=== PATIENT | male | born 1935 | race Caucasian/White ===

== ENCOUNTER 2017-03-03 03:40 | Inpatient (IN) | payer BC ==
[~2017-03-03] VITALS: Ht 172.7 cm; Wt 86.9 kg
[~2017-03-03 03:40] MED LIST: ASPI81TA3 PO; CARV12.579 PO; FURO40TA4 PO; HYDR-906 PO; METF1000 PO; POTA20TA PO; SIMV40TA7 PO
[2017-03-03] MEDS ORDERED: ASPIRIN 81 MG TAB PO ONE (05:00)
[2017-03-03] MEDS ORDERED: SOD CHLORIDE 0.9% 500 ML IV ONE (05:00)
[2017-03-03] MEDS ORDERED: LIDOCAINE/MYLANTA 40 ML BTL PO ONE (05:00)
--- NOTE | 2017-03-03 05:52 | RADRPT ---
PROCEDURE: XR Chest. CLINICAL INDICATION: Chest pain TECHNIQUE: A single AP view of the chest was obtained. COMPARISON: CR CHEST 01/01/2016; CR CHEST 10/05/2013; CR CHEST 09/04/2012; CR CHEST 08/31/2012 FINDINGS: There is a left subclavian single lead pacemaker AICD. Lung volumes are low with compressive changes and crowding of the central pulmonary vascular marking s with bibasilar atelectasis . No focal airspace opacity, pleural effusion or pneumothorax is seen. The cardiomediastinal silhouette is moderately enlarged. Calcifications are seen within the aortic arch. The osseous structures are unremarkable. IMPRESSION: 1. Low lung volumes with compressive changes and bibasilar atelectasis. No significant interval luis eduardo nge. 2. Moderate cardiomegaly and aortic atherosclerosis. 3. Left subclavian single lead pacemaker AICD. RPTAT: HH .Safia Molina MD, MD Date Time Electronically viewed and signed by .Safia Molina MD, on 03/03/2017 05:51 .G/
[2017-03-03 06:08] LABS: CALCIUM 9.6 mg/dl (8.4-10.2); CREATININE 1.34 mg/dl (0.61-1.24); POTASSIUM 4.6 mmol/L (3.5-5.1)
[2017-03-03 06:30] VITALS: TEMP 98.1
[2017-03-03] MEDS ORDERED: NITROGLYCERIN 2% 1 GM OINT PKT TD STA (06:39)
[2017-03-03] MEDS ORDERED: NITROGLYCERIN (SL) 0.4 MG TAB SL PRN (07:00)
[2017-03-03] MEDS ORDERED: INSU100I33 SC (07:07)
[2017-03-03] MEDS ORDERED: TAMS-14 PO (07:07)
[2017-03-03 07:31] LABS: BASOPHILS % 0.4 % (0.0-2.0); EOSINOPHILS # 0.3 10^3/ul (0.0-0.5); HEMATOCRIT 42.9 % (42.0-52.0); HEMOGLOBIN 14.2 g/dl (14.0-18.0); LYMPHOCYTES # 2.2 10^3/ul (0.8-2.9); LYMPHOCYTES % 28.1 % (15.0-51.0); MEAN CORPUSCULAR HEMOGLOBIN 29.8 pg (29.0-33.0); MEAN CORPUSCULAR HGB CONC 33.1 g/dl (32.0-37.0); MEAN CORPUSCULAR VOLUME 89.9 fl (82.0-101.0); MONOCYTE # 0.7 10^3/ul (0.3-0.9); MONOCYTES % 8.7 % (0.0-11.0); NEUTROPHIL # 4.6 10^3/ul (1.6-7.5); NEUTROPHILS % 58.5 % (39.0-77.0); PLATELET COUNT 148 10^3/UL (140-415); RED BLOOD COUNT 4.77 10^6/ul (4.70-6.10); RED CELL DISTRIBUTION WIDTH 12.4 % (11.5-14.5); WHITE BLOOD COUNT 7.8 10^3/ul (4.8-10.8)
[2017-03-03] MEDS ORDERED: ACETAMINOPHEN 325 MG TAB PO PRN (08:00)
[2017-03-03] MEDS ORDERED: ONDANSETRON 4 MG INJ IV PRN (08:00)
--- NOTE | 2017-03-03 09:02 | ERD ---
ER Documentation Chief Complaint Chief Complaint LEG CRAMPS/ABD PAIN X 2 DAYS, NOSE BLEEDING X 1 HR AGO HPI Patient is an 81-year-old male with coronary disease, hypertension, and diabetes who presents with chest pain and leg cramping. He has had chest pain on the left side for the past 3 days which comes and goes. He has also had bilateral leg cramping. He had a nosebleed that came this morning. His primary doctor is Dr. Johansen and his sole stapler welt is Dr. Self. ROS All systems reviewed and are negative except as per history of present illness. Medications Home Meds Active Scripts Hydrocodone/Acetaminophen ([place] 5-325 Tablet) 1 Each Tablet, 1 EACH PO Q6H, # 20 TAB Prov:YVAN TOLENTINO NP 01/03/16 Aspirin (Aspirin) 81 Mg Chew, 81 MG PO DAILY for 30 Days, #30 TAB Prov:JIM LI MD 01/02/16 Reported Medications Insulin Glargine,Hum.rec.anlog (Basaglar Kwikpen U-100) 100 Unit/1 Ml Insuln.pen , 36 UNIT SC DAILY 03/03/17 Tamsulosin Hcl* (Flomax*) 0.4 Mg Cap.er.24h, 0.4 MG PO HS, CAP 03/03/17 Potassium Chloride (K-Tab ER) 20 Meq Tablet.er, 20 MEQ PO BID, TAB 01/02/16 Simvastatin (Simvastatin) 40 Mg Tablet, 40 MG PO QHS, #30 TAB 01/02/16 Furosemide* (Furosemide*) 40 Mg Tablet, 40 MG PO BID, TAB 10/05/13 Carvedilol* (Carvedilol*) 12.5 Mg Tablet, 12.5 MG PO BID 01/12/12 Metformin Hcl* (Metformin Hcl*) 1,000 Mg Tablet, 1000 MG PO BID 01/12/12 Allergies Allergies: Coded Allergies: No Known Drug Allergies (Verified Allergy, Mild, 01/01/16) PMhx/Soc History of Surgery: Yes (cataract surgery, OU) Anesthesia Reaction: No Hx Neurological Disorder: No Hx Respiratory Disorders: No Hx Cardiac Disorders: Yes (HTN, heart attack w/ stent placement in 1999) Hx Psychiatric Problems: No Hx Miscellaneous Medical Probl: Yes (DM, gallstones) Hx Alcohol Use: No Hx Substance Use: No Hx Tobacco Use: Yes Smoking Status: Former smoker FmHx Family History: coronary disease Physical Exam Vitals Vital Signs Date Time Temp Pulse Resp B/P Pulse Ox O2 Delivery O2 Flow Rate FiO2 03/03/17 08:30 67 12 157/77 100 Room Air 03/03/17 06:30 98.1 11 159/84 100 Room Air 03/03/17 04:40 98.0 73 15 165/77 99 Room Air 03/03/17 03:44 97.5 78 20 192/77 100 Physical Exam Const: No acute distress Head: Atraumatic Eyes: Normal Conjunctiva ENT: Dried blood in the left nares Neck: Full range of motion..~ No meningismus. Resp: Clear to auscultation bilaterally Cardio: Regular rate and rhythm, no murmurs Abd: Soft, non tender, non distended. Normal bowel sounds Skin: No petechiae or rashes Back: No midline or flank tenderness Ext: No cyanosis, or edema Neur: Awake and alert Psych: Normal Mood and Affect Result Diagram: 03/03/17 0503 03/03/17 0503 Results 24 hrs Laboratory Tests Test 03/03/17 05:03 White Blood Count 7.810^3/ul Red Blood Count 4.7710^6/ul Hemoglobin 14.2g/dl Hematocrit 42.9% Mean Corpuscular Volume 89.9fl Mean Corpuscular Hemoglobin 29.8pg Mean Corpuscular Hemoglobin Concent 33.1g/dl Red Cell Distribution Width 12.4% Platelet Count 90950^3/UL Mean Platelet Volume 11.0fl Neutrophils % 58.5% Lymphocytes % 28.1% Monocytes % 8.7% Eosinophils % 4.0% Basophils % 0.4% Nucleated Red Blood Cells % 0.0/100WBC Neutrophils # 4.610^3/ul Lymphocytes # 2.210^3/ul Monocytes # 0.710^3/ul Eosinophils # 0.310^3/ul Basophils # 0.010^3/ul Nucleated Red Blood Cells # 0.010^3/ul Sodium Level 139mmol/L Potassium Level 4.6mmol/L Chloride Level 103mmol/L Carbon Dioxide Level 26mmol/L Anion Gap 15 Blood Urea Nitrogen 33mg/dl Creatinine 1.34mg/dl Glucose Level 260mg/dl Calcium Level 9.6mg/dl Troponin I 0.032ng/ml Current Medications Medications (Trade) Dose Ordered Sig/Shannan Route PRN Reason Start Time Stop Time Status Last Admin Dose Admin Aspirin (Aspirin) 324 mg ONCE ONCE PO 03/03/17 05:00 03/03/17 05:05 DC 03/03/17 05:18 Miscellaneous Medication 40 ml 40 ml ONCE ONCE PO 03/03/17 05:00 03/03/17 05:05 DC 03/03/17 05:18 Sodium Chloride (NS) 500 ml @ 500 mls/hr Q1H ONCE IV 03/03/17 05:00 03/03/17 05:59 DC 03/03/17 05:19 Nitroglycerin (Nitroglycerin 2% Oint) 1 inch ONCE STAT TD 03/03/17 06:39 03/03/17 06:40 DC 03/03/17 07:03 Nitroglycerin (Nitroglycerin (Sl Tab) 0.4 Mg) 1 tab Q5M UP TO 3 DOSES PRN SL CHEST PAIN 03/03/17 07:00 03/03/17 07:03 Ondansetron HCl (Zofran Inj) 4 mg ER BRIDGE PRN IV NAUSEA AND/OR VOMITING 03/03/17 08:00 03/04/17 07:59 Acetaminophen (Tylenol Tab) 650 mg ER BRIDGE PRN PO MILD PAIN/FEVER 03/03/17 08:00 03/04/17 07:59 Procedures/MDM EKG #1 read by me: Rate/Rhythm: First-degree AV block at a rate of 69 Intervals: Normal Impression: First-degree AV block with diffuse ST depression EKG #2 read by me: Rate/Rhythm: First-degree AV block at a rate of 72 Intervals: Normal Impression: First-degree AV block with diffuse ST depressions Chest x-ray negative for pneumonia or pneumothorax per radiology Patient is a 81-year-old male presents with chest pain and nosebleed. His nosebleed is stopped on its own. Given his age and risk factors though I am concerned about acute coronary syndrome. He has diffuse ST depressions on EKGs. I see no signs of STEMI at this time. The patient was given aspirin and nitroglycerin. He will be admitted to the care of Dr. Chowdary from the panel team to a telemetry bed. I doubt pneumonia, pneumothorax, pulmonary embolism, or aortic dissection at this time. Departure Diagnosis: Primary Impression: Chest pain Chest pain type: unspecified Qualified Code: R07.9 - Chest pain, unspecified type Additional Impression: Epistaxis Condition: INDERJIT Bates MD Mar 03, 2017 09:02
[2017-03-03 11:49] LABS: TROPONIN-I 0.018 ng/ml (0.00-0.12)
[2017-03-03 11:51] LABS: CK-MB 1.53 ng/ml (0.0-2.4)
--- NOTE | 2017-03-03 12:39 | HP ---
Date/Time of Note Date/Time of Note DATE: 03/03/17 TIME: 12:37 Assessment/Plan VTE Prophylaxis VTE Prophylaxis Intervention: LMWH Lines/Catheters IV Catheter Type (from Nrs): Saline Lock Assessment/Plan Assessment/Plan 1. CP r/o ACS 2. DM2: suboptimal control 3. HTN 4. CAD s/p Stent in the past 5. FLAKITA r/o CKD 6. s/p Pacemaker PLAN: Telemetry admission, trend cardiac enzymes, 2d echo if none recently and possible cardiology consult for stress test. check A1C and titrate hypoglycemic meds inhouse for optimal control oxygen and nitroglycerin therapy as needed. Daily aspirin if no allergy or bleeding risk. Get lipid profile, magnesium and TSH levels in am. Further interventions per clinical course provide supportive care HPI/ROS Admit Date/Time Admit Date/Time 03/03/17 Hx of Present Illness This is an 81-year-old male who presents to the emergency room with a 3 day history of intermittent midsternal chest pain.Patient denies fever or cough, He also denies palpitations. He had an episode of nosebleed this morning that has currently resolved. Denies abdominal pain, denies dysuria or hematuria. He does have chronic high blood pressure and diabetes, and is being admitted for ACS rule out. ROS 12 point review if systems was done and pertinent findings are as noted. PMH/Family/Social Past Medical History * htn * dm2 * dyslipidemia * hx of CAD s/p stent Past Surgical History * Cataract * PCI * Pacemaker Family History Significant Family History: no pertinent family hx Social History Alcohol Use: none Smoking Status: Former smoker Drug Use: none Exam/Review of Systems Vital Signs Vitals Vital Signs Date Time Temp Pulse Resp B/P Pulse Ox O2 Delivery O2 Flow Rate FiO2 03/03/17 10:10 66 17 142/77 100 Room Air 03/03/17 06:30 98.1 Exam Constitutional: alert, other (elderly), No distress Head: normocephalic Eyes: PERRL Neck: non-tender, supple Respiratory: clear to auscultation, diminished breath sounds Cardiovascular: regular rate and rhythm, No murmurs/extra sounds Gastrointestinal: bowel sounds, non-tender, soft Extremities: No edema Neurological: No focal weakness Labs Result Diagram: 03/03/17 0503 03/03/17 0503 Procedures Procedures Laboratory Tests Test 03/03/17 05:03 03/03/17 11:01 White Blood Count 7.810^3/ul Red Blood Count 4.7710^6/ul Hemoglobin 14.2g/dl Hematocrit 42.9% Mean Corpuscular Volume 89.9fl Mean Corpuscular Hemoglobin 29.8pg Mean Corpuscular Hemoglobin Concent 33.1g/dl Red Cell Distribution Width 12.4% Platelet Count 24803^3/UL Mean Platelet Volume 11.0fl Neutrophils % 58.5% Lymphocytes % 28.1% Monocytes % 8.7% Eosinophils % 4.0% Basophils % 0.4% Nucleated Red Blood Cells % 0.0/100WBC Neutrophils # 4.610^3/ul Lymphocytes # 2.210^3/ul Monocytes # 0.710^3/ul Eosinophils # 0.310^3/ul Basophils # 0.010^3/ul Nucleated Red Blood Cells # 0.010^3/ul Sodium Level 139mmol/L Potassium Level 4.6mmol/L Chloride Level 103mmol/L Carbon Dioxide Level 26mmol/L Anion Gap 15 Blood Urea Nitrogen 33mg/dl Creatinine 1.34mg/dl Glucose Level 260mg/dl Calcium Level 9.6mg/dl Troponin I 0.032ng/ml 0.018ng/ml Creatine Kinase 45IU/L Creatine Kinase Index 3.4 Creatinine Kinase MB (Mass) 1.53ng/ml Current Medications Medications (Trade) Dose Ordered Sig/Shannan Route PRN Reason Start Time Stop Time Status Last Admin Dose Admin Aspirin (Aspirin) 324 mg ONCE ONCE PO 03/03/17 05:00 03/03/17 05:05 DC 03/03/17 05:18 324 MG Miscellaneous Medication 40 ml 40 ml ONCE ONCE PO 03/03/17 05:00 03/03/17 05:05 DC 03/03/17 05:18 40 ML Sodium Chloride (NS) 500 ml @ 500 mls/hr Q1H ONCE IV 03/03/17 05:00 03/03/17 05:59 DC 03/03/17 05:19 500 MLS/HR Nitroglycerin (Nitroglycerin 2% Oint) 1 inch ONCE STAT TD 03/03/17 06:39 03/03/17 06:40 DC 03/03/17 07:03 1 INCH Nitroglycerin (Nitroglycerin (Sl Tab) 0.4 Mg) 1 tab Q5M UP TO 3 DOSES PRN SL CHEST PAIN 03/03/17 07:00 03/03/17 07:03 1 TAB Ondansetron HCl (Zofran Inj) 4 mg ER BRIDGE PRN IV NAUSEA AND/OR VOMITING 03/03/17 08:00 03/04/17 07:59 Acetaminophen (Tylenol Tab) 650 mg ER BRIDGE PRN PO MILD PAIN/FEVER 03/03/17 08:00 03/04/17 07:59 PROCEDURE: XR Chest. CLINICAL INDICATION: Chest pain TECHNIQUE: A single AP view of the chest was obtained. COMPARISON: CR CHEST 01/01/2016; CR CHEST 10/05/2013; CR CHEST 09/04/2012; CR CHEST 08/31/2012 FINDINGS: There is a left subclavian single lead pacemaker AICD. Lung volumes are low with compressive changes and crowding of the central pulmonary vascular markings with bibasilar atelectasis . No focal airspace opacity, pleural effusion or pneumothorax is seen. The cardiomediastinal silhouette is moderately enlarged. Calcifications are seen within the aortic arch. The osseous structures are unremarkable. IMPRESSION: 1. Low lung volumes with compressive changes and bibasilar atelectasis. No significant interval change. 2. Moderate cardiomegaly and aortic atherosclerosis. 3. Left subclavian single lead pacemaker AICD. RPTAT: HH .Safia Molina MD, MD Date Time Electronically viewed and signed by .Safia Molina MD, MD on 03/03/2017 05 :51 .G/ CC: NATHANAEL GOETZ BOLATITO M. Mar 03, 2017 12:39
[2017-03-03] MEDS ORDERED: GLUCOSE GEL 15 GRAM TUBE PO PRN ×2 (13:00)
[2017-03-03] MEDS ORDERED: GLUCOSE GEL 15 GRAM TUBE BUCCAL PRN (13:00)
[2017-03-03] MEDS ORDERED: GLUCAGON 1 MG INJ IM PRN (13:00)
[2017-03-03] MEDS ORDERED: DEXTROSE 50% 50 ML SYRINGE IV PRN ×2 (13:00)
[2017-03-03 13:36] VITALS: PULSE 76
[2017-03-03 13:39] VITALS: Ht 172.7 cm; Wt 86.9 kg
[2017-03-03 14:30] VITALS: BP 168/70; PULSE 87; RESP 18
[2017-03-03 15:48] VITALS: BP 145/72; RESP 20
[2017-03-03 16:06] VITALS: PULSE 69
--- NOTE | 2017-03-03 17:38 | RADRPT ---
Echocardiogram Report Patient Name: BRITTNEE LUIS Gender: Male Date: 1935 Study Date: 03-Mar-2017 Lime Trimmer: Tylor Constantino [facility] Location: 5551 Ref. Physician: KARISSA CASTRO Quality: Good Procedures: Transthoracic echocardiogram with complete 2D, M-Mode, and doppler examination. Indications: Chest Pain. 2D/M Mode Doppler Measurement Value Normal Ranges Measurement Value Normal Ranges LVIDd 2D 4.9 3.5 - 5.6 cm AV Peak Will 1.2 m/sec LVIDs 2D 3.0 2.1 - 4.1 cm AV Peak PG 5.3 mmHg LVPWd 2D 0.9 0.6 - 1.1 cm LVOT Peak Will 0.9 m/sec IVSd 2D 0.9 0.6 - 1.1 cm LVOT Peak PG 3.1 mmHg AoR Diam 2D 2.7 2.0 - 3.7 cm MV E Peak Will 1.0 m/sec EDV 2D 115.0 cm3 MV A Peak Will 0.9 m/sec ESV 2D 26.4 cm3 MV E/A 1.2 LA Dimen 2D 4.5 2.3 - 4.0 cm MV Decel Time [address] [place] 6 MV E/A 1.2 TR Peak Will 2.6 m/sec TR Peak PG 26.3 mmHg RVSP 34.0 mmHg Findings Left Ventricle: Normal left ventricular cavity size. Normal left ventricular wall thickness. Moderate global left ventricular systolic dysfunction. Ejection fraction is visually estimated at 35 %. Abnormal Diastolic Function. Right Ventricle: Normal right ventricular size. Normal right ventricular systolic function. Left Atrium: There is mild enlargement of left atrium. Right Atrium: The right atrium is normal in size. Mitral Valve: Mitral valve leaflets appear mildly thickened. Mild mitral annular calcification. Trace mitral regurgitation. Aortic Valve: Normal appearance of the aortic valve. No significant aortic stenosis or insufficiency. Tricuspid Valve: Normal appearance of the tricuspid valve. Estimated peak PA systolic pressure 34 mmHg. There is mild to moderate tricuspid regurgitation. Pulmonic Valve: Normal pulmonic valve appearance. Pericardium: Normal pericardium with no significant pericardial effusion. Aorta: Normal aortic root. IVC: Dilated IVC with respiratory collapse consistent with elevated right atrial pressure. Conclusions Normal left ventricular cavity size. Normal left ventricular wall thickness. Moderate global left ventricular systolic dysfunction. Ejection fraction is visually estimated at 35 %. Abnormal Diastolic Function. Mitral valve leaflets appear mildly thickened. Mild mitral annular calcification. Trace mitral regurgitation. Normal appearance of the aortic valve. No significant aortic stenosis or insufficiency. Normal appearance of the tricuspid valve. Estimated peak PA systolic pressure 34 mmHg. There is mild to moderate tricuspid regurgitation. Electronically Signed By: Venkatesh Ward 03-Mar-2017 17:37:37 -0800 Patient Name: BRITTNEE LUIS Study Date: 03-Mar-[id number]
[2017-03-03 17:47] LABS: TROPONIN-I 0.02 ng/ml (0.00-0.12)
[2017-03-03 17:57] LABS: CK-MB 1.34 ng/ml (0.0-2.4)
[2017-03-03] MEDS: INSULIN ASPART [NOVOLOG] 3 ML PEN SC SCH ×2 (18:28→20:36)
[2017-03-03 20:10] VITALS: BP 176/80; PULSE 67; RESP 20
[2017-03-03 20:21] LABS: BARBITURATES Negative (NEGATIVE); BENZODIAZEPINES Negative (NEGATIVE); CANNABINOIDS Negative (NEGATIVE); COCAINE Negative (NEGATIVE); OPIATES Negative (NEGATIVE)
[2017-03-04] VITALS (13 sets, daily range): BP systolic 120–176; BP diastolic 60–87; PULSE 54–75; RESP 16–20
[2017-03-04] MEDS: ACCU-CHEK XX SCH (02:00)
[2017-03-04 08:02] LABS: BASOPHILS % 0.5 % (0.0-2.0); EOSINOPHILS # 0.3 10^3/ul (0.0-0.5); EOSINOPHILS % 4.5 % (0.0-7.0); HEMOGLOBIN 14.1 g/dl (14.0-18.0); LYMPHOCYTES # 2.3 10^3/ul (0.8-2.9); LYMPHOCYTES % 34.9 % (15.0-51.0); MEAN CORPUSCULAR HGB CONC 32.8 g/dl (32.0-37.0); MEAN CORPUSCULAR VOLUME 91.5 fl (82.0-101.0); MEAN PLATELET VOLUME 10.6 fl (7.4-10.4); MONOCYTE # 0.7 10^3/ul (0.3-0.9); MONOCYTES % 9.8 % (0.0-11.0); NEUTROPHIL # 3.3 10^3/ul (1.6-7.5); NEUTROPHILS % 50.1 % (39.0-77.0); PLATELET COUNT 143 10^3/UL (140-415); RED CELL DISTRIBUTION WIDTH 12.6 % (11.5-14.5); WHITE BLOOD COUNT 6.6 10^3/ul (4.8-10.8)
[2017-03-04] MEDS: INSULIN ASPART [NOVOLOG] 3 ML PEN SC SCH ×4 (08:06→20:25)
[2017-03-04] MEDS ORDERED: hydrALAzine 20 MG INJ IV ONE (08:30)
[2017-03-04] MEDS ORDERED: ACETAMINOPHEN 325 MG TAB PO ONE (08:30)
[2017-03-04 08:34] LABS: ALBUMIN 3.8 g/dl (3.3-4.9); BILIRUBIN,INDIRECT 1.3 mg/dl (0-1.1); BILIRUBIN,TOTAL 1.3 mg/dl (0.2-1.3); CALCIUM 9.8 mg/dl (8.4-10.2); CREATININE 1.35 mg/dl (0.61-1.24); MAGNESIUM 2.1 mg/dl (1.7-2.5); POTASSIUM 4.4 mmol/L (3.5-5.1); TOTAL PROTEIN 7.3 g/dl (6.1-8.1)
[2017-03-04] MEDS ORDERED: INFLUENZA VIRUS VACCINE 0.5 ML SYG IM* ONE (10:00)
[2017-03-04] MEDS: INSULIN GLARGINE [LANtus] 3 ML PEN SC SCH (12:29)
--- NOTE | 2017-03-04 13:30 | PN ---
Date/Time of Note Date/Time of Note DATE: 03/04/17 TIME: 13:29 Assessment/Plan VTE Prophylaxis VTE Prophylaxis Intervention: LMWH Lines/Catheters IV Catheter Type (from Nrsg): Saline Lock Assessment/Plan Assessment/Plan 1. CP : ACS ruled out, CP resolved 2. DM2: suboptimal control 3. HTN: suboptimal control 4. CAD s/p Stent in the past 5. FLAKITA r/o CKD 6. s/p Pacemaker 7. Chronic Cardiomyopathy likely ischemic, EF 35% PLAN: Continue current regimen, await cardiology official recommendations, resume and titrate home insulin as necessary Resume home antihypertensives Continue supportive care Further interventions per clinical course Subjective 24 Hr Interval Summary Free Text/Dictation Patient looks and feels much better than yesterday Exam/Review of Systems Vital Signs Vitals Vital Signs Date Time Temp Pulse Resp B/P Pulse Ox O2 Delivery O2 Flow Rate FiO2 03/04/17 12:15 69 03/04/17 11:24 98.0 16 148/68 97 03/03/17 14:30 Room Air Intake and Output 03/03/17 03/03/17 03/04/17 15:00 23:00 07:00 Intake Total 500 ml 250 ml 500 ml Balance 500 ml 250 ml 500 ml Exam Constitutional: alert, oriented Head: normocephalic Eyes: PERRL Respiratory: diminished breath sounds Cardiovascular: murmurs/extra sounds, regular rate and rhythm Gastrointestinal: bowel sounds, non-tender, soft Extremities: No edema Neurological: lethargic Results Result Diagram: 03/04/17 0743 03/04/17 0743 Results 24 hrs Laboratory Tests Test 03/03/17 16:52 03/03/17 17:00 03/03/17 20:24 03/04/17 02:34 Bedside Glucose 210 314 H 209 Creatine Kinase 47 Creatine Kinase Index 2.9 Creatinine Kinase MB (Mass) 1.34 Troponin I 0.020 Urine Opiates Screen Negative Urine Barbiturates Negative Urine Amphetamines Screen Negative Urine Benzodiazepines Screen Negative Urine Cocaine Screen Negative Urine Cannabinoids Negative Test 03/04/17 07:43 03/04/17 07:51 03/04/17 12:21 White Blood Count 6.6 Red Blood Count 4.70 Hemoglobin 14.1 Hematocrit 43.0 Mean Corpuscular Volume 91.5 Mean Corpuscular Hemoglobin 30.0 Mean Corpuscular Hemoglobin Concent 32.8 Red Cell Distribution Width 12.6 Platelet Count 143 Mean Platelet Volume 10.6 H Neutrophils % 50.1 Lymphocytes % 34.9 Monocytes % 9.8 Eosinophils % 4.5 Basophils % 0.5 Nucleated Red Blood Cells % 0.0 Neutrophils # 3.3 Lymphocytes # 2.3 Monocytes # 0.7 Eosinophils # 0.3 Basophils # 0.0 Nucleated Red Blood Cells # 0.0 Sodium Level 143 Potassium Level 4.4 Chloride Level 105 Carbon Dioxide Level 29 Anion Gap 13 Blood Urea Nitrogen 26 H Creatinine 1.35 H Glucose Level 152 # Hemoglobin A1c 13.1 H Calcium Level 9.8 Magnesium Level 2.1 Total Bilirubin 1.3 Direct Bilirubin 0.00 Indirect Bilirubin 1.3 H Aspartate Amino Transf (AST/SGOT) 34 Alanine Aminotransferase (ALT/SGPT) 64 Alkaline Phosphatase 76 Total Protein 7.3 Albumin 3.8 Bedside Glucose 151 336 H Medications Medications Current Medications Diagnostic Test (Pha) (Accu-Chek) 1 ea 02 XX ; Start 03/04/17 at 02:00 Miscellaneous Information 1 ea NOTE XX ; Start 03/03/17 at 13:00 Glucose (Glutose) 15 gm Q15M PRN PO DECREASED GLUCOSE; Start 03/03/17 at 13:00 Glucose (Glutose) 22.5 gm Q15M PRN PO DECREASED GLUCOSE; Start 03/03/17 at 13: 00 Dextrose (D50w Syringe) 25 ml Q15M PRN IV DECREASED GLUCOSE; Start 03/03/17 at 13:00 Dextrose (D50w Syringe) 50 ml Q15M PRN IV DECREASED GLUCOSE; Start 03/03/17 at 13:00 Glucagon (Glucagen) 1 mg Q15M PRN IM DECREASED GLUCOSE; Start 03/03/17 at 13: 00 Glucose (Glutose) 15 gm Q15M PRN BUCCAL DECREASED GLUCOSE; Start 03/03/17 at 13:00 Carvedilol (Coreg) 12.5 mg BID PO Last administered on 03/04/17 12:27; Admin Dose 12.5 MG; Start 03/04/17 at 11:30 Insulin Glargine (Lantus) 22 unit DAILY SC Last administered on 03/04/17 12: 29; Admin Dose 22 UNIT; Start 03/04/17 at 11:30 Tamsulosin HCl (Flomax) 0.4 mg HS PO ; Start 03/04/17 at 21:00 Hydralazine HCl (Apresoline) 10 mg Q6H PRN IV SBP>160MMHG; Start 03/04/17 at 11:30 Procedures Procedures Echocardiogram Report Patient Name: BRITTNEE LUIS Gender: Male Date: 1935 Study Date: 03-Mar-2017 Paper Grader: Tylor Constantino [facility]CS Location: [id number] Ref. Physician: KARISSA CASTRO Quality: Good Procedures: Transthoracic echocardiogram with complete 2D, M-Mode, and doppler examination. Indications: Chest Pain. 2D/M Mode Doppler Measurement Value Normal Ranges Measurement Value Normal Ranges LVIDd 2D 4.9 3.5 - 5.6 cm AV Peak Will 1.2 m/sec LVIDs 2D 3.0 2.1 - 4.1 cm AV Peak PG 5.3 mmHg LVPWd 2D 0.9 0.6 - 1.1 cm LVOT Peak Will 0.9 m/sec IVSd 2D 0.9 0.6 - 1.1 cm LVOT Peak PG 3.1 mmHg AoR Diam 2D 2.7 2.0 - 3.7 cm MV E Peak Will 1.0 m/sec EDV 2D 115.0 cm3 MV A Peak Will 0.9 m/sec ESV 2D 26.4 cm3 MV E/A 1.2 LA Dimen 2D 4.5 2.3 - 4.0 cm MV Decel Time 175 msec MV Decel [place] 6 MV E/A 1.2 TR Peak Will 2.6 m/sec TR Peak PG 26.3 mmHg RVSP 34.0 mmHg Findings Left Ventricle: Normal left ventricular cavity size. Normal left ventricular wall thickness. Moderate global left ventricular systolic dysfunction. Ejection fraction is visually estimated at 35 %. Abnormal Diastolic Function. Right Ventricle: Normal right ventricular size. Normal right ventricular systolic function. Left Atrium: There is mild enlargement of left atrium. Right Atrium: The right atrium is normal in size. Mitral Valve: Mitral valve leaflets appear mildly thickened. Mild mitral annular calcification. Trace mitral regurgitation. Aortic Valve: Normal appearance of the aortic valve. No significant aortic stenosis or insufficiency. Tricuspid Valve: Normal appearance of the tricuspid valve. Estimated peak PA systolic pressure 34 mmHg. There is mild to moderate tricuspid regurgitation. Pulmonic Valve: Normal pulmonic valve appearance. Pericardium: Normal pericardium with no significant pericardial effusion. Aorta: Normal aortic root. IVC: Dilated IVC with respiratory collapse consistent with elevated right atrial pressure. Conclusions Normal left ventricular cavity size. Normal left ventricular wall thickness. Moderate global left ventricular systolic dysfunction. Ejection fraction is visually estimated at 35 %. Abnormal Diastolic Function. Mitral valve leaflets appear mildly thickened. Mild mitral annular calcification. Trace mitral regurgitation. Normal appearance of the aortic valve. No significant aortic stenosis or insufficiency. Normal appearance of the tricuspid valve. Estimated peak PA systolic pressure 34 mmHg. There is mild to moderate tricuspid regurgitation. Electronically Signed By: Venkatesh Ward 03-Mar-2017 17:37:37 -0800 Patient Name: BRITTNEE LUSI Study Date: 03-Mar-[id number] KARISSA CASTRO Mar 04, 2017 13:30
[2017-03-04] MEDS: TAMSULOSIN (SR) 0.4 MG CAP PO SCH (20:17)
[2017-03-04] MEDS ORDERED: ZOLPIDEM 5 MG TAB PO ONE (22:30)
[2017-03-04] MEDS: GUAIFENESIN 20 MG/ML 5ML CUP PO PRN (23:37)
[2017-03-04] MEDS: hydrALAzine 20 MG INJ IV PRN (23:44)
[2017-03-05] VITALS (13 sets, daily range): BP systolic 111–178; BP diastolic 54–94; PULSE 75–93; RESP 18
[2017-03-05] MEDS: ACCU-CHEK XX SCH (02:55)
[2017-03-05 07:53] LABS: CALCIUM 9.7 mg/dl (8.4-10.2); CREATININE 1.18 mg/dl (0.61-1.24); POTASSIUM 4.3 mmol/L (3.5-5.1)
[2017-03-05 08:01] LABS: BASOPHILS % 0.3 % (0.0-2.0); EOSINOPHILS # 0.2 10^3/ul (0.0-0.5); EOSINOPHILS % 2.7 % (0.0-7.0); HEMATOCRIT 41.9 % (42.0-52.0); HEMOGLOBIN 14.1 g/dl (14.0-18.0); LYMPHOCYTES # 1.2 10^3/ul (0.8-2.9); LYMPHOCYTES % 16.6 % (15.0-51.0); MEAN CORPUSCULAR HEMOGLOBIN 30.3 pg (29.0-33.0); MEAN CORPUSCULAR HGB CONC 33.7 g/dl (32.0-37.0); MEAN CORPUSCULAR VOLUME 90.1 fl (82.0-101.0); MEAN PLATELET VOLUME 10.5 fl (7.4-10.4); MONOCYTE # 0.7 10^3/ul (0.3-0.9); MONOCYTES % 9.3 % (0.0-11.0); NEUTROPHIL # 5.3 10^3/ul (1.6-7.5); NEUTROPHILS % 70.8 % (39.0-77.0); PLATELET COUNT 135 10^3/UL (140-415); RED BLOOD COUNT 4.65 10^6/ul (4.70-6.10); RED CELL DISTRIBUTION WIDTH 12.7 % (11.5-14.5); WHITE BLOOD COUNT 7.5 10^3/ul (4.8-10.8)
[2017-03-05] MEDS: GUAIFENESIN 20 MG/ML 5ML CUP PO PRN ×3 (08:12→21:39)
[2017-03-05] MEDS: INSULIN GLARGINE [LANtus] 3 ML PEN SC SCH (08:14)
[2017-03-05] MEDS: INSULIN ASPART [NOVOLOG] 3 ML PEN SC SCH ×4 (08:15→20:33)
--- NOTE | 2017-03-05 12:27 | CONS ---
Date/Time of Note Date/Time of Note DATE: 03/05/17 TIME: 12:16 Assessment/Plan Assessment/Plan Additional Assessment/Plan Abdominal and chest discomfort Cough with subjective fevers and chills Cardiomyopathy with ejection fraction 35% with history of AICD CAD with distant history of PCI Hypertension Tricuspid valve regurgitation Renal dysfunction Paroxysmal atrial fibrillation, previously on Eliquis -Patient with symptoms of abdominal discomfort which she describes as sharp discomfort at times and bloating like sensation which resolved after medication in the emergency room. He thinks it was a liquid medication, and review of orders, it appears this was the GI cocktail. He denies any further symptoms of abdominal discomfort or chest discomfort but complaining of cough. Serial cardiac enzymes have remained negative, echocardiogram with no significant change. Patient's symptoms are not with exertion or activity and have since resolved. Patient main complaint currently is his cough. Furthermore, patient is on Eliquis and I assume this has been held secondary to nosebleed. Given no further bleeding, would restart if no contraindication. Consultation Date/Type/Reason Admit Date/Time 03/03/17 Type of Consultation: cv Reason for Consultation Cardiac evaluation Hx of Present Illness This is an 81-year-old male past medical history of coronary artery disease with PCI many years ago, cardia myopathy with history of AICD, paroxysmal atrial fibrillation on anticoagulation who presents with multiple complaints. Patient complaining of a chest discomfort. When I asked him to point where, he points to his mid abdomen region. This discomfort feels stinging like as well as bloated and gassy. He denies any shortness of breath associated with this. He does also complain of nonproductive cough over the past 2 days and intermittent chills and subjective fevers. He also complains of nosebleed at the time of his admission. Exertion did not improve or worsen his abdominal symptoms. He denies any dizziness or lightheadedness, palpitations. He denies any further abdominal discomfort since his admission. He states he was given a medication in the emergency room and since then, has had no further symptoms. His cough though was still present. 12 point review of systems was performed with all pertinent positives and negatives mentioned above and all else is negative Past Medical History Paroxysmal atrial fibrillation Medical History: congestive heart failure, coronary artery disease, high cholesterol, hypertension Past Surgical History AICD Past Surgical Hx: angioplasty Family History Significant Family History: no pertinent family hx Social History Alcohol Use: none Smoking Status: Never smoker Drug Use: none Exam/Review of Systems Vital Signs Vitals Vital Signs Date Time Temp Pulse Resp B/P Pulse Ox O2 Delivery O2 Flow Rate FiO2 03/05/17 11:39 98.5 92 18 176/81 100 03/03/17 14:30 Room Air Intake and Output 03/04/17 03/04/17 03/05/17 14:59 22:59 06:59 Intake Total 850 ml 500 ml Output Total 3 ml Balance 847 ml 500 ml Exam Coughing throughout examination, no dyspnea with speaking Constitutional: alert, oriented, well developed Head: normocephalic Respiratory: other (Coarse breath sounds bilaterally, no wheezing) Cardiovascular: other (S1-S2 heard), regular rate and rhythm Gastrointestinal: bowel sounds, soft, tender (In the epigastric region) Extremities: edema (Trace) Results Result Diagram: 03/05/17 0638 03/05/17 0629 Results 24 hrs Laboratory Tests Test 03/04/17 12:21 03/04/17 18:15 03/04/17 20:21 03/05/17 02:35 Bedside Glucose 336 H 312 H 262 H 118 Test 03/05/17 06:29 03/05/17 06:38 03/05/17 08:04 03/05/17 11:49 Sodium Level 139 Potassium Level 4.3 Chloride Level 106 Carbon Dioxide Level 23 Anion Gap 14 Blood Urea Nitrogen 24 H Creatinine 1.18 Glucose Level 150 Calcium Level 9.7 White Blood Count 7.5 Red Blood Count 4.65 L Hemoglobin 14.1 Hematocrit 41.9 L Mean Corpuscular Volume 90.1 Mean Corpuscular Hemoglobin 30.3 Mean Corpuscular Hemoglobin Concent 33.7 Red Cell Distribution Width 12.7 Platelet Count 135 L Mean Platelet Volume 10.5 H Neutrophils % 70.8 Lymphocytes % 16.6 Monocytes % 9.3 Eosinophils % 2.7 Basophils % 0.3 Nucleated Red Blood Cells % 0.0 Neutrophils # 5.3 Lymphocytes # 1.2 Monocytes # 0.7 Eosinophils # 0.2 Basophils # 0.0 Nucleated Red Blood Cells # 0.0 Bedside Glucose 154 236 H Medications Medications Current Medications Diagnostic Test (Pha) (Accu-Chek) 1 ea 02 XX Last administered on 03/05/17t 02 :55; Admin Dose 1 EA; Start 03/04/17 at 02:00 Miscellaneous Information 1 ea NOTE XX ; Start 03/03/17 at 13:00 Glucose (Glutose) 15 gm Q15M PRN PO DECREASED GLUCOSE; Start 03/03/17 at 13:00 Glucose (Glutose) 22.5 gm Q15M PRN PO DECREASED GLUCOSE; Start 03/03/17 at 13: 00 Dextrose (D50w Syringe) 25 ml Q15M PRN IV DECREASED GLUCOSE; Start 03/03/17 at 13:00 Dextrose (D50w Syringe) 50 ml Q15M PRN IV DECREASED GLUCOSE; Start 03/03/17 at 13:00 Glucagon (Glucagen) 1 mg Q15M PRN IM DECREASED GLUCOSE; Start 03/03/17 at 13: 00 Glucose (Glutose) 15 gm Q15M PRN BUCCAL DECREASED GLUCOSE; Start 03/03/17 at 13:00 Carvedilol (Coreg) 12.5 mg BID PO Last administered on 03/05/17 08:13; Admin Dose 12.5 MG; Start 03/04/17 at 11:30 Insulin Glargine (Lantus) 22 unit DAILY SC Last administered on 03/05/17 08: 14; Admin Dose 22 UNIT; Start 03/04/17 at 11:30 Tamsulosin HCl (Flomax) 0.4 mg HS PO Last administered on 03/04/17 20:17; Admin Dose 0.4 MG; Start 03/04/17 at 21:00 Hydralazine HCl (Apresoline) 10 mg Q6H PRN IV SBP>160MMHG Last administered on 03/04/17 23:44; Admin Dose 10 MG; Start 03/04/17 at 11:30 Guaifenesin (Robitussin Liquid Cup) 300 mg Q6H PRN PO COUGH Last administered on 03/05/17 08:12; Admin Dose 300 MG; Start 03/04/17 at 22:30 Procedures Procedures ECG sinus rhythm at 72 bpm, first-degree AV block with OR interval 290 ms, left ventricular hypertrophy, inferior Q waves, nonspecific ST abnormalities Marcin Mchugh DO Mar 05, 2017 12:26
[2017-03-05] MEDS ORDERED: ALBUTEROL 0.083% (NEB) 2.5 MG/3 ML AMP HHN STA (12:38)
--- NOTE | 2017-03-05 13:55 | PN ---
Date/Time of Note Date/Time of Note DATE: 03/05/17 TIME: 13:48 Assessment/Plan VTE Prophylaxis VTE Prophylaxis Intervention: other (eliquis) Lines/Catheters IV Catheter Type (from Nrsg): Saline Lock Assessment/Plan Assessment/Plan 1. CP : ACS ruled out, CP resolved 2. DM2: Improved control 3. HTN: Still suboptimal control 4. CAD s/p Stent in the past 5. FLAKITA : resolved 6. s/p AICD 7. Chronic Cardiomyopathy likely ischemic, EF 35% 8. New cough with subjective fevers and chills 9. Paroxysmal atrial fibrillation, on Eliquis s/p transient nose bleed, now resolved PLAN: Will give breathing treatments for cough, abx for bronchitis, Add 2nd antihypertensive and increase dose of coreg antitussives Continue supportive care Further interventions per clinical course Subjective 24 Hr Interval Summary Free Text/Dictation coughing a lot. no more epigastric pain. Exam/Review of Systems Vital Signs Vitals Vital Signs Date Time Temp Pulse Resp B/P Pulse Ox O2 Delivery O2 Flow Rate FiO2 03/05/17 12:55 89 03/05/17 11:39 98.5 18 176/81 100 03/03/17 14:30 Room Air Intake and Output 03/04/17 03/04/17 03/05/17 15:00 23:00 07:00 Intake Total 850 ml 500 ml Output Total 3 ml Balance 847 ml 500 ml Exam Constitutional: alert, other (elderly), anxious Head: normocephalic Eyes: PERRL Neck: non-tender, supple Respiratory: clear to auscultation, diminished breath sounds, seems cough is mainly upper airway. Cardiovascular: regular rate and rhythm, No murmurs/extra sounds Gastrointestinal: bowel sounds, non-tender, soft Extremities: No edema Neurological: No focal weakness Results Result Diagram: 03/05/17 0638 03/05/17 0629 Results 24 hrs Laboratory Tests Test 03/04/17 18:15 03/04/17 20:21 03/05/17 02:35 03/05/17 06:29 Bedside Glucose 312 H 262 H 118 Sodium Level 139 Potassium Level 4.3 Chloride Level 106 Carbon Dioxide Level 23 Anion Gap 14 Blood Urea Nitrogen 24 H Creatinine 1.18 Glucose Level 150 Calcium Level 9.7 Test 03/05/17 06:38 03/05/17 08:04 03/05/17 11:49 White Blood Count 7.5 Red Blood Count 4.65 L Hemoglobin 14.1 Hematocrit 41.9 L Mean Corpuscular Volume 90.1 Mean Corpuscular Hemoglobin 30.3 Mean Corpuscular Hemoglobin Concent 33.7 Red Cell Distribution Width 12.7 Platelet Count 135 L Mean Platelet Volume 10.5 H Neutrophils % 70.8 Lymphocytes % 16.6 Monocytes % 9.3 Eosinophils % 2.7 Basophils % 0.3 Nucleated Red Blood Cells % 0.0 Neutrophils # 5.3 Lymphocytes # 1.2 Monocytes # 0.7 Eosinophils # 0.2 Basophils # 0.0 Nucleated Red Blood Cells # 0.0 Bedside Glucose 154 236 H Medications Medications Current Medications Diagnostic Test (Pha) (Accu-Chek) 1 ea 02 XX Last administered on 03/05/17 02 :55; Admin Dose 1 EA; Start 03/04/17 at 02:00 Miscellaneous Information 1 ea NOTE XX ; Start 03/03/17 at 13:00 Glucose (Glutose) 15 gm Q15M PRN PO DECREASED GLUCOSE; Start 03/03/17 at 13:00 Glucose (Glutose) 22.5 gm Q15M PRN PO DECREASED GLUCOSE; Start 03/03/17 at 13: 00 Dextrose (D50w Syringe) 25 ml Q15M PRN IV DECREASED GLUCOSE; Start 03/03/17 at 13:00 Dextrose (D50w Syringe) 50 ml Q15M PRN IV DECREASED GLUCOSE; Start 03/03/17 at 13:00 Glucagon (Glucagen) 1 mg Q15M PRN IM DECREASED GLUCOSE; Start 03/03/17 at 13: 00 Glucose (Glutose) 15 gm Q15M PRN BUCCAL DECREASED GLUCOSE; Start 03/03/17 at 13:00 Carvedilol (Coreg) 12.5 mg BID PO Last administered on 03/05/17 08:13; Admin Dose 12.5 MG; Start 03/04/17 at 11:30 Insulin Glargine (Lantus) 22 unit DAILY SC Last administered on 03/05/17 08: 14; Admin Dose 22 UNIT; Start 03/04/17 at 11:30 Tamsulosin HCl (Flomax) 0.4 mg HS PO Last administered on 03/04/17 20:17; Admin Dose 0.4 MG; Start 03/04/17 at 21:00 Hydralazine HCl (Apresoline) 10 mg Q6H PRN IV SBP>160MMHG Last administered on 03/04/17 23:44; Admin Dose 10 MG; Start 03/04/17 at 11:30 Guaifenesin (Robitussin Liquid Cup) 300 mg Q6H PRN PO COUGH Last administered on 03/05/17 08:12; Admin Dose 300 MG; Start 03/04/17 at 22:30 Apixaban (Eliquis) 2.5 mg BID PO ; Start 03/05/17 at 21:00 KARISSA CASTRO Mar 05, 2017 13:55
[2017-03-05] MEDS: LISINOPRIL 20 MG TAB PO SCH (15:13)
[2017-03-05] MEDS ORDERED: CEFTRIAXONE 1 GM/50 ML (PMX) 50 ML IVPB ONE (15:30)
[2017-03-05] MEDS ORDERED: AZITHROMYCIN 250 MG TAB PO ONE (15:30)
[2017-03-05] MEDS: hydrALAzine 20 MG INJ IV PRN (16:11)
[2017-03-05] MEDS: ACETAMINOPHEN 325 MG TAB PO PRN (16:11)
--- NOTE | 2017-03-05 16:59 | RADRPT ---
PROCEDURE: Chest radiograph CLINICAL INDICATION: Cough. COMPARISON: Radiograph 01/01/2016. TECHNIQUE: Single frontal chest radiograph. FINDINGS: Motion degrades image quality on the lateral view. Implantable cardioverter defibrillator in the left chest with single lead in the right ventricle. The lungs are clear. No pleural effusion or focal parenchymal opacity. Cardiomegaly. Aortic atherosclerosis. No suspicious bone lesion. IMPRESSION: 1. No acute abnormality. 2. Cardiomegaly. RPTAT: PP Physician Noah Date Time Electronically viewed and signed by Physician Noah on 03/05/2017 16:39 LG/
[2017-03-05] MEDS ORDERED: BISACODYL (EC) 5 MG TAB PO ONE (17:00)
[2017-03-05] MEDS: TAMSULOSIN (SR) 0.4 MG CAP PO SCH (20:29)
[2017-03-05] MEDS: APIXABAN 5 MG TABLET PO SCH (20:29)
[2017-03-06] VITALS (13 sets, daily range): BP systolic 82–154; BP diastolic 48–77; PULSE 64–80; RESP 18–20
[2017-03-06] MEDS: ACETAMINOPHEN 325 MG TAB PO PRN ×3 (00:10→20:37)
[2017-03-06 01:31] LABS: ADD UMIC YES; UR ASCORBIC ACID NEGATIVE (NEGATIVE); UR BILIRUBIN (Dip) NEGATIVE (NEGATIVE); UR BLOOD (Dip) NEGATIVE (NEGATIVE); UR CLARITY CLEAR (CLEAR); UR COLOR YELLOW (YELLOW); UR GLUCOSE (Dip) NEGATIVE (NEGATIVE); UR KETONES (Dip) NEGATIVE (NEGATIVE); UR LEUKOCYTE ESTERASE (Dip) NEGATIVE Leu/ul (NEGATIVE); UR NITRITE (Dip) NEGATIVE (NEGATIVE); UR RBC 1 /HPF (0-5); UR SPECIFIC GRAVITY (Dip) 1.017 (1.003-1.030); UR TOTAL PROTEIN (Dip) 2+ mg/dl (NEGATIVE); UR UROBILINOGEN (Dip) NEGATIVE (NEGATIVE)
[2017-03-06] MEDS: ACCU-CHEK XX SCH (02:00)
[2017-03-06] MEDS: ALBUTEROL/IPRATROPIUM (NEB) 3 ML AMP HHN PRN ×2 (02:28→20:54)
[2017-03-06] MEDS: APIXABAN 5 MG TABLET PO SCH ×2 (08:35→20:35)
[2017-03-06] MEDS: LISINOPRIL 20 MG TAB PO SCH (08:36)
[2017-03-06] MEDS: AZITHROMYCIN 250 MG TAB PO SCH (08:36)
[2017-03-06] MEDS: INSULIN GLARGINE [LANtus] 3 ML PEN SC SCH (08:45)
[2017-03-06] MEDS: INSULIN ASPART [NOVOLOG] 3 ML PEN SC SCH ×6 (08:45→20:37)
[2017-03-06] MEDS: GUAIFENESIN 20 MG/ML 5ML CUP PO PRN ×2 (08:52→22:12)
[2017-03-06 08:57] LABS: BASOPHILS % 0.1 % (0.0-2.0); EOSINOPHILS # 0.1 10^3/ul (0.0-0.5); EOSINOPHILS % 0.6 % (0.0-7.0); HEMATOCRIT 41.9 % (42.0-52.0); HEMOGLOBIN 13.8 g/dl (14.0-18.0); LYMPHOCYTES # 1.8 10^3/ul (0.8-2.9); LYMPHOCYTES % 22.7 % (15.0-51.0); MEAN CORPUSCULAR HEMOGLOBIN 29.9 pg (29.0-33.0); MEAN CORPUSCULAR HGB CONC 32.9 g/dl (32.0-37.0); MEAN CORPUSCULAR VOLUME 90.7 fl (82.0-101.0); MEAN PLATELET VOLUME 10.3 fl (7.4-10.4); MONOCYTE # 0.8 10^3/ul (0.3-0.9); MONOCYTES % 10.6 % (0.0-11.0); NEUTROPHIL # 5.2 10^3/ul (1.6-7.5); NEUTROPHILS % 65.6 % (39.0-77.0); PLATELET COUNT 129 10^3/UL (140-415); RED BLOOD COUNT 4.62 10^6/ul (4.70-6.10); RED CELL DISTRIBUTION WIDTH 13.2 % (11.5-14.5); WHITE BLOOD COUNT 7.9 10^3/ul (4.8-10.8)
[2017-03-06 09:29] LABS: CALCIUM 8.7 mg/dl (8.4-10.2); CREATININE 1.67 mg/dl (0.61-1.24); POTASSIUM 4.5 mmol/L (3.5-5.1)
--- NOTE | 2017-03-06 11:59 | PN ---
Date/Time of Note Date/Time of Note DATE: 03/06/17 TIME: 11:51 Assessment/Plan VTE Prophylaxis VTE Prophylaxis Intervention: other (eliquis) Lines/Catheters IV Catheter Type (from Nrsg): Saline Lock Assessment/Plan Assessment/Plan 1. CP : ACS ruled out, CP resolved 2. DM2: Improved control 3. HTN: controlled 4. CAD s/p Stent in the past 5. CKD 6. s/p AICD 7. Chronic Cardiomyopathy likely ischemic, EF 35% 8. Acute Bronchitis with cough and fever 9. Paroxysmal atrial fibrillation, on Eliquis s/p transient nose bleed, now resolved PLAN: Continue current abx and HTN and DM regimen Still has high BS levels during the day, will add premeal and continue to hold metformin for now Re: cough and fever, CXR clear and urine is not suggestive of a UTI / influenza screen ordered and pending Continue supportive care / renally dose all meds appreciate cardiology consult Further interventions per clinical course Subjective 24 Hr Interval Summary Free Text/Dictation patient developed fever last night Still coughing Exam/Review of Systems Vital Signs Vitals Vital Signs Date Time Temp Pulse Resp B/P Pulse Ox O2 Delivery O2 Flow Rate FiO2 03/06/17 08:11 78 03/06/17 07:47 99.1 18 140/67 97 03/06/17 02:28 21 03/03/17 14:30 Room Air Intake and Output 03/05/17 03/05/17 03/06/17 15:00 23:00 07:00 Intake Total 800 ml 350 ml Balance 800 ml 350 ml Results Result Diagram: 03/06/17 0815 03/06/17 0815 Results 24 hrs Laboratory Tests Test 03/05/17 17:38 03/05/17 18:00 03/05/17 20:26 03/06/17 01:59 Bedside Glucose 142 226 H 136 Urine Color YELLOW Urine Clarity CLEAR Urine pH 5.0 Urine Specific [place] 1.017 Urine Ketones NEGATIVE Urine Nitrite NEGATIVE Urine Bilirubin NEGATIVE Urine Urobilinogen NEGATIVE Urine Leukocyte Esterase NEGATIVE Urine Microscopic RBC 1 Urine Microscopic WBC 0 Urine Hemoglobin NEGATIVE Urine Glucose NEGATIVE Urine Total Protein 2+ H Test 03/06/17 07:46 03/06/17 08:15 Bedside Glucose 144 White Blood Count 7.9 Red Blood Count 4.62 L Hemoglobin 13.8 L Hematocrit 41.9 L Mean Corpuscular Volume 90.7 Mean Corpuscular Hemoglobin 29.9 Mean Corpuscular Hemoglobin Concent 32.9 Red Cell Distribution Width 13.2 Platelet Count 129 L Mean Platelet Volume 10.3 Neutrophils % 65.6 Lymphocytes % 22.7 Monocytes % 10.6 Eosinophils % 0.6 Basophils % 0.1 Nucleated Red Blood Cells % 0.0 Neutrophils # 5.2 Lymphocytes # 1.8 Monocytes # 0.8 Eosinophils # 0.1 Basophils # 0.0 Nucleated Red Blood Cells # 0.0 Sodium Level 137 Potassium Level 4.5 Chloride Level 105 Carbon Dioxide Level 22 Anion Gap 15 Blood Urea Nitrogen 36 #H Creatinine 1.67 H Glucose Level 136 Calcium Level 8.7 Medications Medications Current Medications Diagnostic Test (Pha) (Accu-Chek) 1 ea 02 XX Last administered on 03/05/17 02 :55; Admin Dose 1 EA; Start 03/04/17 at 02:00 Miscellaneous Information 1 ea NOTE XX ; Start 03/03/17 at 13:00 Glucose (Glutose) 15 gm Q15M PRN PO DECREASED GLUCOSE; Start 03/03/17 at 13:00 Glucose (Glutose) 22.5 gm Q15M PRN PO DECREASED GLUCOSE; Start 03/03/17 at 13: 00 Dextrose (D50w Syringe) 25 ml Q15M PRN IV DECREASED GLUCOSE; Start 03/03/17 at 13:00 Dextrose (D50w Syringe) 50 ml Q15M PRN IV DECREASED GLUCOSE; Start 03/03/17 at 13:00 Glucagon (Glucagen) 1 mg Q15M PRN IM DECREASED GLUCOSE; Start 03/03/17 at 13: 00 Glucose (Glutose) 15 gm Q15M PRN BUCCAL DECREASED GLUCOSE; Start 03/03/17 at 13:00 Insulin Glargine (Lantus) 22 unit DAILY SC Last administered on 03/06/17 08: 45; Admin Dose 22 UNIT; Start 03/04/17 at 11:30 Tamsulosin HCl (Flomax) 0.4 mg HS PO Last administered on 03/05/17 20:29; Admin Dose 0.4 MG; Start 03/04/17 at 21:00 Hydralazine HCl (Apresoline) 10 mg Q6H PRN IV SBP>160MMHG Last administered on 03/05/17 16:11; Admin Dose 10 MG; Start 03/04/17 at 11:30 Guaifenesin (Robitussin Liquid Cup) 300 mg Q6H PRN PO COUGH Last administered on 03/06/17 08:52; Admin Dose 300 MG; Start 03/04/17 at 22:30 Apixaban (Eliquis) 2.5 mg BID PO Last administered on 03/06/17 08:35; Admin Dose 2.5 MG; Start 03/05/17 at 21:00 Carvedilol (Coreg) 18.75 mg BID PO Last administered on 03/06/17 08:37; Admin Dose 18.75 MG; Start 03/05/17 at 21:00 Azithromycin (Zithromax) 250 mg DAILY PO Last administered on 03/06/17 08:36 ; Admin Dose 250 MG; Start 03/06/17 at 09:00 Lisinopril (Zestril) 20 mg DAILY PO Last administered on 03/06/17 08:36; Admin Dose 20 MG; Start 03/05/17 at 14:30 Acetaminophen 650 mg 650 mg Q6H PRN PO PAIN AND OR ELEVATED TEMP Last administered on 03/06/17 08:52; Admin Dose 650 MG; Start 03/05/17 at 16:00 Ceftriaxone Sodium (Rocephin) 50 ml @ 100 mls/hr Q24H IVPB ; Start 03/06/17 at 15:30 Procedures Procedures PROCEDURE: Chest radiograph CLINICAL INDICATION: Cough. COMPARISON: Radiograph 01/01/2016. TECHNIQUE: Single frontal chest radiograph. FINDINGS: Motion degrades image quality on the lateral view. Implantable cardioverter defibrillator in the left chest with single lead in the right ventricle. The lungs are clear. No pleural effusion or focal parenchymal opacity. Cardiomegaly. Aortic atherosclerosis. No suspicious bone lesion. IMPRESSION: 1. No acute abnormality. 2. Cardiomegaly. RPTAT: PP Physician Noah Date Time Electronically viewed and signed by Ida Villanueva Physician on 03/05/2017 16: 39 LG/ CC: KARISSA CASTRO BOLATITO M. Mar 06, 2017 11:59
[2017-03-06] MEDS: AMLODIPINE 2.5 MG TAB PO SCH (12:00)
--- NOTE | 2017-03-06 13:54 | CONS ---
Date/Time of Note Date/Time of Note DATE: 03/06/17 TIME: 13:51 Assessment/Plan Assessment/Plan Additional Assessment/Plan Abdominal and chest discomfort Cough with subjective fevers and chills Epistaxis, resolved Cardiomyopathy with ejection fraction 35% with history of AICD CAD with distant history of PCI Hypertension, currently with labile blood pressure Tricuspid valve regurgitation Acute kidney injury Paroxysmal atrial fibrillation, previously on Eliquis -Patient with symptoms of abdominal discomfort which he describes as sharp discomfort at times and bloating like sensation which resolved after medication in the emergency room. He thinks it was a liquid medication, and review of orders, it appears this was the GI cocktail. He denies any further symptoms of abdominal discomfort or chest discomfort but complaining of cough. Serial cardiac enzymes have remained negative, echocardiogram with no significant change. Patient's symptoms are not with exertion or activity and have since resolved. Patient main complaint currently is his cough. Furthermore, patient is on Eliquis and I assume this has been held secondary to nosebleed. Given no further bleeding, I have restarted if no contraindication. -Blood pressure on the lower end today, would decrease Coreg back to original dose of 12.5 mg twice a day, holding parameters on antihypertensives. Consultation Date/Type/Reason Admit Date/Time Mar 05, 2017 at 10:36 Initial Consult Date Type of Consultation: cv 24 HR Interval Summary Free Text/Dictation Denies shortness of breath, still with cough. Denies chest pain or abdominal pain Exam/Review of Systems Vital Signs Vitals Vital Signs Date Time Temp Pulse Resp B/P Pulse Ox O2 Delivery O2 Flow Rate FiO2 03/06/17 12:21 67 106/77 03/06/17 11:58 99.3 18 98 03/06/17 02:28 21 03/03/17 14:30 Room Air Intake and Output 03/05/17 03/05/17 03/06/17 15:00 23:00 07:00 Intake Total 800 ml 350 ml Balance 800 ml 350 ml Exam No apparent distress Constitutional: alert, oriented Head: normocephalic Respiratory: other (Coarse breath sounds bilaterally, no wheezing) Cardiovascular: other (S1-S2 heard), regular rate and rhythm Gastrointestinal: bowel sounds, non-tender, soft Extremities: edema (Trace) Results Result Diagram: 03/06/17 0815 03/06/17 0815 Results 24 hrs Laboratory Tests Test 03/05/17 17:38 03/05/17 18:00 03/05/17 20:26 03/06/17 01:59 Bedside Glucose 142 226 H 136 Urine Color YELLOW Urine Clarity CLEAR Urine pH 5.0 Urine Specific [place] 1.017 Urine Ketones NEGATIVE Urine Nitrite NEGATIVE Urine Bilirubin NEGATIVE Urine Urobilinogen NEGATIVE Urine Leukocyte Esterase NEGATIVE Urine Microscopic RBC 1 Urine Microscopic WBC 0 Urine Hemoglobin NEGATIVE Urine Glucose NEGATIVE Urine Total Protein 2+ H Test 03/06/17 07:46 03/06/17 08:15 03/06/17 11:59 Bedside Glucose 144 164 White Blood Count 7.9 Red Blood Count 4.62 L Hemoglobin 13.8 L Hematocrit 41.9 L Mean Corpuscular Volume 90.7 Mean Corpuscular Hemoglobin 29.9 Mean Corpuscular Hemoglobin Concent 32.9 Red Cell Distribution Width 13.2 Platelet Count 129 L Mean Platelet Volume 10.3 Neutrophils % 65.6 Lymphocytes % 22.7 Monocytes % 10.6 Eosinophils % 0.6 Basophils % 0.1 Nucleated Red Blood Cells % 0.0 Neutrophils # 5.2 Lymphocytes # 1.8 Monocytes # 0.8 Eosinophils # 0.1 Basophils # 0.0 Nucleated Red Blood Cells # 0.0 Sodium Level 137 Potassium Level 4.5 Chloride Level 105 Carbon Dioxide Level 22 Anion Gap 15 Blood Urea Nitrogen 36 #H Creatinine 1.67 H Glucose Level 136 Calcium Level 8.7 Medications Medications Current Medications Diagnostic Test (Pha) (Accu-Chek) 1 ea 02 XX Last administered on 03/05/17t 02 :55; Admin Dose 1 EA; Start 03/04/17 at 02:00 Miscellaneous Information 1 ea NOTE XX ; Start 03/03/17 at 13:00 Glucose (Glutose) 15 gm Q15M PRN PO DECREASED GLUCOSE; Start 03/03/17 at 13:00 Glucose (Glutose) 22.5 gm Q15M PRN PO DECREASED GLUCOSE; Start 03/03/17 at 13: 00 Dextrose (D50w Syringe) 25 ml Q15M PRN IV DECREASED GLUCOSE; Start 03/03/17 at 13:00 Dextrose (D50w Syringe) 50 ml Q15M PRN IV DECREASED GLUCOSE; Start 03/03/17 at 13:00 Glucagon (Glucagen) 1 mg Q15M PRN IM DECREASED GLUCOSE; Start 03/03/17 at 13: 00 Glucose (Glutose) 15 gm Q15M PRN BUCCAL DECREASED GLUCOSE; Start 03/03/17 at 13:00 Insulin Glargine (Lantus) 22 unit DAILY SC Last administered on 03/06/17 08: 45; Admin Dose 22 UNIT; Start 03/04/17 at 11:30 Tamsulosin HCl (Flomax) 0.4 mg HS PO Last administered on 03/05/17 20:29; Admin Dose 0.4 MG; Start 03/04/17 at 21:00 Hydralazine HCl (Apresoline) 10 mg Q6H PRN IV SBP>160MMHG Last administered on 03/05/17 16:11; Admin Dose 10 MG; Start 03/04/17 at 11:30 Guaifenesin (Robitussin Liquid Cup) 300 mg Q6H PRN PO COUGH Last administered on 03/06/17 08:52; Admin Dose 300 MG; Start 03/04/17 at 22:30 Apixaban (Eliquis) 2.5 mg BID PO Last administered on 03/06/17 08:35; Admin Dose 2.5 MG; Start 03/05/17 at 21:00 Carvedilol (Coreg) 18.75 mg BID PO Last administered on 03/06/17 08:37; Admin Dose 18.75 MG; Start 03/05/17 at 21:00 Azithromycin (Zithromax) 250 mg DAILY PO Last administered on 03/06/17 08:36 ; Admin Dose 250 MG; Start 03/06/17 at 09:00 Acetaminophen 650 mg 650 mg Q6H PRN PO PAIN AND OR ELEVATED TEMP Last administered on 03/06/17 08:52; Admin Dose 650 MG; Start 03/05/17 at 16:00 Ceftriaxone Sodium (Rocephin) 50 ml @ 100 mls/hr Q24H IVPB ; Start 03/06/17 at 15:30 Amlodipine Besylate (Norvasc) 2.5 mg DAILY PO ; Start 03/06/17 at 12:00 Marcin Mchugh DO Mar 06, 2017 13:54
[2017-03-06] MEDS: CEFTRIAXONE 1 GM/50 ML (PMX) 50 ML IVPB SCH (15:37)
[2017-03-06] MEDS: TAMSULOSIN (SR) 0.4 MG CAP PO SCH (20:36)
[2017-03-07] VITALS (13 sets, daily range): BP systolic 93–153; BP diastolic 54–70; PULSE 67–78; RESP 18–20
[2017-03-07] MEDS: ACCU-CHEK XX SCH (02:00)
[2017-03-07] MEDS: INSULIN ASPART [NOVOLOG] 3 ML PEN SC SCH ×7 (08:00→21:00)
[2017-03-07] MEDS: INSULIN GLARGINE [LANtus] 3 ML PEN SC SCH (08:12)
[2017-03-07] MEDS: AMLODIPINE 2.5 MG TAB PO SCH (08:16)
[2017-03-07] MEDS: AZITHROMYCIN 250 MG TAB PO SCH (08:16)
[2017-03-07] MEDS: APIXABAN 5 MG TABLET PO SCH ×2 (08:16→21:33)
--- NOTE | 2017-03-07 10:21 | PN ---
Date/Time of Note Date/Time of Note DATE: 03/07/17 TIME: 10:21 Assessment/Plan VTE Prophylaxis VTE Prophylaxis Intervention: SCD's Lines/Catheters IV Catheter Type (from Nrs): Saline Lock Assessment/Plan Assessment/Plan Abdominal and chest discomfort Cough with subjective fevers and chills Epistaxis, resolved Cardiomyopathy with ejection fraction 35% with history of AICD CAD with distant history of PCI Hypertension, currently with labile blood pressure Tricuspid valve regurgitation Acute kidney injury Paroxysmal atrial fibrillation, previously on Eliquis -Patient with symptoms of abdominal discomfort which he describes as sharp discomfort at times and bloating like sensation which resolved after medication in the emergency room. He thinks it was a liquid medication, and review of orders, it appears this was the GI cocktail. He denies any further symptoms of abdominal discomfort or chest discomfort but complaining of cough. Serial cardiac enzymes have remained negative, echocardiogram with no significant change. Patient's symptoms are not with exertion or activity and have since resolved. Patient main complaint currently is his cough. Furthermore, patient is on Eliquis and I assume this has been held secondary to nosebleed. Given no further bleeding, I have restarted if no contraindication. Subjective 24 Hr Interval Summary Free Text/Dictation the aptient much better Exam/Review of Systems Vital Signs Vitals Vital Signs Date Time Temp Pulse Resp B/P Pulse Ox O2 Delivery O2 Flow Rate FiO2 03/07/17 08:21 98.7 73 20 129/58 97 03/06/17 20:55 21 03/03/17 14:30 Room Air Intake and Output 03/06/17 03/06/17 03/07/17 15:00 23:00 07:00 Intake Total 450 ml 500 ml Balance 450 ml 500 ml Results Result Diagram: 03/06/17 0815 03/06/17 0815 Results 24 hrs Laboratory Tests Test 03/06/17 11:59 03/06/17 17:17 03/06/17 20:34 03/07/17 08:06 Bedside Glucose 164 105 93 120 Medications Medications Current Medications Diagnostic Test (Pha) (Accu-Chek) 1 ea 02 XX Last administered on 03/05/17t 02 :55; Admin Dose 1 EA; Start 03/04/17 at 02:00 Miscellaneous Information 1 ea NOTE XX ; Start 03/03/17 at 13:00 Glucose (Glutose) 15 gm Q15M PRN PO DECREASED GLUCOSE; Start 03/03/17 at 13:00 Glucose (Glutose) 22.5 gm Q15M PRN PO DECREASED GLUCOSE; Start 03/03/17 at 13: 00 Dextrose (D50w Syringe) 25 ml Q15M PRN IV DECREASED GLUCOSE; Start 03/03/17 at 13:00 Dextrose (D50w Syringe) 50 ml Q15M PRN IV DECREASED GLUCOSE; Start 03/03/17 at 13:00 Glucagon (Glucagen) 1 mg Q15M PRN IM DECREASED GLUCOSE; Start 03/03/17 at 13: 00 Glucose (Glutose) 15 gm Q15M PRN BUCCAL DECREASED GLUCOSE; Start 03/03/17 at 13:00 Insulin Glargine (Lantus) 22 unit DAILY SC Last administered on 03/07/17 08: 12; Admin Dose 22 UNIT; Start 03/04/17 at 11:30 Tamsulosin HCl (Flomax) 0.4 mg HS PO Last administered on 03/06/17 20:36; Admin Dose 0.4 MG; Start 03/04/17 at 21:00 Hydralazine HCl (Apresoline) 10 mg Q6H PRN IV SBP>160MMHG Last administered on 03/05/17 16:11; Admin Dose 10 MG; Start 03/04/17 at 11:30 Guaifenesin (Robitussin Liquid Cup) 300 mg Q6H PRN PO COUGH Last administered on 03/06/17 22:12; Admin Dose 300 MG; Start 03/04/17 at 22:30 Apixaban (Eliquis) 2.5 mg BID PO Last administered on 03/07/17 08:16; Admin Dose 2.5 MG; Start 03/05/17 at 21:00 Azithromycin (Zithromax) 250 mg DAILY PO Last administered on 03/07/17 08:16 ; Admin Dose 250 MG; Start 03/06/17 at 09:00 Acetaminophen 650 mg 650 mg Q6H PRN PO PAIN AND OR ELEVATED TEMP Last administered on 03/06/17 20:37; Admin Dose 650 MG; Start 03/05/17 at 16:00 Ceftriaxone Sodium (Rocephin) 50 ml @ 100 mls/hr Q24H IVPB Last administered on 03/06/17 15:37; Admin Dose 100 MLS/HR; Start 03/06/17 at 15:30 Amlodipine Besylate (Norvasc) 2.5 mg DAILY PO Last administered on 03/07/17 08:16; Admin Dose 2.5 MG; Start 03/06/17 at 12:00 Carvedilol (Coreg) 12.5 mg BID PO Last administered on 03/07/17 08:16; Admin Dose 12.5 MG; Start 03/06/17 at 21:00 RENAY HAMM MD Mar 07, 2017 10:21
--- NOTE | 2017-03-07 12:35 | PN ---
Date/Time of Note Date/Time of Note DATE: 03/07/17 TIME: 12:32 Assessment/Plan VTE Prophylaxis VTE Prophylaxis Intervention: heparin Lines/Catheters IV [facility] Saline Lock Assessment/Plan Problems: (1) Systolic CHF with reduced left ventricular function, NYHA class 3 Status: Acute Comment: He is not presently in heart failure either on exam or on chest x- ray. In addition cardiology is not applying to that. Dr. Chowdary had written that she did not want to give him an NOLAN inhibitor because it caused an abrupt rise in his creatinine. Review of his serum creatinines over the last 10 years demonstrates relative stability. Regardless I am going to honor that position and instead treat his heart failure using combination of beta-blockade hydralazine and nitrates. Given however that he is actively wheezing and there might be some reactive airways disease and can switch to a more cardioselective beta-scott in this setting. Amlodipine does not have a significant role here (2) Diabetes mellitus type 2 in nonobese Status: Chronic Comment: Fair control (3) Essential hypertension Status: Chronic Comment: Adjust medications as noted above (4) Chronic kidney disease, stage II (mild) Status: Chronic Comment: This is actually been relatively stable. I will continue to observe this with follow-up lab tomorrow (5) Chest pain Status: Acute Comment: I believe this is chest wall pain due to coughing Qualifiers: Chest pain type: unspecified Qualified Code: R07.9 - Chest pain, unspecified type (6) BPH (benign prostatic hyperplasia) Status: Chronic Comment: Continue tamsulosin Qualifiers: Lower urinary tract symptom presence: symptoms present Lower urinary tract symptom detail: urinary frequency Qualified Code: N40.1 - Benign prostatic hyperplasia with urinary frequency Subjective 24 Hr Interval Summary Free Text/Dictation Patient notes cough and some shortness of breath. Please see chest x-ray reports that her normal Constitutional: no complaints Respiratory: cough, shortness of breath Cardiovascular: no complaints Gastrointestinal: no complaints Genitourinary: no complaints Exam/Review of Systems Vital Signs Vitals Vital Signs Date Time Temp Pulse Resp B/P Pulse Ox O2 Delivery O2 Flow Rate FiO2 03/07/17 12:05 72 03/07/17 08:21 98.7 20 129/58 97 03/06/17 20:55 21 03/03/17 14:30 Room Air Intake and Output 03/06/17 03/06/17 03/07/17 15:00 23:00 07:00 Intake Total 450 ml 500 ml Balance 450 ml 500 ml Exam Elderly male lying in bed who is unable to sit himself up Constitutional: alert, oriented, other (Please note with the daughter translating he does not give a coherent history. This is not a lack of orientation or dementia this is simply a style point) Neck: non-tender, supple Respiratory: other (Please note no basilar rales), wheezing Cardiovascular: S4, nl pulses, other (No S3), regular rate and rhythm Gastrointestinal: nl liver, spleen, non-tender, soft Results Result Diagram: 03/06/1715 03/06/17 0815 Results 24 hrs Laboratory Tests Test 03/06/17 17:17 03/06/17 20:34 03/07/17 08:06 03/07/17 11:53 Bedside Glucose 105 93 120 197 Medications Medications Current Medications Diagnostic Test (Pha) (Accu-Chek) 1 ea 02 XX Last administered on 03/05/17 02 :55; Admin Dose 1 EA; Start 03/04/17 at 02:00 Miscellaneous Information 1 ea NOTE XX ; Start 03/03/17 at 13:00 Glucose (Glutose) 15 gm Q15M PRN PO DECREASED GLUCOSE; Start 03/03/17 at 13:00 Glucose (Glutose) 22.5 gm Q15M PRN PO DECREASED GLUCOSE; Start 03/03/17 at 13: 00 Dextrose (D50w Syringe) 25 ml Q15M PRN IV DECREASED GLUCOSE; Start 03/03/17 at 13:00 Dextrose (D50w Syringe) 50 ml Q15M PRN IV DECREASED GLUCOSE; Start 03/03/17 at 13:00 Glucagon (Glucagen) 1 mg Q15M PRN IM DECREASED GLUCOSE; Start 03/03/17 at 13: 00 Glucose (Glutose) 15 gm Q15M PRN BUCCAL DECREASED GLUCOSE; Start 03/03/17 at 13:00 Insulin Glargine (Lantus) 22 unit DAILY SC Last administered on 03/07/17 08: 12; Admin Dose 22 UNIT; Start 03/04/17 at 11:30 Tamsulosin HCl (Flomax) 0.4 mg HS PO Last administered on 03/06/17 20:36; Admin Dose 0.4 MG; Start 03/04/17 at 21:00 Hydralazine HCl (Apresoline) 10 mg Q6H PRN IV SBP>160MMHG Last administered on 03/05/17 16:11; Admin Dose 10 MG; Start 03/04/17 at 11:30 Guaifenesin (Robitussin Liquid Cup) 300 mg Q6H PRN PO COUGH Last administered on 03/06/17 22:12; Admin Dose 300 MG; Start 03/04/17 at 22:30 Apixaban (Eliquis) 2.5 mg BID PO Last administered on 03/07/17 08:16; Admin Dose 2.5 MG; Start 03/05/17 at 21:00 Azithromycin (Zithromax) 250 mg DAILY PO Last administered on 03/07/17 08:16 ; Admin Dose 250 MG; Start 03/06/17 at 09:00 Acetaminophen 650 mg 650 mg Q6H PRN PO PAIN AND OR ELEVATED TEMP Last administered on 03/06/17 20:37; Admin Dose 650 MG; Start 03/05/17 at 16:00 Ceftriaxone Sodium (Rocephin) 50 ml @ 100 mls/hr Q24H IVPB Last administered on 03/06/17 15:37; Admin Dose 100 MLS/HR; Start 03/06/17 at 15:30 Amlodipine Besylate (Norvasc) 2.5 mg DAILY PO Last administered on 03/07/17 08:16; Admin Dose 2.5 MG; Start 03/06/17 at 12:00 Carvedilol (Coreg) 12.5 mg BID PO Last administered on 03/07/17 08:16; Admin Dose 12.5 MG; Start 03/06/17 at 21:00 FRANKY ORELLANA MD Mar 07, 2017 12:35
[2017-03-07] MEDS: SALMETEROL/FLUTICASONE 250/50 INHA INH SCH ×2 (15:10→21:00)
[2017-03-07] MEDS: CEFTRIAXONE 1 GM/50 ML (PMX) 50 ML IVPB SCH (15:44)
[2017-03-07] MEDS: METOPROLOL (XL) 50 MG TAB PO SCH (21:32)
[2017-03-07] MEDS: ISOSORBIDE MONONITRATE(SR)30 MG TAB PO SCH (21:32)
[2017-03-07] MEDS: TAMSULOSIN (SR) 0.4 MG CAP PO SCH (21:33)
[2017-03-08] VITALS (13 sets, daily range): BP systolic 102–134; BP diastolic 54–65; PULSE 63–76; RESP 17–20
[2017-03-08] MEDS: ACCU-CHEK XX SCH (02:00)
[2017-03-08 07:42] LABS: BASOPHILS % 0.4 % (0.0-2.0); EOSINOPHILS # 0.1 10^3/ul (0.0-0.5); EOSINOPHILS % 1.5 % (0.0-7.0); HEMATOCRIT 39.5 % (42.0-52.0); HEMOGLOBIN 13.1 g/dl (14.0-18.0); LYMPHOCYTES # 2.3 10^3/ul (0.8-2.9); LYMPHOCYTES % 42.6 % (15.0-51.0); MEAN CORPUSCULAR HEMOGLOBIN 29.9 pg (29.0-33.0); MEAN CORPUSCULAR HGB CONC 33.2 g/dl (32.0-37.0); MEAN CORPUSCULAR VOLUME 90.2 fl (82.0-101.0); MEAN PLATELET VOLUME 10.6 fl (7.4-10.4); MONOCYTE # 0.7 10^3/ul (0.3-0.9); MONOCYTES % 12.5 % (0.0-11.0); NEUTROPHIL # 2.3 10^3/ul (1.6-7.5); NEUTROPHILS % 42.8 % (39.0-77.0); PLATELET COUNT 121 10^3/UL (140-415); RED BLOOD COUNT 4.38 10^6/ul (4.70-6.10); RED CELL DISTRIBUTION WIDTH 13.2 % (11.5-14.5); WHITE BLOOD COUNT 5.4 10^3/ul (4.8-10.8)
[2017-03-08] MEDS: INSULIN ASPART [NOVOLOG] 3 ML PEN SC SCH ×7 (08:06→20:44)
[2017-03-08] MEDS: AZITHROMYCIN 250 MG TAB PO SCH (08:11)
[2017-03-08] MEDS: METOPROLOL (XL) 50 MG TAB PO SCH ×2 (08:11→20:34)
[2017-03-08] MEDS: APIXABAN 5 MG TABLET PO SCH ×2 (08:12→20:36)
[2017-03-08 08:14] LABS: ALBUMIN 3.1 g/dl (3.3-4.9); ALBUMIN/GLOBULIN RATIO 0.96; BILIRUBIN,INDIRECT 0.5 mg/dl (0-1.1); BILIRUBIN,TOTAL 0.5 mg/dl (0.2-1.3); CALCIUM 8.3 mg/dl (8.4-10.2); CREATININE 1.37 mg/dl (0.61-1.24); POTASSIUM 4.3 mmol/L (3.5-5.1); TOTAL PROTEIN 6.3 g/dl (6.1-8.1)
[2017-03-08] MEDS: ISOSORBIDE MONONITRATE(SR)30 MG TAB PO SCH ×2 (08:27→20:33)
[2017-03-08] MEDS: INSULIN GLARGINE [LANtus] 3 ML PEN SC SCH (09:00)
--- NOTE | 2017-03-08 09:54 | CONS ---
Date/Time of Note Date/Time of Note DATE: 03/08/17 TIME: 09:52 Assessment/Plan Assessment/Plan Additional Assessment/Plan Abdominal and chest discomfort Cough with subjective fevers and chills Epistaxis, resolved Cardiomyopathy with ejection fraction 35% with history of AICD CAD with distant history of PCI Hypertension, currently with labile blood pressure Tricuspid valve regurgitation Acute kidney injury Paroxysmal atrial fibrillation, previously on Eliquis -Cough has improved but still present and chest discomfort is caused by coughing and pushing on chest wall. Serial cardiac enzymes have remained negative, echocardiogram with no significant change. Patient has been put on Imdur and hydralazine. Titrate as blood pressure permits. If renal function remains stable, consider changing to NOLAN inhibitor. Continue anticoagulation if no contraindication. Consultation Date/Type/Reason Admit Date/Time Mar 05, 2017 at 10:36 Type of Consultation: cv 24 HR Interval Summary Free Text/Dictation Still complaining of cough but is improved. Complains of chest wall pain with coughing. Denies shortness of breath Exam/Review of Systems Vital Signs Vitals Vital Signs Date Time Temp Pulse Resp B/P Pulse Ox O2 Delivery O2 Flow Rate FiO2 03/08/17 08:13 68 107/59 03/08/17 08:00 97.7 20 98 03/08/17 03:43 2.0 03/07/17 15:12 Room Air 03/06/17 20:55 21 Intake and Output 03/07/17 03/07/17 03/08/17 15:00 23:00 07:00 Intake Total 940 ml Balance 940 ml Exam No apparent distress Constitutional: alert, oriented Head: normocephalic Respiratory: other (Coarse breath sounds bilaterally, no wheezing) Cardiovascular: other (S1-S2 heard), regular rate and rhythm Gastrointestinal: bowel sounds, non-tender, soft Extremities: edema (Trace) Results Result Diagram: 03/08/17 0700 03/08/17 0701 Results 24 hrs Laboratory Tests Test 03/07/17 11:53 03/07/17 17:33 03/07/17 21:23 03/08/17 07:00 Bedside Glucose 197 178 148 White Blood Count 5.4 # Red Blood Count 4.38 L Hemoglobin 13.1 L Hematocrit 39.5 L Mean Corpuscular Volume 90.2 Mean Corpuscular Hemoglobin 29.9 Mean Corpuscular Hemoglobin Concent 33.2 Red Cell Distribution Width 13.2 Platelet Count 121 L Mean Platelet Volume 10.6 H Neutrophils % 42.8 Lymphocytes % 42.6 Monocytes % 12.5 H Eosinophils % 1.5 Basophils % 0.4 Nucleated Red Blood Cells % 0.0 Neutrophils # 2.3 Lymphocytes # 2.3 Monocytes # 0.7 Eosinophils # 0.1 Basophils # 0.0 Nucleated Red Blood Cells # 0.0 Test 03/08/17 07:01 03/08/17 07:59 Sodium Level 135 Potassium Level 4.3 Chloride Level 107 Carbon Dioxide Level 19 L Anion Gap 13 Blood Urea Nitrogen 35 H Creatinine 1.37 H Glucose Level 151 Calcium Level 8.3 L Total Bilirubin 0.5 Direct Bilirubin 0.00 Indirect Bilirubin 0.5 Aspartate Amino Transf (AST/SGOT) 89 H Alanine Aminotransferase (ALT/SGPT) 75 H Alkaline Phosphatase 59 Total Protein 6.3 Albumin 3.1 L Globulin 3.20 Albumin/Globulin Ratio 0.96 Bedside Glucose 147 Medications Medications Current Medications Diagnostic Test (Pha) (Accu-Chek) 1 ea 02 XX Last administered on 03/05/17 02 :55; Admin Dose 1 EA; Start 03/04/17 at 02:00 Miscellaneous Information 1 ea NOTE XX ; Start 03/03/17 at 13:00 Glucose (Glutose) 15 gm Q15M PRN PO DECREASED GLUCOSE; Start 03/03/17 at 13:00 Glucose (Glutose) 22.5 gm Q15M PRN PO DECREASED GLUCOSE; Start 03/03/17 at 13: 00 Dextrose (D50w Syringe) 25 ml Q15M PRN IV DECREASED GLUCOSE; Start 03/03/17 at 13:00 Dextrose (D50w Syringe) 50 ml Q15M PRN IV DECREASED GLUCOSE; Start 03/03/17 at 13:00 Glucagon (Glucagen) 1 mg Q15M PRN IM DECREASED GLUCOSE; Start 03/03/17 at 13: 00 Glucose (Glutose) 15 gm Q15M PRN BUCCAL DECREASED GLUCOSE; Start 03/03/17 at 13:00 Insulin Glargine (Lantus) 22 unit DAILY SC Last administered on 03/07/17 08: 12; Admin Dose 22 UNIT; Start 03/04/17 at 11:30 Tamsulosin HCl (Flomax) 0.4 mg HS PO Last administered on 03/07/17 21:33; Admin Dose 0.4 MG; Start 03/04/17 at 21:00 Hydralazine HCl (Apresoline) 10 mg Q6H PRN IV SBP>160MMHG Last administered on 03/05/17 16:11; Admin Dose 10 MG; Start 03/04/17 at 11:30 Guaifenesin (Robitussin Liquid Cup) 300 mg Q6H PRN PO COUGH Last administered on 03/06/17 22:12; Admin Dose 300 MG; Start 03/04/17 at 22:30 Apixaban (Eliquis) 2.5 mg BID PO Last administered on 03/08/17 08:12; Admin Dose 2.5 MG; Start 03/05/17 at 21:00 Azithromycin (Zithromax) 250 mg DAILY PO Last administered on 03/08/17 08:11 ; Admin Dose 250 MG; Start 03/06/17 at 09:00 Acetaminophen 650 mg 650 mg Q6H PRN PO PAIN AND OR ELEVATED TEMP Last administered on 03/06/17 20:37; Admin Dose 650 MG; Start 03/05/17 at 16:00 Ceftriaxone Sodium (Rocephin) 50 ml @ 100 mls/hr Q24H IVPB Last administered on 03/07/17 15:44; Admin Dose 100 MLS/HR; Start 03/06/17 at 15:30 Metoprolol Succinate (Toprol Xl) 50 mg BID PO Last administered on 03/08/17 08:11; Admin Dose 50 MG; Start 03/07/17 at 21:00 Hydralazine HCl (Apresoline) 50 mg TID PO Last administered on 03/08/17 08:27 ; Admin Dose 50 MG; Start 03/07/17 at 13:00 Isosorbide Mononitrate (Imdur) 30 mg BID PO Last administered on 03/08/17 08: 27; Admin Dose 30 MG; Start 03/07/17 at 21:00 Salmeterol Xinafoate/ Fluticasone (Advair 250/50 Diskus) 1 inh BID INH Last administered on 03/07/17 21:00; Admin Dose 1 INH; Start 03/07/17 at 13:30 Marcin Mchugh DO Mar 08, 2017 09:54
[2017-03-08] MEDS: SALMETEROL/FLUTICASONE 250/50 INHA INH SCH ×2 (10:33→20:37)
--- NOTE | 2017-03-08 13:36 | PN ---
Date/Time of Note Date/Time of Note DATE: 03/08/17 TIME: 13:34 Assessment/Plan VTE Prophylaxis VTE Prophylaxis Intervention: other (Eliquis) Lines/Catheters [facility] Saline Lock Assessment/Plan Problems: (1) Systolic CHF with reduced left ventricular function, NYHA class 3 Status: Acute Comment: He is improving we go ahead and continue with diuresis. Please note that I am continuing him on a combination beta-blockade nitrates and hydralazine for heart failure. (2) Chronic kidney disease, stage II (mild) Status: Chronic Comment: Stable and back to baseline. Please not agree to check a postvoid residual even though he is on tamsulosin already to make sure that there is not more to do. (3) BPH (benign prostatic hyperplasia) Status: Chronic Comment: As above recheck postvoid residual even though on tamsulosin Qualifiers: Lower urinary tract symptom presence: symptoms present Lower urinary tract symptom detail: urinary frequency Qualified Code: N40.1 - Benign prostatic hyperplasia with urinary frequency (4) Diabetes mellitus type 2 in nonobese Status: Chronic Comment: Very good control on the current regimen. 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 Subjective 24 Hr Interval Summary Free Text/Dictation Patient sitting up in bedside reports he is feeling better Constitutional: no complaints (No fevers chills or sweats) Respiratory: cough (Cough is reduced), shortness of breath (Shortness of breath has improved) Cardiovascular: no complaints Gastrointestinal: no complaints Genitourinary: no complaints Exam/Review of Systems Vital Signs Vitals Vital Signs Date Time Temp Pulse Resp B/P Pulse Ox O2 Delivery O2 Flow Rate FiO2 03/08/17 12:07 73 03/08/17 08:13 107/59 03/08/17 08:00 97.7 20 98 03/08/17 03:43 2.0 03/07/17 15:12 Room Air 03/06/17 20:55 21 Intake and Output 03/07/17 03/07/17 03/08/17 15:00 23:00 07:00 Intake Total 940 ml Balance 940 ml Exam Constitutional: alert, oriented Neck: non-tender, supple Respiratory: crackles/rales (Basilar crackles bilateral), normal air movement Cardiovascular: S4, nl pulses, regular rate and rhythm Gastrointestinal: nl liver, spleen, non-tender, soft Results Result Diagram: 03/08/17 0700 03/08/17 0701 Results 24 hrs Laboratory Tests Test 03/07/17 17:33 03/07/17 21:23 03/08/17 07:00 03/08/17 07:01 Bedside Glucose 178 148 White Blood Count 5.4 # Red Blood Count 4.38 L Hemoglobin 13.1 L Hematocrit 39.5 L Mean Corpuscular Volume 90.2 Mean Corpuscular Hemoglobin 29.9 Mean Corpuscular Hemoglobin Concent 33.2 Red Cell Distribution Width 13.2 Platelet Count 121 L Mean Platelet Volume 10.6 H Neutrophils % 42.8 Lymphocytes % 42.6 Monocytes % 12.5 H Eosinophils % 1.5 Basophils % 0.4 Nucleated Red Blood Cells % 0.0 Neutrophils # 2.3 Lymphocytes # 2.3 Monocytes # 0.7 Eosinophils # 0.1 Basophils # 0.0 Nucleated Red Blood Cells # 0.0 Sodium Level 135 Potassium Level 4.3 Chloride Level 107 Carbon Dioxide Level 19 L Anion Gap 13 Blood Urea Nitrogen 35 H Creatinine 1.37 H Glucose Level 151 Calcium Level 8.3 L Total Bilirubin 0.5 Direct Bilirubin 0.00 Indirect Bilirubin 0.5 Aspartate Amino Transf (AST/SGOT) 89 H Alanine Aminotransferase (ALT/SGPT) 75 H Alkaline Phosphatase 59 Total Protein 6.3 Albumin 3.1 L Globulin 3.20 Albumin/Globulin Ratio 0.96 Test 03/08/17 07:59 03/08/17 12:21 Bedside Glucose 147 183 Medications Medications Current Medications Diagnostic Test (Pha) (Accu-Chek) 1 ea 02 XX Last administered on 03/05/17t 02 :55; Admin Dose 1 EA; Start 03/04/17 at 02:00 Miscellaneous Information 1 ea NOTE XX ; Start 03/03/17 at 13:00 Glucose (Glutose) 15 gm Q15M PRN PO DECREASED GLUCOSE; Start 03/03/17 at 13:00 Glucose (Glutose) 22.5 gm Q15M PRN PO DECREASED GLUCOSE; Start 03/03/17 at 13: 00 Dextrose (D50w Syringe) 25 ml Q15M PRN IV DECREASED GLUCOSE; Start 03/03/17 at 13:00 Dextrose (D50w Syringe) 50 ml Q15M PRN IV DECREASED GLUCOSE; Start 03/03/17 at 13:00 Glucagon (Glucagen) 1 mg Q15M PRN IM DECREASED GLUCOSE; Start 03/03/17 at 13: 00 Glucose (Glutose) 15 gm Q15M PRN BUCCAL DECREASED GLUCOSE; Start 03/03/17 at 13:00 Insulin Glargine (Lantus) 22 unit DAILY SC Last administered on 03/07/17 08: 12; Admin Dose 22 UNIT; Start 03/04/17 at 11:30 Tamsulosin HCl (Flomax) 0.4 mg HS PO Last administered on 03/07/17 21:33; Admin Dose 0.4 MG; Start 03/04/17 at 21:00 Guaifenesin (Robitussin Liquid Cup) 300 mg Q6H PRN PO COUGH Last administered on 03/06/17 22:12; Admin Dose 300 MG; Start 03/04/17 at 22:30 Apixaban (Eliquis) 2.5 mg BID PO Last administered on 03/08/17 08:12; Admin Dose 2.5 MG; Start 03/05/17 at 21:00 Azithromycin (Zithromax) 250 mg DAILY PO Last administered on 03/08/17 08:11 ; Admin Dose 250 MG; Start 03/06/17 at 09:00; Stop 03/10/17 at 12:00 Acetaminophen 650 mg 650 mg Q6H PRN PO PAIN AND OR ELEVATED TEMP Last administered on 03/06/17 20:37; Admin Dose 650 MG; Start 03/05/17 at 16:00 Ceftriaxone Sodium (Rocephin) 50 ml @ 100 mls/hr Q24H IVPB Last administered on 03/07/17 15:44; Admin Dose 100 MLS/HR; Start 03/06/17 at 15:30 Metoprolol Succinate (Toprol Xl) 50 mg BID PO Last administered on 03/08/17 08:11; Admin Dose 50 MG; Start 03/07/17 at 21:00 Isosorbide Mononitrate (Imdur) 30 mg BID PO Last administered on 03/08/17 08: 27; Admin Dose 30 MG; Start 03/07/17 at 21:00 Salmeterol Xinafoate/ Fluticasone (Advair 250/50 Diskus) 1 inh BID INH Last administered on 03/08/17t 10:33; Admin Dose 1 INH; Start 03/07/17 at 13:30 Hydralazine HCl (Apresoline) 100 mg BID PO ; Start 03/08/17 at 21:00; Status FRANKY MYERS MD Mar 08, 2017 13:36
[2017-03-08] MEDS ORDERED: FUROSEMIDE 40 MG INJ IV ONE (14:00)
[2017-03-08] MEDS: CEFTRIAXONE 1 GM/50 ML (PMX) 50 ML IVPB SCH (16:02)
[2017-03-08] MEDS: TAMSULOSIN (SR) 0.4 MG CAP PO SCH (20:33)
[2017-03-09] VITALS (10 sets, daily range): BP systolic 119–129; BP diastolic 59–63; PULSE 70–75; RESP 18–20
[2017-03-09] MEDS: ACCU-CHEK XX SCH (02:00)
[2017-03-09] MEDS ORDERED: FUROSEMIDE 20 MG TAB PO SCH (09:00)
[2017-03-09] MEDS: AZITHROMYCIN 250 MG TAB PO SCH (09:13)
[2017-03-09] MEDS: ISOSORBIDE MONONITRATE(SR)30 MG TAB PO SCH (09:13)
[2017-03-09] MEDS: SALMETEROL/FLUTICASONE 250/50 INHA INH SCH (09:13)
--- NOTE | 2017-03-09 09:13 | CONS ---
Date/Time of Note Date/Time of Note DATE: 03/09/17 TIME: 09:12 Assessment/Plan Assessment/Plan Chief Complaint/Hosp Course Abdominal and chest discomfort Cough with subjective fevers and chills Epistaxis, resolved Cardiomyopathy with ejection fraction 35% with history of AICD CAD with distant history of PCI Hypertension, currently with labile blood pressure Tricuspid valve regurgitation Acute kidney injury Paroxysmal atrial fibrillation, previously on Eliquis Problems: Additional Assessment/Plan chest pain likely noncardiac continue current meds agree with nitrate, hydralazine and beta scott NOLAN if ok w renal Consultation Date/Type/Reason Admit Date/Time Mar 05, 2017 at 10:36 Initial Consult Date Type of Consultation: cv 24 HR Interval Summary Free Text/Dictation no chest pain, no sob, no palpitations Detailed Summary Respiratory: no complaints Cardiovascular: no complaints Gastrointestinal: no complaints Musculoskeletal: no complaints Skin: no complaints Neurologic: no complaints Endocrine: no complaints Exam/Review of Systems Vital Signs Vitals Vital Signs Date Time Temp Pulse Resp B/P Pulse Ox O2 Delivery O2 Flow Rate FiO2 03/09/17 08:09 97.6 63 20 121/61 98 03/08/17 03:43 2.0 03/07/17 15:12 Room Air 03/06/17 20:55 21 Intake and Output 03/08/17 03/08/17 03/09/17 15:00 23:00 07:00 Intake Total 850 ml 200 ml Output Total 487 ml Balance 363 ml 200 ml Exam Constitutional: alert, oriented Head: atraumatic, normocephalic Neck: supple Respiratory: clear to auscultation Cardiovascular: regular rate and rhythm Gastrointestinal: soft Musculoskeletal: nl extremities to inspection Extremities: normal pulses Results Result Diagram: 03/08/17 0700 03/08/17 0701 Results 24 hrs Laboratory Tests Test 03/08/17 12:21 03/08/17 17:24 03/08/17 20:41 03/09/17 04:10 Bedside Glucose 183 243 H 203 184 Test 03/09/17 08:17 03/09/17 08:22 Bedside Glucose 178 White Blood Count Pending Red Blood Count Pending Hemoglobin Pending Hematocrit Pending Mean Corpuscular Volume Pending Mean Corpuscular Hemoglobin Pending Mean Corpuscular Hemoglobin Concent Pending Red Cell Distribution Width Pending Platelet Count Pending Mean Platelet Volume Pending Medications Medications Current Medications Diagnostic Test (Pha) (Accu-Chek) 1 ea 02 XX Last administered on 03/09/17 02 :00; Admin Dose 1 EA; Start 03/04/17 at 02:00 Miscellaneous Information 1 ea NOTE XX ; Start 03/03/17 at 13:00 Glucose (Glutose) 15 gm Q15M PRN PO DECREASED GLUCOSE; Start 03/03/17 at 13:00 Glucose (Glutose) 22.5 gm Q15M PRN PO DECREASED GLUCOSE; Start 03/03/17 at 13: 00 Dextrose (D50w Syringe) 25 ml Q15M PRN IV DECREASED GLUCOSE; Start 03/03/17 at 13:00 Dextrose (D50w Syringe) 50 ml Q15M PRN IV DECREASED GLUCOSE; Start 03/03/17 at 13:00 Glucagon (Glucagen) 1 mg Q15M PRN IM DECREASED GLUCOSE; Start 03/03/17 at 13: 00 Glucose (Glutose) 15 gm Q15M PRN BUCCAL DECREASED GLUCOSE; Start 03/03/17 at 13:00 Insulin Glargine (Lantus) 22 unit DAILY SC Last administered on 03/07/17 08: 12; Admin Dose 22 UNIT; Start 03/04/17 at 11:30 Tamsulosin HCl (Flomax) 0.4 mg HS PO Last administered on 03/08/17 20:33; Admin Dose 0.4 MG; Start 03/04/17 at 21:00 Guaifenesin (Robitussin Liquid Cup) 300 mg Q6H PRN PO COUGH Last administered on 03/06/17 22:12; Admin Dose 300 MG; Start 03/04/17 at 22:30 Apixaban (Eliquis) 2.5 mg BID PO Last administered on 03/08/17 20:36; Admin Dose 2.5 MG; Start 03/05/17 at 21:00 Azithromycin (Zithromax) 250 mg DAILY PO Last administered on 03/08/17 08:11 ; Admin Dose 250 MG; Start 03/06/17 at 09:00; Stop 03/10/17 at 12:00 Acetaminophen 650 mg 650 mg Q6H PRN PO PAIN AND OR ELEVATED TEMP Last administered on 03/06/17 20:37; Admin Dose 650 MG; Start 03/05/17 at 16:00 Ceftriaxone Sodium (Rocephin) 50 ml @ 100 mls/hr Q24H IVPB Last administered on 03/08/17 16:02; Admin Dose 100 MLS/HR; Start 03/06/17 at 15:30 Metoprolol Succinate (Toprol Xl) 50 mg BID PO Last administered on 03/08/17 20:34; Admin Dose 50 MG; Start 03/07/17 at 21:00 Isosorbide Mononitrate (Imdur) 30 mg BID PO Last administered on 03/08/17 20: 33; Admin Dose 30 MG; Start 03/07/17 at 21:00 Salmeterol Xinafoate/ Fluticasone (Advair 250/50 Diskus) 1 inh BID INH Last administered on 03/08/17 20:37; Admin Dose 1 INH; Start 03/07/17 at 13:30 Furosemide (Lasix) 20 mg DAILY PO ; Start 03/09/17 at 09:00 Hydralazine HCl (Apresoline) 50 mg BID PO ; Start 03/09/17 at 09:00 DEBBIE PEREZ MD Mar 09, 2017 09:13
[2017-03-09] MEDS: METOPROLOL (XL) 50 MG TAB PO SCH (09:14)
[2017-03-09] MEDS: APIXABAN 5 MG TABLET PO SCH (09:14)
[2017-03-09] MEDS: INSULIN ASPART [NOVOLOG] 3 ML PEN SC SCH ×6 (09:16→17:18)
[2017-03-09] MEDS: INSULIN GLARGINE [LANtus] 3 ML PEN SC SCH (09:18)
[2017-03-09 09:24] LABS: BASOPHILS % 0.2 % (0.0-2.0); EOSINOPHILS # 0.1 10^3/ul (0.0-0.5); EOSINOPHILS % 1.1 % (0.0-7.0); HEMATOCRIT 39.7 % (42.0-52.0); HEMOGLOBIN 13.3 g/dl (14.0-18.0); LYMPHOCYTES # 2.2 10^3/ul (0.8-2.9); LYMPHOCYTES % 41.8 % (15.0-51.0); MEAN CORPUSCULAR HEMOGLOBIN 30.1 pg (29.0-33.0); MEAN CORPUSCULAR HGB CONC 33.5 g/dl (32.0-37.0); MEAN CORPUSCULAR VOLUME 89.8 fl (82.0-101.0); MONOCYTE # 0.6 10^3/ul (0.3-0.9); MONOCYTES % 11.7 % (0.0-11.0); NEUTROPHIL # 2.4 10^3/ul (1.6-7.5); PLATELET COUNT 135 10^3/UL (140-415); POSITIVE DIFF @See below; RED BLOOD COUNT 4.42 10^6/ul (4.70-6.10); RED CELL DISTRIBUTION WIDTH 12.9 % (11.5-14.5); WHITE BLOOD COUNT 5.3 10^3/ul (4.8-10.8)
[2017-03-09 09:42] LABS: CALCIUM 8.5 mg/dl (8.4-10.2); CREATININE 1.46 mg/dl (0.61-1.24); POTASSIUM 4.2 mmol/L (3.5-5.1)
[2017-03-09] MEDS ORDERED: INSU100I33 SC (15:28)
[2017-03-09] MEDS ORDERED: NITR0.4T32 SL (15:28)
[2017-03-09] MEDS ORDERED: APIX5TAB PO (15:28)
[2017-03-09] MEDS ORDERED: AZIT250T13 PO (15:28)
[2017-03-09] MEDS ORDERED: IPRA4AER INHALATION (15:28)
[2017-03-09] MEDS ORDERED: GUAI-637 PO (15:28)
[2017-03-09] MEDS ORDERED: ADV25050 INH (15:28)
[2017-03-09] MEDS ORDERED: AMOX1TAB10 PO (15:28)
[2017-03-09] MEDS ORDERED: LAS20 PO (15:28)
[2017-03-09] MEDS ORDERED: HYDR-3672 PO (15:28)
[2017-03-09] MEDS ORDERED: ISOS30TA5 PO (15:28)
[2017-03-09] MEDS ORDERED: NOVO3I SC (15:28)
[2017-03-09] MEDS ORDERED: SITA50TA2 PO (15:28)
[2017-03-09] MEDS: CEFTRIAXONE 1 GM/50 ML (PMX) 50 ML IVPB SCH (15:30)
--- NOTE | 2017-03-09 15:32 | PDOCDIS ---
Discharge Instructions DIAGNOSIS Discharge Diagnosis Chest pain r/o ACS Acute bronchitis CONDITION Patient Condition: Stable HOME CARE INSTRUCTIONS: Special Diet: CARB CONTROL ACTIVITY: Activity Restrictions: Slowly Increase Activity Rest between Activity FOLLOW UP/APPOINTMENTS Follow-up Plan Followup with your primary doctor within the next 1 week Review your medication list with your nurse before leaving and if you need new prescriptions please let your nurse know. I may have made changes to your home medications or given you new prescriptions, please let your primary doctor know as well. Stay compliant with your medications and report any side effects to your PCP or pharmacist. Return to the ER if you have any concerns and cannot reach your doctors or call your insurance company, they usually have a nurse that can help you. KARISSA CASTRO Mar 09, 2017 15:32
--- NOTE | 2017-03-09 16:07 | DS ---
Date/Time of Note Date/Time of Note DATE: 03/09/17 TIME: 16:07 Discharge Summary Admission/Discharge Info Admit Date/Time Mar 05, 2017 at 10:36 Discharge Date/Time Discharge Diagnosis 1. CP : ACS ruled out, CP resolved, likely 2/2 #8 2. DM2: Improved control 3. HTN: controlled 4. CAD s/p Stent in the past 5. CKD stage 3B 6. s/p AICD 7. Chronic Cardiomyopathy likely ischemic, EF 35% 8. Acute Bronchitis with cough and fever 9. Paroxysmal atrial fibrillation, on Eliquis s/p transient nose bleed, now resolved, Eliquis resumed Patient Condition: Stable Consults * Cardiology: Jeison . Hx of Present Illness This is an 81-year-old male who presents to the emergency room with a 3 day history of intermittent midsternal chest pain.Patient denies fever or cough, He also denies palpitations. He had an episode of nosebleed this morning that has currently resolved. Denies abdominal pain, denies dysuria or hematuria. He does have chronic high blood pressure and diabetes, and is being admitted for ACS rule out. Hospital Course This pleasant 79-year-old male was originally admitted because of chest pain to rule out an acute coronary syndrome. He however ruled out, and was also seen by cardiology and his chest pain was not thought to be cardiac in origin. No further cardiology workup was done because patient developed developed fever during his hospitalization which in addition to respiratory symptoms give us a diagnosis of an acute bronchitis with associated cough causing chest pain. His chest x-ray did not show any infiltrates suggestive of pneumonia, the patient could have had an atypical pneumonia but his symptoms seem likely more upper airway than lower in origin. He was treated with empiric antibiotics and supportive care, and when he was much improved and >24 hours fever free, he was discharged in stable condition. We have recommended that he follow-up with his primary care doctor within the week, to ensure continued resolution of symptoms and was given instructions and symptoms to look out for for when to return to the emergency room. Patient and his verbalized understanding. . Home Meds Active Scripts Guaifenesin (Guaifenesin) 100 Mg/5 Ml Liquid, 300 MG PO Q6H Y for COUGH, #100 ML Prov:KARISSA CASTRO 03/09/17 Insulin Aspart* (Novolog Insulin Pen*) 100 Unit/Ml Soln, 4 UNIT SC WITH MEALS for 30 Days, 2 Refills Prov:KARISSA CASTRO . 03/09/17 Sitagliptin* (Januvia*) 50 Mg Tablet, 50 MG PO DAILY, #30 TAB Prov:KARISSA CASTRO . 03/09/17 Albuterol/Ipratropium* (Combivent Respimat*) 20-100 Mcg/Inh - 4 Gm Aer.w.adap, 1 PUFF INHALATION Q4H WHILE AWAKE Y for SHORTNESS OF BREATH, #1 INHALER Prov:TITUS CASTRO . 03/09/17 Azithromycin* (Azithromycin*) 250 Mg Tablet, 250 MG PO DAILY for 2 Days, #2 TAB Prov:CYNTHIA [facility]OF[facility] [place] 03/09/17 Amoxicillin/Potassium Clav (Amox-Clav 875-125 mg Tablet) 875-125 mg Tab, 1 TAB PO BID for 7 Days, #14 TAB Prov:MATTHEWFORT [facility] [place] 03/09/17 Salmeterol Xinaf/Fluticasone* (Advair*) 250-50 Diskus Inhaler, 1 INH INH BID, # 1 VIAL 2 Refills Prov:CYNTHIA [facility]STROF[facility] [place] 03/09/17 Furosemide (Lasix) 20 Mg Tab, 20 MG PO DAILY for 30 Days, TAB Prov:CYNTHIA [facility]STROF[facility] [place] 03/09/17 Nitroglycerin* (Nitroglycerin* SL) 0.4 Mg Tab.subl, 1 TAB SL .Q5M UP TO 3 DOSES Y for CHEST PAIN, #10 Prov:TITUS CASTRO 03/09/17 Isosorbide Mononitrate* (Isosorbide Mononitrate*) 30 Mg Tab.er.24h, 30 MG PO BID for 30 Days, 2 Refills Prov:TITUS CASTRO 03/09/17 Hydralazine Hcl* (Apresoline*) 50 Mg Tab, 50 MG PO BID for 30 Days, TAB 1 Refill Prov:TITUS CASTRO 03/09/17 Apixaban* (Eliquis*) 5 Mg Tablet, 2.5 MG PO BID for 30 Days, TAB 2 Refills Prov:CYNTHIA [facility]OF[facility] [place] 03/09/17 Insulin Glargine,Hum.rec.anlog (Katyaglar Kaileyikpen U-100) 100 Unit/1 Ml Insuln.pen , 25 UNIT SC DAILY for 30 Days Prov:TITUS CASTROTroy Snider 03/09/17 Hydrocodone/Acetaminophen ([place] 5-325 Tablet) 1 Each Tablet, 1 EACH PO Q6H, # 20 TAB Prov:YVAN TOLENTINO NP 01/03/16 Aspirin (Aspirin) 81 Mg Chew, 81 MG PO DAILY for 30 Days, #30 TAB Prov:JIM LI MD 01/02/16 Reported Medications Tamsulosin Hcl* (Flomax*) 0.4 Mg Cap.er.24h, 0.4 MG PO HS, CAP 03/03/17 Simvastatin (Simvastatin) 40 Mg Tablet, 40 MG PO QHS, #30 TAB 01/02/16 Carvedilol* (Carvedilol*) 12.5 Mg Tablet, 12.5 MG PO BID 01/12/12 Follow-up Plan Followup with your primary doctor within the next 1 week Review your medication list with your nurse before leaving and if you need new prescriptions please let your nurse know. I may have made changes to your home medications or given you new prescriptions, please let your primary doctor know as well. Stay compliant with your medications and report any side effects to your PCP or pharmacist. Return to the ER if you have any concerns and cannot reach your doctors or call your insurance company, they usually have a nurse that can help you. Primary Care Provider Isak Johansen Time spent on discharge: > 30 minutes Pending Labs Laboratory Tests Test 03/08/17 17:24 03/08/17 20:41 03/09/17 04:10 03/09/17 08:17 Bedside Glucose 243mg/dL (70-220) 203mg/dL (70-220) 184mg/dL (70-220) 178mg/dL (70-220) Test 03/09/17 08:22 03/09/17 12:23 White Blood Count 5.310^3/ul (4.8-10.8) Red Blood Count 4.4210^6/ul (4.70-6.10) Hemoglobin 13.3g/dl (14.0-18.0) Hematocrit 39.7% (42.0-52.0) Mean Corpuscular Volume 89.8fl (82.0-101.0) Mean Corpuscular Hemoglobin 30.1pg (29.0-33.0) Mean Corpuscular Hemoglobin Concent 33.5g/dl (32.0-37.0) Red Cell Distribution Width 12.9% (11.5-14.5) Platelet Count 41560^3/UL (140-415) Mean Platelet Volume 11.0fl (7.4-10.4) Neutrophils % 45.0% (39.0-77.0) Lymphocytes % 41.8% (15.0-51.0) Monocytes % 11.7% (0.0-11.0) Eosinophils % 1.1% (0.0-7.0) Basophils % 0.2% (0.0-2.0) Nucleated Red Blood Cells % 0.0/100WBC (0.0-0.0) Neutrophils # 2.410^3/ul (1.6-7.5) Lymphocytes # 2.210^3/ul (0.8-2.9) Monocytes # 0.610^3/ul (0.3-0.9) Eosinophils # 0.110^3/ul (0.0-0.5) Basophils # 0.010^3/ul (0.0-0.1) Nucleated Red Blood Cells # 0.010^3/ul (0.0-0.0) Sodium Level 137mmol/L (135-144) Potassium Level 4.2mmol/L (3.5-5.1) Chloride Level 107mmol/L (97-110) Carbon Dioxide Level 19mmol/L (21-31) Anion Gap 15 (8-16) Blood Urea Nitrogen 36mg/dl (7-20) Creatinine 1.46mg/dl (0.61-1.24) Glucose Level 199mg/dl (70-220) Calcium Level 8.5mg/dl (8.4-10.2) Bedside Glucose 224mg/dL (70-220) KARISSA CASTRO Mar 09, 2017 16:07
== END 2017-03-09 18:23 | disposition home health service (06) | DRG 202 ==
LOC: E/R 03:40 → MS4 07:58 → OBSVTOIN 03-05 10:36
PROVIDERS: ADMIT Family Medicine; ATTEND Family Medicine
DX: J20.9 Acute bronchitis, unspecified (principal); I50.21 Acute systolic (congestive) heart failure; N17.9 Acute kidney failure, unspecified; I13.0 Hypertensive heart and chronic kidney disease with heart failure and stage 1 through stage 4 chronic kidney disease, or unspecified chronic kidney disease; I42.8 Other cardiomyopathies; I25.2 Old myocardial infarction; R10.9 Unspecified abdominal pain; E11.22 Type 2 diabetes mellitus with diabetic chronic kidney disease; I07.1 Rheumatic tricuspid insufficiency; I25.10 Atherosclerotic heart disease of native coronary artery without angina pectoris; Z95.5 Presence of coronary angioplasty implant and graft; Z95.810 Presence of automatic (implantable) cardiac defibrillator; I48.0 Paroxysmal atrial fibrillation; Z79.01 Long term (current) use of anticoagulants; N40.0 Benign prostatic hyperplasia without lower urinary tract symptoms; R04.0 Epistaxis; N18.3 Chronic kidney disease, stage 3 (moderate); Z87.891 Personal history of nicotine dependence
CPT/HCPCS: 36415; 71010; 71020; 80048; 80053; 80076; 80307; 81001; 82550; 82553; 82962; 83036; 83735; 84443; 84484; 85025; 87040; 87070; 87400; 90686; 93005; 93306; 94640; 94664; 96360; 96361; G0378; J0360; J0696; J1815; J1940; J7040

== ENCOUNTER 2017-05-08 19:01 | Observation (INO) | END 2017-05-10 17:59 | disposition home or self-care (01) ==

== ENCOUNTER 2018-02-05 03:28 | Inpatient (IN) | END 2018-02-09 20:25 | disposition home or self-care (01) | DRG 378 ==

== ENCOUNTER 2018-07-13 03:20 | Emergency (ER) | payer BC ==
[~2018-07-13] VITALS: Ht 177.8 cm; Wt 88.6 kg
[~2018-07-13 03:20] MED LIST changes: +AMIO200T4 PO; +APIX5TAB PO; -ASPI81TA3 PO; +BACL10TA PO; -CARV12.579 PO; +CARV25TA79 PO; +DOCU-144 PO; +FER325 PO; +FINA5TAB4 PO; -FURO40TA4 PO; -HYDR-906 PO; +INSU100I33 SC; +LAS20 PO; +LORA0.5T PO; -METF1000 PO; -POTA20TA PO; +TAMS-14 PO
[2018-07-13 03:27] VITALS: Ht 177.8 cm; Wt 88.6 kg
--- NOTE | 2018-07-13 05:34 | ERD ---
ER Documentation Chief Complaint Chief Complaint NOSEBLEED SINCE 1800; STILL BLEEDING; NO BLOOD THINNERS HPI This is an 83-year-old male brought in by family for nosebleed that started at 6 PM. Denies fevers chills nausea vomiting. Denies trauma. Denies headache. Denies chest pain. Denies any other current issues ROS All systems reviewed and are negative except as per history of present illness. Medications Home Meds Active Scripts Docusate Sodium* (Colace*) 100 Mg Capsule, 100 MG PO BID, #60 CAP Prov:TOLENTINOYVAN V. CUSTOM SHOEMAKER 02/09/18 Amiodarone Hcl* (Amiodarone Hcl*) 200 Mg Tablet, 200 MG PO BID, #60 TAB Prov:TOLENTINOKRITSOPHERA V. CUSTOM SHOEMAKER 02/09/18 Ferrous Sulfate* (Ferrous Sulfate*) 325 Mg Tabec, 325 MG PO DAILY, #30 TAB Prov:TOLENTINOKRISTOPHERA V. CUSTOM SHOEMAKER 02/09/18 Baclofen* (Baclofen*) 10 Mg Tablet, 10 MG PO TID PRN for neck pain, #30 TAB Prov:TOLENTINOYVAN V. CUSTOM SHOEMAKER 02/09/18 Furosemide (Lasix) 20 Mg Tab, 20 MG PO DAILY for 30 Days, TAB Prov:MATTHEWKARISSA MKirsten 03/09/17 Reported Medications Lorazepam* (Lorazepam*) 0.5 Mg Tablet, 0.5 MG PO HS PRN for ANXIETY, TAB 02/05/18 Finasteride* (Finasteride*) 5 Mg Tablet, 5 MG PO DAILY, TAB 02/05/18 Carvedilol* (Carvedilol*) 25 Mg Tablet, 25 MG PO BID, #60 TAB 02/05/18 Apixaban* (Eliquis*) 5 Mg Tablet, 10 MG PO BID, TAB 02/05/18 Insulin Glargine,Hum.rec.anlog (Basaglar Kwikpen U-100) 100 Unit/1 Ml Insuln.pen, 40 UNIT SC DAILY, EA INJECT 389 UNITS SC EVERY DAY 05/08/17 Tamsulosin Hcl* (Flomax*) 0.4 Mg Cap.er.24h, 0.4 MG PO HS, CAP 03/03/17 Simvastatin (Simvastatin) 40 Mg Tablet, 40 MG PO QHS, #30 TAB 01/02/16 Allergies Allergies: Coded Allergies: No Known Drug Allergies (Unverified Allergy, Mild, 02/05/18) PMhx/Soc History of Surgery: Yes Anesthesia Reaction: No Hx Neurological Disorder: No Hx Respiratory Disorders: No Hx Cardiac Disorders: Yes (htn) Hx Psychiatric Problems: No Hx Miscellaneous Medical Probl: No (type 2 diabetes, moderate tricuspid regurg, BPH, ) Hx Alcohol Use: No Hx Substance Use: No Hx Tobacco Use: No Smoking Status: Unknown if ever smoked Physical Exam Vitals Vital Signs Date Temp Pulse Resp B/P (MAP) Pulse Ox O2 O2 Flow FiO2 Time Delivery Rate 07/13/18 66 22 98 Room Air 04:10 07/13/18 98.7 77 19 182/74 98 03:27 (110) Physical Exam Const: No acute distress Head: Atraumatic Eyes: Normal Conjunctiva ENT: Scant bleeding in bilateral nares Neck: Full range of motion. No meningismus. Resp: Clear to auscultation bilaterally Cardio: Regular rate and rhythm, no murmurs Abd: Soft, non tender, non distended. Normal bowel sounds Skin: No petechiae or rashes Back: No midline or flank tenderness Ext: No cyanosis, or edema Neur: Awake and alert Psych: Normal Mood and Affect Result Diagram: 07/13/18 04307/13/18 043 Results 24 hrs Laboratory Tests Test 07/13/18 04:30 White Blood Count 7.1 10^3/ul Red Blood Count 3.99 10^6/ul Hemoglobin 12.2 g/dl Hematocrit 36.6 % Mean Corpuscular Volume 91.7 fl Mean Corpuscular Hemoglobin 30.6 pg Mean Corpuscular Hemoglobin Concent 33.3 g/dl Red Cell Distribution Width 12.8 % Platelet Count 144 10^3/UL Mean Platelet Volume 11.0 fl Immature Granulocytes % 0.600 % Neutrophils % 55.1 % Lymphocytes % 28.7 % Monocytes % 10.1 % Eosinophils % 4.9 % Basophils % 0.6 % Nucleated Red Blood Cells % 0.0 /100WBC Immature Granulocytes # 0.040 10^3/ul Neutrophils # 3.9 10^3/ul Lymphocytes # 2.0 10^3/ul Monocytes # 0.7 10^3/ul Eosinophils # 0.4 10^3/ul Basophils # 0.0 10^3/ul Nucleated Red Blood Cells # 0.0 10^3/ul Prothrombin Time 14.1 Sec Prothrombin Time Ratio 1.1 INR International Normalized Ratio 1.08 Activated Partial Thromboplast Time 26.6 Sec Sodium Level 141 mmol/L Potassium Level 4.4 mmol/L Chloride Level 110 mmol/L Carbon Dioxide Level 22 mmol/L Anion Gap 9 Blood Urea Nitrogen 37 mg/dl Creatinine 1.26 mg/dl Est Glomerular Filtrat Rate mL/min mL/min Glucose Level 243 mg/dl Calcium Level 9.8 mg/dl Total Bilirubin 1.0 mg/dl Direct Bilirubin 0.00 mg/dl Indirect Bilirubin 1.0 mg/dl Aspartate Amino Transf (AST/SGOT) 30 IU/L Alanine Aminotransferase (ALT/SGPT) 34 IU/L Alkaline Phosphatase 92 IU/L Total Protein 7.0 g/dl Albumin 3.8 g/dl Globulin 3.20 g/dl Albumin/Globulin Ratio 1.18 Lipase 114 U/L Procedures/MDM Patient was seen and Marj charges. Placed in bed for evaluation. Blood work drawn. Had bilateral anterior nasal packing. Patient tolerated procedure well. Hemostasis was achieved. Medical decision making: This is a very pleasant patient with epistaxis. He has had nasal packing placed. He is tolerated the packing well. He will be discharged home to follow-up in 24 hours with a ENT or here in the ER to have packing removed. Blood counts are stable. Departure Diagnosis: Primary Impression: Epistaxis Condition: Stable Patient Instructions: Epistaxis (Adult) NATHANAEL GOETZ Jul 13, 2018 05:34
[2018-07-13 07:05] VITALS: BP 157/73; PULSE 58; RESP 18
== END 2018-07-13 07:05 | disposition home or self-care (01) ==
LOC: E/R 03:20
DX: R04.0 Epistaxis (principal); I10 Essential (primary) hypertension; E11.9 Type 2 diabetes mellitus without complications; Z79.4 Long term (current) use of insulin
CPT/HCPCS: 30901; 36415; 80053; 83690; 85025; 85610; 85730; Z7502

== ENCOUNTER 2018-07-14 04:26 | Emergency (ER) | payer BC ==
[~2018-07-14] VITALS: Ht 175.3 cm; Wt 86.1 kg
[2018-07-14 04:28] VITALS: Ht 175.3 cm; Wt 86.1 kg
--- NOTE | 2018-07-14 05:38 | ERD ---
ER Documentation Chief Complaint Chief Complaint rhino rockets removal HPI 83-year-old male here for follow-up after he had epistaxis yesterday and bilateral anterior nasal packing placed. Denies any complaints at this time. No further bleeding. Per patient hemostasis was achieved. ROS All systems reviewed and are negative except as per history of present illness. Medications Home Meds Active Scripts Docusate Sodium* (Colace*) 100 Mg Capsule, 100 MG PO BID, #60 CAP Prov:TOLENTINOKRISTOPHERA V. FLIGHT CONTROL TOWER OPERATOR 02/09/18 Amiodarone Hcl* (Amiodarone Hcl*) 200 Mg Tablet, 200 MG PO BID, #60 TAB Prov:TOLENTINO,YVAN V. FLIGHT CONTROL TOWER OPERATOR 02/09/18 Ferrous Sulfate* (Ferrous Sulfate*) 325 Mg Tabec, 325 MG PO DAILY, #30 TAB Prov:TOLENTINOKRISTOPHERA V. FLIGHT CONTROL TOWER OPERATOR 02/09/18 Baclofen* (Baclofen*) 10 Mg Tablet, 10 MG PO TID PRN for neck pain, #30 TAB Prov:TOLENTINOKRISTOPHERA V. FLIGHT CONTROL TOWER OPERATOR 02/09/18 Furosemide (Lasix) 20 Mg Tab, 20 MG PO DAILY for 30 Days, TAB Prov:AMTTHEWKARISSA M. 03/09/17 Reported Medications Lorazepam* (Lorazepam*) 0.5 Mg Tablet, 0.5 MG PO HS PRN for ANXIETY, TAB 02/05/18 Finasteride* (Finasteride*) 5 Mg Tablet, 5 MG PO DAILY, TAB 02/05/18 Carvedilol* (Carvedilol*) 25 Mg Tablet, 25 MG PO BID, #60 TAB 02/05/18 Apixaban* (Eliquis*) 5 Mg Tablet, 10 MG PO BID, TAB 02/05/18 Insulin Glargine,Hum.rec.anlog (Basaglar Kwikpen U-100) 100 Unit/1 Ml Insuln.pen, 40 UNIT SC DAILY, EA INJECT 389 UNITS SC EVERY DAY 05/08/17 Tamsulosin Hcl* (Flomax*) 0.4 Mg Cap.er.24h, 0.4 MG PO HS, CAP 03/03/17 Simvastatin (Simvastatin) 40 Mg Tablet, 40 MG PO QHS, #30 TAB 01/02/16 Allergies Allergies: Coded Allergies: No Known Drug Allergies (Unverified Allergy, Mild, 02/05/18) PMhx/Soc History of Surgery: Yes Anesthesia Reaction: No Hx Neurological Disorder: No Hx Respiratory Disorders: No Hx Cardiac Disorders: Yes (htn) Hx Psychiatric Problems: No Hx Miscellaneous Medical Probl: No (type 2 diabetes, moderate tricuspid regurg, BPH, ) Hx Alcohol Use: No Hx Substance Use: No Hx Tobacco Use: No Smoking Status: Never smoker Physical Exam Vitals Vital Signs Date Temp Pulse Resp B/P (MAP) Pulse Ox O2 O2 Flow FiO2 Time Delivery Rate 07/14/18 98.6 79 18 139/64 98 04:28 (89) Physical Exam Const: No acute distress Head: Atraumatic Eyes: Normal Conjunctiva ENT: Dried blood in both nares and the anterior portion. No active bleeding Neck: Full range of motion. No meningismus. Resp: Clear to auscultation bilaterally Cardio: Regular rate and rhythm, no murmurs Abd: Soft, non tender, non distended. Normal bowel sounds Skin: No petechiae or rashes Back: No midline or flank tenderness Ext: No cyanosis, or edema Neur: Awake and alert Psych: Normal Mood and Affect Procedures/MDM Medical decision making: Patient here for epistaxis follow-up. Rhino Rocket is removed. No bleeding noted. Patient stable for outpatient management. Advised to follow with primary care physician outpatient ENT. Departure Diagnosis: Primary Impression: Follow-up examination for injury Condition: Stable Patient Instructions: Epistaxis (Adult) NATHANAEL GOETZ Jul 14, 2018 05:38
[2018-07-14 05:55] VITALS: BP 156/72; PULSE 72; RESP 16
== END 2018-07-14 05:55 | disposition home or self-care (01) ==
LOC: E/R 04:26
DX: Z48.00 Encounter for change or removal of nonsurgical wound dressing (principal); I10 Essential (primary) hypertension; E11.9 Type 2 diabetes mellitus without complications; Z79.4 Long term (current) use of insulin
CPT/HCPCS: 99282

== ENCOUNTER 2018-09-09 16:10 | Inpatient (IN) | payer BC ==
[~2018-09-09] VITALS: Ht 167.6 cm; Wt 86.0 kg
[2018-09-09] MEDS ORDERED: morphine 4 MG/ML VIAL IV STA (17:35)
[2018-09-09] MEDS ORDERED: ONDANSETRON 4 MG INJ IV STA (17:35)
[2018-09-09] MEDS ORDERED: SOD CHLORIDE 0.9% 1,000 ML IV STA (17:35)
--- NOTE | 2018-09-09 17:45 | ERD ---
ER Documentation Chief Complaint Chief Complaint C/O H/A, UPPER BACK, NECK PAIN WITH SEVERE DIZZINESS, POSSIBLE HIGH K LEVEL HPI This is a very pleasant 83-year-old male with a history of insulin-dependent diabetes mellitus and hypertension. The patient indicates for the past 7 days he has had a bandlike headache. He said significant dizziness where he feels as though the room is spinning around him. He said multiple episodes of nonbloody nonbilious emesis. He denies any neck pain contrary to the triage note. He states the pain is in his shoulders and upper back. He has had no fevers no shaking no chills. He is been experiencing diffuse muscle cramps and feeling very anxious and shaky. He states this is not the worst headache of his life. He denies any changes in vision. He denies any chest pressure. The patient indicates that his symptoms have progressively worsened to the point where he feels as though he is going to pass out. He has not had a complete transient loss of consciousness. ROS All systems reviewed and are negative except as per history of present illness. Medications Home Meds Reported Medications Nitroglycerin* (Nitroglycerin* SL) 0.4 Mg Tab.subl, 0.4 MG SL Q5MIN PRN for CHEST PAIN, BOTTLE 09/09/18 Apixaban* (Eliquis*) 5 Mg Tablet, 5 MG PO BID, TAB 09/09/18 Isosorbide Mononitrate* (Isosorbide Mononitrate*) 30 Mg Tab.er.24h, 30 MG PO BID, TAB 09/09/18 Carvedilol* (Carvedilol*) 25 Mg Tablet, 25 MG PO BID, #60 TAB 09/09/18 Benazepril Hcl* (Benazepril Hcl*) 10 Mg Tablet, 10 MG PO DAILY, #30 TAB 09/09/18 Furosemide* (Furosemide*) 20 Mg Tablet, 20 MG PO DAILY, #60 TAB 09/09/18 Simvastatin* (Zocor*) 40 Mg Tablet, 40 MG PO QHS, #30 TAB 09/09/18 Hydralazine Hcl* (Apresoline*) 50 Mg Tab, 50 MG PO BID, #60 TAB 09/09/18 Insulin Glargine,Hum.rec.anlog (Basaglar Kwikpen U-100) 100 Unit/1 Ml Insuln.pen, 50 UNIT SC DAILY, EA 09/09/18 Tamsulosin Hcl* (Flomax*) 0.4 Mg Cap.er.24h, 0.4 MG PO HS, CAP 09/09/18 Finasteride* (Finasteride*) 5 Mg Tablet, 5 MG PO DAILY, TAB 09/09/18 Discontinued Reported Medications Lorazepam* (Lorazepam*) 0.5 Mg Tablet, 0.5 MG PO HS PRN for ANXIETY, TAB 02/05/18 Finasteride* (Finasteride*) 5 Mg Tablet, 5 MG PO DAILY, TAB 02/05/18 Carvedilol* (Carvedilol*) 25 Mg Tablet, 25 MG PO BID, #60 TAB 02/05/18 Apixaban* (Eliquis*) 5 Mg Tablet, 10 MG PO BID, TAB 02/05/18 Insulin Glargine,Hum.rec.anlog (Basaglar Kwikpen U-100) 100 Unit/1 Ml Insuln.pen, 40 UNIT SC DAILY, EA INJECT 389 UNITS SC EVERY DAY 05/08/17 Tamsulosin Hcl* (Flomax*) 0.4 Mg Cap.er.24h, 0.4 MG PO HS, CAP 03/03/17 Simvastatin (Simvastatin) 40 Mg Tablet, 40 MG PO QHS, #30 TAB 01/02/16 Discontinued Scripts Docusate Sodium* (Colace*) 100 Mg Capsule, 100 MG PO BID, #60 CAP Prov:TOLENTINO,YVAN V. [employer] OPERATOR 02/09/18 Amiodarone Hcl* (Amiodarone Hcl*) 200 Mg Tablet, 200 MG PO BID, #60 TAB Prov:TOLENTINO,YVAN V. [employer] OPERATOR 02/09/18 Ferrous Sulfate* (Ferrous Sulfate*) 325 Mg Tabec, 325 MG PO DAILY, #30 TAB Prov:TOLENTINO,YVAN V. [employer] OPERATOR 02/09/18 Baclofen* (Baclofen*) 10 Mg Tablet, 10 MG PO TID PRN for neck pain, #30 TAB Prov:TOLENTINO,YVAN V. [employer] OPERATOR 02/09/18 Furosemide (Lasix) 20 Mg Tab, 20 MG PO DAILY for 30 Days, TAB Prov:KARISSA CASTRO 03/09/17 Allergies Allergies: Coded Allergies: No Known Drug Allergies (Unverified Allergy, Mild, 6/20/19) PMhx/Soc History of Surgery: Yes Anesthesia Reaction: No Hx Neurological Disorder: No Hx Respiratory Disorders: No Hx Cardiac Disorders: Yes (htn) Hx Psychiatric Problems: No Hx Miscellaneous Medical Probl: No (type 2 diabetes, moderate tricuspid regurg, BPH, ) Hx Alcohol Use: No Hx Substance Use: No Hx Tobacco Use: No Physical Exam Vitals Vital Signs Date Temp Pulse Resp B/P (MAP) Pulse Ox O2 O2 Flow FiO2 Time Delivery Rate 09/09/18 98.0 75 14 131/49 99 Room Air 22:29 (76) 09/09/18 98.0 64 14 136/61 99 Room Air 21:19 (86) 09/09/18 63 16 97 21 20:54 09/09/18 98.0 71 14 119/55 99 Room Air 20:25 (76) 09/09/18 98.0 65 19 128/49 97 Room Air 18:44 (75) 09/09/18 98.0 61 18 108/55 97 16:46 (72) Physical Exam Constitutional:Well-developed. Well-nourished. HEENT:Normocephalic. Atraumatic. Left pupil is fixed and dilated from previous surgical procedure. Right pupil is 2 mm and reactive to light. Moist mucous membranes.No tonsillar exudates. Neck: No nuchal rigidity. No lymphadenopathy. No posterior cervical spine tenderness or step-offs. Respiratory: Not using accessory muscles of respiration.Lungs were clear to auscultation bilaterally. No rhonchi. No rales. No wheezing. Cardiovascular: Regular rate regular rhythm.No murmurs. No rubs were appreciated.S1, S2 normal. Distal pulses are palpable 2+ bilaterally. GI: Abdomen was soft. Nontender. Non Distended. No pulsatile abdominal masses or bruits. No rebound. No guarding. Bowel sounds were present and normal. Muscle skeletal: Full range of motion of both the upper and lower extremities bilaterally.Normal muscle tone.No assymetrical calf tenderness or swelling. Skin: No petechia, no purpura. No lesions on the palms or the soles of the feet. No maculopapular rash. NEURO: Patient was alert, awake, orientated x3.No facial droop. Gait observed and normal with no ataxia however patient feels very unsteady and only ambulate several feet.Speech had regular rate and rhythm. No focal neurological deficits. Peripheral fatigable nystagmus. Patient is very sensitive to touch which he states is a chronic ongoing issue and will have quick withdrawal movements to touch Result Diagram: 09/09/18175509/09/181755 Results 24 hrs Laboratory Tests Test 09/09/18 17:56 White Blood Count 8.4 10^3/ul Red Blood Count 3.96 10^6/ul Hemoglobin 12.3 g/dl Hematocrit 37.0 % Mean Corpuscular Volume 93.4 fl Mean Corpuscular Hemoglobin 31.1 pg Mean Corpuscular Hemoglobin Concent 33.2 g/dl Red Cell Distribution Width 12.0 % Platelet Count 167 10^3/UL Mean Platelet Volume 10.2 fl Immature Granulocytes % 0.400 % Neutrophils % 59.2 % Lymphocytes % 25.9 % Monocytes % 9.8 % Eosinophils % 4.3 % Basophils % 0.4 % Nucleated Red Blood Cells % 0.0 /100WBC Immature Granulocytes # 0.030 10^3/ul Neutrophils # 5.0 10^3/ul Lymphocytes # 2.2 10^3/ul Monocytes # 0.8 10^3/ul Eosinophils # 0.4 10^3/ul Basophils # 0.0 10^3/ul Nucleated Red Blood Cells # 0.0 10^3/ul Prothrombin Time 14.3 Sec Prothrombin Time Ratio 1.1 INR International Normalized Ratio 1.10 Activated Partial Thromboplast Time 26.9 Sec Sodium Level 133 mmol/L Potassium Level 5.4 mmol/L Chloride Level 103 mmol/L Carbon Dioxide Level 20 mmol/L Anion Gap 10 Blood Urea Nitrogen 47 mg/dl Creatinine 2.05 mg/dl Est Glomerular Filtrat Rate mL/min mL/min Glucose Level 297 mg/dl Calcium Level 8.9 mg/dl Total Bilirubin 0.8 mg/dl Direct Bilirubin 0.00 mg/dl Indirect Bilirubin 0.8 mg/dl Aspartate Amino Transf (AST/SGOT) 38 IU/L Alanine Aminotransferase (ALT/SGPT) 45 IU/L Alkaline Phosphatase 78 IU/L Troponin I 0.015 ng/ml B-Type Natriuretic Peptide 1310 PG/ML Total Protein 7.4 g/dl Albumin 4.0 g/dl Globulin 3.40 g/dl Albumin/Globulin Ratio 1.17 Lipase 139 U/L Current Medications Medications Dose Sig/Shannan Start Time Status Last (Trade) Ordered Route PRN Stop Time Admin Dose Reason Admin Sodium 1,000 ml @ Q1H STAT 09/09/18 DC 09/09/18 Chloride 1,000 mls/hr IV 17:35 17:53 09/09/18 18:34 Morphine 4 mg ONCE STAT 09/09/18 DC 09/09/18 Sulfate IV 17:35 17:53 (morphine) 09/09/18 17:37 Ondansetron 4 mg ONCE STAT 09/09/18 DC 09/09/18 HCl (Zofran IV 17:35 17:52 Inj) 09/09/18 17:37 Meclizine 25 mg ONCE ONCE 09/09/18 DC 09/09/18 HCl PO 18:00 17:52 (Antivert) 09/09/18 18:01 Sodium 30 gm ONCE STAT 09/09/18 DC 09/09/18 Polystyrene PO 19:43 20:13 Sulfonate 09/09/18 19:44 (Kayexelate 15 Gm Kit (Powder+Sorbi lynn)) Albuterol 15 mg ONCE STAT 09/09/18 DC 09/09/18 (Proventil INH 19:43 20:54 0.5% (Neb)) 09/09/18 19:44 Sodium 50 ml ONCE STAT 09/09/18 DC 09/09/18 Bicarbonate IV 19:43 20:38 (Na Bicarb 09/09/18 19:44 8.4% Syg) Calcium 1,000 mg ONCE STAT 09/09/18 DC 09/09/18 Chloride IV 19:43 20:38 (Ca Chloride 09/09/18 19:44 10% Syg) Ondansetron 4 mg ER BRIDGE 09/09/18 HCl (Zofran PRN IV 20:00 Inj) NAUSEA/VOMITI 09/10/18 19:59 NG 650 mg ER BRIDGE 09/09/18 Acetaminophen PRN PO 20:00 (Tylenol .MILD PAIN 09/10/18 19:59 Tab) 1-3 OR TEMP Procedures/MDM The patient presented to the emergency department with a near syncope episode. The differential diagnosis of syncope is vast but my workup considered common benign disorders to life-threatening processes. Therefore my differential diagnosis included but was not limited to reflex-mediated syncope such as vasovagal or carotid sinus syncope from coughing, sneezing, micturition, or GI stimulation (eg, defecation). Other etiologies in my workup included orthostatic hypotension which could cause syncope from an abrupt drop in venous return to heart from volume depletion. An EKG and cardiac enzymes were obtained to rule out cardiac arrhythmias or ischemia. Cardiopulmonary disease such as valvular disease, hypertrophic cardiomyopathy, pericardial tamponade, or pulmonary embolism were considered as a factor causing the patients syncope episode. The patient had no difference in blood pressure in both arms that could suggest aortic dissection or subclavian steal syndrome. Rectal exam was negative for fecal occult blood that could suggest GI bleeding. Ancillary laboratory work was obtained to evaluate for metabolic or electrolyte abnormalities. The patient had no witnessed brief tonic movements that could suggest postictal confusion. The patient was placed on a panel monitor, continuous pulse oximetry and IV access established by nursing staff. The patient was given intravenous morphine and Zofran. 12 Lead EKG tracing ordered and reviewed by myself showed: Normal sinus rhythm of 66 bpm and no arrhythmia. ID interval prolonged in all leads at 254 ms with a first-degree AV block. Q waves present in the inferior leads III and aVF QRS duration normal. No ST segment elevation No ST segment depression. No changes consistent with acute ischemia. The patient had mild hyperkalemia. I reviewed the patient's ancillary laboratory June 2018 the patient had a BUN of 37 a creatinine of 1.26. Roughly 2 months later the patient's BUN was 47 creatinine was 2.05. Given that the patient is having worsening of his renal function with signs of near syncope I did feel the patient required admission for further evaluation. The patient will be admitted to the hospitalist. Patient will go to the telemetry service due to his hyperkalemia which was treated in the emergency department. Departure Diagnosis: Primary Impression: Near syncope Additional Impressions: Hyperkalemia Renal failure Renal failure chronicity: acute on chronic Acute renal failure type: unspecified Chronic kidney disease stage: unspecified stage Qualified Codes: N17.9 - Acute kidney failure, unspecified; N18.9 - Chronic kidney disease, unspecified Hyperglycemia without ketosis Condition: Serious PAGE TORRES MD Sep 09, 2018 17:45
[2018-09-09] MEDS ORDERED: TAMS-14 PO (17:47)
[2018-09-09] MEDS ORDERED: FINA5TAB4 PO (17:47)
[2018-09-09] MEDS ORDERED: HYDR-3672 PO (17:48)
[2018-09-09] MEDS ORDERED: INSU100I33 SC (17:48)
[2018-09-09] MEDS ORDERED: FURO20TA3 PO (17:49)
[2018-09-09] MEDS ORDERED: SIMV40TA2 PO (17:49)
[2018-09-09] MEDS ORDERED: CARV25TA79 PO (17:50)
[2018-09-09] MEDS ORDERED: BENA10TA4 PO (17:50)
[2018-09-09] MEDS ORDERED: ISOS30TA67 PO (17:51)
[2018-09-09] MEDS ORDERED: APIX5TAB PO (17:51)
[2018-09-09] MEDS ORDERED: NITR0.4T32 SL (17:52)
[2018-09-09] MEDS ORDERED: MECLIZINE 12.5 MG TAB PO ONE (18:00)
[2018-09-09] MEDS ORDERED: SODIUM POLYSTYRENE 15 GM KIT (POWDER + SORBITOL) PO STA (19:43)
[2018-09-09] MEDS ORDERED: NA BICARBONATE 8.4% 50 ML SYG IV STA (19:43)
[2018-09-09] MEDS ORDERED: CA CHLORIDE 10% 10 ML SYRINGE IV STA (19:43)
[2018-09-09] MEDS ORDERED: ALBUTEROL 0.5% (NEB) 2.5 MG/0.5 ML AMP INH STA (19:43)
[2018-09-09] MEDS ORDERED: ONDANSETRON 4 MG INJ IV PRN (20:00)
[2018-09-09] MEDS ORDERED: ACETAMINOPHEN 325 MG TAB PO PRN (20:00)
[2018-09-09 23:41] VITALS: PULSE 85
--- NOTE | 2018-09-09 23:54 | HP ---
Date/Time of Note Date/Time of Note DATE: 09/09/18 TIME: 23:54 Assessment/Plan VTE Prophylaxis Pharmacological prophylaxis: heparin Lines/Catheters IV Catheter Type (from Nrs): Saline Lock Assessment/Plan Assessment/Plan 1. Dizziness/lightheadedness -Telemetry monitoring -Check orthostatics -2D echo -Carotid Doppler ultrasound -Trend troponin -Head CT without acute findings -Cardiology consult, pacemaker/AICD evaluation 2. Acute on CKD -Nephrology consult in a.m. 3. Bloating: Obtain KUB. As needed simethicone for now 4. Cardiomyopathy with EF of 35% (2018): Continue home meds. See #1 5. Type 2 diabetes, with hyperglycemia: Insulin while in-house 6. BPH: Continue Flomax finasteride 7. Pacemaker: Rhythm on the monitor does not seem to be paced, therefore unlikely AICD -Cardiology consult as mentioned #1 8. Hyperkalemia: Secondary to acute on CKD: Correct as needed Result Diagram: 09/09/18 1756 09/09/18 1756 Results 24hrs Laboratory Tests Test 09/09/18 17:56 White Blood Count 8.4 Red Blood Count 3.96 L Hemoglobin 12.3 L Hematocrit 37.0 L Mean Corpuscular Volume 93.4 Mean Corpuscular Hemoglobin 31.1 Mean Corpuscular Hemoglobin Concent 33.2 Red Cell Distribution Width 12.0 Platelet Count 167 Mean Platelet Volume 10.2 Immature Granulocytes % 0.400 Neutrophils % 59.2 Lymphocytes % 25.9 Monocytes % 9.8 Eosinophils % 4.3 Basophils % 0.4 Nucleated Red Blood Cells % 0.0 Immature Granulocytes # 0.030 Neutrophils # 5.0 Lymphocytes # 2.2 Monocytes # 0.8 Eosinophils # 0.4 Basophils # 0.0 Nucleated Red Blood Cells # 0.0 Prothrombin Time 14.3 Prothrombin Time Ratio 1.1 INR International Normalized Ratio 1.10 Activated Partial Thromboplast Time 26.9 Sodium Level 133 L Potassium Level 5.4 H Chloride Level 103 Carbon Dioxide Level 20 L Anion Gap 10 Blood Urea Nitrogen 47 H Creatinine 2.05 H Est Glomerular Filtrat Rate mL/min Glucose Level 297 H Calcium Level 8.9 Total Bilirubin 0.8 Direct Bilirubin 0.00 Indirect Bilirubin 0.8 Aspartate Amino Transf (AST/SGOT) 38 Alanine Aminotransferase (ALT/SGPT) 45 Alkaline Phosphatase 78 Troponin I 0.015 B-Type Natriuretic Peptide 1310 H Total Protein 7.4 Albumin 4.0 Globulin 3.40 H Albumin/Globulin Ratio 1.17 Lipase 139 HPI/ROS Admit Date/Time Admit Date/Time Sep 09, 2018 at 19:52 Hx of Present Illness Patient is an 83-year-old male with a history of chronic atrial fibrillation, type 2 diabetes, BPH, CKD, cardiomyopathy with EF of 35% (2018),pacemaker (?AIC D). Patient presented to the ER complaining of dizziness, vertigo-like symptom and bloating. I spoke to patient with the help of nurse rn transitional. Note that she seems to say yes to pretty much every question that he is asked. However, his chief complaint is dizziness and bloating. He also reported occasional chest pain for which he has been taking nitro. Also reported occasional shortness of breath. Denied fever/chills, nausea or vomiting. Denied loss of consciousness or fall down. Denied any difficulty with urination. Did report that occasionally his lower extremities swell up. He is very sensitive when examined in the upper chest/pacemaker area saying that it feels like some type of electrical feeling. He stated that he has been occasionally having chest pain for which he has been taking nitro. Patient is not fully oriented. He said he has been having some issues remembering things. When presented to the ER, vitals were stable. Head CT without acute findings. First troponin is negative and EKG without ST elevation or depression. Chest x- ray shows cardiomegaly. PMH/Family/Social Past Medical History Medical History: other (See HPI) Medications Current Medications Ondansetron HCl (Zofran Inj) 4 mg ER BRIDGE PRN IV NAUSEA/VOMITING; Start 09/09/18 at 20:00; Stop 09/10/18 at 19:59 Acetaminophen (Tylenol Tab) 650 mg ER BRIDGE PRN PO .MILD PAIN 1-3 OR TEMP; Start 09/09/18 at 20:00; Stop 09/10/18 at 19:59 Coded Allergies: No Known Drug Allergies (Unverified Allergy, Mild, 09/09/18) Past Surgical History Past Surgical Hx: angioplasty, other (See HPI) Family History Significant Family History: no pertinent family hx Social History Alcohol Use: none Smoking Status: Never smoker Drug Use: none Exam/Review of Systems Vital Signs Vitals Vital Signs Date Temp Pulse Resp B/P (MAP) Pulse Ox O2 O2 Flow FiO2 Time Delivery Rate 09/09/18 98.0 72 16 132/63 96 Room Air 23:10 (86) 09/09/18 21 20:54 Exam Constitutional: other (No acute distress) Head: normocephalic, atraumatic Eyes: EOMI, PERRL Respiratory: clear to auscultation, normal air movement Cardiovascular: regular rate and rhythm, nl pulses Gastrointestinal: soft, non-tender Extremities: normal pulses Neurological: other (Not fully oriented) NATHANAEL SCOTT MD Sep 09, 2018 23:54
[2018-09-10] VITALS (15 sets, daily range): BP systolic 101–135; BP diastolic 55–72; PULSE 41–101; RESP 18–20; Ht 167.6 cm; Wt 86.0 kg
[2018-09-10] MEDS ORDERED: ONDANSETRON 4 MG INJ IV PRN (00:30)
[2018-09-10] MEDS ORDERED: ALBUTEROL/IPRATROPIUM (NEB) 3 ML AMP HHN PRN (00:30)
[2018-09-10] MEDS ORDERED: ACETAMINOPHEN 325 MG TAB PO PRN (00:30)
[2018-09-10] MEDS ORDERED: NACL 0.9% 3 ML SYG IV SCH (00:30)
[2018-09-10] MEDS ORDERED: NITROGLYCERIN (SL) 0.4 MG TAB SL PRN (00:30)
[2018-09-10] MEDS ORDERED: GLUCOSE GEL 15 GRAM TUBE PO PRN ×2 (01:00)
[2018-09-10] MEDS ORDERED: GLUCOSE GEL 15 GRAM TUBE BUCCAL PRN (01:00)
[2018-09-10] MEDS ORDERED: GLUCAGON 1 MG INJ IM PRN (01:00)
[2018-09-10] MEDS ORDERED: DEXTROSE 50% 50 ML SYRINGE IV PRN ×2 (01:00)
[2018-09-10] MEDS: ACCU-CHEK XX SCH (02:09)
[2018-09-10] MEDS: INSULIN ASPART [NOVOLOG] 3 ML PEN SC SCH ×4 (07:55→22:15)
[2018-09-10] MEDS: FUROSEMIDE 20 MG TAB PO SCH (08:16)
[2018-09-10] MEDS: FINASTERIDE 5 MG TAB PO SCH (08:17)
[2018-09-10] MEDS ORDERED: ISOSORBIDE MONONITRATE(SR)30 MG TAB PO SCH (09:00)
[2018-09-10] MEDS ORDERED: BENAZEPRIL 10 MG TAB PO SCH (09:00)
[2018-09-10] MEDS ORDERED: INSULIN GLARGINE [LANtus] 3 ML PEN SC SCH (09:00)
[2018-09-10] MEDS ORDERED: INSULIN GLARGINE [LANTus] (100 UNITS/ML) SYG SC SCH (09:00)
[2018-09-10] MEDS ORDERED: APIXABAN 5 MG TABLET PO SCH (09:00)
--- NOTE | 2018-09-10 09:30 | CONS ---
DATE OF ADMISSION: 09/09/2018 DATE OF CONSULTATION: 09/10/2018 TYPE OF CONSULTATION: Nephrology. REASON FOR CONSULTATION: Acute kidney injury. PHYSICIAN REQUESTING CONSULT: Dr. Juan Luis Scott. HISTORY OF PRESENT ILLNESS: This is an 83-year-old male with a past medical history of diabetes, his tory of AFib, history of BPH, history of cardiomyopathy, history of CKD, history of arrhythmia, statu s pacemaker, presents to [facility] Emergency Room complaining of dizziness and josé luis tigo-like symptoms. The patient states that he started to feel dizziness and bloating. The patient had intermittent chest pain and occasional shortness of breath. As a result of these symptoms, the p atient came to the Emergency Room. Upon arrival, patient had a CT scan of the head with no acute fin dings. The patient has an EKG that showed no significant ST changes. The patient's chest x-ray show ed cardiomegaly. The patient was subsequently admitted to telemetry for observation, given IV fluids . In terms of patient's renal history, the patient admits to having underlying chronic kidney disease. The patient is unclear of his baseline renal function. He denies any hemoptysis, hematemesis, hemat ochezia. Denies any rashes, any frothy urine. PAST MEDICAL HISTORY: History of CKD, history of hypertension, history of cardiomyopathy, history of arrhythmia, history of Afib, history of BPH. PAST SURGICAL HISTORY: Status post pacemaker ICD placement. FAMILY HISTORY: No family history of kidney disease. SOCIAL HISTORY: Does not drink, smoke or do drugs. MEDICATIONS: Have been reviewed. REVIEW OF SYSTEMS: A 14-point review of systems was conducted. Pertinent positives stated in HPI, o therwise negative. PHYSICAL EXAMINATION: VITAL SIGNS: Blood pressure 123/58, respirations 18, pulse 87, temperature 98.2. HEENT: Head is normocephalic. NECK: Supple. HEART: Regular rate. LUNGS: Show diminished breath sounds at the base. ABDOMEN: Soft, nontender to palpation without rebound or guarding. EXTREMITIES: Negative for clubbing, cyanosis, no edema. DERMATOLOGIC: No rashes. MUSCULOSKELETAL: No joint effusion. NEUROLOGIC: No change in exam. LABORATORY DATA: Has been reviewed. IMAGING STUDIES: Have been reviewed. ASSESSMENT AND PLAN: This is an 83-year-old male who presents with: 1. Nonoliguric acute kidney injury on top of chronic kidney disease with previous baseline creatinin es around 1.5 to 1.8 mg/dL. Etiology of current acute kidney injury is likely secondary to hemodynam ics, NOLAN inhibitor effect, diuretics. The patient's renal function improved has improved with IV flu ids. At this point, would continue current treatment plan, supportive care, renally dose all meds, a void any NOLAN inhibitor or diuretic at this time. 2. Hyperkalemia, likely secondary to acute kidney injury, NOLAN inhibitor effect. The patient's potas sium levels have improved. Continue to monitor. Defer any NOLAN inhibitor at this time. Continue low -potassium diet. We will monitor closely. 3. Anemia. Monitor hemoglobin and hematocrit levels. 4. Mineral bone disorder, monitor calcium and phosphorus levels. 5. Dizziness and lightheadedness. Etiology is secondary to hemodynamics. Will continue workup. Fo llow up 2D echo, carotid duplex ultrasound. Continue to monitor. 6. Hypertension. Blood pressure currently controlled. Continue to monitor. Hold any NOLAN inhibitor at this time. 7. Diabetes. Continue current insulin regimen. 8. Benign prostatic hypertrophy. Continue Flomax. 9. History of cardiomyopathy with ejection fraction 35%. Continue low-dose diuretic therapy for now , monitor renal function closely. 10. History of arrhythmia, status post pacemaker. 11. Status post hyponatremia. Thank you, Dr. Scott, for this interesting consult. It will be a pleasure to follow patient with you throughout the hospital course. Dictated By: TAYLOR PINK DO NR/NTS Conf#: [id number] DID#: [id number] CC: JUAN LUIS SCOTT MD;*EndCC*
--- NOTE | 2018-09-10 10:24 | PN ---
Date/Time of Note Date/Time of Note DATE: 09/10/18 TIME: 10:12 Assessment/Plan VTE Prophylaxis SCD applied (from Nsg): Yes Pharmacological prophylaxis: NA/contraindicated Pharm contraindication: low risk/ambulating Lines/Catheters IV Catheter Type (from Nrsg): Saline Lock Assessment/Plan Assessment/Plan 83 yo man with A fib, BPH, CKD, cardiomyopathy with EF of 35% (2018), AICD presents with vertigo. #Vertigo - Not associated with other cranial nerve abnormalities. - Hard to get history but sounds like time course is acute on chronic - Patient does have several risk factors for stroke. However can't get MRI because of AICD - f/u cartoid duplex results - No events on telemetry so far. - PT, OT eval. # Acute on CKD - Dr Wu following. # Abdominal bloating - May be due to bedrest due to vertigo? Abdomen is not too distended. Supportive care until resolution. # Cardiomyopathy with EF of 35% (2018) and AICD: - Continue home meds - No evidence of acute exacerbation. - Consulted Dr. Soriano for possible AICD discharge. # Type 2 diabetes, with hyperglycemia: - Insulin while in-house # BPH: Continue Flomax finasteride Result Diagram: 09/10/18 0533 09/10/18 0533 Subjective 24 Hr Interval Summary Free Text/Dictation He continues to have vertigo symptoms worse when standing and with quick head movements. Mild abdominal bloating. On telemetry, chronic A fib occasionally V paced. Exam/Review of Systems Exam Vitals Vital Signs Date Temp Pulse Resp B/P (MAP) Pulse Ox O2 O2 Flow FiO2 Time Delivery Rate 09/10/18 55 101/58 08:47 (72) 101 109/59 (76) 82 125/58 (80) 09/10/18 98.2 18 99 Room Air 07:19 09/09/18 21 20:54 Intake and Output 09/09/18 09/09/18 09/10/18 1515:00 23:00 07:00 OutputOutput Total 300 ml BalanceBalance -300 ml Exam Gen: Robust appearing elderly man in no acute distress. Eyes: PERRL. No nystagmus with lateral gaze. HEENT: Moist mucous membranes, clear oropharynx Neck: No bruits on auscultation. No JVD. Card: Irregularly irregular, no murmurs Chest: Implanted AICD in place Pulm: Clear to auscultation bilaterally Abd: Soft, nontender, distended, tympanic to percussion. Ext: No cyanosis/clubbing/edema Results Results 24hrs Laboratory Tests Test 09/09/18 17:56 09/10/18 02:05 09/10/18 05:33 09/10/18 08:10 White Blood Count 8.4 7.4 Red Blood Count 3.96 L 3.78 L Hemoglobin 12.3 L 11.6 L Hematocrit 37.0 L 35.7 L Mean Corpuscular 93.4 94.4 Volume Mean Corpuscular 31.1 30.7 Hemoglobin Mean Corpuscular 33.2 32.5 Hemoglobin Concent Red Cell 12.0 12.1 Distribution Width Platelet Count 167 152 Mean Platelet Volume 10.2 10.1 Immature 0.400 0.400 Granulocytes % Neutrophils % 59.2 50.3 Lymphocytes % 25.9 32.7 Monocytes % 9.8 11.6 H Eosinophils % 4.3 4.7 Basophils % 0.4 0.3 Nucleated Red Blood 0.0 0.0 Cells % Immature 0.030 0.030 Granulocytes # Neutrophils # 5.0 3.7 Lymphocytes # 2.2 2.4 Monocytes # 0.8 0.9 Eosinophils # 0.4 0.4 Basophils # 0.0 0.0 Nucleated Red Blood 0.0 0.0 Cells # Prothrombin Time 14.3 Prothrombin Time 1.1 Ratio INR International 1.10 Normalized Ratio Activated 26.9 Partial Thromboplast Time Sodium Level 133 L 141 Potassium Level 5.4 H 4.8 Chloride Level 103 108 Carbon Dioxide Level 20 L 24 Anion Gap 10 9 Blood Urea Nitrogen 47 H 39 H Creatinine 2.05 H 1.68 H Est Glomerular Filtrat Rate mL/min Glucose Level 297 H 127 # Calcium Level 8.9 8.9 Total Bilirubin 0.8 0.8 Direct Bilirubin 0.00 0.00 Indirect Bilirubin 0.8 0.8 Aspartate Amino 38 40 Transf (AST/SGOT) Alanine 45 46 Aminotransferase (AL T/SGPT) Alkaline Phosphatase 78 55 Troponin I 0.015 B-Type Natriuretic 1310 H Peptide Total Protein 7.4 6.3 # Albumin 4.0 3.4 Globulin 3.40 H 2.90 Albumin/Globulin 1.17 1.17 Ratio Lipase 139 Bedside Glucose 152 91 Hemoglobin A1c 10.8 H Magnesium Level 2.2 Triglycerides Level 149 Cholesterol Level 93 L LDL Cholesterol, 35 Calculated HDL Cholesterol 28 L Cholesterol/HDL 3.3 Ratio Medications Medication Current Medications IV Flush (NS 3 ml) 3 ml PER PROTOCOL IV ; Start 09/10/18 at 00:30 Ondansetron HCl (Zofran Inj) 4 mg Q6H PRN IV NAUSEA/VOMITING; Start 09/10/18 at 00:30 Acetaminophen (Tylenol Tab) 650 mg Q6H PRN PO .PAIN 1-3 OR TEMP; Start 09/10/18 at 00:30 Albuterol/ Ipratropium (Duoneb) 3 ml Q2H RESP THERAPY PRN HHN SHORTNESS OF BREATH; Start 09/10/18 at 00:30 Apixaban (Eliquis) 5 mg BID PO Last administered on 09/10/18at 08:15; Admin Dose 5 MG; Start 09/10/18 at 09:00 Carvedilol (Coreg) 25 mg BID PO Last administered on 09/10/18at 08:16; Admin Dose 25 MG; Start 09/10/18 at 09:00 Finasteride (Proscar) 5 mg DAILY PO Last administered on 09/10/18at 08:17; Admin Dose 5 MG; Start 09/10/18 at 09:00 Furosemide (Lasix) 20 mg DAILY PO Last administered on 09/10/18at 08:16; Admin Dose 20 MG; Start 09/10/18 at 09:00 Hydralazine HCl (Apresoline) 50 mg BID PO ; Start 09/10/18 at 09:00 Isosorbide Mononitrate (Imdur) 30 mg BID PO Last administered on 09/10/18at 08:15; Admin Dose 30 MG; Start 09/10/18 at 09:00 Nitroglycerin (Nitroglycerin (Sl Tab) 0.4 Mg) 1 tab Q5M PRN SL CHEST PAIN; Start 09/10/18 at 00:30 Tamsulosin HCl (Flomax) 0.4 mg HS PO ; Start 09/10/18 at 21:00 Diagnostic Test (Pha) (Accu-Chek) 1 ea 02 XX Last administered on 09/10/18at 02:09; Admin Dose 1 EA; Start 09/10/18 at 02:00 Insulin Aspart (Novolog Insulin Pen) NOVOLOG *MODERATE* ALGORITHM WITH MEALS BEDTIME SC ; Start 09/10/18 at 07:55 Miscellaneous Information 1 ea NOTE XX ; Start 09/10/18 at 01:00 Glucose (Glutose) 15 gm Q15M PRN PO DECREASED GLUCOSE; Start 09/10/18 at 01:00 Glucose (Glutose) 22.5 gm Q15M PRN PO DECREASED GLUCOSE; Start 09/10/18 at 01:00 Dextrose (D50w Syringe) 25 ml Q15M PRN IV DECREASED GLUCOSE; Start 09/10/18 at 01:00 Dextrose (D50w Syringe) 50 ml Q15M PRN IV DECREASED GLUCOSE; Start 09/10/18 at 01:00 Glucagon (Glucagen) 1 mg Q15M PRN IM DECREASED GLUCOSE; Start 09/10/18 at 01:00 Glucose (Glutose) 15 gm Q15M PRN BUCCAL DECREASED GLUCOSE; Start 09/10/18 at 01:00 Atorvastatin Calcium (Lipitor) 20 mg DAILY@21 PO ; Start 09/10/18 at 21:00 Simethicone (Mylicon) 80 mg Q6H PRN PO DISTENSION/GAS/BLOATING; Start 09/10/18 at 03:30 Insulin Glargine (Lantus) 50 units DAILY@2000 SC ; Start 09/10/18 at 20:00 EDMUND MANN MD Sep 10, 2018 10:22
--- NOTE | 2018-09-10 14:17 | RADRPT ---
Echocardiogram Report Patient Name: Oscar LUIS ID: [id number] : 1935 (83y 4m)Study Date: 09/10/2018 10:35:05 AM Gender: Alpacession #: [id number] Tech: [facility] Location: [address] Ref.Physician: NATHANAEL SCOTT Height(Cm): BSA: Weight(Kg): Quality: AdequateOrder Physician: NATHANAEL SCOTT Account #: Procedures: Echocardiographic Report: Transthoracic echocardiogram with complete 2D, M-Mode, and doppler examination. Indications: Near Syncope. Measurements: 2D/M Mode Doppler Measurement Value Normal Range Measurement Value Normal Range LVIDd 2D 5.3 [ 4.2 - 5.8 ] cm AV Peak Will 1.3 [ 100.0 - 170.0 ] cm/sec LVIDs 2D 4.2 [ 2.5 - 4.0 ] cm AV Peak PG 7.0 [ 2.0 - 9.0 ] mmHg LVPWd 2D 1.1 [ 0.6 - 1.0 ] cm LVOT Peak Will 0.6 [ 70.0 - 110.0 ] cm/sec IVSd 2D 1.3 [ 0.6 - 1.0 ] cm LVOT Peak PG 1.0 [ 2.0 - 6.0 ] mmHg AoR Diam 2D 2.8 [ 2.6 - 3.4 ] cm MV E Peak Will 1.3 [ 60.0 - 130.0 ] cm/sec LA Dimen 2D 4.0 [ 3.0 - 4.0 ] cm MV A Peak Will 0.3 [ 100.0 - 120.0 ] cm/sec MV E/A 4.3 [ 0.8 - 1.5 ] ratio MV Decel Time 239 [ 104 - 258 ] msec Lat E` Will 0.1 [ 10.0 - 15.0 ] cm/sec Lateral E/E` 15.2 [ 1.0 - 2.0 ] ratio Med E` Will 0.1 cm/sec MV E/A 4.3 [ 0.8 - 1.5 ] ratio TR Peak Will 2.5 [ 100.0 - 280.0 ] cm/sec TR Peak PG 26.0 mmHg RVSP 29.0 [ 10.0 - 36.0 ] mmHg Findings: Left Ventricle: Normal left ventricular cavity size. Mild asymmetric septal hypertrophy. Severe global left ventricular systolic dysfunction. Ejection fraction is visually estimated at 25 %. Tissue Doppler/Mitral Doppler indices are consistent with restrictive physiology with markedly elevated left atrial pressure (Stage III-IV diastolic dysfunction). Right Ventricle: Normal right ventricular size. Normal right ventricular systolic function. Pacemaker right heart. Left Atrium: The left atrium is normal in size. Right Atrium: The right atrium is normal in size. Mitral Valve: Mild mitral leaflet calcification. Mild mitral annular calcification. Trace mitral regurgitation. Aortic Valve: No significant aortic stenosis or insufficiency. Aortic cusps appear mildly calcified. Tricuspid Valve: Normal appearance of the tricuspid valve. The estimated Peak RVSP is 29 mmHg. There is moderate tricuspid regurgitation. Pericardium: Normal pericardium with no significant pericardial effusion. Aorta: Normal aortic root. IVC: Normal size and normal respiratory collapse consistent with normal right atrial pressure. Conclusions: Normal left ventricular cavity size. Mild asymmetric septal hypertrophy. Severe global left ventricular systolic dysfunction. Ejection fraction is visually estimated at 25 %. Tissue Doppler/Mitral Doppler indices are consistent with restrictive physiology with markedly elevated left atrial pressure (Stage III-IV diastolic dysfunction). Mild mitral leaflet calcification. Mild mitral annular calcification. Trace mitral regurgitation. Normal appearance of the tricuspid valve. The estimated Peak RVSP is 29 mmHg. There is moderate tricuspid regurgitation. Normal right ventricular size. Normal right ventricular systolic function. Pacemaker right heart. Electronically Signed By: Matthew Soriano 2018-09-10 14:16:16 PDT
--- NOTE | 2018-09-10 18:35 | CONS ---
DATE OF ADMISSION: 09/09/2018 DATE OF CONSULTATION: 09/10/2018 REASON FOR CONSULTATION: Congestive heart failure, cardiomyopathy with decreased left ventricular ej ection fraction, possible AICD discharge and atrial fibrillation. REQUESTING PHYSICIAN: Edmund Galo MD, from the hospitalist service. HISTORY OF PRESENT ILLNESS: Mr. Arndt is an 83-year-old male with a history of cardiomyopathy with decreased left ventricular ejection fraction, last EF approximately 35% by echo in 2018, and 34% by c ardiac stress test with no reversible ischemia at that time in 04/2017, systolic congestive heart reinaldo lure, AICD, chronic kidney disease, BPH, atrial fibrillation on Eliquis, diabetes mellitus, BPH, who presented with near syncope, dizziness, vertigo, questionable chest pain and possible AICD discharge. Upon arrival, temperature 98, blood pressure 108/55, pulse ____, respiratory rate 18, satting 97%. The patient's labs were notable for white count of 8.4, hemoglobin 12.3 and platelet count of 167. Sodium of 133, potassium 5.4, creatinine of 2.0, BUN of 47. Hemoglobin A1c of 10.8. LDL of 35, HDL 28. INR 1.1. The patient underwent a chest x-ray revealing cardiomegaly, no pneumonia or failure. A head CT that revealed atrophy, white matter disease, chronic small vessel ischemia, no intracranial hemorrhage and a KUB that revealed a nonobstructive bowel gas pattern. The patient's electrocardiogram revealed si nus rhythm, rate of 66 with sinus arrhythmia, inferior Q's, borderline IVCD. The patient subsequentl y admitted to the floor and since admit to the floor complains of ongoing dizziness and continues to complain of this electrical shock feeling around his pacemaker. The patient is monitored on telemetr y revealing likely bouts of atrial fibrillation at times. PAST MEDICAL HISTORY: As above in HPI. MEDICATIONS CURRENTLY IN HOSPITAL 1. Flomax 0.4 mg at bedtime. 1. Lipitor 20 mg at bedtime. 2. Lantus 50 units subq daily. 3. Eliquis 5 mg b.i.d. 4. Carvedilol 25 mg p.o. b.i.d. 5. Proscar 5 mg daily. 6. Lasix 20 mg daily. 7. Hydralazine 50 mg p.o. b.i.d. 8. Imdur 30 mg t.i.d. 9. Insulin sliding scale. ALLERGIES: NO KNOWN DRUG ALLERGIES. SOCIAL HISTORY: No current tobacco, ETOH or illicit drug use. FAMILY HISTORY: No history of sudden cardiac or early CAD. REVIEW OF SYSTEMS: As above in HPI. CONSTITUTIONAL: No fevers or chills. PULMONARY: No current shortness of breath. CARDIOVASCULAR: No current chest pain, but positive chest pain on admit. GASTROINTESTINAL: No vomiting. GENITOURINARY: No hematuria. MUSCULOSKELETAL: Degenerative joint disease. PSYCHIATRIC: No documented psych history. NEUROLOGIC: No documented history of CVA. PHYSICAL EXAMINATION VITAL SIGNS: Temperature of 98, blood pressure 128/57, pulse 79, respiratory rate 18, satting 98%. GENERAL: The patient is alert and awake, in no acute distress. NECK: JVP approximately 8 to 9 cm of water. CHEST: Fair air movement throughout. HEART: Regular rate and rhythm. Normal S1, S2, I/ systolic murmur, nondisplaced PMI. ABDOMEN: Positive bowel sounds, soft. EXTREMITIES: No edema, 1+ pulses bilateral posterior tibial. LABORATORY DATA: As above in HPI, with most recent from today. Sodium 141, potassium 4.8, creatinin e 1.68 and BUN 39. Troponin negative x1. LDL 35 and HDL 28. IMAGING STUDIES: Chest x-ray: Cardiomegaly, no pneumonia or failure. Remainder of x-rays as above in HPI. IMPRESSION: 1. Possible AICD discharge, patient's description does not sound like he had true discharge, we will assess. 2. Cardiomyopathy with decreased left ventricular ejection fraction, last EF approximately 35% with no reversible ischemia by stress in 04/2017. 3. Paroxysmal atrial fibrillation, currently rate controlled. 4. Congestive heart failure, systolic, acute on chronic with a good volume status at this time appea rs to be euvolemic. 5. Hypertension, well controlled. 6. Dyslipidemia. 7. Diabetes mellitus. 8. Dizziness/vertigo with possible presyncope. RECOMMENDATIONS: 1. At this time, would maintain patient on telemetry monitoring to follow rhythm and rate control cl osely. 2. Complete the patient's rule out for myocardial infarction to ensure the patient's constellation o f symptoms are not result in acute coronary syndrome such as an acute myocardial infarction 3. Continue the patient's baseline carvedilol and hydralazine and we will likely resume the patient' s NOLAN inhibitor when creatinine is stable. 4. Continue the patient's Eliquis at this time, but likely should reduce dose to 2.5 b.i.d. given dm myles's renal failure and age greater than 80. We will continue the patient's daily Lasix. Continue to follow volume status closely. Continue the patient's Imdur, but change it to daily dosing as b.i .d. dosing of Imdur may lead to tachyphylaxis to medications. The patient needs a period off medicat ion to prevent this. Continue the patient's current carvedilol and hydralazine at this time with brianna nitiation of NOLAN inhibitor as above when is currently stable. 5. We will obtain the patient's career development coordinator of the pacemaker and have a pacemaker or defibrillator assess for possible AICD discharge or dysfunctions. 6. Follow up patient's potassium closely status post Kayexalate. Thank you for allowing me to take part in the care of this patient. I will continue to follow him ve ry closely with you with recommendations to be made as the patient progresses through his inpatient h ospital clinical course. Dictated By: EDMUND CRAMER/ANALI Conf#: [id number] DID#: [id number] CC: EDMUND GALO MD;*[facility]*
[2018-09-10] MEDS: ATORVASTATIN 20 MG TAB PO SCH (20:27)
[2018-09-10] MEDS: APIXABAN 5 MG TABLET PO SCH (20:27)
[2018-09-10] MEDS: TAMSULOSIN (SR) 0.4 MG CAP PO SCH (20:27)
[2018-09-10] MEDS ORDERED: NON-FORMULARY/PATIENT OWN MED (Simvastatin* (Zocor*) 40 MG) PO SCH (21:00)
[2018-09-10] MEDS: INSULIN GLARGINE [LANTus] (100 UNITS/ML) SYG SC SCH (22:13)
[2018-09-11] VITALS (11 sets, daily range): BP systolic 101–131; BP diastolic 50–75; PULSE 39–65; RESP 18–22
[2018-09-11] MEDS: ACCU-CHEK XX SCH (02:02)
[2018-09-11] MEDS: INSULIN ASPART [NOVOLOG] 3 ML PEN SC SCH ×4 (07:55→21:00)
[2018-09-11] MEDS: FINASTERIDE 5 MG TAB PO SCH (08:54)
[2018-09-11] MEDS: APIXABAN 5 MG TABLET PO SCH ×2 (08:54→21:07)
[2018-09-11] MEDS: ISOSORBIDE MONONITRATE(SR)30 MG TAB PO SCH (08:54)
[2018-09-11] MEDS: FUROSEMIDE 20 MG TAB PO SCH (08:54)
--- NOTE | 2018-09-11 11:15 | CONS ---
Consult Date/Type/Reason Admit Date/Time Sep 09, 2018 at 20:09 Initial Consult Date Date/Time of Note DATE: 09/11/18 TIME: 11:11 Subjective 83-year-old male with a past medical history of diabetes, history of AFib, history of BPH, history of cardiomyopathy, history of CKD, history of arrhythmia, status pacemaker, presents to [facility] Emergency Room complaining of dizziness and vertigo-like symptoms. The patient was subsequently admitted to telemetry for observation, given IV fluids. In terms of patient's renal history, the patient admits to having underlying chronic kidney disease. The patient is unclear of his baseline renal function. He denies any hemoptysis, hematemesis, hematochezia. Denies any rashes, any frothy urine. PAST MEDICAL HISTORY: History of CKD, history of hypertension, history of cardiomyopathy, history of arrhythmia, history of Afib, history of BPH. HEENT: Head is normocephalic. NECK: Supple. HEART: Regular rate. LUNGS: Show diminished breath sounds at the base. ABDOMEN: Soft, nontender to palpation without rebound or guarding. EXTREMITIES: Negative for clubbing, cyanosis, no edema. DERMATOLOGIC: No rashes. MUSCULOSKELETAL: No joint effusion. NEUROLOGIC: No change in exam. Objective Vitals Vital Signs Date Temp Pulse Resp B/P (MAP) Pulse Ox O2 O2 Flow FiO2 Time Delivery Rate 09/11/18 59 08:00 09/11/18 98.0 18 115/56 98 Room Air 07:05 (75) 09/09/18 21 20:54 Intake and Output 09/10/18 09/10/18 09/11/18 1515:00 23:00 07:00 IntakeIntake Total 490 ml 420 ml OutputOutput Total 600 ml 550 ml 600 ml BalanceBalance -110 ml -130 ml -600 ml Results/Medications Result Diagram: 09/11/18 0541 09/11/18 0931 Results 24 hrs Laboratory Tests Test 09/10/18 11:52 09/10/18 13:15 09/10/18 17:17 09/10/18 18:09 Bedside Glucose 174 175 Urine Color STRAW Urine Clarity CLEAR Urine pH 5.0 Urine Specific 1.006 [place] Urine Ketones NEGATIVE Urine Nitrite NEGATIVE Urine Bilirubin NEGATIVE Urine Urobilinogen NEGATIVE Urine Leukocyte NEGATIVE Esterase Urine Hemoglobin NEGATIVE Urine Random 29.98 Creatinine Urine Random Sodium 67 Urine Glucose NEGATIVE Urine Total Protein 13.0 H Creatine Kinase 157 Creatine Kinase 1.9 Index Creatinine Kinase MB 2.96 H (Mass) Troponin I 0.026 Test 09/10/18 20:02 09/11/18 00:23 09/11/18 01:47 09/11/18 03:46 Bedside Glucose 206 66 L 87 Creatine Kinase 150 Creatine Kinase 1.7 Index Creatinine Kinase MB 2.48 H (Mass) Troponin I 0.039 Test 09/11/18 05:41 09/11/18 08:51 09/11/18 09:11 09/11/18 09:31 White Blood Count 7.3 Red Blood Count 4.40 L Hemoglobin 13.3 L Hematocrit 41.2 L Mean Corpuscular 93.6 Volume Mean Corpuscular 30.2 Hemoglobin Mean Corpuscular 32.3 Hemoglobin Concent Red Cell 12.3 Distribution Width Platelet Count 170 Mean Platelet Volume 10.4 Immature 0.400 Granulocytes % Neutrophils % 40.0 Lymphocytes % 41.6 Monocytes % 11.3 H Eosinophils % 6.2 Basophils % 0.5 Nucleated Red Blood 0.0 Cells % Immature 0.030 Granulocytes # Neutrophils # 2.9 Lymphocytes # 3.0 H Monocytes # 0.8 Eosinophils # 0.5 Basophils # 0.0 Nucleated Red Blood 0.0 Cells # Sodium Level 144 Potassium Level 4.3 Chloride Level 107 Carbon Dioxide Level 26 Anion Gap 11 Blood Urea Nitrogen 34 H Creatinine 1.63 H Est Glomerular Filtrat Rate mL/min Glucose Level 72 # 139 # Calcium Level 9.3 Phosphorus Level 5.3 H Magnesium Level 2.1 Bedside Glucose 67 L 87 Home Meds Reported Medications Nitroglycerin* (Nitroglycerin* SL) 0.4 Mg Tab.subl, 0.4 MG SL Q5MIN PRN for CHEST PAIN, BOTTLE 09/09/18 Apixaban* (Eliquis*) 5 Mg Tablet, 5 MG PO BID, TAB 09/09/18 Isosorbide Mononitrate* (Isosorbide Mononitrate*) 30 Mg Tab.er.24h, 30 MG PO BID, TAB 09/09/18 Carvedilol* (Carvedilol*) 25 Mg Tablet, 25 MG PO BID, #60 TAB 09/09/18 Benazepril Hcl* (Benazepril Hcl*) 10 Mg Tablet, 10 MG PO DAILY, #30 TAB 09/09/18 Furosemide* (Furosemide*) 20 Mg Tablet, 20 MG PO DAILY, #60 TAB 09/09/18 Simvastatin* (Zocor*) 40 Mg Tablet, 40 MG PO QHS, #30 TAB 09/09/18 Hydralazine Hcl* (Apresoline*) 50 Mg Tab, 50 MG PO BID, #60 TAB 09/09/18 Insulin Glargine,Hum.rec.anlog (Basaglar Kwikpen U-100) 100 Unit/1 Ml Insuln.pen, 50 UNIT SC DAILY, EA 09/09/18 Tamsulosin Hcl* (Flomax*) 0.4 Mg Cap.er.24h, 0.4 MG PO HS, CAP 09/09/18 Finasteride* (Finasteride*) 5 Mg Tablet, 5 MG PO DAILY, TAB 09/09/18 Discontinued Reported Medications Lorazepam* (Lorazepam*) 0.5 Mg Tablet, 0.5 MG PO HS PRN for ANXIETY, TAB 02/05/18 Finasteride* (Finasteride*) 5 Mg Tablet, 5 MG PO DAILY, TAB 02/05/18 Carvedilol* (Carvedilol*) 25 Mg Tablet, 25 MG PO BID, #60 TAB 02/05/18 Apixaban* (Eliquis*) 5 Mg Tablet, 10 MG PO BID, TAB 02/05/18 Insulin Glargine,Hum.rec.anlog (Basaglar Kwikpen U-100) 100 Unit/1 Ml Insuln.pen, 40 UNIT SC DAILY, EA INJECT 389 UNITS SC EVERY DAY 05/08/17 Tamsulosin Hcl* (Flomax*) 0.4 Mg Cap.er.24h, 0.4 MG PO HS, CAP 03/03/17 Simvastatin (Simvastatin) 40 Mg Tablet, 40 MG PO QHS, #30 TAB 01/02/16 Discontinued Scripts Docusate Sodium* (Colace*) 100 Mg Capsule, 100 MG PO BID, #60 CAP Prov:TOLENTINO,YVAN V. RETREAD BUILDER 02/09/18 Amiodarone Hcl* (Amiodarone Hcl*) 200 Mg Tablet, 200 MG PO BID, #60 TAB Prov:TOLENTINO,YVAN V. RETREAD BUILDER 02/09/18 Ferrous Sulfate* (Ferrous Sulfate*) 325 Mg Tabec, 325 MG PO DAILY, #30 TAB Prov:TOLENTINOYVAN RAMIREZ V. RETREAD BUILDER 02/09/18 Baclofen* (Baclofen*) 10 Mg Tablet, 10 MG PO TID PRN for neck pain, #30 TAB Prov:YVAN TOLENTINO V. RETREAD BUILDER 02/09/18 Furosemide (Lasix) 20 Mg Tab, 20 MG PO DAILY for 30 Days, TAB Prov:MATTHEWKARISSA Snider 03/09/17 Medications Current Medications IV Flush (NS 3 ml) 3 ml PER PROTOCOL IV ; Start 09/10/18 at 00:30 Ondansetron HCl (Zofran Inj) 4 mg Q6H PRN IV NAUSEA/VOMITING; Start 09/10/18 at 00:30 Acetaminophen (Tylenol Tab) 650 mg Q6H PRN PO .PAIN 1-3 OR TEMP; Start 09/10/18 at 00:30 Albuterol/ Ipratropium (Duoneb) 3 ml Q2H RESP THERAPY PRN HHN SHORTNESS OF BREATH; Start 09/10/18 at 00:30 Carvedilol (Coreg) 25 mg BID PO Last administered on 09/11/18at 08:55; Admin Dose 25 MG; Start 09/10/18 at 09:00 Finasteride (Proscar) 5 mg DAILY PO Last administered on 09/11/18at 08:54; Admin Dose 5 MG; Start 09/10/18 at 09:00 Furosemide (Lasix) 20 mg DAILY PO Last administered on 09/11/18at 08:54; Admin Dose 20 MG; Start 09/10/18 at 09:00 Hydralazine HCl (Apresoline) 50 mg BID PO Last administered on 09/11/18at 08:53; Admin Dose 50 MG; Start 09/10/18 at 09:00 Nitroglycerin (Nitroglycerin (Sl Tab) 0.4 Mg) 1 tab Q5M PRN SL CHEST PAIN; Start 09/10/18 at 00:30 Tamsulosin HCl (Flomax) 0.4 mg HS PO Last administered on 09/10/18at 20:27; Admin Dose 0.4 MG; Start 09/10/18 at 21:00 Diagnostic Test (Pha) (Accu-Chek) XX Last administered on 09/11/18at 02:02; Admin Dose 1 EA; Start 09/10/18 at 02:00 Insulin Aspart (Novolog Insulin Pen) NOVOLOG *MODERATE* ALGORITHM WITH MEALS BEDTIME SC Last administered on 09/10/18at 22:15; Admin Dose 1 UNIT; Start 09/10/18 at 07:55 Miscellaneous Information 1 ea NOTE XX ; Start 09/10/18 at 01:00 Glucose (Glutose) 15 gm Q15M PRN PO DECREASED GLUCOSE; Start 09/10/18 at 01:00 Glucose (Glutose) 22.5 gm Q15M PRN PO DECREASED GLUCOSE; Start 09/10/18 at 01 :00 Dextrose (D50w Syringe) 25 ml Q15M PRN IV DECREASED GLUCOSE; Start 09/10/18 at 01:00 Dextrose (D50w Syringe) 50 ml Q15M PRN IV DECREASED GLUCOSE; Start 09/10/18 at 01:00 Glucagon (Glucagen) 1 mg Q15M PRN IM DECREASED GLUCOSE; Start 09/10/18 at 01:00 Glucose (Glutose) 15 gm Q15M PRN BUCCAL DECREASED GLUCOSE; Start 09/10/18 at 01:00 Atorvastatin Calcium (Lipitor) 20 mg DAILY@21 PO Last administered on 09/10/18at 20:27; Admin Dose 20 MG; Start 09/10/18 at 21:00 Simethicone (Mylicon) 80 mg Q6H PRN PO DISTENSION/GAS/BLOATING; Start 09/10/18 at 03:30 Insulin Glargine (Lantus) 50 units DAILY@2000 SC Last administered on 09/10/18at 22:13; Admin Dose 50 UNITS; Start 09/10/18 at 20:00 Apixaban (Eliquis) 2.5 mg BID PO Last administered on 09/11/18at 08:54; Admin Dose 2.5 MG; Start 09/10/18 at 21:00 Isosorbide Mononitrate (Imdur) 30 mg DAILY PO Last administered on 09/11/18at 08:54; Admin Dose 30 MG; Start 09/11/18 at 09:00 Assessment/Plan Assessment/Plan (Daily) 1. Nonoliguric acute kidney injury on top of chronic kidney disease with previous baseline creatinines around 1.5 to 1.8 mg/dL. Etiology of current acute kidney injury is likely secondary to hemodynamics, NOLAN inhibitor effect, diuretics. The patient's renal function improved has improved with IV fluids. At this point, would continue current treatment plan, supportive care, renally dose all meds, avoid any NOLAN inhibitor or diuretic at this time. 2. Hyperkalemia, likely secondary to acute kidney injury, NOLAN inhibitor effect. The patient's potassium levels have improved. Continue to monitor. Defer any NOLAN inhibitor at this time. Continue low-potassium diet. We will monitor rusty sely. 3. Anemia. Monitor hemoglobin and hematocrit levels. 4. Mineral bone disorder, monitor calcium and phosphorus levels. 5. Dizziness and lightheadedness. noted sig carotid stenosis Continue to monitor. 6. Hypertension. Blood pressure currently controlled. Continue to monitor. Hold any NOLAN inhibitor at this time. 7. Diabetes. Continue current insulin regimen. 8. Benign prostatic hypertrophy. Continue Flomax. 9. History of cardiomyopathy with ejection fraction 35%. Continue low-dose diuretic therapy for now, monitor renal function closely. 10. History of arrhythmia, status post pacemaker. 11. Status post hyponatremia. JESSICA SCHULZ MD Sep 11, 2018 11:15
--- NOTE | 2018-09-11 13:23 | CONS ---
Consult Date/Type/Reason Admit Date/Time Sep 09, 2018 at 20:09 Initial Consult Date Date/Time of Note DATE: 09/11/18 TIME: 13:21 Subjective No acute events - BP in good range - awaiting ICD check - no focal ectopy here. ROS: No fever, no chills, no nausea, no vomiting, no diarrhea/constipation No recent weight changes No chest pain, no PND, no orthopnea No dizziness, blurred vision No thirst, no heat or cold intolerance Objective Vitals Vital Signs Date Temp Pulse Resp B/P (MAP) Pulse Ox O2 O2 Flow FiO2 Time Delivery Rate 09/11/18 98.0 60 22 101/59 100 Room Air 11:15 (73) 09/09/18 20:54 Intake and Output 09/10/18 09/10/18 09/11/18 1515:00 23:00 07:00 IntakeIntake Total 490 ml 420 ml OutputOutput Total 600 ml 550 ml 600 ml BalanceBalance -110 ml -130 ml -600 ml Exam General: WN/WD/NAD, AOx 3 HEENT: Unicetric/atraumatic/EOMI (follow commands) NECK: JVD elevated, no thyromegaly Lymph: no lymphadenopathy HEART: regular with no S3, II/ systolic murmur at apex, ICD in place, PMI L LUNGS: Coarse sounds ABD: soft, NT, ND, +BS : Intact Neuro: non focal SKIN: chronic changes EXT: trace edema Results/Medications Result Diagram: 09/11/18 0541 09/11/18 0931 Results 24 hrs Laboratory Tests Test 09/10/18 17:17 09/10/18 18:09 09/10/18 20:02 09/11/18 00:23 Bedside Glucose 175 206 Creatine Kinase 157 150 Creatine Kinase 1.9 1.7 Index Creatinine Kinase MB 2.96 H 2.48 H (Mass) Troponin I 0.026 0.039 Test 09/11/18 01:47 09/11/18 03:46 09/11/18 05:41 09/11/18 08:51 Bedside Glucose 66 L 87 67 L White Blood Count 7.3 Red Blood Count 4.40 L Hemoglobin 13.3 L Hematocrit 41.2 L Mean Corpuscular 93.6 Volume Mean Corpuscular 30.2 Hemoglobin Mean Corpuscular 32.3 Hemoglobin Concent Red Cell 12.3 Distribution Width Platelet Count 170 Mean Platelet Volume 10.4 Immature 0.400 Granulocytes % Neutrophils % 40.0 Lymphocytes % 41.6 Monocytes % 11.3 H Eosinophils % 6.2 Basophils % 0.5 Nucleated Red Blood 0.0 Cells % Immature 0.030 Granulocytes # Neutrophils # 2.9 Lymphocytes # 3.0 H Monocytes # 0.8 Eosinophils # 0.5 Basophils # 0.0 Nucleated Red Blood 0.0 Cells # Sodium Level 144 Potassium Level 4.3 Chloride Level 107 Carbon Dioxide Level 26 Anion Gap 11 Blood Urea Nitrogen 34 H Creatinine 1.63 H Est Glomerular Filtrat Rate mL/min Glucose Level 72 # Calcium Level 9.3 Phosphorus Level 5.3 H Magnesium Level 2.1 Test 09/11/18 09:11 09/11/18 09:31 09/11/18 12:03 Bedside Glucose 87 215 Glucose Level 139 # Home Meds Reported Medications Nitroglycerin* (Nitroglycerin* SL) 0.4 Mg Tab.subl, 0.4 MG SL Q5MIN PRN for CHEST PAIN, BOTTLE 09/09/18 Apixaban* (Eliquis*) 5 Mg Tablet, 5 MG PO BID, TAB 09/09/18 Isosorbide Mononitrate* (Isosorbide Mononitrate*) 30 Mg Tab.er.24h, 30 MG PO BID, TAB 09/09/18 Carvedilol* (Carvedilol*) 25 Mg Tablet, 25 MG PO BID, #60 TAB 09/09/18 Benazepril Hcl* (Benazepril Hcl*) 10 Mg Tablet, 10 MG PO DAILY, #30 TAB 09/09/18 Furosemide* (Furosemide*) 20 Mg Tablet, 20 MG PO DAILY, #60 TAB 09/09/18 Simvastatin* (Zocor*) 40 Mg Tablet, 40 MG PO QHS, #30 TAB 09/09/18 Hydralazine Hcl* (Apresoline*) 50 Mg Tab, 50 MG PO BID, #60 TAB 09/09/18 Insulin Glargine,Hum.rec.anlog (Basaglar Kwikpen U-100) 100 Unit/1 Ml Insuln.pen, 50 UNIT SC DAILY, EA 09/09/18 Tamsulosin Hcl* (Flomax*) 0.4 Mg Cap.er.24h, 0.4 MG PO HS, CAP 09/09/18 Finasteride* (Finasteride*) 5 Mg Tablet, 5 MG PO DAILY, TAB 09/09/18 Discontinued Reported Medications Lorazepam* (Lorazepam*) 0.5 Mg Tablet, 0.5 MG PO HS PRN for ANXIETY, TAB 02/05/18 Finasteride* (Finasteride*) 5 Mg Tablet, 5 MG PO DAILY, TAB 02/05/18 Carvedilol* (Carvedilol*) 25 Mg Tablet, 25 MG PO BID, #60 TAB 02/05/18 Apixaban* (Eliquis*) 5 Mg Tablet, 10 MG PO BID, TAB 02/05/18 Insulin Glargine,Hum.rec.anlog (Katyaglal Smith U-100) 100 Unit/1 Ml Insuln.pen, 40 UNIT SC DAILY, EA INJECT 389 UNITS SC EVERY DAY 05/08/17 Tamsulosin Hcl* (Flomax*) 0.4 Mg Cap.er.24h, 0.4 MG PO HS, CAP 03/03/17 Simvastatin (Simvastatin) 40 Mg Tablet, 40 MG PO QHS, #30 TAB 01/02/16 Discontinued Scripts Docusate Sodium* (Colace*) 100 Mg Capsule, 100 MG PO BID, #60 CAP Prov:TOLENTINOYVAN V. ASSISTANT BUSINESS MANAGER 02/09/18 Amiodarone Hcl* (Amiodarone Hcl*) 200 Mg Tablet, 200 MG PO BID, #60 TAB Prov:TOLENTINOKRISTOPHERA V. ASSISTANT BUSINESS MANAGER 02/09/18 Ferrous Sulfate* (Ferrous Sulfate*) 325 Mg Tabec, 325 MG PO DAILY, #30 TAB Prov:YVAN TOLENTINO V. ASSISTANT BUSINESS MANAGER 02/09/18 Baclofen* (Baclofen*) 10 Mg Tablet, 10 MG PO TID PRN for neck pain, #30 TAB Prov:TOLENTINOKRISTOPHERA Karan ASSISTANT BUSINESS MANAGER 02/09/18 Furosemide (Lasix) 20 Mg Tab, 20 MG PO DAILY for 30 Days, TAB Prov:KARISSA CASTRO 03/09/17 Medications Current Medications IV Flush (NS 3 ml) 3 ml PER PROTOCOL IV ; Start 09/10/18 at 00:30 Ondansetron HCl (Zofran Inj) 4 mg Q6H PRN IV NAUSEA/VOMITING; Start 09/10/18 at 00:30 Acetaminophen (Tylenol Tab) 650 mg Q6H PRN PO .PAIN 1-3 OR TEMP; Start 09/10/18 at 00:30 Albuterol/ Ipratropium (Duoneb) 3 ml Q2H RESP THERAPY PRN HHN SHORTNESS OF BREATH; Start 09/10/18 at 00:30 Carvedilol (Coreg) 25 mg BID PO Last administered on 09/11/18at 08:55; Admin Dose 25 MG; Start 09/10/18 at 09:00 Finasteride (Proscar) 5 mg DAILY PO Last administered on 09/11/18at 08:54; Admin Dose 5 MG; Start 09/10/18 at 09:00 Furosemide (Lasix) 20 mg DAILY PO Last administered on 09/11/18at 08:54; Admin Dose 20 MG; Start 09/10/18 at 09:00 Hydralazine HCl (Apresoline) 50 mg BID PO Last administered on 09/11/18at 08:53; Admin Dose 50 MG; Start 09/10/18 at 09:00 Nitroglycerin (Nitroglycerin (Sl Tab) 0.4 Mg) 1 tab Q5M PRN SL CHEST PAIN; Start 09/10/18 at 00:30 Tamsulosin HCl (Flomax) 0.4 mg HS PO Last administered on 09/10/18at 20:27; Admin Dose 0.4 MG; Start 09/10/18 at 21:00 Diagnostic Test (Pha) (Accu-Chek) 1 ea 02 XX Last administered on 09/11/18at 02:02; Admin Dose 1 EA; Start 09/10/18 at 02:00 Insulin Aspart (Novolog Insulin Pen) NOVOLOG *MODERATE* ALGORITHM WITH MEALS BEDTIME SC Last administered on 09/11/18at 12:40; Admin Dose 4 UNIT; Start 09/10/18 at 07:55 Miscellaneous Information 1 ea NOTE XX ; Start 09/10/18 at 01:00 Glucose (Glutose) 15 gm Q15M PRN PO DECREASED GLUCOSE; Start 09/10/18 at 01:00 Glucose (Glutose) 22.5 gm Q15M PRN PO DECREASED GLUCOSE; Start 09/10/18 at 01:00 Dextrose (D50w Syringe) 25 ml Q15M PRN IV DECREASED GLUCOSE; Start 09/10/18 at 01:00 Dextrose (D50w Syringe) 50 ml Q15M PRN IV DECREASED GLUCOSE; Start 09/10/18 at 01:00 Glucagon (Glucagen) 1 mg Q15M PRN IM DECREASED GLUCOSE; Start 09/10/18 at 01:00 Glucose (Glutose) 15 gm Q15M PRN BUCCAL DECREASED GLUCOSE; Start 09/10/18 at 01:00 Atorvastatin Calcium (Lipitor) 20 mg DAILY@21 PO Last administered on 09/10/18at 20:27; Admin Dose 20 MG; Start 09/10/18 at 21:00 Simethicone (Mylicon) 80 mg Q6H PRN PO DISTENSION/GAS/BLOATING; Start 09/10/18 at 03:30 Insulin Glargine (Lantus) 50 units DAILY@2000 SC Last administered on 09/10/18at 22:13; Admin Dose 50 UNITS; Start 09/10/18 at 20:00 Apixaban (Eliquis) 2.5 mg BID PO Last administered on 09/11/18at 08:54; Admin Dose 2.5 MG; Start 09/10/18 at 21:00 Isosorbide Mononitrate (Imdur) 30 mg DAILY PO Last administered on 09/11/18at 08:54; Admin Dose 30 MG; Start 09/11/18 at 09:00 Assessment/Plan Hospital Course (Demo Recall) 1. Possible AICD discharge, patient's description does not sound like he had true discharge, we will assess - awaiting ICD interrogation. 2. Cardiomyopathy with decreased left ventricular ejection fraction, last EF approximately 35% with no reversible ischemia by stress in 04/2017. Con't gentle diuresis. 3. Paroxysmal atrial fibrillation, currently rate controlled - might be shock for a. fib with RVR? pending ICd check. 4. Congestive heart failure, systolic, acute on chronic with a good volume status at this time appears to be euvolemic. 5. Hypertension, well controlled. Con't med rx. 6. Dyslipidemia. 7. Diabetes mellitus. 8. Dizziness/vertigo with possible presyncope. ATUL AVITIA MD Sep 11, 2018 13:23
--- NOTE | 2018-09-11 20:11 | PN ---
Date/Time of Note Date/Time of Note DATE: 09/11/18 TIME: 20:08 Assessment/Plan VTE Prophylaxis Risk score (from Ns)>0 risk: 4 [place] [facility] [place] contraindicated: low risk/ambulating Pharmacological prophylaxis: NA/contraindicated Pharm contraindication: low risk/ambulating Lines/Catheters [facility] [place] [facility] Urinary Cath still in place: No Assessment/Plan Hospital Course Assessment and plan 1. Dizziness, atypical chest pain. Rule out AICD firing. AICD interrogation tomorrow 2. AICD status 3. Ischemic cardiomyopathy fraction 25% now 4. Chronic kidney disease 5. Type 2 diabetes 6. Coronary artery disease? Last stress test negative for reversible process 7. BPH 8. Anemia appears asymptomatic 9. Atrial fibrillation stable observe 10. Sinus bradycardia asymptomatic watch for tachybradycardia syndrome 11. New carotid stenosis bilateral. If AICD interrogation is negative, I will probably consult vascular Subjective: Awake alert ambulating. Denies any loss of speech vision or focal deficits. No chest pain palpitations at present Objective: Vital signs stable Physical exam No pallor adenopathy carotid bruits Regular no murmur rub gallop Clear Benign No edema Result Diagram: 09/11/18 0541 09/11/18 0931 Results 24hrs Laboratory Tests Test 09/11/18 00:23 09/11/18 01:47 09/11/18 03:46 09/11/18 05:41 Creatine Kinase 150 Creatine Kinase 1.7 Index Creatinine Kinase MB 2.48 H (Mass) Troponin I 0.039 Bedside Glucose 66 L 87 White Blood Count 7.3 Red Blood Count 4.40 L Hemoglobin 13.3 L Hematocrit 41.2 L Mean Corpuscular 93.6 Volume Mean Corpuscular 30.2 Hemoglobin Mean Corpuscular 32.3 Hemoglobin Concent Red Cell 12.3 Distribution Width Platelet Count 170 Mean Platelet Volume 10.4 Immature 0.400 Granulocytes % Neutrophils % 40.0 Lymphocytes % 41.6 Monocytes % 11.3 H Eosinophils % 6.2 Basophils % 0.5 Nucleated Red Blood 0.0 Cells % Immature 0.030 Granulocytes # Neutrophils # 2.9 Lymphocytes # 3.0 H Monocytes # 0.8 Eosinophils # 0.5 Basophils # 0.0 Nucleated Red Blood 0.0 Cells # Sodium Level 144 Potassium Level 4.3 Chloride Level 107 Carbon Dioxide Level 26 Anion Gap 11 Blood Urea Nitrogen 34 H Creatinine 1.63 H Est Glomerular Filtrat Rate mL/min Glucose Level 72 # Calcium Level 9.3 Phosphorus Level 5.3 H Magnesium Level 2.1 Test 09/11/18 08:51 09/11/18 09:11 09/11/18 09:31 09/11/18 12:03 Bedside Glucose 67 L 87 215 Glucose Level 139 # Test 09/11/18 17:34 Bedside Glucose 158 Exam/Review of Systems Exam Vitals Vital Signs Date Temp Pulse Resp B/P (MAP) Pulse Ox O2 O2 Flow FiO2 Time Delivery Rate 09/11/18 60 16:00 09/11/18 98.0 18 131/75 97 Room Air 15:19 (93) 09/09/18 21 20:54 Intake and Output 09/10/18 09/10/18 09/11/18 1515:00 23:00 07:00 IntakeIntake Total 490 ml 420 ml OutputOutput Total 600 ml 550 ml 600 ml BalanceBalance -110 ml -130 ml -600 ml Results Results 24hrs Laboratory Tests Test 09/11/18 00:23 09/11/18 01:47 09/11/18 03:46 09/11/18 05:41 Creatine Kinase 150 Creatine Kinase 1.7 Index Creatinine Kinase MB 2.48 H (Mass) Troponin I 0.039 Bedside Glucose 66 L 87 White Blood Count 7.3 Red Blood Count 4.40 L Hemoglobin 13.3 L Hematocrit 41.2 L Mean Corpuscular 93.6 Volume Mean Corpuscular 30.2 Hemoglobin Mean Corpuscular 32.3 Hemoglobin Concent Red Cell 12.3 Distribution Width Platelet Count 170 Mean Platelet Volume 10.4 Immature 0.400 Granulocytes % Neutrophils % 40.0 Lymphocytes % 41.6 Monocytes % 11.3 H Eosinophils % 6.2 Basophils % 0.5 Nucleated Red Blood 0.0 Cells % Immature 0.030 Granulocytes # Neutrophils # 2.9 Lymphocytes # 3.0 H Monocytes # 0.8 Eosinophils # 0.5 Basophils # 0.0 Nucleated Red Blood 0.0 Cells # Sodium Level 144 Potassium Level 4.3 Chloride Level 107 Carbon Dioxide Level 26 Anion Gap 11 Blood Urea Nitrogen 34 H Creatinine 1.63 H Est Glomerular Filtrat Rate mL/min Glucose Level 72 # Calcium Level 9.3 Phosphorus Level 5.3 H Magnesium Level 2.1 Test 09/11/18 08:51 09/11/18 09:11 09/11/18 09:31 09/11/18 12:03 Bedside Glucose 67 L 87 215 Glucose Level 139 # Test 09/11/18 17:34 Bedside Glucose 158 Medications Medication Current Medications IV Flush (NS 3 ml) 3 ml PER PROTOCOL IV ; Start 09/10/18 at 00:30 Ondansetron HCl (Zofran Inj) 4 mg Q6H PRN IV NAUSEA/VOMITING; Start 09/10/18 at 00:30 Acetaminophen (Tylenol Tab) 650 mg Q6H PRN PO .PAIN 1-3 OR TEMP; Start 09/10/18 at 00:30 Albuterol/ Ipratropium (Duoneb) 3 ml Q2H RESP THERAPY PRN HHN SHORTNESS OF BREATH; Start 09/10/18 at 00:30 Carvedilol (Coreg) 25 mg BID PO Last administered on 09/11/18at 08:55; Admin Dose 25 MG; Start 09/10/18 at 09:00 Finasteride (Proscar) 5 mg DAILY PO Last administered on 09/11/18 08:54; Admin Dose 5 MG; Start 09/10/18 at 09:00 Furosemide (Lasix) 20 mg DAILY PO Last administered on 09/11/18 08:54; Admin Dose 20 MG; Start 09/10/18 at 09:00 Hydralazine HCl (Apresoline) 50 mg BID PO Last administered on 09/11/18 08:53; Admin Dose 50 MG; Start 09/10/18 at 09:00 Nitroglycerin (Nitroglycerin (Sl Tab) 0.4 Mg) 1 tab Q5M PRN SL CHEST PAIN; Start 09/10/18 at 00:30 Tamsulosin HCl (Flomax) 0.4 mg HS PO Last administered on 09/10/18at 20:27; Admin Dose 0.4 MG; Start 09/10/18 at 21:00 Diagnostic Test (Pha) (Accu-Chek) 1 ea 02 XX Last administered on 09/11/18at 02:02; Admin Dose 1 EA; Start 09/10/18 at 02:00 Insulin Aspart (Novolog Insulin Pen) NOVOLOG *MODERATE* ALGORITHM WITH MEALS BEDTIME SC Last administered on 09/11/18at 17:39; Admin Dose 2 UNIT; Start 09/10/18 at 07:55 Miscellaneous Information 1 ea NOTE XX ; Start 09/10/18 at 01:00 Glucose (Glutose) 15 gm Q15M PRN PO DECREASED GLUCOSE; Start 09/10/18 at 01:00 Glucose (Glutose) 22.5 gm Q15M PRN PO DECREASED GLUCOSE; Start 09/10/18 at 01:00 Dextrose (D50w Syringe) 25 ml Q15M PRN IV DECREASED GLUCOSE; Start 09/10/18 at 01:00 Dextrose (D50w Syringe) 50 ml Q15M PRN IV DECREASED GLUCOSE; Start 09/10/18 at 01:00 Glucagon (Glucagen) 1 mg Q15M PRN IM DECREASED GLUCOSE; Start 09/10/18 at 01:00 Glucose (Glutose) 15 gm Q15M PRN BUCCAL DECREASED GLUCOSE; Start 09/10/18 at 01:00 Atorvastatin Calcium (Lipitor) 20 mg DAILY@21 PO Last administered on 09/10/18at 20:27; Admin Dose 20 MG; Start 09/10/18 at 21:00 Simethicone (Mylicon) 80 mg Q6H PRN PO DISTENSION/GAS/BLOATING; Start 09/10/18 at 03:30 Insulin Glargine (Lantus) 50 units DAILY@2000 SC Last administered on 09/10/18at 22:13; Admin Dose 50 UNITS; Start 09/10/18 at 20:00 Apixaban (Eliquis) 2.5 mg BID PO Last administered on 09/11/18at 08:54; Admin Dose 2.5 MG; Start 09/10/18 at 21:00 Isosorbide Mononitrate (Imdur) 30 mg DAILY PO Last administered on 09/11/18at 08:54; Admin Dose 30 MG; Start 09/11/18 at 09:00 TEVIN BOOGIE MD Sep 11, 2018 20:11
[2018-09-11] MEDS: TAMSULOSIN (SR) 0.4 MG CAP PO SCH (21:07)
[2018-09-11] MEDS: ATORVASTATIN 20 MG TAB PO SCH (21:07)
[2018-09-11] MEDS: INSULIN GLARGINE [LANTus] (100 UNITS/ML) SYG SC SCH (22:16)
[2018-09-12] VITALS (13 sets, daily range): BP systolic 101–146; BP diastolic 52–68; PULSE 52–68; RESP 18–20
[2018-09-12] MEDS: ACCU-CHEK XX SCH (01:33)
[2018-09-12] MEDS: INSULIN ASPART [NOVOLOG] 3 ML PEN SC SCH ×4 (07:55→21:44)
[2018-09-12] MEDS: FUROSEMIDE 20 MG TAB PO SCH (08:15)
[2018-09-12] MEDS: APIXABAN 5 MG TABLET PO SCH ×2 (08:15→20:27)
[2018-09-12] MEDS: FINASTERIDE 5 MG TAB PO SCH (08:15)
[2018-09-12] MEDS: ISOSORBIDE MONONITRATE(SR)30 MG TAB PO SCH (08:16)
--- NOTE | 2018-09-12 08:31 | CONS ---
Consult Date/Type/Reason Admit Date/Time Sep 09, 2018 at 20:09 Initial Consult Date Date/Time of Note DATE: 09/12/18 TIME: 08:28 Subjective 83-year-old male with a past medical history of diabetes, history of AFib, history of BPH, history of cardiomyopathy, history of CKD, history of arrhythmia, status pacemaker, presents to [facility] complaining of dizziness and vertigo-like symptoms. The patient was subsequently admitted to telemetry for observation, given IV fluids. In terms of patient's renal history, the patient admits to having underlying chronic kidney disease. The patient is unclear of his baseline renal function. He denies any hemoptysis, hematemesis, hematochezia. Denies any rashes, any frothy urine. continues good uo since admission. PAST MEDICAL HISTORY: History of CKD, history of hypertension, history of cardiomyopathy, history of arrhythmia, history of Afib, history of BPH. HEENT: Head is normocephalic. NECK: Supple. HEART: Regular rate. LUNGS: Show diminished breath sounds at the base. ABDOMEN: Soft, nontender to palpation without rebound or guarding. EXTREMITIES: Negative for clubbing, cyanosis, no edema. DERMATOLOGIC: No rashes. MUSCULOSKELETAL: No joint effusion. NEUROLOGIC: No change in exam. Objective Vitals Vital Signs Date Temp Pulse Resp B/P (MAP) Pulse Ox O2 O2 Flow FiO2 Time Delivery Rate 09/12/18 98.6 58 20 146/68 100 07:46 (94) 09/12/18 Room Air 04:00 09/09/18 21 20:54 Intake and Output 09/11/18 09/11/18 09/12/18 1515:00 23:00 07:00 IntakeIntake Total 740 ml 410 ml 800 ml BalanceBalance 740 ml 410 ml 800 ml Results/Medications Result Diagram: 09/11/18 0541 09/12/18 0552 Results 24 hrs Laboratory Tests Test 09/11/18 08:51 09/11/18 09:11 09/11/18 09:31 09/11/18 12:03 Bedside Glucose 67 L 87 215 Glucose Level 139 # Test 09/11/18 17:34 09/11/18 21:05 09/12/18 05:52 09/12/18 08:14 Bedside Glucose 158 169 75 Sodium Level 140 Potassium Level 4.3 Chloride Level 108 Carbon Dioxide Level 25 Anion Gap 7 Blood Urea Nitrogen 39 H Creatinine 1.45 H Est Glomerular Filtrat Rate mL/min Glucose Level 114 Calcium Level 9.1 Magnesium Level 2.1 Home Meds Reported Medications Nitroglycerin* (Nitroglycerin* SL) 0.4 Mg Tab.subl, 0.4 MG SL Q5MIN PRN for CHEST PAIN, BOTTLE 09/09/18 Apixaban* (Eliquis*) 5 Mg Tablet, 5 MG PO BID, TAB 09/09/18 Isosorbide Mononitrate* (Isosorbide Mononitrate*) 30 Mg Tab.er.24h, 30 MG PO BID, TAB 09/09/18 Carvedilol* (Carvedilol*) 25 Mg Tablet, 25 MG PO BID, #60 TAB 09/09/18 Benazepril Hcl* (Benazepril Hcl*) 10 Mg Tablet, 10 MG PO DAILY, #30 TAB 09/09/18 Furosemide* (Furosemide*) 20 Mg Tablet, 20 MG PO DAILY, #60 TAB 09/09/18 Simvastatin* (Zocor*) 40 Mg Tablet, 40 MG PO QHS, #30 TAB 09/09/18 Hydralazine Hcl* (Apresoline*) 50 Mg Tab, 50 MG PO BID, #60 TAB 09/09/18 Insulin Glargine,Hum.rec.anlog (Basaglar Kwikpen U-100) 100 Unit/1 Ml Insuln.pen, 50 UNIT SC DAILY, EA 09/09/18 Tamsulosin Hcl* (Flomax*) 0.4 Mg Cap.er.24h, 0.4 MG PO HS, CAP 09/09/18 Finasteride* (Finasteride*) 5 Mg Tablet, 5 MG PO DAILY, TAB 09/09/18 Discontinued Reported Medications Lorazepam* (Lorazepam*) 0.5 Mg Tablet, 0.5 MG PO HS PRN for ANXIETY, TAB 02/05/18 Finasteride* (Finasteride*) 5 Mg Tablet, 5 MG PO DAILY, TAB 02/05/18 Carvedilol* (Carvedilol*) 25 Mg Tablet, 25 MG PO BID, #60 TAB 02/05/18 Apixaban* (Eliquis*) 5 Mg Tablet, 10 MG PO BID, TAB 02/05/18 Insulin Glargine,Hum.rec.anlog (Basaglar Kwikpen U-100) 100 Unit/1 Ml Insuln.pen, 40 UNIT SC DAILY, EA INJECT 389 UNITS SC EVERY DAY 05/08/17 Tamsulosin Hcl* (Flomax*) 0.4 Mg Cap.er.24h, 0.4 MG PO HS, CAP 03/03/17 Simvastatin (Simvastatin) 40 Mg Tablet, 40 MG PO QHS, #30 TAB 01/02/16 Discontinued Scripts Docusate Sodium* (Colace*) 100 Mg Capsule, 100 MG PO BID, #60 CAP Prov:TOLENTINO,YVAN V. [employer]ER 02/09/18 Amiodarone Hcl* (Amiodarone Hcl*) 200 Mg Tablet, 200 MG PO BID, #60 TAB Prov:TOLENTINO,YVAN V. [employer]ER 02/09/18 Ferrous Sulfate* (Ferrous Sulfate*) 325 Mg Tabec, 325 MG PO DAILY, #30 TAB Prov:TOLENTINO,YVAN V. [employer]ER 02/09/18 Baclofen* (Baclofen*) 10 Mg Tablet, 10 MG PO TID PRN for neck pain, #30 TAB Prov:TOLENTINO,YVAN V. [employer]ER 02/09/18 Furosemide (Lasix) 20 Mg Tab, 20 MG PO DAILY for 30 Days, TAB Prov:KARISSA CASTRO 03/09/17 Medications Current Medications IV Flush (NS 3 ml) 3 ml PER PROTOCOL IV ; Start 09/10/18 at 00:30 Ondansetron HCl (Zofran Inj) 4 mg Q6H PRN IV NAUSEA/VOMITING; Start 09/10/18 at 00:30 Acetaminophen (Tylenol Tab) 650 mg Q6H PRN PO .PAIN 1-3 OR TEMP; Start 09/10/18 at 00:30 Albuterol/ Ipratropium (Duoneb) 3 ml Q2H RESP THERAPY PRN HHN SHORTNESS OF BREATH; Start 09/10/18 at 00:30 Carvedilol (Coreg) 25 mg BID PO Last administered on 09/12/18at 08:16; Admin Dose 25 MG; Start 09/10/18 at 09:00 Finasteride (Proscar) 5 mg DAILY PO Last administered on 09/12/18at 08:15; Admin Dose 5 MG; Start 09/10/18 at 09:00 Furosemide (Lasix) 20 mg DAILY PO Last administered on 09/12/18at 08:15; Admin Dose 20 MG; Start 09/10/18 at 09:00 Hydralazine HCl (Apresoline) 50 mg BID PO Last administered on 09/12/18at 08:16; Admin Dose 50 MG; Start 09/10/18 at 09:00 Nitroglycerin (Nitroglycerin (Sl Tab) 0.4 Mg) 1 tab Q5M PRN SL CHEST PAIN; Start 09/10/18 at 00:30 Tamsulosin HCl (Flomax) 0.4 mg HS PO Last administered on 09/11/18at 21:07; Admin Dose 0.4 MG; Start 09/10/18 at 21:00 Diagnostic Test (Pha) (Accu-Chek) 1 ea 02 XX Last administered on 09/11/18at 02:02; Admin Dose 1 EA; Start 09/10/18 at 02:00 Insulin Aspart (Novolog Insulin Pen) NOVOLOG *MODERATE* ALGORITHM WITH MEALS BEDTIME SC Last administered on 09/11/18at 17:39; Admin Dose 2 UNIT; Start 09/10/18 at 07:55 Miscellaneous Information 1 ea NOTE XX ; Start 09/10/18 at 01:00 Glucose (Glutose) 15 gm Q15M PRN PO DECREASED GLUCOSE; Start 09/10/18 at 01:00 Glucose (Glutose) 22.5 gm Q15M PRN PO DECREASED GLUCOSE; Start 09/10/18 at 01:00 Dextrose (D50w Syringe) 25 ml Q15M PRN IV DECREASED GLUCOSE; Start 09/10/18 at 01:00 Dextrose (D50w Syringe) 50 ml Q15M PRN IV DECREASED GLUCOSE; Start 09/10/18 at 01:00 Glucagon (Glucagen) 1 mg Q15M PRN IM DECREASED GLUCOSE; Start 09/10/18 at 01:00 Glucose (Glutose) 15 gm Q15M PRN BUCCAL DECREASED GLUCOSE; Start 09/10/18 at 01:00 Atorvastatin Calcium (Lipitor) 20 mg DAILY@21 PO Last administered on 09/11/18at 21:07; Admin Dose 20 MG; Start 09/10/18 at 21:00 Simethicone (Mylicon) 80 mg Q6H PRN PO DISTENSION/GAS/BLOATING; Start 09/10/18 at 03:30 Insulin Glargine (Lantus) 50 units DAILY@2000 SC Last administered on 09/11/18at 22:16; Admin Dose 50 UNITS; Start 09/10/18 at 20:00 Apixaban (Eliquis) 2.5 mg BID PO Last administered on 09/12/18at 08:15; Admin Dose 2.5 MG; Start 09/10/18 at 21:00 Isosorbide Mononitrate (Imdur) 30 mg DAILY PO Last administered on 09/12/18at 08:16; Admin Dose 30 MG; Start 09/11/18 at 09:00 Assessment/Plan Hospital Course (Demo Recall) 1. Nonoliguric acute kidney injury on top of chronic kidney disease with previous baseline creatinines around 1.5 to 1.8 mg/dL. Etiology of current acute kidney injury is likely secondary to hemodynamics, NOLAN inhibitor effect, diuretics. The patient's renal function improved has improved with IV fluids. At this point, would continue current treatment plan, supportive care, renally dose all meds, avoid any NOLAN inhibitor at this time. stable on low dose lasix. 2. Hyperkalemia, likely secondary to acute kidney injury, NOLAN inhibitor effect. The patient's potassium levels have improved. Continue to monitor. Defer any NOLAN inhibitor at this time. Continue low-potassium diet. We will monitor cl osely. 3. Anemia. Monitor hemoglobin and hematocrit levels. 4. Mineral bone disorder, monitor calcium and phosphorus levels. 5. Dizziness and lightheadedness. noted sig carotid stenosis Continue to monitor. 6. Hypertension. Blood pressure currently controlled. Continue to monitor. Hold any NOLAN inhibitor at this time. 7. Diabetes. Continue current insulin regimen. 8. Benign prostatic hypertrophy. Continue Flomax. 9. History of cardiomyopathy with ejection fraction 35%. Continue low-dose diuretic therapy for now, monitor renal function closely. 10. History of arrhythmia, status post pacemaker. 11. Status post hyponatremia. JESSICA SCHULZ MD Sep 12, 2018 08:31
[2018-09-12] MEDS ORDERED: ALBUTEROL 0.083% (NEB) 2.5 MG/3 ML AMP HHN PRN (09:00)
--- NOTE | 2018-09-12 11:10 | RADRPT ---
Vent Rate: 49 bpm RR Interval: 1188 msec [place] Interval: [id number] msec QRS Duration: 112 msec QT Interval: 468 msec QTC Interval: 429 msec P-R-T [place]: [id number] - 2 - 185 degrees Atrial fibrillation...? atrial activity Inferior infarct, age indeterminate...Q>35mS, T neg, II III aVF Anterolateral infarct, age indeterminate...Q >35mS, flat/neg T, V3-V6,I,aVL Electronically Signed By: Jean Claude Carmichael
--- NOTE | 2018-09-12 13:56 | PN ---
Date/Time of Note Date/Time of Note DATE: 09/12/18 TIME: 13:55 Assessment/Plan VTE Prophylaxis Risk score (from Ns)>0 risk: 3 SCD applied (from Ns): Yes SCD contraindicated: low risk/ambulating Pharmacological prophylaxis: LMWH Lines/Catheters IV Catheter Type (from Nrs): Saline Lock Urinary Cath still in place: No Assessment/Plan Hospital Course Assessment and plan 1. Dizziness, atypical chest pain. Rule out AICD firing. AICD interrogation pending 2. AICD status 3. Ischemic cardiomyopathy fraction 25% now 4. Chronic kidney disease 5. Type 2 diabetes 6. Coronary artery disease? Last stress test negative for reversible process 7. BPH 8. Anemia appears asymptomatic 9. Atrial fibrillation stable observe 10. Sinus bradycardia, asymptomatic watch for tachybradycardia syndrome 11. New carotid stenosis bilateral. If AICD interrogation is negative, I will probably consult vascular S: 09/11 awake alert ambulating. Denies any loss of speech vision or focal deficits. No chest pain palpitations at present 09/12 no chest pain dyspnea dizziness syncope O: Vital signs stable PE No pallor carotid bruits Regular no mrg Clear Benign No edema Result Diagram: 09/11/18 0541 09/12/18 0552 Results 24hrs Laboratory Tests Test 09/11/18 17:34 09/11/18 21:05 09/12/18 05:52 09/12/18 08:14 Bedside Glucose 158 169 75 Sodium Level 140 Potassium Level 4.3 Chloride Level 108 Carbon Dioxide Level 25 Anion Gap 7 Blood Urea Nitrogen 39 H Creatinine 1.45 H Est Glomerular Filtrat Rate mL/min Glucose Level 114 Calcium Level 9.1 Magnesium Level 2.1 Exam/Review of Systems Exam Vitals Vital Signs Date Temp Pulse Resp B/P (MAP) Pulse Ox O2 O2 Flow FiO2 Time Delivery Rate 09/12/18 52 12:00 09/12/18 98.2 20 133/60 99 11:44 (84) 09/12/18 Room Air 04:00 09/09/18 21 20:54 Intake and Output 09/11/18 09/11/18 09/12/18 1515:00 23:00 07:00 IntakeIntake Total 740 ml 410 ml 800 ml BalanceBalance 740 ml 410 ml 800 ml Results Results 24hrs Laboratory Tests Test 09/11/18 17:34 09/11/18 21:05 09/12/18 05:52 09/12/18 08:14 Bedside Glucose 158 169 75 Sodium Level 140 Potassium Level 4.3 Chloride Level 108 Carbon Dioxide Level 25 Anion Gap 7 Blood Urea Nitrogen 39 H Creatinine 1.45 H Est Glomerular Filtrat Rate mL/min Glucose Level 114 Calcium Level 9.1 Magnesium Level 2.1 Medications Medication Current Medications IV Flush (NS 3 ml) 3 ml PER PROTOCOL IV ; Start 09/10/18 at 00:30 Ondansetron HCl (Zofran Inj) 4 mg Q6H PRN IV NAUSEA/VOMITING; Start 09/10/18 at 00:30 Acetaminophen (Tylenol Tab) 650 mg Q6H PRN PO .PAIN 1-3 OR TEMP; Start 09/10/18 at 00:30 Albuterol/ Ipratropium (Duoneb) 3 ml Q2H RESP THERAPY PRN HHN SHORTNESS OF BREATH; Start 09/10/18 at 00:30 Carvedilol (Coreg) 25 mg BID PO Last administered on 09/12/18at 08:16; Admin Dose 25 MG; Start 09/10/18 at 09:00 Finasteride (Proscar) 5 mg DAILY PO Last administered on 09/12/18 08:15; Admin Dose 5 MG; Start 09/10/18 at 09:00 Furosemide (Lasix) 20 mg DAILY PO Last administered on 09/12/18at 08:15; Admin Dose 20 MG; Start 09/10/18 at 09:00 Hydralazine HCl (Apresoline) 50 mg BID PO Last administered on 09/12/18 08:16; Admin Dose 50 MG; Start 09/10/18 at 09:00 Nitroglycerin (Nitroglycerin (Sl Tab) 0.4 Mg) 1 tab Q5M PRN SL CHEST PAIN; Start 09/10/18 at 00:30 Tamsulosin HCl (Flomax) 0.4 mg HS PO Last administered on 09/11/18at 21:07; Admin Dose 0.4 MG; Start 09/10/18 at 21:00 Diagnostic Test (Pha) (Accu-Chek) 1 ea 02 XX Last administered on 09/11/18at 02:02; Admin Dose 1 EA; Start 09/10/18 at 02:00 Insulin Aspart (Novolog Insulin Pen) NOVOLOG *MODERATE* ALGORITHM WITH MEALS BEDTIME SC Last administered on 09/12/18at 12:27; Admin Dose 4 UNIT; Start 09/10/18 at 07:55 Miscellaneous Information 1 ea NOTE XX ; Start 09/10/18 at 01:00 Glucose (Glutose) 15 gm Q15M PRN PO DECREASED GLUCOSE; Start 09/10/18 at 01:00 Glucose (Glutose) 22.5 gm Q15M PRN PO DECREASED GLUCOSE; Start 09/10/18 at 01:00 Dextrose (D50w Syringe) 25 ml Q15M PRN IV DECREASED GLUCOSE; Start 09/10/18 at 01:00 Dextrose (D50w Syringe) 50 ml Q15M PRN IV DECREASED GLUCOSE; Start 09/10/18 at 01:00 Glucagon (Glucagen) 1 mg Q15M PRN IM DECREASED GLUCOSE; Start 09/10/18 at 01:00 Glucose (Glutose) 15 gm Q15M PRN BUCCAL DECREASED GLUCOSE; Start 09/10/18 at 01:00 Atorvastatin Calcium (Lipitor) 20 mg DAILY@21 PO Last administered on 09/11/18at 21:07; Admin Dose 20 MG; Start 09/10/18 at 21:00 Simethicone (Mylicon) 80 mg Q6H PRN PO DISTENSION/GAS/BLOATING; Start 09/10/18 at 03:30 Insulin Glargine (Lantus) 50 units DAILY@2000 SC Last administered on 09/11/18at 22:16; Admin Dose 50 UNITS; Start 09/10/18 at 20:00 Apixaban (Eliquis) 2.5 mg BID PO Last administered on 09/12/18at 08:15; Admin Dose 2.5 MG; Start 09/10/18 at 21:00 Isosorbide Mononitrate (Imdur) 30 mg DAILY PO Last administered on 09/12/18at 08:16; Admin Dose 30 MG; Start 09/11/18 at 09:00 Albuterol (Proventil 0.083% (Neb)) 2.5 mg Q6H RESP THERAPY PRN HHN SHORTNESS OF BREATH; Start 09/12/18 at 09:00 TEVIN BOOGIE MD Sep 12, 2018 13:56
--- NOTE | 2018-09-12 14:51 | CONS ---
Consult Date/Type/Reason Admit Date/Time Sep 09, 2018 at 20:09 Initial Consult Date Date/Time of Note DATE: 09/12/18 TIME: 14:49 Subjective NO acute events - pt comfortable -device check - no VT/VF, SVT - doubt cardaic dizziness - discussed with primary team. ROS: No fever, no chills, no nausea, no vomiting, no diarrhea/constipation No recent weight changes No chest pain, no PND, no orthopnea No dizziness, blurred vision No thirst, no heat or cold intolerance Objective Vitals Vital Signs Date Temp Pulse Resp B/P (MAP) Pulse Ox O2 O2 Flow FiO2 Time Delivery Rate 09/12/18 52 12:00 09/12/18 98.2 20 133/60 99 11:44 (84) 09/12/18 Room Air 04:00 09/09/18 21 20:54 Intake and Output 09/11/18 09/11/18 09/12/18 1515:00 23:00 07:00 IntakeIntake Total 740 ml 410 ml 800 ml BalanceBalance 740 ml 410 ml 800 ml Exam General: WN/WD/NAD, AOx 3 HEENT: Unicetric/atraumatic/EOMI (follow commands) NECK: JVD elevated, no thyromegaly Lymph: no lymphadenopathy HEART: regular with no S3, II/ systolic murmur at apex, L side device LUNGS: Coarse sounds ABD: soft, NT, ND, +BS : Intact Neuro: non focal SKIN: chronic changes EXT: trace edema Results/Medications Result Diagram: 09/11/18 0541 09/12/18 0552 Results 24 hrs Laboratory Tests Test 09/11/18 17:34 09/11/18 21:05 09/12/18 05:52 09/12/18 08:14 Bedside Glucose 158 169 75 Sodium Level 140 Potassium Level 4.3 Chloride Level 108 Carbon Dioxide Level 25 Anion Gap 7 Blood Urea Nitrogen 39 H Creatinine 1.45 H Est Glomerular Filtrat Rate mL/min Glucose Level 114 Calcium Level 9.1 Magnesium Level 2.1 Home Meds Reported Medications Nitroglycerin* (Nitroglycerin* SL) 0.4 Mg Tab.subl, 0.4 MG SL Q5MIN PRN for CHEST PAIN, BOTTLE 09/09/18 Apixaban* (Eliquis*) 5 Mg Tablet, 5 MG PO BID, TAB 09/09/18 Isosorbide Mononitrate* (Isosorbide Mononitrate*) 30 Mg Tab.er.24h, 30 MG PO BID, TAB 09/09/18 Carvedilol* (Carvedilol*) 25 Mg Tablet, 25 MG PO BID, #60 TAB 09/09/18 Benazepril Hcl* (Benazepril Hcl*) 10 Mg Tablet, 10 MG PO DAILY, #30 TAB 09/09/18 Furosemide* (Furosemide*) 20 Mg Tablet, 20 MG PO DAILY, #60 TAB 09/09/18 Simvastatin* (Zocor*) 40 Mg Tablet, 40 MG PO QHS, #30 TAB 09/09/18 Hydralazine Hcl* (Apresoline*) 50 Mg Tab, 50 MG PO BID, #60 TAB 09/09/18 Insulin Glargine,Hum.rec.anlog (Basaglar Kwikpen U-100) 100 Unit/1 Ml Insuln.pen, 50 UNIT SC DAILY, EA 09/09/18 Tamsulosin Hcl* (Flomax*) 0.4 Mg Cap.er.24h, 0.4 MG PO HS, CAP 09/09/18 Finasteride* (Finasteride*) 5 Mg Tablet, 5 MG PO DAILY, TAB 09/09/18 Discontinued Reported Medications Lorazepam* (Lorazepam*) 0.5 Mg Tablet, 0.5 MG PO HS PRN for ANXIETY, TAB 02/05/18 Finasteride* (Finasteride*) 5 Mg Tablet, 5 MG PO DAILY, TAB 02/05/18 Carvedilol* (Carvedilol*) 25 Mg Tablet, 25 MG PO BID, #60 TAB 02/05/18 Apixaban* (Eliquis*) 5 Mg Tablet, 10 MG PO BID, TAB 02/05/18 Insulin Glargine,Hum.rec.anlog (Basaglar Kwikpen U-100) 100 Unit/1 Ml Insuln.pen, 40 UNIT SC DAILY, EA INJECT 389 UNITS SC EVERY DAY 05/08/17 Tamsulosin Hcl* (Flomax*) 0.4 Mg Cap.er.24h, 0.4 MG PO HS, CAP 03/03/17 Simvastatin (Simvastatin) 40 Mg Tablet, 40 MG PO QHS, #30 TAB 01/02/16 Discontinued Scripts Docusate Sodium* (Colace*) 100 Mg Capsule, 100 MG PO BID, #60 CAP Prov:TOLENTINOKRISTOPHERA V. [employer]IVER 02/09/18 Amiodarone Hcl* (Amiodarone Hcl*) 200 Mg Tablet, 200 MG PO BID, #60 TAB Prov:TOLENTINOFABIANAYVAN [employer]. [employer]IVER 02/09/18 Ferrous Sulfate* (Ferrous Sulfate*) 325 Mg Tabec, 325 MG PO DAILY, #30 TAB Prov:TOLENTINO,YVAN [employer] 02/09/18 Baclofen* (Baclofen*) 10 Mg Tablet, 10 MG PO TID PRN for neck pain, #30 TAB Prov:TOLENTINOKRISTOPHERA [employer] 02/09/18 Furosemide (Lasix) 20 Mg Tab, 20 MG PO DAILY for 30 Days, TAB Prov:MATTHEWKARISSA 03/09/17 Medications Current Medications IV Flush (NS 3 ml) 3 ml PER PROTOCOL IV ; Start 09/10/18 at 00:30 Ondansetron HCl (Zofran Inj) 4 mg Q6H PRN IV NAUSEA/VOMITING; Start 09/10/18 at 00:30 Acetaminophen (Tylenol Tab) 650 mg Q6H PRN PO .PAIN 1-3 OR TEMP; Start 09/10/18 at 00:30 Albuterol/ Ipratropium (Duoneb) 3 ml Q2H RESP THERAPY PRN HHN SHORTNESS OF BREATH; Start 09/10/18 at 00:30 Carvedilol (Coreg) 25 mg BID PO Last administered on 09/12/18at 08:16; Admin Dose 25 MG; Start 09/10/18 at 09:00 Finasteride (Proscar) 5 mg DAILY PO Last administered on 09/12/18at 08:15; Admin Dose 5 MG; Start 09/10/18 at 09:00 Furosemide (Lasix) 20 mg DAILY PO Last administered on 09/12/18at 08:15; Admin Dose 20 MG; Start 09/10/18 at 09:00 Hydralazine HCl (Apresoline) 50 mg BID PO Last administered on 09/12/18at 08:16; Admin Dose 50 MG; Start 09/10/18 at 09:00 Nitroglycerin (Nitroglycerin (Sl Tab) 0.4 Mg) 1 tab Q5M PRN SL CHEST PAIN; Start 09/10/18 at 00:30 Tamsulosin HCl (Flomax) 0.4 mg HS PO Last administered on 09/11/18at 21:07; Admin Dose 0.4 MG; Start 09/10/18 at 21:00 Diagnostic Test (Pha) (Accu-Chek) 1 ea 02 XX Last administered on 09/11/18at 02:02; Admin Dose 1 EA; Start 09/10/18 at 02:00 Insulin Aspart (Novolog Insulin Pen) NOVOLOG *MODERATE* ALGORITHM WITH MEALS BEDTIME SC Last administered on 09/12/18at 12:27; Admin Dose 4 UNIT; Start at 07:55 Miscellaneous Information 1 ea NOTE XX ; Start 09/10/18 at 01:00 Glucose (Glutose) 15 gm Q15M PRN PO DECREASED GLUCOSE; Start 09/10/18 at 01:00 Glucose (Glutose) 22.5 gm Q15M PRN PO DECREASED GLUCOSE; Start 09/10/18 at 01:00 Dextrose (D50w Syringe) 25 ml Q15M PRN IV DECREASED GLUCOSE; Start 09/10/18 at 01:00 Dextrose (D50w Syringe) 50 ml Q15M PRN IV DECREASED GLUCOSE; Start 09/10/18 at 01:00 Glucagon (Glucagen) 1 mg Q15M PRN IM DECREASED GLUCOSE; Start 09/10/18 at 01:00 Glucose (Glutose) 15 gm Q15M PRN BUCCAL DECREASED GLUCOSE; Start 09/10/18 at 01:00 Atorvastatin Calcium (Lipitor) 20 mg DAILY@21 PO Last administered on 09/11/18at 21:07; Admin Dose 20 MG; Start 09/10/18 at 21:00 Simethicone (Mylicon) 80 mg Q6H PRN PO DISTENSION/GAS/BLOATING; Start 09/10/18 at 03:30 Insulin Glargine (Lantus) 50 units DAILY@2000 SC Last administered on 09/11/18at 22:16; Admin Dose 50 UNITS; Start 09/10/18 at 20:00 Apixaban (Eliquis) 2.5 mg BID PO Last administered on 09/12/18at 08:15; Admin Dose 2.5 MG; Start 6/21/19 at 21:00 Isosorbide Mononitrate (Imdur) 30 mg DAILY PO Last administered on 09/12/18at 08:16; Admin Dose 30 MG; Start 09/11/18 at 09:00 Albuterol (Proventil 0.083% (Neb)) 2.5 mg Q6H RESP THERAPY PRN HHN SHORTNESS OF BREATH; Start 09/12/18 at 09:00 Assessment/Plan Hospital Course (Demo Recall) 1. Possible AICD discharge, patient's description does not sound like he had true discharge, we will assess - s/p ICD interrogation - with good function - doubt cardaic syncope.. 2. Cardiomyopathy with decreased left ventricular ejection fraction, last EF approximately 35% with no reversible ischemia by stress in 04/2017. Con't gentle diuresis. On meds. 3. Paroxysmal atrial fibrillation, currently rate controlled - might be shock for a. fib with RVR? pending ICd check. 4. Congestive heart failure, systolic, acute on chronic with a good volume status at this time appears to be euvolemic. 5. Hypertension, well controlled. Con't med rx. 6. Dyslipidemia. 7. Diabetes mellitus. 8. Dizziness/vertigo with possible presyncope - carotid disease being navigated. ATUL AVITIA MD Sep 12, 2018 14:51
[2018-09-12] MEDS: ATORVASTATIN 20 MG TAB PO SCH (20:26)
[2018-09-12] MEDS: TAMSULOSIN (SR) 0.4 MG CAP PO SCH (20:27)
[2018-09-12] MEDS: INSULIN GLARGINE [LANTus] (100 UNITS/ML) SYG SC SCH (20:41)
[2018-09-13] VITALS (11 sets, daily range): BP systolic 119–135; BP diastolic 56–65; PULSE 56–71; RESP 16–18
[2018-09-13] MEDS: ACCU-CHEK XX SCH (02:29)
[2018-09-13] MEDS: INSULIN ASPART [NOVOLOG] 3 ML PEN SC SCH ×4 (07:55→20:38)
[2018-09-13] MEDS: FINASTERIDE 5 MG TAB PO SCH (08:30)
[2018-09-13] MEDS: ISOSORBIDE MONONITRATE(SR)30 MG TAB PO SCH (08:31)
[2018-09-13] MEDS: FUROSEMIDE 20 MG TAB PO SCH (08:31)
[2018-09-13] MEDS: APIXABAN 5 MG TABLET PO SCH ×2 (08:31→20:37)
--- NOTE | 2018-09-13 08:31 | PN ---
DATE: 09/13/2018 SUBJECTIVE: The patient is stable. No events overnight. OBJECTIVE: VITAL SIGNS: Blood pressure is 127/57, respirations 17, pulse 57, temperature 97.5. HEENT: Head is normocephalic. NECK: Supple. HEART: Regular rate. LUNGS: Show diminished breath sounds at the base. ABDOMEN: Soft, nontender to palpation without rebound or guarding. EXTREMITIES: Negative for clubbing, cyanosis, no edema. DERMATOLOGIC: No rashes. MUSCULOSKELETAL: No joint effusions. NEUROLOGIC: No change in exam. MEDICATIONS: The patient's medications have been reviewed. LABORATORY DATA: Reviewed. IMAGING STUDIES: Reviewed. ASSESSMENT AND PLAN: 1. Nonoliguric acute kidney injury on top of chronic kidney disease with previous baseline creatinin e of 1.5 to 1.8 mg/dL. Etiology of acute kidney injury is secondary to hemodynamics, WILLIAM inhibitor e ffect, diuretics. The patient's renal function has improved with IV hydration. Renal function is ne ar baseline. At this point, continue current treatment plan, supportive care, renally dose all meds. 2. Hyperkalemia secondary to acute kidney injury, William inhibitor effect. The patient's potassium lev els have improved. Continue to monitor. 3. Anemia. Monitor hemoglobin and hematocrit levels. 4. Mineral bone disorder. Monitor calcium and phosphorus levels. 5. Dizziness and lightheadedness. The patient has noted significant carotid stenosis. Continue to monitor. 6. Hypertension. Continue current blood pressure regimen. Defer WILLIAM inhibitor at this time. 7. Diabetes. Continue current insulin regimen. 8. BPH, continue Flomax. 9. History of cardiomyopathy. Continue low-dose diuretic therapy at this time. 10. History of arrhythmia, status post pacemaker. 11. Status post hypernatremia. Dictated By: TAYLOR PINK DO NR/NTS Conf#: [id number] DID#: [id number] CC: TEVIN BOOGIE MD; NATHANAEL SCOTT MD;*End*
--- NOTE | 2018-09-13 11:08 | CONS ---
Assessment/Plan Assessment/Plan Hospital Course (Demo Recall) IMPRESSION: 1. Possible AICD discharge, patient's description does not sound like he had true discharge, we will assess.- no events by interrogation this admit. Neg trop x 3 2. Cardiomyopathy with decreased left ventricular ejection fraction, last EF approximately 35% with no reversible ischemia by stress in 04/2017.-EF 25% by echo this adsmit 3. Paroxysmal atrial fibrillation, currently rate controlled. 4. Congestive heart failure, systolic, acute on chronic with a good volume status at this time appears to be euvolemic. 5. Hypertension, well controlled. 6. Dyslipidemia. 7. Diabetes mellitus. 8. Dizziness/vertigo with possible presyncope. 9. carotid stenosis-by liam MARISCAL this admit 10. renal failure-some improvement Recc: -Tele -Continue BB/Hydralazine/imdur -Continue statin -Contineu eliquis -? vascular surgery consult -Continue daily lasix and follow volume status closely Consultation Date/Type/Reason Admit Date/Time Sep 09, 2018 at 20:09 Initial Consult Date 09/10/18 Type of Consult Cardiology Reason for Consultation cardiomyopathy Requesting Provider: EDMUND MANN MD Date/Time of Note DATE: 09/13/18 TIME: 11:04 Exam/Review of Systems Vital Signs Vitals Vital Signs Date Temp Pulse Resp B/P (MAP) Pulse Ox O2 O2 Flow FiO2 Time Delivery Rate 09/13/18 65 08:25 09/13/18 97.5 17 127/57 98 Room Air 07:23 (80) 09/09/18 21 20:54 Intake and Output 09/12/18 09/12/18 09/13/18 1515:00 23:00 07:00 IntakeIntake Total 850 ml 120 ml BalanceBalance 850 ml 120 ml Exam Exam Review of Systems: CONSTITUTIONAL: No fevers, chills. PULMONARY: mild sob-improving CARDIOVASCULAR: No chest pain/palpitations GASTROINTESTINAL: No nausea/vomiting. GENITOURINARY: No hematuria/dysuria. MUSCULOSKELETAL: No myagias/arthalgias. PSYCHIATRIC: The patient denies depression. NEUROLOGIC: No weakness Constitutional: alert, oriented Psych: no complaints Head: normocephalic ENMT: mucosa pink and moist Neck: supple, jvd (9 cm water) Respiratory: diminished breath sounds (at bases/B) Cardiovascular: regular rate and rhythm Gastrointestinal: soft, non-tender Musculoskeletal: muscle tone (normal) Extremities: edema (none) Neurological: other (No focal deficits) Labs Result Diagram: 09/11/18 0541 09/12/18 0552 Results 24hrs Laboratory Tests Test 09/12/18 12:23 09/12/18 17:16 09/12/18 20:30 09/13/18 01:11 Bedside Glucose 181 114 262 H 167 Test 09/13/18 07:54 09/13/18 08:28 09/13/18 08:42 Bedside Glucose 66 L 95 136 Medications Medications Current Medications IV Flush (NS 3 ml) 3 ml PER PROTOCOL IV ; Start 09/10/18 at 00:30 Ondansetron HCl (Zofran Inj) 4 mg Q6H PRN IV NAUSEA/VOMITING; Start 09/10/18 at 00:30 Acetaminophen (Tylenol Tab) 650 mg Q6H PRN PO .PAIN 1-3 OR TEMP; Start 09/10/18 at 00:30 Albuterol/ Ipratropium (Duoneb) 3 ml Q2H RESP THERAPY PRN HHN SHORTNESS OF BREATH; Start 09/10/18 at 00:30 Carvedilol (Coreg) 25 mg BID PO Last administered on 09/13/18 08:31; Admin Dose 25 MG; Start 09/10/18 at 09:00 Finasteride (Proscar) 5 mg DAILY PO Last administered on 09/13/18 08:30; Admin Dose 5 MG; Start 09/10/18 at 09:00 Furosemide (Lasix) 20 mg DAILY PO Last administered on 09/13/18 08:31; Admin Dose 20 MG; Start 09/10/18 at 09:00 Hydralazine HCl (Apresoline) 50 mg BID PO Last administered on 09/13/18 08:31; Admin Dose 50 MG; Start 09/10/18 at 09:00 Nitroglycerin (Nitroglycerin (Sl Tab) 0.4 Mg) 1 tab Q5M PRN SL CHEST PAIN; Start 09/10/18 at 00:30 Tamsulosin HCl (Flomax) 0.4 mg HS PO Last administered on 09/12/18at 20:27; Admin Dose 0.4 MG; Start 09/10/18 at 21:00 Diagnostic Test (Pha) (Accu-Chek) 1 ea 02 XX Last administered on 09/13/18at 02:29; Admin Dose 1 EA; Start 09/10/18 at 02:00 Insulin Aspart (Novolog Insulin Pen) NOVOLOG *MODERATE* ALGORITHM WITH MEALS BEDTIME SC Last administered on 09/12/18at 21:44; Admin Dose 3 UNIT; Start 09/10/18 at 07:55 Miscellaneous Information 1 ea NOTE XX ; Start 09/10/18 at 01:00 Glucose (Glutose) 15 gm Q15M PRN PO DECREASED GLUCOSE; Start 09/10/18 at 01:00 Glucose (Glutose) 22.5 gm Q15M PRN PO DECREASED GLUCOSE; Start 09/10/18 at 01:00 Dextrose (D50w Syringe) 25 ml Q15M PRN IV DECREASED GLUCOSE; Start 09/10/18 at 01:00 Dextrose (D50w Syringe) 50 ml Q15M PRN IV DECREASED GLUCOSE; Start 09/10/18 at 01:00 Glucagon (Glucagen) 1 mg Q15M PRN IM DECREASED GLUCOSE; Start 09/10/18 at 01:00 Glucose (Glutose) 15 gm Q15M PRN BUCCAL DECREASED GLUCOSE; Start 09/10/18 at 01:00 Atorvastatin Calcium (Lipitor) 20 mg DAILY@21 PO Last administered on 09/12/18at 20:26; Admin Dose 20 MG; Start 09/10/18 at 21:00 Simethicone (Mylicon) 80 mg Q6H PRN PO DISTENSION/GAS/BLOATING; Start 09/10/18 at 03:30 Insulin Glargine (Lantus) 50 units DAILY@2000 SC Last administered on 09/12/18at 20:41; Admin Dose 50 UNITS; Start 09/10/18 at 20:00 Apixaban (Eliquis) 2.5 mg BID PO Last administered on 09/13/18 08:31; Admin Dose 2.5 MG; Start 09/10/18 at 21:00 Isosorbide Mononitrate (Imdur) 30 mg DAILY PO Last administered on 09/13/18 08:31; Admin Dose 30 MG; Start 09/11/18 at 09:00 Albuterol (Proventil 0.083% (Neb)) 2.5 mg Q6H RESP THERAPY PRN HHN SHORTNESS OF BREATH; Start 09/12/18 at 09:00 EDMUND CADET Sep 13, 2018 11:08
[2018-09-13] MEDS: ACETYLCYSTEINE 600 MG CAP PO SCH ×2 (17:30→20:37)
--- NOTE | 2018-09-13 18:02 | PN ---
Date/Time of Note Date/Time of Note DATE: 09/13/18 TIME: 18:00 Assessment/Plan VTE Prophylaxis Risk score (from Ns)>0 risk: 4 [place] [facility] [place] contraindicated: low risk/ambulating Pharmacological prophylaxis: NA/contraindicated, LMWH Pharm contraindication: low risk/ambulating Lines/Catheters IV [facility] Type (from [facility] Saline Lock Urinary Cath still in place: No Assessment/Plan Hospital Course Assessment and plan 1. Dizziness, atypical chest pain. Ruled out AICD firing. sp AICD interrogation 2. AICD status 3. Ischemic cardiomyopathy fraction 25% now 4. Chronic kidney disease; hold lasix, give NS/ mucomyst 5. Type 2 diabetes 6. CAD? Last stress test negative for reversible process 7. BPH 8. Anemia appears asymptomatic 9. Atrial fibrillation stable observe 10. Sinus bradycardia, asymptomatic watch for tachybradycardia syndrome 11. New carotid stenosis bilateral. I consulted vascular. CTA pending. If negative, can go home. S: 09/11 awake alert ambulating. Denies any loss of speech vision or focal deficits. No chest pain palpitations at present 09/12 no chest pain dyspnea dizziness syncope 09/13: no distress O: Vital signs stable PE No pallor carotid bruits Regular no mrg Clear Benign No edema Result Diagram: 09/11/18 0541 09/12/18 0552 Results 24hrs Laboratory Tests Test 09/12/18 20:30 09/13/18 01:11 09/13/18 07:54 09/13/18 08:28 Bedside Glucose 262 H 167 66 L 95 Test 09/13/18 08:42 09/13/18 12:36 09/13/18 17:24 Bedside Glucose 136 188 173 Exam/Review of Systems Exam Vitals Vital Signs Date Temp Pulse Resp B/P (MAP) Pulse Ox O2 O2 Flow FiO2 Time Delivery Rate 09/13/18 97.9 67 16 135/65 98 Room Air 15:15 (88) 09/09/18 21 20:54 Intake and Output 09/12/18 09/12/18 09/13/18 1414:59 22:59 06:59 IntakeIntake Total 850 ml 120 ml BalanceBalance 850 ml 120 ml Results Results 24hrs Laboratory Tests Test 09/12/18 20:30 09/13/18 01:11 09/13/18 07:54 09/13/18 08:28 Bedside Glucose 262 H 167 66 L 95 Test 09/13/18 08:42 09/13/18 12:36 09/13/18 17:24 Bedside Glucose 136 188 173 Medications Medication Current Medications IV Flush (NS 3 ml) 3 ml PER PROTOCOL IV ; Start 09/10/18 at 00:30 Ondansetron HCl (Zofran Inj) 4 mg Q6H PRN IV NAUSEA/VOMITING; Start 09/10/18 at 00:30 Acetaminophen (Tylenol Tab) 650 mg Q6H PRN PO .PAIN 1-3 OR TEMP; Start 09/10/18 at 00:30 Albuterol/ Ipratropium (Duoneb) 3 ml Q2H RESP THERAPY PRN HHN SHORTNESS OF BREATH; Start 09/10/18 at 00:30 Carvedilol (Coreg) 25 mg BID PO Last administered on 09/13/18at 08:31; Admin Dose 25 MG; Start 09/10/18 at 09:00 Finasteride (Proscar) 5 mg DAILY PO Last administered on 09/13/18at 08:30; Admin Dose 5 MG; Start 09/10/18 at 09:00 Hydralazine HCl (Apresoline) 50 mg BID PO Last administered on 09/13/18 08:31; Admin Dose 50 MG; Start 09/10/18 at 09:00 Nitroglycerin (Nitroglycerin (Sl Tab) 0.4 Mg) 1 tab Q5M PRN SL CHEST PAIN; Start 09/10/18 at 00:30 Tamsulosin HCl (Flomax) 0.4 mg HS PO Last administered on 09/12/18at 20:27; Admin Dose 0.4 MG; Start 09/10/18 at 21:00 Diagnostic Test (Pha) (Accu-Chek) 1 ea 02 XX Last administered on 09/13/18at 02:29; Admin Dose 1 EA; Start 09/10/18 at 02:00 Insulin Aspart (Novolog Insulin Pen) NOVOLOG *MODERATE* ALGORITHM WITH MEALS BEDTIME SC Last administered on 09/13/18at 17:30; Admin Dose 2 UNIT; Start 09/10/18 at 07:55 Miscellaneous Information 1 ea NOTE XX ; Start 09/10/18 at 01:00 Glucose (Glutose) 15 gm Q15M PRN PO DECREASED GLUCOSE; Start 09/10/18 at 01:00 Glucose (Glutose) 22.5 gm Q15M PRN PO DECREASED GLUCOSE; Start 09/10/18 at 01:00 Dextrose (D50w Syringe) 25 ml Q15M PRN IV DECREASED GLUCOSE; Start 09/10/18 at 01:00 Dextrose (D50w Syringe) 50 ml Q15M PRN IV DECREASED GLUCOSE; Start 09/10/18 at 01:00 Glucagon (Glucagen) 1 mg Q15M PRN IM DECREASED GLUCOSE; Start 09/10/18 at 01:00 Glucose (Glutose) 15 gm Q15M PRN BUCCAL DECREASED GLUCOSE; Start 09/10/18 at 01:00 Atorvastatin Calcium (Lipitor) 20 mg DAILY@21 PO Last administered on 09/12/18at 20:26; Admin Dose 20 MG; Start 09/10/18 at 21:00 Simethicone (Mylicon) 80 mg Q6H PRN PO DISTENSION/GAS/BLOATING; Start 09/10/18 at 03:30 Insulin Glargine (Lantus) 50 units DAILY@2000 SC Last administered on 09/12/18at 20:41; Admin Dose 50 UNITS; Start 09/10/18 at 20:00 Apixaban (Eliquis) 2.5 mg BID PO Last administered on 09/13/18 08:31; Admin Dose 2.5 MG; Start 09/10/18 at 21:00 Isosorbide Mononitrate (Imdur) 30 mg DAILY PO Last administered on 09/13/18at 08:31; Admin Dose 30 MG; Start 09/11/18 at 09:00 Albuterol (Proventil 0.083% (Neb)) 2.5 mg Q6H RESP THERAPY PRN HHN SHORTNESS OF BREATH; Start 09/12/18 at 09:00 Acetylcysteine (Nac) 600 mg BID PO ; Start 09/13/18 at 17:30 Sodium Chloride 1,000 ml @ 50 mls/hr Q20H IV ; Start 09/13/18 at 17:30 TEVIN BOOGIE MD Sep 13, 2018 18:02
[2018-09-13] MEDS: SOD CHLORIDE 0.9% 1,000 ML IV SCH (18:12)
[2018-09-13] MEDS: TAMSULOSIN (SR) 0.4 MG CAP PO SCH (20:37)
[2018-09-13] MEDS: ATORVASTATIN 20 MG TAB PO SCH (20:37)
[2018-09-13] MEDS: INSULIN GLARGINE [LANTus] (100 UNITS/ML) SYG SC SCH (20:50)
[2018-09-14] MEDS: ACCU-CHEK XX SCH (02:00)
[2018-09-14 02:51] VITALS: BP 137/66; PULSE 64; RESP 18
[2018-09-14 07:48] VITALS: BP 131/62; PULSE 68; RESP 19
[2018-09-14] MEDS: INSULIN ASPART [NOVOLOG] 3 ML PEN SC SCH ×4 (07:50→20:41)
[2018-09-14] MEDS: ACETYLCYSTEINE 600 MG CAP PO SCH ×2 (08:43→20:42)
[2018-09-14] MEDS: ISOSORBIDE MONONITRATE(SR)30 MG TAB PO SCH (08:44)
[2018-09-14] MEDS: FINASTERIDE 5 MG TAB PO SCH (08:44)
[2018-09-14] MEDS: APIXABAN 5 MG TABLET PO SCH ×2 (08:45→20:42)
--- NOTE | 2018-09-14 09:32 | PN ---
DATE: 09/14/2018 SUBJECTIVE: The patient is stable, no events overnight. The patient is pending angiogram . No othe r events noted. OBJECTIVE: VITAL SIGNS: Blood pressure is 131/62, respirations 19, pulse 68, temperature 98.1. HEENT: Head is normocephalic. NECK: Supple. HEART: Regular rate. LUNGS: Show diminished breath sounds at the base. ABDOMEN: Soft, nontender to palpation without rebound or guarding. EXTREMITIES: Negative for clubbing, cyanosis, no edema. DERMATOLOGIC: No rashes. MUSCULOSKELETAL: No joint effusion. NEUROLOGIC: No change in exam. MEDICATIONS: Reviewed. LABORATORY DATA: Reviewed. ASSESSMENT AND PLAN: 1. Nonoliguric acute kidney injury on top of chronic kidney disease with previous baseline creatinin e of 1.5 to 1.8 mg/dL. Etiology of acute kidney injury is secondary to hemodynamics. The patient's renal function is stable, nearing previous baseline. At this point, continue current treatment plan, supportive care, renally dose all medications. The patient is scheduled for possible CT angio. Ple ase note, the patient is at moderate risk for contrast-associated nephropathy. We would continue Muc omyst, IV fluids, and monitor closely. 2. Hyperkalemia secondary to acute kidney injury, NOLAN inhibitor effect, resolved. 3. Anemia. Monitor hemoglobin and hematocrit levels. 4. Mineral bone disorder. Monitor calcium and phosphorus levels. 5. Chronic stenosis. The patient is pending angiogram for further evaluation and monitor closely. 6. Hypertension. Continue current blood pressure regimen. Defer NOLAN inhibitor. 7. Diabetes. Continue current insulin regimen. 8. Benign prostatic hypertrophy. Continue Flomax. 9. History of cardiomyopathy. Monitor closely. 10. Arrhythmia, status post pacemaker. 11. Status post hypernatremia. Dictated By: TAYLOR PINK DO NR/NTS Conf#: [id number] DID#: [id number] CC: CINTHYA MARRUFO MD; TEVIN BOOGIE MD; NATHANAEL SCOTT MD;*[facility]*
--- NOTE | 2018-09-14 10:00 | PN ---
Date/Time of Note Date/Time of Note DATE: 09/14/18 TIME: 09:55 Assessment/Plan VTE Prophylaxis Risk score (from Ns)>0 risk: 4 SCD applied (from Ns): Yes Pharmacological prophylaxis: apixaban Lines/Catheters IV Catheter Type (from Nrs): Peripheral IV Urinary Cath still in place: No Assessment/Plan Hospital Course Assessment and plan 1. Dizziness. Patient ruled out AICD firing status post AICD interrogation. Carotid Doppler did show suggestion of stenosis on right proximal internal carotid artery. Follow-up on CTA of the neck. Vascular surgeon evaluation is pending. 2. Ischemic cardiomyopathy with EF of 25%. Optimized on statin, beta-scott, cardiovascular medications. 3. Acute on chronic kidney disease. Renally dose medications. Mucomyst per nephrology. Continue IV fluids. Monitor renal panel. 4. Diabetes. Continue on insulin regimen. 5. Hypertension. Resume antihypertensives. Adjust as needed 7. BPH. Continue Flomax. 8. Hyperlipidemia. Continue on statin medication. Disposition plan. Awaiting CTA of the neck. Monitor renal panel. Vascular surgeon evaluation is pending. Discussed POC with Dr. Amaro Result Diagram: 09/11/18 0541 09/14/18 0423 Results 24hrs Laboratory Tests Test 09/13/18 12:36 09/13/18 17:24 09/13/18 20:34 09/14/18 04:23 Bedside Glucose 188 173 146 Sodium Level 143 Potassium Level 4.4 Chloride Level 111 H Carbon Dioxide Level 26 Anion Gap 6 Blood Urea Nitrogen 39 H Creatinine 1.59 H Est Glomerular Filtrat Rate mL/min Glucose Level 87 Calcium Level 8.9 Test 09/14/18 08:43 Bedside Glucose 85 Subjective 24 Hr Interval Summary Free Text/Dictation Patient reports no pain at this time. Still feels dizzy when he gets up. No o ther specific complaints. Family at bedside. Exam/Review of Systems Exam Vitals Vital Signs Date Temp Pulse Resp B/P (MAP) Pulse Ox O2 O2 Flow FiO2 Time Delivery Rate 09/14/18 98.1 68 19 131/62 98 07:48 (85) 09/13/18 Room Air 15:15 Intake and Output 09/13/18 09/13/18 09/14/18 1515:00 23:00 07:00 IntakeIntake Total 650 ml 450 ml 750 ml OutputOutput Total 800 ml BalanceBalance 650 ml 450 ml -50 ml Constitutional: alert, oriented Psych: nl mood/affect Head: normocephalic Neck: supple, non-tender Respiratory: clear to auscultation Cardiovascular: regular rate and rhythm Gastrointestinal: soft, non-tender Musculoskeletal: nl extremities to inspection Neurological: MANAGED CARE LIAISON II-XII intact, nl mental status, nl speech Skin: nl turgor Results Results 24hrs Laboratory Tests Test 09/13/18 12:36 09/13/18 17:24 09/13/18 20:34 09/14/18 04:23 Bedside Glucose 188 173 146 Sodium Level 143 Potassium Level 4.4 Chloride Level 111 H Carbon Dioxide Level 26 Anion Gap 6 Blood Urea Nitrogen 39 H Creatinine 1.59 H Est Glomerular Filtrat Rate mL/min Glucose Level 87 Calcium Level 8.9 Test 09/14/18 08:43 Bedside Glucose 85 Medications Medication Current Medications IV Flush (NS 3 ml) 3 ml PER PROTOCOL IV ; Start 09/10/18 at 00:30 Ondansetron HCl (Zofran Inj) 4 mg Q6H PRN IV NAUSEA/VOMITING; Start 09/10/18 at 00:30 Acetaminophen (Tylenol Tab) 650 mg Q6H PRN PO .PAIN 1-3 OR TEMP; Start 09/10/18 at 00:30 Albuterol/ Ipratropium (Duoneb) 3 ml Q2H RESP THERAPY PRN HHN SHORTNESS OF BREATH; Start 09/10/18 at 00:30 Carvedilol (Coreg) 25 mg BID PO Last administered on 09/14/18 08:45; Admin Dose 25 MG; Start 09/10/18 at 09:00 Finasteride (Proscar) 5 mg DAILY PO Last administered on 09/14/18at 08:44; Admin Dose 5 MG; Start 09/10/18 at 09:00 Hydralazine HCl (Apresoline) 50 mg BID PO Last administered on 09/14/18 08:45; Admin Dose 50 MG; Start 09/10/18 at 09:00 Nitroglycerin (Nitroglycerin (Sl Tab) 0.4 Mg) 1 tab Q5M PRN SL CHEST PAIN; Start 09/10/18 at 00:30 Tamsulosin HCl (Flomax) 0.4 mg HS PO Last administered on 09/13/18at 20:37; Admin Dose 0.4 MG; Start 09/10/18 at 21:00 Diagnostic Test (Pha) (Accu-Chek) 1 ea 02 XX Last administered on 09/13/18at 02:29; Admin Dose 1 EA; Start 09/10/18 at 02:00 Insulin Aspart (Novolog Insulin Pen) NOVOLOG *MODERATE* ALGORITHM WITH MEALS BEDTIME SC Last administered on 09/13/18at 17:30; Admin Dose 2 UNIT; Start 09/10/18 at 07:55 Miscellaneous Information 1 ea NOTE XX ; Start 09/10/18 at 01:00 Glucose (Glutose) 15 gm Q15M PRN PO DECREASED GLUCOSE; Start 09/10/18 at 01:00 Glucose (Glutose) 22.5 gm Q15M PRN PO DECREASED GLUCOSE; Start 09/10/18 at 01:00 Dextrose (D50w Syringe) 25 ml Q15M PRN IV DECREASED GLUCOSE; Start 09/10/18 at 01:00 Dextrose (D50w Syringe) 50 ml Q15M PRN IV DECREASED GLUCOSE; Start 09/10/18 at 01:00 Glucagon (Glucagen) 1 mg Q15M PRN IM DECREASED GLUCOSE; Start 09/10/18 at 01:00 Glucose (Glutose) 15 gm Q15M PRN BUCCAL DECREASED GLUCOSE; Start 09/10/18 at 01:00 Atorvastatin Calcium (Lipitor) 20 mg DAILY@21 PO Last administered on 09/13/18at 20:37; Admin Dose 20 MG; Start 09/10/18 at 21:00 Simethicone (Mylicon) 80 mg Q6H PRN PO DISTENSION/GAS/BLOATING; Start 09/10/18 at 03:30 Insulin Glargine (Lantus) 50 units DAILY@2000 SC Last administered on 09/13/18at 20:50; Admin Dose 50 UNITS; Start 09/10/18 at 20:00 Apixaban (Eliquis) 2.5 mg BID PO Last administered on 09/14/18 08:45; Admin Dose 2.5 MG; Start 09/10/18 at 21:00 Isosorbide Mononitrate (Imdur) 30 mg DAILY PO Last administered on 09/14/18at 08:44; Admin Dose 30 MG; Start 09/11/18 at 09:00 Albuterol (Proventil 0.083% (Neb)) 2.5 mg Q6H RESP THERAPY PRN HHN SHORTNESS OF BREATH; Start 09/12/18 at 09:00 Acetylcysteine (Nac) 600 mg BID PO Last administered on 09/14/18at 08:43; Admin Dose 600 MG; Start 09/13/18 at 17:30 Sodium Chloride 1,000 ml @ 50 mls/hr Q20H IV Last administered on 09/13/18at 18:12; Admin Dose 50 MLS/HR; Start 09/13/18 at 17:30 TRACY HOWELL NP Sep 14, 2018 09:59
[2018-09-14] MEDS ORDERED: SOD CHLORIDE 0.9% 100 ML ONE ×2 (11:56→12:14)
[2018-09-14] MEDS ORDERED: IOHEXOL 300MG/ML 150 ML BTL ONE (11:56)
[2018-09-14] MEDS ORDERED: IODIXANOL LOCM 100 ML BTL ONE (12:14)
[2018-09-14] MEDS: SOD CHLORIDE 0.9% 1,000 ML IV SCH (12:55)
--- NOTE | 2018-09-14 13:29 | CONS ---
Consult Date/Type/Reason Admit Date/Time Sep 09, 2018 at 20:09 Initial Consult Date Requesting Provider: EDMUND MANN MD Date/Time of Note DATE: 09/14/18 TIME: 13:27 Subjective No acute events - pt off tele now - doubt cardiac arrhythmia now. ROS: No fever, no chills, no nausea, no vomiting, no diarrhea/constipation No recent weight changes No chest pain, no PND, no orthopnea - mild chronic SOB, not dizzy No dizziness, blurred vision No thirst, no heat or cold intolerance Objective Vitals Vital Signs Date Temp Pulse Resp B/P (MAP) Pulse Ox O2 O2 Flow FiO2 Time Delivery Rate 09/14/18 98.1 68 19 131/62 98 07:48 (85) 09/13/18 Room Air 15:15 Intake and Output 09/13/18 09/13/18 09/14/18 1515:00 23:00 07:00 IntakeIntake Total 650 ml 450 ml 750 ml OutputOutput Total 800 ml BalanceBalance 650 ml 450 ml -50 ml Exam General: WN/WD/NAD, AOx 3 Croatian HEENT: Unicetric/atraumatic/EOMI (does not follow commands) NECK: JVD elevated, no thyromegaly Lymph: no lymphadenopathy HEART: regular with no S3, II/ systolic murmur at apex, ICD LUNGS: Coarse sounds ABD: soft, NT, ND, +BS : Intact Neuro: non focal SKIN: chronic changes EXT: trace edema Results/Medications Result Diagram: 09/11/18 0541 09/14/18 0423 Results 24 hrs Laboratory Tests Test 09/13/18 17:24 09/13/18 20:34 09/14/18 04:23 09/14/18 08:43 Bedside Glucose 173 146 85 Sodium Level 143 Potassium Level 4.4 Chloride Level 111 H Carbon Dioxide Level 26 Anion Gap 6 Blood Urea Nitrogen 39 H Creatinine 1.59 H Est Glomerular Filtrat Rate mL/min Glucose Level 87 Calcium Level 8.9 Test 09/14/18 12:49 Bedside Glucose 204 Home Meds Reported Medications Nitroglycerin* (Nitroglycerin* SL) 0.4 Mg Tab.subl, 0.4 MG SL Q5MIN PRN for CHEST PAIN, BOTTLE 09/09/18 Apixaban* (Eliquis*) 5 Mg Tablet, 5 MG PO BID, TAB 09/09/18 Isosorbide Mononitrate* (Isosorbide Mononitrate*) 30 Mg Tab.er.24h, 30 MG PO BID, TAB 09/09/18 Carvedilol* (Carvedilol*) 25 Mg Tablet, 25 MG PO BID, #60 TAB 09/09/18 Benazepril Hcl* (Benazepril Hcl*) 10 Mg Tablet, 10 MG PO DAILY, #30 TAB 09/09/18 Furosemide* (Furosemide*) 20 Mg Tablet, 20 MG PO DAILY, #60 TAB 09/09/18 Simvastatin* (Zocor*) 40 Mg Tablet, 40 MG PO QHS, #30 TAB 09/09/18 Hydralazine Hcl* (Apresoline*) 50 Mg Tab, 50 MG PO BID, #60 TAB 09/09/18 Insulin Glargine,Hum.rec.anlog (Basaglar Kwikpen U-100) 100 Unit/1 Ml Insuln.pen, 50 UNIT SC DAILY, EA 09/09/18 Tamsulosin Hcl* (Flomax*) 0.4 Mg Cap.er.24h, 0.4 MG PO HS, CAP 09/09/18 Finasteride* (Finasteride*) 5 Mg Tablet, 5 MG PO DAILY, TAB 09/09/18 Discontinued Reported Medications Lorazepam* (Lorazepam*) 0.5 Mg Tablet, 0.5 MG PO HS PRN for ANXIETY, TAB 02/05/18 Finasteride* (Finasteride*) 5 Mg Tablet, 5 MG PO DAILY, TAB 02/05/18 Carvedilol* (Carvedilol*) 25 Mg Tablet, 25 MG PO BID, #60 TAB 02/05/18 Apixaban* (Eliquis*) 5 Mg Tablet, 10 MG PO BID, TAB 02/05/18 Insulin Glargine,Hum.rec.anlog (Basaglar Kwikpen U-100) 100 Unit/1 Ml Insuln.pen, 40 UNIT SC DAILY, EA INJECT 389 UNITS SC EVERY DAY 05/08/17 Tamsulosin Hcl* (Flomax*) 0.4 Mg Cap.er.24h, 0.4 MG PO HS, CAP 03/03/17 Simvastatin (Simvastatin) 40 Mg Tablet, 40 MG PO QHS, #30 TAB 01/02/16 Discontinued Scripts Docusate Sodium* (Colace*) 100 Mg Capsule, 100 MG PO BID, #60 CAP Prov:TOLENTINOKRISTOPHERA V. MATERIAL DISTRIBUTOR 02/09/18 Amiodarone Hcl* (Amiodarone Hcl*) 200 Mg Tablet, 200 MG PO BID, #60 TAB Prov:TOLENTINO,YVAN V. MATERIAL DISTRIBUTOR 02/09/18 Ferrous Sulfate* (Ferrous Sulfate*) 325 Mg Tabec, 325 MG PO DAILY, #30 TAB Prov:TOLENTINO,YVAN V. MATERIAL DISTRIBUTOR 02/09/18 Baclofen* (Baclofen*) 10 Mg Tablet, 10 MG PO TID PRN for neck pain, #30 TAB Prov:TOLENTINOKRISTOPHERA V. MATERIAL DISTRIBUTOR 02/09/18 Furosemide (Lasix) 20 Mg Tab, 20 MG PO DAILY for 30 Days, TAB Prov:MATTHEWKARISSA. 03/09/17 Medications Current Medications IV Flush (NS 3 ml) 3 ml PER PROTOCOL IV ; Start 09/10/18 at 00:30 Ondansetron HCl (Zofran Inj) 4 mg Q6H PRN IV NAUSEA/VOMITING; Start 09/10/18 at 00:30 Acetaminophen (Tylenol Tab) 650 mg Q6H PRN PO .PAIN 1-3 OR TEMP; Start 09/10/18 at 00:30 Albuterol/ Ipratropium (Duoneb) 3 ml Q2H RESP THERAPY PRN HHN SHORTNESS OF BREATH; Start 09/10/18 at 00:30 Carvedilol (Coreg) 25 mg BID PO Last administered on 09/14/18at 08:45; Admin Dose 25 MG; Start 09/10/18 at 09:00 Finasteride (Proscar) 5 mg DAILY PO Last administered on 09/14/18at 08:44; Admin Dose 5 MG; Start 09/10/18 at 09:00 Hydralazine HCl (Apresoline) 50 mg BID PO Last administered on 09/14/18at 08:45; Admin Dose 50 MG; Start 09/10/18 at 09:00 Nitroglycerin (Nitroglycerin (Sl Tab) 0.4 Mg) 1 tab Q5M PRN SL CHEST PAIN; Start 09/10/18 at 00:30 Tamsulosin HCl (Flomax) 0.4 mg HS PO Last administered on 09/13/18 20:37; Admin Dose 0.4 MG; Start 09/10/18 at 21:00 Diagnostic Test (Pha) (Accu-Chek) 1 ea 02 XX Last administered on 09/13/18 02:29; Admin Dose 1 EA; Start 09/10/18 at 02:00 Insulin Aspart (Novolog Insulin Pen) NOVOLOG *MODERATE* ALGORITHM WITH MEALS BEDTIME SC Last administered on 09/14/18 12:55; Admin Dose 4 UNIT; Start 09/10/18 at 07:55 Miscellaneous Information 1 ea NOTE XX ; Start 09/10/18 at 01:00 Glucose (Glutose) 15 gm Q15M PRN PO DECREASED GLUCOSE; Start 09/10/18 at 01:00 Glucose (Glutose) 22.5 gm Q15M PRN PO DECREASED GLUCOSE; Start 09/10/18 at 01:00 Dextrose (D50w Syringe) 25 ml Q15M PRN IV DECREASED GLUCOSE; Start 09/10/18 at 01:00 Dextrose (D50w Syringe) 50 ml Q15M PRN IV DECREASED GLUCOSE; Start 09/10/18 at 01:00 Glucagon (Glucagen) 1 mg Q15M PRN IM DECREASED GLUCOSE; Start 09/10/18 at 01:00 Glucose (Glutose) 15 gm Q15M PRN BUCCAL DECREASED GLUCOSE; Start 09/10/18 at 01:00 Atorvastatin Calcium (Lipitor) 20 mg DAILY@21 PO Last administered on 09/13/18 20:37; Admin Dose 20 MG; Start 09/10/18 at 21:00 Simethicone (Mylicon) 80 mg Q6H PRN PO DISTENSION/GAS/BLOATING; Start 09/10/18 at 03:30 Insulin Glargine (Lantus) 50 units DAILY@2000 SC Last administered on 09/13/18at 20:50; Admin Dose 50 UNITS; Start 09/10/18 at 20:00 Apixaban (Eliquis) 2.5 mg BID PO Last administered on 09/14/18 08:45; Admin Dose 2.5 MG; Start 09/10/18 at 21:00 Isosorbide Mononitrate (Imdur) 30 mg DAILY PO Last administered on 09/14/18 08:44; Admin Dose 30 MG; Start 09/11/18 at 09:00 Albuterol (Proventil 0.083% (Neb)) 2.5 mg Q6H RESP THERAPY PRN HHN SHORTNESS OF BREATH; Start 09/12/18 at 09:00 Acetylcysteine (Nac) 600 mg BID PO Last administered on 09/14/18at 08:43; Admin Dose 600 MG; Start 09/13/18 at 17:30 Sodium Chloride 1,000 ml @ 50 mls/hr Q20H IV Last administered on 09/14/18at 12:55; Admin Dose 50 MLS/HR; Start 09/13/18 at 17:30 Assessment/Plan Hospital Course (Demo Recall) 1. Possible AICD discharge, patient's description does not sound like he had true discharge, we will assess - s/p ICD interrogation - with good function - doubt cardaic syncope. OFF TELE now - no tachy-arrhthmia noted. 2. Cardiomyopathy with decreased left ventricular ejection fraction, last EF approximately 35% with no reversible ischemia by stress in 04/2017. Con't gentle diuresis. On meds. On meds. 3. Paroxysmal atrial fibrillation, currently rate controlled - might be shock for a. fib with RVR? pending ICd check. 4. Congestive heart failure, systolic, acute on chronic with a good volume status at this time appears to be euvolemic. 5. Hypertension, well controlled. Con't med rx. 6. Dyslipidemia. 7. Diabetes mellitus. 8. Dizziness/vertigo with possible presyncope - carotid disease being navigated - vasculr team to follow. ATUL AVITIA MD Sep 14, 2018 13:29
--- NOTE | 2018-09-14 13:35 | CONSI ---
Assessment/Plan Assessment/Plan Assessment/Plan (Recall) 83 M c/ reported Hx of afib and other comorbidities, who presents for evaluation of transient dizziness suggestive of vertigo. 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 Of note, the patient's symptoms are referable to the posterior circulation (as opposed to the internal carotids..); thus, carotid stenosis in this case is like ly asymptomatic.. Head CT is without obvious acute intracranial pathology MRI brain is reportedly unable to be performed 2/2 defibrillator.. P: OK to cautiously continue Eliquis for primary stroke prevention Vascular surgery evaluation, which may be done as an outpatient Other management and supportive care per primary Will follow clinically Consultation Date/Type/Reason Admit Date/Time Sep 09, 2018 at 20:09 Type of Consult Neurology Reason for Consultation carotid stenosis Requesting Provider: EDMUND MANN MD Date/Time of Note DATE: 09/14/18 TIME: 13:27 Hx of Present Illness Patient is an 83-year-old male with a history of chronic atrial fibrillation, type 2 diabetes, BPH, CKD, cardiomyopathy with EF of 35% (2018),pacemaker (?AICD). Patient presented to the ER complaining of dizziness, vertigo-like symptom and bloating. I spoke to patient with the help of nurse tank car cleaner. Note that she seems to say yes to pretty much every question that he is asked. However, his chief complaint is dizziness and bloating. He also reported occasi onal chest pain for which he has been taking nitro. Also reported occasional shortness of breath. Denied fever/chills, nausea or vomiting. Denied loss of consciousness or fall down. Denied any difficulty with urination. Did report that occasionally his lower extremities swell up. He is very sensitive when examined in the upper chest/pacemaker area saying that it feels like some type of electrical feeling. He stated that he has been occasionally having chest pain for which he has been taking nitro. Patient is not fully oriented. He said he has been having some issues remembering things. When presented to the ER, vitals were stable. Head CT without acute findings. First troponin is negative and EKG without ST elevation or depression. Chest x- ray shows cardiomegaly. He is without acute neurologic complaints at this time.. He notes chronically blurred vision.. Objective Exam Vitals Vital Signs Date Temp Pulse Resp B/P (MAP) Pulse Ox O2 O2 Flow FiO2 Time Delivery Rate 09/14/18 98.1 68 19 131/62 98 07:48 (85) 09/13/18 Room Air 15:15 Intake and Output 09/13/18 09/13/18 09/14/18 1515:00 23:00 07:00 IntakeIntake Total 650 ml 450 ml 750 ml OutputOutput Total 800 ml BalanceBalance 650 ml 450 ml -50 ml Exam PE: Gen Appearance: No Apparent Distress HEENT: Normocephalic Cardiovascular: Regular rate Abdomen: Soft Extremities: Dry NE: The patient was alert and oriented to person, hospital. Language was normal. Fund of knowledge was adequate. Pupils were equal and reactive to light. There was no afferent pupillary defect. Visual simon were normal. Funduscopic examination was limited. Extra-ocular movements were full. Ptosis was absent. There was no nystagmus. Facial sensation was normal. Face was symmetric with normal strength. Hearing was intact. Palate movements were normal. Neck strength was normal. There was normal tongue bulk and speed of movement. Tone was normal. Muscle bulk was normal. I did not see fasciculations. Arms and legs were symmetric. Vibration sensation was reduced distally. Temperature and pinprick sensation was normal. Rapid alternating movements were normal. There was no dysmetria. There was no intention tremor. Gait was deferred due to bedrest. Arm and leg reflexes were symmetric. Hayden's sign was absent. Plantar responses were flexor. Results Result Diagram: 09/11/18 0541 09/14/18 0423 Results 24hrs Laboratory Tests Test 09/13/18 17:24 09/13/18 20:34 09/14/18 04:23 09/14/18 08:43 Bedside Glucose 173 146 85 Sodium Level 143 Potassium Level 4.4 Chloride Level 111 H Carbon Dioxide Level 26 Anion Gap 6 Blood Urea Nitrogen 39 H Creatinine 1.59 H Est Glomerular Filtrat Rate mL/min Glucose Level 87 Calcium Level 8.9 Test 09/14/18 12:49 Bedside Glucose 204 Past Medical History Medical History: other (See HPI) Home Meds Reported Medications Nitroglycerin* (Nitroglycerin* SL) 0.4 Mg Tab.subl, 0.4 MG SL Q5MIN PRN for CHEST PAIN, BOTTLE 09/09/18 Apixaban* (Eliquis*) 5 Mg Tablet, 5 MG PO BID, TAB 09/09/18 Isosorbide Mononitrate* (Isosorbide Mononitrate*) 30 Mg Tab.er.24h, 30 MG PO BID, TAB 09/09/18 Carvedilol* (Carvedilol*) 25 Mg Tablet, 25 MG PO BID, #60 TAB 09/09/18 Benazepril Hcl* (Benazepril Hcl*) 10 Mg Tablet, 10 MG PO DAILY, #30 TAB 09/09/18 Furosemide* (Furosemide*) 20 Mg Tablet, 20 MG PO DAILY, #60 TAB 09/09/18 Simvastatin* (Zocor*) 40 Mg Tablet, 40 MG PO QHS, #30 TAB 09/09/18 Hydralazine Hcl* (Apresoline*) 50 Mg Tab, 50 MG PO BID, #60 TAB 09/09/18 Insulin Glargine,Hum.rec.anlog (Basaglar Kwikpen U-100) 100 Unit/1 Ml Insuln.pen, 50 UNIT SC DAILY, EA 09/09/18 Tamsulosin Hcl* (Flomax*) 0.4 Mg Cap.er.24h, 0.4 MG PO HS, CAP 09/09/18 Finasteride* (Finasteride*) 5 Mg Tablet, 5 MG PO DAILY, TAB 09/09/18 Discontinued Reported Medications Lorazepam* (Lorazepam*) 0.5 Mg Tablet, 0.5 MG PO HS PRN for ANXIETY, TAB 02/05/18 Finasteride* (Finasteride*) 5 Mg Tablet, 5 MG PO DAILY, TAB 02/05/18 Carvedilol* (Carvedilol*) 25 Mg Tablet, 25 MG PO BID, #60 TAB 02/05/18 Apixaban* (Eliquis*) 5 Mg Tablet, 10 MG PO BID, TAB 02/05/18 Insulin Glargine,Hum.rec.anlog (Basaglar Kwikpen U-100) 100 Unit/1 Ml Insuln.pen, 40 UNIT SC DAILY, EA INJECT 389 UNITS SC EVERY DAY 05/08/17 Tamsulosin Hcl* (Flomax*) 0.4 Mg Cap.er.24h, 0.4 MG PO HS, CAP 03/03/17 Simvastatin (Simvastatin) 40 Mg Tablet, 40 MG PO QHS, #30 TAB 01/02/16 Discontinued Scripts Docusate Sodium* (Colace*) 100 Mg Capsule, 100 MG PO BID, #60 CAP Prov:YVAN TOLENTINO V. SWE[employer] P[employer]LED FRUIT [employer]KER 02/09/18 Amiodarone Hcl* (Amiodarone Hcl*) 200 Mg Tablet, 200 MG PO BID, #60 TAB Prov:TOLENTINOKRISTOPHERA V. SWE[employer] P[employer]LED [employer] MAKER 02/09/18 Ferrous Sulfate* (Ferrous Sulfate*) 325 Mg Tabec, 325 MG PO DAILY, #30 TAB Prov:TOLENTINOKRISTOPHERA V. SWE[employer] P[employer]LED [employer] MAKER 02/09/18 Baclofen* (Baclofen*) 10 Mg Tablet, 10 MG PO TID PRN for neck pain, #30 TAB Prov:TOLENTINOYVAN V. SWE[employer] PICKLED FRUIT MAKER 02/09/18 Furosemide (Lasix) 20 Mg Tab, 20 MG PO DAILY for 30 Days, TAB Prov:KARISSA CASTRO 03/09/17 Medications Current Medications IV Flush (NS 3 ml) 3 ml PER PROTOCOL IV ; Start 09/10/18 at 00:30 Ondansetron HCl (Zofran Inj) 4 mg Q6H PRN IV NAUSEA/VOMITING; Start 09/10/18 at 00:30 Acetaminophen (Tylenol Tab) 650 mg Q6H PRN PO .PAIN 1-3 OR TEMP; Start 09/10/18 at 00:30 Albuterol/ Ipratropium (Duoneb) 3 ml Q2H RESP THERAPY PRN HHN SHORTNESS OF BREATH; Start 09/10/18 at 00:30 Carvedilol (Coreg) 25 mg BID PO Last administered on 09/14/18at 08:45; Admin Dose 25 MG; Start 09/10/18 at 09:00 Finasteride (Proscar) 5 mg DAILY PO Last administered on 09/14/18at 08:44; Admin Dose 5 MG; Start 09/10/18 at 09:00 Hydralazine HCl (Apresoline) 50 mg BID PO Last administered on 09/14/18at 08:45; Admin Dose 50 MG; Start 09/10/18 at 09:00 Nitroglycerin (Nitroglycerin (Sl Tab) 0.4 Mg) 1 tab Q5M PRN SL CHEST PAIN; S tart 09/10/18 at 00:30 Tamsulosin HCl (Flomax) 0.4 mg HS PO Last administered on 09/13/18at 20:37; Ad min Dose 0.4 MG; Start 09/10/18 at 21:00 Diagnostic Test (Pha) (Accu-Chek) 1 ea 02 XX Last administered on 09/13/18 02:29; Admin Dose 1 EA; Start 09/10/18 at 02:00 Insulin Aspart (Novolog Insulin Pen) NOVOLOG *MODERATE* ALGORITHM WITH MEALS BEDTIME SC Last administered on 09/14/18 12:55; Admin Dose 4 UNIT; Start 09/10/18 at 07:55 Miscellaneous Information 1 ea NOTE XX ; Start 09/10/18 at 01:00 Glucose (Glutose) 15 gm Q15M PRN PO DECREASED GLUCOSE; Start 09/10/18 at 01:00 Glucose (Glutose) 22.5 gm Q15M PRN PO DECREASED GLUCOSE; Start 09/10/18 at 01:00 Dextrose (D50w Syringe) 25 ml Q15M PRN IV DECREASED GLUCOSE; Start 09/10/18 at 01:00 Dextrose (D50w Syringe) 50 ml Q15M PRN IV DECREASED GLUCOSE; Start 09/10/18 at 01:00 Glucagon (Glucagen) 1 mg Q15M PRN IM DECREASED GLUCOSE; Start 09/10/18 at 01:00 Glucose (Glutose) 15 gm Q15M PRN BUCCAL DECREASED GLUCOSE; Start 09/10/18 at 01:00 Atorvastatin Calcium (Lipitor) 20 mg DAILY@21 PO Last administered on 09/13/18at 20:37; Admin Dose 20 MG; Start 09/10/18 at 21:00 Simethicone (Mylicon) 80 mg Q6H PRN PO DISTENSION/GAS/BLOATING; Start 09/10/18 at 03:30 Insulin Glargine (Lantus) 50 units DAILY@2000 SC Last administered on 09/13/18at 20:50; Admin Dose 50 UNITS; Start 09/10/18 at 20:00 Apixaban (Eliquis) 2.5 mg BID PO Last administered on 09/14/18 08:45; Admin Dose 2.5 MG; Start 09/10/18 at 21:00 Isosorbide Mononitrate (Imdur) 30 mg DAILY PO Last administered on 09/14/18at 08:44; Admin Dose 30 MG; Start 09/11/18 at 09:00 Albuterol (Proventil 0.083% (Neb)) 2.5 mg Q6H RESP THERAPY PRN HHN SHORTNESS OF BREATH; Start 09/12/18 at 09:00 Acetylcysteine (Nac) 600 mg BID PO Last administered on 09/14/18at 08:43; Admin Dose 600 MG; Start 09/13/18 at 17:30 Sodium Chloride 1,000 ml @ 50 mls/hr Q20H IV Last administered on 09/14/18at 12:55; Admin Dose 50 MLS/HR; Start 09/13/18 at 17:30 Allergies: Coded Allergies: No Known Drug Allergies (Unverified Allergy, Mild, 09/09/18) Past Surgical History Past Surgical Hx: angioplasty, other (See HPI) Social History Alcohol Use: none Smoking Status: Never smoker Drug Use: none WANG GUTHRIE Sep 14, 2018 13:34
[2018-09-14 15:01] VITALS: BP 119/59; PULSE 56; RESP 18
[2018-09-14 19:15] VITALS: BP 119/62; PULSE 64; RESP 18
[2018-09-14] MEDS: INSULIN GLARGINE [LANTus] (100 UNITS/ML) SYG SC SCH (20:40)
[2018-09-14] MEDS: ATORVASTATIN 20 MG TAB PO SCH (20:42)
[2018-09-14] MEDS: TAMSULOSIN (SR) 0.4 MG CAP PO SCH (20:43)
--- NOTE | 2018-09-15 01:22 | CONS ---
DATE OF ADMISSION: 09/09/2018 DATE OF CONSULTATION: REASON FOR CONSULTATION: Carotid stenosis. HISTORY OF PRESENT ILLNESS: This is an 83-year-old male with history of atrial fibrillation, benign prostatic hypertrophy, cardiomyopathy, chronic kidney disease, status post pacemaker. The patient wa s admitted because of dizziness and was found to have a carotid stenosis. Based on the carotid duple x, which was 70% stenosis in the right internal carotid artery, 50% to 60% in the right mid carotid a rtery. The patient is currently recovering from his dizziness. CAT scan of the brain has been done, which shows no evidence of any intracranial hemorrhage, mass or bleeding. PAST MEDICAL HISTORY: Hypertension, hyperlipidemia, atrial fibrillation, chronic kidney disease, car diomyopathy and benign prostatic hypertrophy. PAST SURGICAL HISTORY: AICD. ALLERGIES: NONE. SOCIAL HISTORY: No smoking, drinking or drug use. MEDICATIONS: List reviewed. PHYSICAL EXAMINATION: VITAL SIGNS: Blood pressure is 119/62, pulse is 64, respirations 18, saturations 99%. Temperature i s 97.8. CARDIOVASCULAR: S1, S2. Irregular. LUNGS: Clear. ABDOMEN: Soft. EXTREMITIES: Warm. LABORATORY VALUES: Significant for a hemoglobin of 13.3. Normal coagulation factors. Creatinine 1. 59. IMPRESSION: 1. Carotid stenosis. 2. Kidney failure. RECOMMENDATIONS: This patient will need a CT angiogram after he has been cleared by the nephrology. Discussed with the referring physicians. All questions answered. Dictated By: CINTHYA MARRUFO MD FM/NTS Conf#: [id number] DID#: [id number] CC: TEVIN BOOGIE MD; NATHANAEL SCOTT MD;*[facility]*
[2018-09-15] MEDS: ACCU-CHEK XX SCH (01:44)
[2018-09-15 02:05] VITALS: BP 107/54; PULSE 64; RESP 18
[2018-09-15] MEDS: SOD CHLORIDE 0.9% 1,000 ML IV SCH (05:44)
[2018-09-15 07:24] VITALS: BP 115/56; PULSE 62; RESP 15
[2018-09-15] MEDS: INSULIN ASPART [NOVOLOG] 3 ML PEN SC SCH ×2 (07:50→12:32)
--- NOTE | 2018-09-15 08:49 | PN ---
DATE: 09/15/2018 SUBJECTIVE: The patient is stable, no events overnight. OBJECTIVE: VITAL SIGNS: Blood pressure is 115/56, pulse 62, temperature 97.7. HEENT: Head is normocephalic. NECK: Supple. HEART: Regular rate. LUNGS: Show diminished breath sounds at the base. ABDOMEN: Soft, nontender to palpation. No rebound or guarding. EXTREMITIES: Negative for clubbing, cyanosis, no edema. DERMATOLOGIC: No rashes. MUSCULOSKELETAL: No joint effusion. NEUROLOGIC: No change in exam. MEDICATIONS: The patient's medications have been reviewed. LABORATORY DATA: Has been reviewed. IMAGING STUDIES: Have been reviewed. ASSESSMENT AND PLAN: 1. Nonoliguric acute kidney injury on top of chronic kidney disease with previous baseline creatinin e of 1.5 to 1.8 mg/dL. Etiology of FLAKITA is secondary to hemodynamics. The patient's renal function i s currently stable. No evidence of contrast-associated nephropathy. The plan is to discontinue IV f luids. Will continue to monitor closely and continue Mucomyst. 2. Hyperkalemia secondary to acute kidney injury, improved. Continue to monitor. 3. Anemia. Monitor hemoglobin and hematocrit levels. 4. Mineral bone disorder, monitor calcium and phosphorus levels. 5. Carotid stenosis. The patient is status post angiogram. Results reviewed. 6. Hypertension. Continue current blood pressure regimen. 7. Diabetes. Continue current insulin regimen. 8. Benign prostatic hypertrophy. Continue Flomax. 9. History of cardiomyopathy. 10. Arrhythmia. 11. Hypernatremia, resolved. Dictated By: TAYLOR PINK DO NR/NTS Conf#: [id number] DID#: [id number] CC: TEVIN BOOGIE MD; NATHANAEL SCOTT MD; CINTHYA MARRUFO MD;*[facility]*
[2018-09-15] MEDS: FINASTERIDE 5 MG TAB PO SCH (08:58)
[2018-09-15] MEDS: ISOSORBIDE MONONITRATE(SR)30 MG TAB PO SCH (08:58)
[2018-09-15] MEDS: ACETYLCYSTEINE 600 MG CAP PO SCH (09:00)
[2018-09-15] MEDS: APIXABAN 5 MG TABLET PO SCH (09:01)
[2018-09-15] MEDS ORDERED: ISOS30TA67 PO (10:20)
[2018-09-15] MEDS ORDERED: CARV25TA79 PO (10:20)
[2018-09-15] MEDS ORDERED: OMEG-135 PO (10:20)
[2018-09-15] MEDS ORDERED: HYDR-3672 PO (10:20)
[2018-09-15] MEDS ORDERED: APIX5TAB PO (10:20)
--- NOTE | 2018-09-15 10:24 | PDOCDIS ---
Discharge Instructions DIAGNOSIS Discharge Diagnosis 1. Dizziness. 2. Ischemic cardiomyopathy with EF of 25%. 3. Acute on chronic kidney disease. 4. Diabetes 5. Hypertension. 7. BPH. 8. Hyperlipidemia. CONDITION [id number] Patient Condition: [id number] Stable HOME CARE INSTRUCTIONS: [id number] Special Diet: [id number] carbohydrate controlled FOLLOW UP/APPOINTMENTS Follow-up Plan 1. Follow up with Dr. Yonatan Ackerman in one week for your carotid artery stenosis Office Address [id number] [facility] [address] [place] [address] Office 2. Follow up with Dr. Darnell Wu in one week Office Address [id number] [facility] [address] [place] [address] Office TRACY HOWELL NP Sep 15, 2018 10:24
--- NOTE | 2018-09-15 13:19 | CONS ---
Assessment/Plan Assessment/Plan Assessment/Plan (Recall) 83 M c/ reported Hx of afib and other comorbidities, who presents for evaluation of transient dizziness suggestive of vertigo. 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 Of note, the patient's symptoms are referable to the posterior circulation (as opposed to the internal carotids..); thus, carotid stenosis in this case is like ly asymptomatic.. Head CT is without obvious acute intracranial pathology MRI brain is reportedly unable to be performed 2/2 defibrillator.. P: OK to cautiously continue Eliquis for primary stroke prevention Vascular surgery evaluation, which may be done as an outpatient Other management and supportive care per primary Will follow clinically Consultation Date/Type/Reason Admit Date/Time Sep 09, 2018 at 20:09 Type of Consult Neurology Reason for Consultation carotid stenosis Requesting Provider: EDMUND MANN MD Date/Time of Note DATE: 09/15/18 TIME: 09:18 24 HR Interval Summary Free Text/Dictation pending d/c Exam/Review of Systems Exam Vitals Vital Signs Date Temp Pulse Resp B/P (MAP) Pulse Ox O2 O2 Flow FiO2 Time Delivery Rate 09/15/18 97.7 62 15 115/56 95 Room Air 07:24 (75) Intake and Output 09/14/18 09/14/18 09/15/18 1515:00 23:00 07:00 IntakeIntake Total 450 ml 405 ml 875 ml OutputOutput Total 400 ml BalanceBalance 450 ml 405 ml 475 ml Results Result Diagram: 09/11/18 0541 09/15/18 0419 Results 24hrs Laboratory Tests Test 09/14/18 17:48 09/14/18 20:36 09/15/18 01:39 09/15/18 04:19 Bedside Glucose 162 190 141 Sodium Level 145 H Potassium Level 4.2 Chloride Level 112 H Carbon Dioxide Level 23 Anion Gap 10 Blood Urea Nitrogen 34 H Creatinine 1.33 H Est Glomerular Filtrat Rate mL/min Glucose Level 97 Calcium Level 9.1 Test 09/15/18 08:42 09/15/18 12:30 Bedside Glucose 75 266 H Medications Medication Current Medications Miscellaneous Information 1 ea NOTE XX ; Start 09/10/18 at 01:00 Glucose (Glutose) 15 gm Q15M PRN PO DECREASED GLUCOSE; Start 09/10/18 at 01:00 Glucose (Glutose) 22.5 gm Q15M PRN PO DECREASED GLUCOSE; Start 09/10/18 at 01:00 Dextrose (D50w Syringe) 25 ml Q15M PRN IV DECREASED GLUCOSE; Start 09/10/18 at 01:00 Dextrose (D50w Syringe) 50 ml Q15M PRN IV DECREASED GLUCOSE; Start 09/10/18 at 01:00 Glucagon (Glucagen) 1 mg Q15M PRN IM DECREASED GLUCOSE; Start 09/10/18 at 01:00 Glucose (Glutose) 15 gm Q15M PRN BUCCAL DECREASED GLUCOSE; Start 09/10/18 at 01:00 Atorvastatin Calcium (Lipitor) 20 mg DAILY@21 PO Last administered on 09/14/18at 20:42; Admin Dose 20 MG; Start 09/10/18 at 21:00 Simethicone (Mylicon) 80 mg Q6H PRN PO DISTENSION/GAS/BLOATING; Start 09/10/18 at 03:30 Insulin Glargine (Lantus) 50 units DAILY@2000 SC Last administered on 09/14/18at 20:40; Admin Dose 50 UNITS; Start 09/10/18 at 20:00 Apixaban (Eliquis) 2.5 mg BID PO Last administered on 09/15/18at 09:01; Admin Dose 2.5 MG; Start 09/10/18 at 21:00 Isosorbide Mononitrate (Imdur) 30 mg DAILY PO Last administered on 09/15/18at 08:58; Admin Dose 30 MG; Start 09/11/18 at 09:00 Albuterol (Proventil 0.083% (Neb)) 2.5 mg Q6H RESP THERAPY PRN HHN SHORTNESS OF BREATH; Start 09/12/18 at 09:00 WANG GUTHRIE Sep 15, 2018 13:19
--- NOTE | 2018-09-19 11:13 | DS ---
Date/Time of Note Date/Time of Note DATE: 09/19/18 TIME: 11:08 Discharge Summary Admission/Discharge Info Admit Date/Time Sep 09, 2018 at 20:09 Discharge Date/Time Sep 15, 2018 at 13:17 Discharge Diagnosis 1. Dizziness. 2. Ischemic cardiomyopathy with EF of 25%. 3. Acute on chronic kidney disease. 4. Diabetes 5. Hypertension. 7. BPH. 8. Hyperlipidemia. Patient Condition: Stable Hospital Course This is an 83-year-old male with history of chronic atrial fibrillation, diabetes type 2, BPH, CKD, cardiomyopathy with EF of 35% in 2018, AICD, who came to the hospital due to reports of dizziness and vertigo-like symptoms. His chief complaint was reportedly dizziness. He denied any loss of consciousness or any falls. He did have CT scan of the head with no acute findings. He did have his AICD interrogated with no significant findings. Carotid Doppler did show suggestion of stenosis on right proximal internal carotid artery. He was optimized with anticoagulant and vascular surgeon did follow the patient for this as well. We also got neurologist to see the patient for this as well. Per neurologist patient's symptoms were referrable to posterior circulation. Nevertheless we did continue to monitor his neuro status. He was also advised for outpatient follow-up for internal carotid artery stenosis. Echo done while in-house did show him to have an EF of 25% he was optimized with his cardiovascular medications. He was noted to have some acute renal insufficiency likely of chronic kidney disease and did renally dose his medications and he was consulted by scrap piler as well. We did continue him on IV fluids and he did have good response to this. He was otherwise optimized medically with insulin for diabetes and antihypertensives for high blood pressure. He was resumed on Flomax for his BPH. He was also continued on a statin medication for his high cholesterol. During his course today he did improve. Plan of care was discussed with the patient and patient verbalizes understanding. On the day of discharge patient was in stable condition Discussed POC with Dr. Amaro [place] Meds Active Scripts [place]-3 Fatty Acids/Fish Oil (Fish Oil 1,000 mg Capsule) 1 Each Capsule, 1 EACH PO BID, #60 CAP Prov:TRACY HOWELL SPECIALIST FIELD ENGINEER 09/15/18 Isosorbide Mononitrate* (Isosorbide Mononitrate*) 30 Mg Tab.er.24h, 30 MG PO DAILY, #30 TAB Prov:BRIGHTIDOTRACY Szymanski SPECIALIST FIELD ENGINEER 09/15/18 Apixaban* (Eliquis*) 5 Mg Tablet, 2.5 MG PO BID, #60 TAB Prov:BRIGHTIDOTRACY Szymanski SPECIALIST FIELD ENGINEER 09/15/18 Carvedilol* (Carvedilol*) 25 Mg Tablet, 25 MG PO BID, #60 TAB Prov:REGIDORTRACY SPECIALIST FIELD ENGINEER 09/15/18 Hydralazine Hcl* (Apresoline*) 50 Mg Tab, 50 MG PO BID, #60 TAB Prov:REGIDORTRACY SPECIALIST FIELD ENGINEER 09/15/18 Reported Medications Nitroglycerin* (Nitroglycerin* SL) 0.4 Mg Tab.subl, 0.4 MG SL Q5MIN PRN for CHEST PAIN, BOTTLE 09/09/18 Simvastatin* (Zocor*) 40 Mg Tablet, 40 MG PO QHS, #30 TAB 09/09/18 Insulin Glargine,Hum.rec.anlog (Basaglar Kwikpen U-100) 100 Unit/1 Ml Insuln.pen, 50 UNIT SC DAILY, EA 09/09/18 Tamsulosin Hcl* (Flomax*) 0.4 Mg Cap.er.24h, 0.4 MG PO HS, CAP 09/09/18 Finasteride* (Finasteride*) 5 Mg Tablet, 5 MG PO DAILY, TAB 09/09/18 Discontinued Reported Medications Apixaban* (Eliquis*) 5 Mg Tablet, 5 MG PO BID, TAB 09/09/18 Isosorbide Mononitrate* (Isosorbide Mononitrate*) 30 Mg Tab.er.24h, 30 MG PO BID, TAB 09/09/18 Benazepril Hcl* (Benazepril Hcl*) 10 Mg Tablet, 10 MG PO DAILY, #30 TAB 09/09/18 Furosemide* (Furosemide*) 20 Mg Tablet, 20 MG PO DAILY, #60 TAB 09/09/18 Follow-up Plan 1. Follow up with Dr. Yonatan Ackerman in one week for your carotid artery stenosis Office Address [id number] [facility] [address] [place] [address] Office 2. Follow up with Dr. Darnell Wu in one week Office Address [id number] [place] [address] [address] [place] [address] Office Primary Care Provider Isak Johansen Time spent on discharge: > 30 minutes TRACY HOWELL NP Sep 19, 2018 11:12
== END 2018-09-15 13:17 | disposition home or self-care (01) | DRG 149 ==
LOC: E/R 16:10 → TEL 19:52 → OBSVTOIN 20:09 → MS1 09-13 21:05
PROVIDERS: ADMIT Internal Medicine; ATTEND Internal Medicine
DX: R42 Dizziness and giddiness (principal); I50.23 Acute on chronic systolic (congestive) heart failure; N17.9 Acute kidney failure, unspecified; I13.0 Hypertensive heart and chronic kidney disease with heart failure and stage 1 through stage 4 chronic kidney disease, or unspecified chronic kidney disease; E11.9 Type 2 diabetes mellitus without complications; I48.91 Unspecified atrial fibrillation; I25.5 Ischemic cardiomyopathy; E11.22 Type 2 diabetes mellitus with diabetic chronic kidney disease; N18.9 Chronic kidney disease, unspecified; N40.0 Benign prostatic hyperplasia without lower urinary tract symptoms; E78.5 Hyperlipidemia, unspecified; I48.2 Chronic atrial fibrillation; Z79.4 Long term (current) use of insulin; Z79.02 Long term (current) use of antithrombotics/antiplatelets; Z95.810 Presence of automatic (implantable) cardiac defibrillator
CPT/HCPCS: 70450; 70498; 71045; 74018; 80048; 80053; 80061; 81003; 82043; 82550; 82553; 82947; 82962; 83036; 83690; 83735; 83880; 84100; 84155; 84300; 84484; 85025; 85610; 85730; 93005; 93306; 93880; 94664; 96374; 96375; 97116; 97161; 97166; 97530; G0378; J1815; J2270; J2405; J7030; Q9967

== ENCOUNTER 2018-10-22 13:20 | Inpatient (IN) | payer BC ==
[~2018-10-22] VITALS: Ht 238.8 cm; Wt 94.1 kg
[~2018-10-22 13:20] MED LIST changes: -AMIO200T4 PO; -BACL10TA PO; +BUME1TAB PO; -DOCU-144 PO; -FER325 PO; +FURO-110 PO; +HYDR-3672 PO; +ISOS30TA67 PO; -LAS20 PO; +LISI-471 PO; -LORA0.5T PO; +NITR0.4T32 SL; +OMEG-135 PO; +SIMV40TA2 PO; -SIMV40TA7 PO
[2018-10-22 13:21] VITALS: Ht 238.8 cm; Wt 94.1 kg
[2018-10-22] MEDS ORDERED: FUROSEMIDE 40 MG INJ IV STA (14:07)
[2018-10-22] MEDS ORDERED: ASPIRIN 81 MG TAB PO STA (14:07)
--- NOTE | 2018-10-22 15:10 | CONS ---
Assessment/Plan Cardiology NYHA: II Heart Failure Type: Acute on Chronic Heart Failure Type: Both Assessment/Plan Hospital Course (Demo Recall) Acute decompensated systolic congestive heart failure Cardia myopathy History of AICD Hypertension Atrial fibrillation Renal dysfunction Patient presents with progressive worsening lower extremity edema, increased abdominal girth and shortness of breath over the past few months. He did increase his oral Lasix to twice a dose without significant improvement ECG with no significant ischemic abnormalities, patient denies any chest pain. Will ideally need IV diuretics, awaiting chemistry panel Consultation Date/Type/Reason Admit Date/Time Type of Consult Cardiology Reason for Consultation Abdominal and lower extremity edema Date/Time of Note DATE: 10/22/18 TIME: 15:03 Hx of Present Illness This is an 83-year-old male with past medical history of congestive heart failure, atrial fibrillation who presents with progressive worsening abdominal swelling and lower extremity edema. Symptoms have been worsening over the past few months. He does also complain of fatigue with exertion. He does get shortness of breath at times with lying down flat and with exertion but this is been long-standing. Denies any chest pain, palpitations or dizziness. Denies any fevers or chills. Does have a mild nonproductive cough. Patient had his outpatient Lasix dose recently increased without any significant improvement and thus came to the emergency room. 12 point review of systems was performed with all pertinent positives and negatives mentioned above and all else is negative Past Medical History Atrial fibrillation Medical History: congestive heart failure, hypertension Home Meds Active Scripts [place]-3 Fatty Acids/Fish Oil (Fish Oil 1,000 mg Capsule) 1 Each Capsule, 1 EACH PO BID, #60 CAP Prov:TRACY HOWELL DIRECTOR CREDIT RISK 09/15/18 Apixaban* (Eliquis*) 5 Mg Tablet, 2.5 MG PO BID, #60 TAB Prov:TRACY HOWELL DIRECTOR CREDIT RISK 09/15/18 Carvedilol* (Carvedilol*) 25 Mg Tablet, 25 MG PO BID, #60 TAB Prov:TRACY HOWELL DIRECTOR CREDIT RISK 09/15/18 Hydralazine Hcl* (Apresoline*) 50 Mg Tab, 50 MG PO BID, #60 TAB Prov:TRACY HOWELL DIRECTOR CREDIT RISK 09/15/18 Reported Medications Furosemide* (Lasix*) 20 Mg Tablet, 20 MG PO DAILY, TAB 10/22/18 Isosorbide Mononitrate* (Isosorbide Mononitrate*) 30 Mg Tab.er.24h, 30 MG PO BID, TAB 10/22/18 Lisinopril* (Lisinopril*) 20 Mg Tablet, 20 MG PO DAILY, #30 TAB 10/22/18 Nitroglycerin* (Nitroglycerin* SL) 0.4 Mg Tab.subl, 0.4 MG SL Q5MIN PRN for CHEST PAIN, BOTTLE 09/09/18 Simvastatin* (Zocor*) 40 Mg Tablet, 40 MG PO QHS, #30 TAB 09/09/18 Insulin Glargine,Hum.rec.anlog (Basaglar Kwikpen U-100) 100 Unit/1 Ml Insuln.pen, 38 UNIT SC QHS, EA 09/09/18 Tamsulosin Hcl* (Flomax*) 0.4 Mg Cap.er.24h, 0.4 MG PO HS, CAP 09/09/18 Finasteride* (Finasteride*) 5 Mg Tablet, 5 MG PO DAILY, TAB 09/09/18 Discontinued Scripts Isosorbide Mononitrate* (Isosorbide Mononitrate*) 30 Mg Tab.er.24h, 30 MG PO MISTY LY, #30 TAB Prov:TRACY HOWELL DIRECTOR CREDIT RISK 09/15/18 Allergies: Coded Allergies: No Known Drug Allergies (Unverified Allergy, Mild, 10/22/18) Past Surgical History Past Surgical Hx: angioplasty, other (AICD) Family History Significant Family History: no pertinent family hx Social History Alcohol Use: none Smoking Status: Never smoker Exam/Review of Systems Vital Signs Vitals Vital Signs Date Temp Pulse Resp B/P (MAP) Pulse Ox O2 O2 Flow FiO2 Time Delivery Rate 10/22/18 98.1 70 18 109/59 99 13:21 (76) Exam Constitutional: alert, oriented (No apparent distress, at bedside) Head: normocephalic Respiratory: other (Coarse breath sounds bilaterally, decreased to bases) Cardiovascular: irregular rhythm, systolic murmur (S1-S2 heard) Gastrointestinal: soft, non-tender, bowel sounds, distended Extremities: edema Labs Result Diagram: 10/22/18 1427 Results 24hrs Laboratory Tests Test 10/22/18 14:27 White Blood Count 6.2 Red Blood Count 3.80 L Hemoglobin 11.2 L Hematocrit 35.9 L Mean Corpuscular Volume 94.5 Mean Corpuscular Hemoglobin 29.5 Mean Corpuscular Hemoglobin Concent 31.2 L Red Cell Distribution Width 13.8 Platelet Count 72 #L Mean Platelet Volume 11.5 H Immature Granulocytes % 0.300 Neutrophils % Lymphocytes % Monocytes % Eosinophils % Basophils % Nucleated Red Blood Cells % 0.0 Immature Granulocytes # 0.020 Neutrophils # Lymphocytes # Monocytes # Eosinophils # Basophils # Nucleated Red Blood Cells # Prothrombin Time 15.6 H Prothrombin Time Ratio 1.2 INR International Normalized Ratio 1.23 Activated Partial Thromboplast Time 34.1 Imaging Imaging ECG atrial fibrillation at 60 bpm, inferior and anterior Q waves, nonspecific ST abnormalities Marcin Mchugh DO Oct 22, 2018 15:10
[2018-10-22] MEDS ORDERED: ACETAMINOPHEN 325 MG TAB PO PRN (16:00)
[2018-10-22] MEDS ORDERED: ONDANSETRON 4 MG INJ IV PRN ×2 (16:00→16:30)
--- NOTE | 2018-10-22 16:26 | HP ---
Date/Time of Note Date/Time of Note DATE: 10/22/18 TIME: 16:20 Assessment/Plan VTE Prophylaxis Pharmacological prophylaxis: apixaban Lines/Catheters IV [facility] Saline Lock Assessment/Plan Hospital Course Assessment and plan 1. CHF exacerbation. Will provide with diuretics as renal function tolerates. [employer] Solution Architect to follow. Residential Leasing Agent following. Optimize on cardiovascular medications. 2. Ischemic cardiomyopathy with previous EF of 25%. Optimized on beta-scott statin medication. 3. Acute on chronic renal disease. Avoid nephrotoxins as possible. [employer] Solution Architect consultation is pending. Monitor renal panel. Correct electrolytes as needed. 4. Diabetes. Continue insulin regimen. Will adjust as needed. 5. Hypertension. Will continue antihypertensives. Will adjust needed. 6. BPH. Continue Flomax. 8. Hyperlipidemia. Continue on statin medication. Discussed POC with Dr. Yepez Result Diagram: 10/22/18 1427 10/22/18 1427 Results 24hrs Laboratory Tests Test 10/22/18 14:27 White Blood Count 6.2 Red Blood Count 3.80 L Hemoglobin 11.2 L Hematocrit 35.9 L Mean Corpuscular Volume 94.5 Mean Corpuscular Hemoglobin 29.5 Mean Corpuscular Hemoglobin Concent 31.2 L Red Cell Distribution Width 13.8 Platelet Count 72 #L Mean Platelet Volume 11.5 H Immature Granulocytes % 0.300 Neutrophils % Segmented Neutrophils % (Manual) 54 Band Neutrophils % (Manual) 1 Lymphocytes % Lymphocytes % (Manual) 29 Reactive Lymphocytes % (Manual) 3 H Monocytes % Monocytes % (Manual) 13 H Eosinophils % Basophils % Nucleated Red Blood Cells % 0.0 Immature Granulocytes # 0.020 Neutrophils # Neutrophils # (Manual) 3.3 Band Neutrophils # 0.0 Lymphocytes (Manual) 1.7 Lymphocytes # Reactive Lymphocytes # 0.1 H Monocytes # Monocytes # (Manual) 0.8 Eosinophils # Basophils # Nucleated Red Blood Cells # Platelet Estimate DECREASED Polychromasia 1+ Prothrombin Time 15.6 H Prothrombin Time Ratio 1.2 INR International Normalized Ratio 1.23 Activated Partial Thromboplast Time 34.1 Sodium Level 140 Potassium Level 4.7 Chloride Level 108 Carbon Dioxide Level 21 Anion Gap 11 Blood Urea Nitrogen 35 H Creatinine 1.69 H Est Glomerular Filtrat Rate mL/min Glucose Level 160 Calcium Level 8.7 Troponin I 0.031 B-Type Natriuretic Peptide 3000 H HPI/ROS Admit Date/Time Admit Date/Time Hx of Present Illness This is an 83-year-old male with history of chronic atrial fibrillation, diabetes type 2, BPH, CKD, cardiomyopathy with EF of 35% in 2018, AICD, who was recently admitted to [facility] and discharged in AugustAugust 2018 due to reports of vertigo who now presents to the hospital for CHF exacerbation. Patient did report that since the end of August 2018 he had been having progressive shortness of breath. He does state that compliance with his home medication however he started to feel worse swelling from his abdomen going all the way down to his legs. He also reports having dyspnea on exertion and difficulty with ambulation secondary to increased swelling. As such she went to [facility] for further evaluation. He did have chest imaging done that did show no acute cardiopulmonary process. Additionally labs were done with no leukocytosis noted. No fever seen as well. BNP was seen at 3000 and he was noted with some renal insufficiency with creatinine of 1.69 BUN of 35. At present patient still reports having some shortness of breath and difficulty with supine position and breathing. He denies any other associated symptoms he denies any chest pain or dysuria or any abdominal discomfort. He only reports having generalized swelling and dyspnea on exertion. We will evaluate him for the aformentiond issues. ROS 12 point review of systems obtained and entirely negative except as mentioned in the history of present illness PMH/Family/Social Past Medical History Medical/surgical history 1. A. fib 2 diabetes 3. BPH 5. CKD 6. Cardiomyopathy with EF of 35% in 2018, 7. AICD Medications Current Medications Ondansetron HCl (Zofran Inj) 4 mg ER BRIDGE PRN IV NAUSEA/VOMITING; Start 10/22/18 at 16:00; Stop 10/23/18 at 15:59 Acetaminophen (Tylenol Tab) 650 mg ER BRIDGE PRN PO .MILD PAIN 1-3 OR TEMP; Start 10/22/18 at 16:00; Stop 10/23/18 at 15:59 Apixaban (Eliquis) 2.5 mg BID PO ; Start 10/22/18 at 21:00 Carvedilol (Coreg) 25 mg BID PO ; Start 10/22/18 at 21:00 Finasteride (Proscar) 5 mg DAILY PO ; Start 10/23/18 at 09:00 Furosemide (Lasix) 20 mg DAILY PO ; Start 10/23/18 at 09:00 Hydralazine HCl (Apresoline) 50 mg BID PO ; Start 10/22/18 at 21:00 Insulin Glargine (Lantus) 38 unit QHS SC ; Start 10/22/18 at 21:00 Isosorbide Mononitrate (Imdur) 30 mg BID PO ; Start 10/22/18 at 21:00 Lisinopril (Zestril) 20 mg DAILY PO ; Start 10/23/18 at 09:00; Status UNV Tamsulosin HCl (Flomax) 0.4 mg HS PO ; Start 10/22/18 at 21:00 Miscellaneous Information 1 each BID PO ; Start 10/22/18 at 21:00; Status UNV Miscellaneous Information 40 mg QHS PO ; Start 10/22/18 at 21:00; Status UNV Miscellaneous Information (* Miscellaneous Pharmacy Order) Discontinue current oral sulfonylur... ONCE ONCE XX ; Start 10/22/18 at 16:30; Stop 10/22/18 at 16:31; Status UNV Diagnostic Test (Pha) (Accu-Chek) 1 XX ; Start 10/23/18 at 02:00 Insulin Aspart (Novolog Insulin Pen) 5 unit WITH MEALS SC ; Start 10/22/18 at 18:00 Miscellaneous Information (* Miscellaneous Pharmacy Order) HYPOGLYCEMIA PROTOCOL w... ONCE ONCE XX ; Start 10/22/18 at 16:30; Stop 10/22/18 at 16:31; Status UNV Insulin Aspart (Novolog Insulin Pen) NOVOLOG *MILD* ALGORITHM WITH MEALS BEDTIME SC ; Start 10/22/18 at 18:00 Miscellaneous Information (* Miscellaneous Pharmacy Order) Discontinue all previ... ONCE ONCE XX ; Start 10/22/18 at 16:30; Stop 10/22/18 at 16:31; Status UNV IV Flush (NS 3 ml) 3 ml PER PROTOCOL IV ; Start 10/22/18 at 16:30; Status UNV Ondansetron HCl (Zofran Inj) 4 mg Q6H PRN IV NAUSEA/VOMITING; Start 10/22/18 at 16:30; Status UNV Acetaminophen/ Hydrocodone Bitart ([place] (5/325)) 1 tab Q6H PRN PO .MOD PAIN 4- 6; Start 10/22/18 at 16:30 Morphine Sulfate (morphine) 2 mg Q4H PRN IV .SEVERE PAIN 7-10; Start 10/22/18 at 16:30; Status UNV Coded Allergies: No Known Drug Allergies (Unverified Allergy, Mild, 10/22/18) Past Surgical History Past Surgical Hx: angioplasty, other (AICD) Family History Significant Family History: no pertinent family hx Social History Alcohol Use: none Smoking Status: Never smoker Exam/Review of Systems Vital Signs Vitals Vital Signs Date Temp Pulse Resp B/P (MAP) Pulse Ox O2 O2 Flow FiO2 Time Delivery Rate 10/22/18 97.9 65 18 149/79 100 Room Air 15:59 (102) Exam Constitutional: alert, oriented Psych: nl mood/affect Head: normocephalic Respiratory: other (No obvious wheezing or rhonchi auscultated) Cardiovascular: other (Regular rate) Gastrointestinal: soft, other (Anasarca) Musculoskeletal: swelling (Bilateral lower extremities +3 to +4) Neurological: DUMP GRADER II-XII intact, nl mental status, nl speech REGIDORTRACY NP Oct 22, 2018 16:26
[2018-10-22] MEDS ORDERED: HYDROCODONE/APAP (5/325) TAB PO PRN (16:30)
[2018-10-22] MEDS ORDERED: morphine 2 MG INJ IV PRN (16:30)
[2018-10-22] MEDS ORDERED: NACL 0.9% 3 ML SYG IV SCH (16:30)
--- NOTE | 2018-10-22 16:53 | ERD ---
ER Documentation Chief Complaint Chief Complaint RADHA LEG SWELLING,BACK PAIN HPI 83-year-old gentleman history of chronic kidney disease and CHF who presents with anasarca. 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 Patient denies any significant shortness of breath but describes abdominal fullness, scrotal fullness and bilateral lower extremity swelling. Mild dyspnea on exertion and PND. ROS All systems reviewed and are negative except as per history of present illness. Medications Home Meds Active Scripts [place]-3 Fatty Acids/Fish Oil (Fish Oil 1,000 mg Capsule) 1 Each Capsule, 1 EACH PO BID, #60 CAP Prov:REGGRISELDARTRACY MONUMENT SETTER 09/15/18 Apixaban* (Eliquis*) 5 Mg Tablet, 2.5 MG PO BID, #60 TAB Prov:TRACY HOWELL MONUMENT SETTER 09/15/18 Carvedilol* (Carvedilol*) 25 Mg Tablet, 25 MG PO BID, #60 TAB Prov:TRACY HOWELL MONUMENT SETTER 09/15/18 Hydralazine Hcl* (Apresoline*) 50 Mg Tab, 50 MG PO BID, #60 TAB Prov:TRACY HOWELL MONUMENT SETTER 09/15/18 Reported Medications Furosemide* (Lasix*) 20 Mg Tablet, 20 MG PO DAILY, TAB 10/22/18 Isosorbide Mononitrate* (Isosorbide Mononitrate*) 30 Mg Tab.er.24h, 30 MG PO BID, TAB 10/22/18 Lisinopril* (Lisinopril*) 20 Mg Tablet, 20 MG PO DAILY, #30 TAB 10/22/18 Nitroglycerin* (Nitroglycerin* SL) 0.4 Mg Tab.subl, 0.4 MG SL Q5MIN PRN for CHEST PAIN, BOTTLE 09/09/18 Simvastatin* (Zocor*) 40 Mg Tablet, 40 MG PO QHS, #30 TAB 09/09/18 Insulin Glargine,Hum.rec.anlog (Basaglar Kwikpen U-100) 100 Unit/1 Ml Insuln .pen, 38 UNIT SC QHS, EA 09/09/18 Tamsulosin Hcl* (Flomax*) 0.4 Mg Cap.er.24h, 0.4 MG PO HS, CAP 09/09/18 Finasteride* (Finasteride*) 5 Mg Tablet, 5 MG PO DAILY, TAB 09/09/18 Discontinued Scripts Isosorbide Mononitrate* (Isosorbide Mononitrate*) 30 Mg Tab.er.24h, 30 MG PO DAILY, #30 TAB Prov:TRACY HOWELL MONUMENT SETTER 09/15/18 Allergies Allergies: Coded Allergies: No Known Drug Allergies (Unverified Allergy, Mild, 10/22/18) PMhx/Soc History of Surgery: Yes Anesthesia Reaction: No Hx Neurological Disorder: No Hx Respiratory Disorders: No Hx Cardiac Disorders: Yes (HTN, Afib, HDL) Hx Psychiatric Problems: No Hx Miscellaneous Medical Probl: Yes (BPH, gallstones) Hx Alcohol Use: No Hx Substance Use: No Hx Tobacco Use: No Smoking Status: Never smoker FmHx Family History: No diabetes Physical Exam Vitals Vital Signs Date Temp Pulse Resp B/P (MAP) Pulse Ox O2 O2 Flow FiO2 Time Delivery Rate 10/22/18 98.1 70 18 109/59 99 13:21 (76) Physical Exam General: Well developed, well nourished, no acute distress Head: Normocephalic, atraumatic. Eyes: Pupils equally reactive, EOM intact ENT: Moist mucous membranes Neck: Supple, no lymphadenopathy Respiratory: Lungs clear bilaterally, no distress Cardiovascular: RRR, no murmurs, rubs, or gallops Abdominal: Soft, protuberant : Deferred MSK: Bilateral lower extremity pitting edema Neurologic: Alert and oriented, moving all extremities, normal speech, no focal weakness, no cerebellar signs Skin: No rash Psych: Normal mood Result Diagram: 10/22/18 1427 10/22/18 1427 Results 24 hrs Laboratory Tests Test 10/22/18 14:27 White Blood Count 6.2 10^3/ul Red Blood Count 3.80 10^6/ul Hemoglobin 11.2 g/dl Hematocrit 35.9 % Mean Corpuscular Volume 94.5 fl Mean Corpuscular Hemoglobin 29.5 pg Mean Corpuscular Hemoglobin Concent 31.2 g/dl Red Cell Distribution Width 13.8 % Platelet Count 72 10^3/UL Mean Platelet Volume 11.5 fl Immature Granulocytes % 0.300 % Neutrophils % % Segmented Neutrophils % (Manual) 54 % Band Neutrophils % (Manual) 1 % Lymphocytes % % Lymphocytes % (Manual) 29 % Reactive Lymphocytes % (Manual) 3 % Monocytes % % Monocytes % (Manual) 13 % Eosinophils % % Basophils % % Nucleated Red Blood Cells % 0.0 /100WBC Immature Granulocytes # 0.020 10^3/ul Neutrophils # 10^3/ul Neutrophils # (Manual) 3.3 10^3/ul Band Neutrophils # 0.0 10^3/ul Lymphocytes (Manual) 1.7 10^3/ul Lymphocytes # 10^3/ul Reactive Lymphocytes # 0.1 10^3/ul Monocytes # 10^3/ul Monocytes # (Manual) 0.8 10^3/ul Eosinophils # 10^3/ul Basophils # 10^3/ul Nucleated Red Blood Cells # 10^3/ul Platelet Estimate DECREASED Polychromasia 1+ Prothrombin Time 15.6 Sec Prothrombin Time Ratio 1.2 INR International Normalized Ratio 1.23 Activated Partial Thromboplast Time 34.1 Sec Sodium Level 140 mmol/L Potassium Level 4.7 mmol/L Chloride Level 108 mmol/L Carbon Dioxide Level 21 mmol/L Anion Gap 11 Blood Urea Nitrogen 35 mg/dl Creatinine 1.69 mg/dl Est Glomerular Filtrat Rate mL/min mL/min Glucose Level 160 mg/dl Calcium Level 8.7 mg/dl Troponin I 0.031 ng/ml B-Type Natriuretic Peptide 3000 PG/ML Current Medications Medications Dose Sig/Shannan Start Time Status Last (Trade) Ordered Route PRN Stop Time Admin Dose Reason Admin Aspirin 162 mg ONCE STAT 10/22/18 DC 10/22/18 (Aspirin) PO 14:07 10/22/18 14:36 14:09 Furosemide 40 mg ONCE STAT 10/22/18 DC 10/22/18 (Lasix) IV 14:07 10/22/18 14:37 14:09 Procedures/MDM EKG, MONITORS, & DIAGNOSTIC IMAGING: EKG: I reviewed and interpreted a 12-lead EKG. Rhythm: Normal sinus rhythm ST Changes: No contiguous ST segment elevations T waves: No contiguous T wave inversions Impression: No evidence of acute cardiac ischemia CXR IMPRESSION: No acute cardiopulmonary disease. Cardiomegaly with left-sided AICD. RPTAT: GG LAB INTERPRETATION: I reviewed the laboratory testing and it shows negative troponin but elevated BNP MEDICAL DECISION MAKING: Clinical exam and history is very consistent with likely CHF exacerbation possibly volume overload secondary to renal insufficiency. Failure of outpatient Lasix. Patient warrants volume control. No evidence of decompensat ed failure that warrants BiPAP or nitroglycerin drip. ER COURSE: * Patient received a dose of Lasix. He is resting comfortably. * Gluing [employer] promotions executive producer Dr. Andrade he has been notified and is at the bedside. CONSULTATION: None DISPOSITION PLAN: Telemetry admission Accepting care team and consultations: I discussed the current laboratory data, diagnostic imaging and emergency care provided. Admitting team: Dr. Yepez Admitting team indication: Insurance directed Departure Diagnosis: Primary Impression: Acute exacerbation of CHF (congestive heart failure) Heart failure type: unspecified Qualified Codes: I50.9 - Heart failure, unspecified Additional Impressions: Chronic kidney disease Anasarca Condition: Stable KAREN CUEVA MD Oct 22, 2018 16:53
[2018-10-22] MEDS: INSULIN ASPART [NOVOLOG] 3 ML PEN SC SCH ×3 (17:46→20:41)
[2018-10-22 17:47] VITALS: BP 150/68; PULSE 57; RESP 19
[2018-10-22] MEDS ORDERED: BUMETANIDE 3 MG in DEXTROSE 5% 18 ML IV ONE (18:00)
[2018-10-22 19:38] VITALS: BP 121/71; PULSE 68; RESP 18
[2018-10-22] MEDS: ATORVASTATIN 20 MG TAB PO SCH (20:25)
[2018-10-22] MEDS: FISH OIL 1,000 MG CAP PO SCH (20:25)
[2018-10-22] MEDS: ISOSORBIDE MONONITRATE(SR)30 MG TAB PO SCH (20:25)
[2018-10-22] MEDS: APIXABAN 5 MG TABLET PO SCH (20:26)
[2018-10-22] MEDS: TAMSULOSIN (SR) 0.4 MG CAP PO SCH (20:26)
[2018-10-22] MEDS: INSULIN GLARGINE [LANTus] (100 UNITS/ML) SYG SC SCH (20:41)
[2018-10-22] MEDS ORDERED: INSULIN GLARGINE [LANtus] 3 ML PEN SC SCH (21:00)
[2018-10-22] MEDS ORDERED: NON-FORMULARY/PATIENT OWN MED (Simvastatin* (Zocor*) 40 MG) PO SCH (21:00)
[2018-10-23] VITALS (7 sets, daily range): BP systolic 105–151; BP diastolic 55–75; PULSE 53–68; RESP 18–22
--- NOTE | 2018-10-23 00:52 | CONS ---
DATE OF ADMISSION: 10/22/2018 DATE OF CONSULTATION: 10/22/2018 TYPE OF CONSULTATION: Nephrology. REASON FOR CONSULTATION: Chronic kidney disease, acute injury. PHYSICIAN REQUESTING CONSULT: Meño Sunshine NP HISTORY OF PRESENT ILLNESS: This is an 83-year-old male with a past medical history of chronic kidne y disease with a baseline creatinine around 1.5 to 1.8 mg/dL, history of CHF, hypertension, diabetes, BPH, cardiomyopathy, arrhythmia, who presented to [facility] with increased shortn ess of breath and anasarca. The patient states that he was taking diuretic in outpatient setting by his primary electrical tech, Dr. Self. The patient states that he had increased swelling despite diur etic therapy. Denied any shortness of breath. As a result, he came into [facility] Emer[facility] Room. Upon arrival to emergency room, the patient had chest x-ray which showed findings of left-s ided AICD, but no acute cardiopulmonary disease. The patient was placed on diuretic therapy and admi tted to telemetry for evaluation. In terms of patient's renal history, the patient has underlying CKD with baseline creatinine of 1.3 t o 2.0 mg/dL. The patient denies any hemoptysis, hematemesis or hematochezia. PAST MEDICAL HISTORY: As stated above, history of chronic kidney disease stage III-B/IV, history of CHF, history of arrhythmia, history of hypertension, history of cardiomyopathy, history of gallstones . PAST SURGICAL HISTORY: Reviewed. ALLERGIES: REVIEWED. FAMILY HISTORY: No family history of kidney disease. SOCIAL HISTORY: Does not drink, smoke or do drugs. MEDICATIONS: Reviewed. REVIEW OF SYSTEMS: A 14-point review of systems conducted. Pertinent positives stated in HPI, other barrios negative. PHYSICAL EXAMINATION: VITAL SIGNS: Blood pressure is 121/71, respiration 18, pulse 68, temperature 97.9. HEENT: Head is normocephalic. NECK: Supple. HEART: Regular rate. Positive JVD. LUNGS: Show diminished breath sounds at the base. ABDOMEN: Soft, nontender to palpation without rebound or guarding. EXTREMITIES: Negative for clubbing, cyanosis. Positive edema. DERMATOLOGIC: No rashes. MUSCULOSKELETAL: No joint effusion. NEUROLOGIC: No focal deficits. LABORATORY DATA: Have been reviewed. IMAGING STUDIES: Have been reviewed. ASSESSMENT AND PLAN: 1. Chronic kidney disease stage III-B/IV with a baseline creatinine around 1.5 to 2.0 mg/dL. The dm myles's renal function currently appears at baseline. Recommendation would be to continue current me dical management, continue current diuretic therapy, monitor renal function and electrolytes closely. Otherwise, continue supportive care, renally dose all meds. 2. Acute on chronic heart failure. The patient is clinically compensated. We will continue current diuretic regimen. Monitor I's and O's and electrolytes closely. I agree with Bumex drip. May have metolazone or Diamox to augment diuresis. 3. Anemia. Monitor H and H levels. 4. Mineral bone disorder. Monitor calcium and phosphorus levels. 5. Diabetes. Continue current insulin regimen. 6. Hypertension. Continue current blood pressure regimen. 7. Benign prostatic hypertrophy. Continue Flomax. 8. Dyslipidemia. Continue statin therapy. 9. History of cardiomyopathy. 10. Arrhythmia, status post AICD placement. Thank you, Meño, for this interesting consult. It will be a pleasure to follow the patient with ion vazquez throughout the hospital course. Dictated By: TAYLOR PINK DO NR/NTS Conf#: [id number] DID#: [id number] CC: TONO DANIEL DO; RAI PALUMBO;*EndCC*
[2018-10-23] MEDS: ACCU-CHEK XX SCH (01:50)
[2018-10-23] MEDS: BUMETANIDE 1 MG INJ IV SCH ×2 (05:10→17:33)
[2018-10-23] MEDS ORDERED: METOLAZONE 5 MG TAB PO ONE (07:30)
--- NOTE | 2018-10-23 08:02 | PN ---
DATE: 10/23/2018 SUBJECTIVE: The patient is stable overnight. The patient has been diuresing well on Bumex drip. No other events noted. OBJECTIVE: VITAL SIGNS: Blood pressure is 105/55, respiration 18, pulse 66, temperature 94.9. HEENT: Head is normocephalic. NECK: Supple. HEART: Regular rate. LUNGS: Show diminished breath sounds at the base. ABDOMEN: Soft, nontender to palpation without rebound or guarding. EXTREMITIES: Negative for clubbing, cyanosis, positive edema. DERMATOLOGIC: No rashes. MUSCULOSKELETAL: No joint effusion. NEUROLOGIC: No change in exam. MEDICATIONS: Have been reviewed. LABORATORY DATA: Has been reviewed. IMAGING STUDIES: Have been reviewed. URINALYSIS: Has been reviewed. ASSESSMENT AND PLAN: 1. Chronic kidney disease, stage IIIB/IV with baseline creatinine around 1.5 to 2 mg/dL. Renal func tion is currently at baseline. We will continue current treatment plans, supportive care, renally do se all meds, monitor closely on diuretic therapy. 2. Acute on chronic heart failure. The patient remains decompensated. The patient is status post B umex drip. Will add metolazone to augment diuresis. Continue Bumex. Monitor I's and O's closely. 3. Anemia. Monitor hemoglobin and hematocrit levels. 4. Mineral bone disorder. Monitor calcium and phosphorus levels. 5. Diabetes. Continue current insulin regimen. 6. Hypertension. Continue current blood pressure regimen. 7. Benign prostatic hypertrophy. Continue Flomax. 8. Dyslipidemia. Continue statin therapy. 9. Cardiomyopathy. 10. History of automatic implantable cardioverter-defibrillator placement. Dictated By: TAYLOR PINK DO NR/ANALI Conf#: [id number] DID#: [id number] CC: RAI PALUMBO;*EndCC*
[2018-10-23] MEDS: APIXABAN 5 MG TABLET PO SCH ×2 (08:46→20:56)
[2018-10-23] MEDS: FINASTERIDE 5 MG TAB PO SCH (08:46)
[2018-10-23] MEDS: ISOSORBIDE MONONITRATE(SR)30 MG TAB PO SCH ×2 (08:47→20:55)
[2018-10-23] MEDS: FISH OIL 1,000 MG CAP PO SCH ×2 (08:48→20:55)
[2018-10-23] MEDS: INSULIN ASPART [NOVOLOG] 3 ML PEN SC SCH ×7 (08:51→20:51)
[2018-10-23] MEDS ORDERED: FUROSEMIDE 20 MG TAB PO SCH (09:00)
[2018-10-23] MEDS ORDERED: LISINOPRIL 20 MG TAB PO SCH (09:00)
--- NOTE | 2018-10-23 13:49 | CONS ---
Assessment/Plan Cardiology NYHA: II Heart Failure Type: Acute on Chronic Heart Failure Type: Both Assessment/Plan Assessment/Plan (Daily) Acute decompensated systolic congestive heart failure Cardia myopathy History of AICD Hypertension Atrial fibrillation Renal dysfunction Patient presents with progressive worsening lower extremity edema, increased abdominal girth and shortness of breath over the past few months. He did increase his oral Lasix to twice a dose without significant improvement ECG with no significant ischemic abnormalities, patient denies any chest pain. continue IV diuretics (elevated bun/creat) Consultation Date/Type/Reason Admit Date/Time Oct 22, 2018 at 15:38 Initial Consult Date Type of Consult Cardiology Date/Time of Note DATE: 10/23/18 TIME: 13:48 24 HR Interval Summary Free Text/Dictation the patienht with no cahge Exam/Review of Systems Vital Signs Vitals Vital Signs Date Temp Pulse Resp B/P (MAP) Pulse Ox O2 O2 Flow FiO2 Time Delivery Rate 10/23/18 98.0 68 22 145/61 96 Room Air 11:56 (89) Intake and Output 10/22/18 10/22/18 10/23/18 1515:00 23:00 07:00 IntakeIntake Total 200 ml 500 ml OutputOutput Total 550 ml 1800 ml BalanceBalance -350 ml -1300 ml Labs Result Diagram: 10/23/18 0226 10/23/18 0226 Results 24hrs Laboratory Tests Test 10/22/18 14:27 10/22/18 17:45 10/22/18 19:36 10/22/18 20:22 White Blood Count 6.2 Red Blood Count 3.80 L Hemoglobin 11.2 L Hematocrit 35.9 L Mean Corpuscular Volume 94.5 Mean Corpuscular 29.5 Hemoglobin Mean Corpuscular 31.2 L Hemoglobin Concent Red Cell Distribution 13.8 Width Platelet Count 72 #L Mean Platelet Volume 11.5 H Immature Granulocytes % 0.300 Neutrophils % Segmented Neutrophils 54 % (Manual) Band Neutrophils % 1 (Manual) Lymphocytes % Lymphocytes % (Manual) 29 Reactive Lymphocytes 3 H % (Manual) Monocytes % Monocytes % (Manual) 13 H Eosinophils % Basophils % Nucleated Red Blood 0.0 Cells % Immature Granulocytes # 0.020 Neutrophils # Neutrophils # (Manual) 3.3 Band Neutrophils # 0.0 Lymphocytes (Manual) 1.7 Lymphocytes # Reactive Lymphocytes # 0.1 H Monocytes # Monocytes # (Manual) 0.8 Eosinophils # Basophils # Nucleated Red Blood Cells # Platelet Estimate DECREASED Polychromasia 1+ Prothrombin Time 15.6 H Prothrombin Time Ratio 1.2 INR International 1.23 Normalized Ratio Activated 34.1 Partial Thromboplast Time Sodium Level 140 Potassium Level 4.7 Chloride Level 108 Carbon Dioxide Level 21 Anion Gap 11 Blood Urea Nitrogen 35 H Creatinine 1.69 H Est Glomerular Filtrat Rate mL/min Glucose Level 160 Calcium Level 8.7 Troponin I 0.031 0.027 B-Type Natriuretic 3000 H Peptide Bedside Glucose 120 204 Creatine Kinase 366 H Creatine Kinase Index 0.8 Creatinine Kinase MB 2.94 H (Mass) Test 10/22/18 23:00 10/23/18 01:48 10/23/18 02:26 10/23/18 08:25 Urine Color STRAW Urine Clarity CLEAR Urine pH 5.0 Urine Specific [place] 1.005 Urine Ketones NEGATIVE Urine Nitrite NEGATIVE Urine Bilirubin NEGATIVE Urine Urobilinogen NEGATIVE Urine Leukocyte Esterase NEGATIVE Urine Hemoglobin NEGATIVE Urine Random Creatinine 26.41 Urine Random Sodium 73 Urine Glucose NEGATIVE Urine Total Protein 12.0 H Bedside Glucose 85 175 White Blood Count 5.5 Red Blood Count 3.60 L Hemoglobin 10.7 L Hematocrit 34.0 L Mean Corpuscular Volume 94.4 Mean Corpuscular 29.7 Hemoglobin Mean Corpuscular 31.5 L Hemoglobin Concent Red Cell Distribution 13.6 Width Platelet Count 80 L Mean Platelet Volume 11.5 H Immature Granulocytes % 0.200 Neutrophils % 47.7 Lymphocytes % 35.1 Monocytes % 11.2 H Eosinophils % 5.4 Basophils % 0.4 Nucleated Red Blood 0.0 Cells % Immature Granulocytes # 0.010 Neutrophils # 2.6 Lymphocytes # 1.9 Monocytes # 0.6 Eosinophils # 0.3 Basophils # 0.0 Nucleated Red Blood 0.0 Cells # Sodium Level 143 Potassium Level 4.1 Chloride Level 108 Carbon Dioxide Level 27 Anion Gap 8 Blood Urea Nitrogen 37 H Creatinine 1.72 H Est Glomerular Filtrat Rate mL/min Glucose Level 72 # Hemoglobin A1c 9.0 H Calcium Level 9.2 Phosphorus Level 4.3 Magnesium Level 2.6 H Total Bilirubin 1.3 Direct Bilirubin 0.00 Indirect Bilirubin 1.3 H Aspartate Amino 38 Transf (AST/SGOT) Alanine 41 Aminotransferase (ALT/SG PT) Alkaline Phosphatase 140 H Creatine Kinase 323 H Creatine Kinase Index 0.8 Creatinine Kinase MB 2.59 H (Mass) Troponin I 0.048 Total Protein 7.2 Albumin 3.9 Globulin 3.30 H Albumin/Globulin Ratio 1.18 Triglycerides Level 46 Cholesterol Level 80 L LDL Cholesterol, 41 Calculated HDL Cholesterol 30 L Cholesterol/HDL Ratio 2.6 Thyroid Stimulating 2.750 Hormone (TSH) Free Thyroxine Index 2.89 Thyroxine (T4) 7.0 Triiodothyronine (T3) 41.3 H Uptake Test 10/23/18 11:44 Bedside Glucose 189 Medications Medications Current Medications Apixaban (Eliquis) 2.5 mg BID PO Last administered on 10/23/18 08:46; Admin Dose 2.5 MG; Start 10/22/18 at 21:00 Carvedilol (Coreg) 25 mg BID PO Last administered on 10/23/18 08:48; Admin Dose 25 MG; Start 10/22/18 at 21:00 Finasteride (Proscar) 5 mg DAILY PO Last administered on 10/23/18 08:46; Admin Dose 5 MG; Start 10/23/18 at 09:00 Hydralazine HCl (Apresoline) 50 mg BID PO Last administered on 10/23/18 08:47; Admin Dose 50 MG; Start 10/22/18 at 21:00 Isosorbide Mononitrate (Imdur) 30 mg BID PO Last administered on 10/23/18 08:47; Admin Dose 30 MG; Start 10/22/18 at 21:00 Tamsulosin HCl (Flomax) 0.4 mg HS PO Last administered on 10/22/18 20:26; Admin Dose 0.4 MG; Start 10/22/18 at 21:00 Diagnostic Test (Pha) (Accu-Chek) 1 ea 02 XX Last administered on 10/23/18 01:50; Admin Dose 1 EA; Start 10/23/18 at 02:00 Insulin Aspart (Novolog Insulin Pen) 5 unit WITH MEALS SC Last administered on 10/23/18 11:56; Admin Dose 5 UNIT; Start 10/22/18 at 18:00 Insulin Aspart (Novolog Insulin Pen) NOVOLOG *MILD* ALGORITHM WITH MEALS BEDTIME SC Last administered on 10/23/18 11:56; Admin Dose 2 UNIT; Start 10/22/18 at 18:00 IV Flush (NS 3 ml) 3 ml PER PROTOCOL IV ; Start 10/22/18 at 16:30 Ondansetron HCl (Zofran Inj) 4 mg Q6H PRN IV NAUSEA/VOMITING; Start 10/22/18 at 16:30 Acetaminophen/ Hydrocodone Bitart ([place] (5/325)) 1 tab Q6H PRN PO .MOD PAIN 4- 6; Start 10/22/18 at 16:30 Morphine Sulfate (morphine) 2 mg Q4H PRN IV .SEVERE PAIN 7-10; Start 10/22/18 at 16:30 Fish Oil (Fish Oil) 1,000 mg BID PO Last administered on 10/23/18 08:48; Admin Dose 1,000 MG; Start 10/22/18 at 21:00 Atorvastatin Calcium (Lipitor) 20 mg DAILY@21 PO Last administered on 10/22/18at 20:25; Admin Dose 20 MG; Start 10/22/18 at 21:00 Bumetanide (Bumex) 1 mg BID DIURETICS IV Last administered on 10/23/18at 05:10; Admin Dose 1 MG; Start 10/23/18 at 06:00 Insulin Glargine (Lantus) 38 units QHS SC Last administered on 10/22/18at 20:41; Admin Dose 38 UNITS; Start 10/22/18 at 21:00 RENAY HAMM MD Oct 23, 2018 13:49
--- NOTE | 2018-10-23 15:00 | PN ---
Date/Time of Note Date/Time of Note DATE: 10/23/18 TIME: 14:59 Assessment/Plan VTE Prophylaxis Risk score (from [facility] [place])>0 risk: 4 SCD applied (from [facility] [place]): Yes Pharmacological prophylaxis: apixaban Lines/Catheters IV Catheter Type (from [facility] Saline Lock Assessment/Plan Hospital Course Assessment and plan 1. CHF exacerbation. Continue diuretics. [place] following. Continue the recommendations. Appears to be improving 2. Ischemic cardiomyopathy with previous EF of 25%. Continue cardiovascular medications 3. Acute on chronic renal disease. Avoid nephrotoxins as possible. Chromosomal Disorders Counselor consultation is pending. Monitor renal panel. Correct electrolytes as needed. Stable 4. Diabetes. Continue insulin regimen. Will adjust as needed. 5. Hypertension. Will continue antihypertensives. Will adjust needed. 6. BPH. Continue Flomax. 8. Hyperlipidemia. Continue on statin medication. Disposition plan. Appears to be improving. Continue with diuretic treatment. Follow-up a.m. labs. Monitor in-house Discussed POC with Dr. Yepez Result Diagram: 10/23/186 10/23/18225 Results 24hrs Laboratory Tests Test 10/22/18 17:45 10/22/18 19:36 10/22/18 20:22 10/22/18 23:00 Bedside Glucose 120 204 Creatine Kinase 366 H Creatine Kinase Index 0.8 Creatinine Kinase MB 2.94 H (Mass) Troponin I 0.027 Urine Color STRAW Urine Clarity CLEAR Urine pH 5.0 Urine Specific [place] 1.005 Urine Ketones NEGATIVE Urine Nitrite NEGATIVE Urine Bilirubin NEGATIVE Urine Urobilinogen NEGATIVE Urine Leukocyte Esterase NEGATIVE Urine Hemoglobin NEGATIVE Urine Random Creatinine 26.41 Urine Random Sodium 73 Urine Glucose NEGATIVE Urine Total Protein 12.0 H Test 10/23/18 01:48 10/23/18 02:26 10/23/18 08:25 10/23/18 11:44 Bedside Glucose 85 175 189 White Blood Count 5.5 Red Blood Count 3.60 L Hemoglobin 10.7 L Hematocrit 34.0 L Mean Corpuscular Volume 94.4 Mean Corpuscular 29.7 Hemoglobin Mean Corpuscular 31.5 L Hemoglobin Concent Red Cell Distribution 13.6 Width Platelet Count 80 L Mean Platelet Volume 11.5 H Immature Granulocytes % 0.200 Neutrophils % 47.7 Lymphocytes % 35.1 Monocytes % 11.2 H Eosinophils % 5.4 Basophils % 0.4 Nucleated Red Blood 0.0 Cells % Immature Granulocytes # 0.010 Neutrophils # 2.6 Lymphocytes # 1.9 Monocytes # 0.6 Eosinophils # 0.3 Basophils # 0.0 Nucleated Red Blood 0.0 Cells # Sodium Level 143 Potassium Level 4.1 Chloride Level 108 Carbon Dioxide Level 27 Anion Gap 8 Blood Urea Nitrogen 37 H Creatinine 1.72 H Est Glomerular Filtrat Rate mL/min Glucose Level 72 # Hemoglobin A1c 9.0 H Calcium Level 9.2 Phosphorus Level 4.3 Magnesium Level 2.6 H Total Bilirubin 1.3 Direct Bilirubin 0.00 Indirect Bilirubin 1.3 H Aspartate Amino 38 Transf (AST/SGOT) Alanine 41 Aminotransferase (ALT/SG PT) Alkaline Phosphatase 140 H Creatine Kinase 323 H Creatine Kinase Index 0.8 Creatinine Kinase MB 2.59 H (Mass) Troponin I 0.048 Total Protein 7.2 Albumin 3.9 Globulin 3.30 H Albumin/Globulin Ratio 1.18 Triglycerides Level 46 Cholesterol Level 80 L LDL Cholesterol, 41 Calculated HDL Cholesterol 30 L Cholesterol/HDL Ratio 2.6 Thyroid Stimulating 2.750 Hormone (TSH) Free Thyroxine Index 2.89 Thyroxine (T4) 7.0 Triiodothyronine (T3) 41.3 H Uptake Subjective 24 Hr Interval Summary Free Text/Dictation Reports better breathing today. Reports less swelling. Exam/Review of Systems Exam Vitals Vital Signs Date Temp Pulse Resp B/P (MAP) Pulse Ox O2 O2 Flow FiO2 Time Delivery Rate 10/23/18 98.0 68 22 145/61 96 Room Air 11:56 (89) Intake and Output 10/22/18 10/22/18 10/23/18 1515:00 23:00 07:00 IntakeIntake Total 200 ml 500 ml OutputOutput Total 550 ml 1800 ml BalanceBalance -350 ml -1300 ml Exam Constitutional: alert, oriented Psych: nl mood/affect Head: normocephalic Respiratory: other (No obvious wheezing or rhonchi auscultated) Cardiovascular: other (Regular rate) Gastrointestinal: soft, other (Anasarca) Musculoskeletal: swelling (Bilateral lower extremities Neurological: TRACK MANAGER II-XII intact, nl mental status, nl speech Results Results 24hrs Laboratory Tests Test 10/22/18 17:45 10/22/18 19:36 10/22/18 20:22 10/22/18 23:00 Bedside Glucose 120 204 Creatine Kinase 366 H Creatine Kinase Index 0.8 Creatinine Kinase MB 2.94 H (Mass) Troponin I 0.027 Urine Color STRAW Urine Clarity CLEAR Urine pH 5.0 Urine Specific [place] 1.005 Urine Ketones NEGATIVE Urine Nitrite NEGATIVE Urine Bilirubin NEGATIVE Urine Urobilinogen NEGATIVE Urine Leukocyte Esterase NEGATIVE Urine Hemoglobin NEGATIVE Urine Random Creatinine 26.41 Urine Random Sodium 73 Urine Glucose NEGATIVE Urine Total Protein 12.0 H Test 10/23/18 01:48 10/23/18 02:26 10/23/18 08:25 10/23/18 11:44 Bedside Glucose 85 175 189 White Blood Count 5.5 Red Blood Count 3.60 L Hemoglobin 10.7 L Hematocrit 34.0 L Mean Corpuscular Volume 94.4 Mean Corpuscular 29.7 Hemoglobin Mean Corpuscular 31.5 L Hemoglobin Concent Red Cell Distribution 13.6 Width Platelet Count 80 L Mean Platelet Volume 11.5 H Immature Granulocytes % 0.200 Neutrophils % 47.7 Lymphocytes % 35.1 Monocytes % 11.2 H Eosinophils % 5.4 Basophils % 0.4 Nucleated Red Blood 0.0 Cells % Immature Granulocytes # 0.010 Neutrophils # 2.6 Lymphocytes # 1.9 Monocytes # 0.6 Eosinophils # 0.3 Basophils # 0.0 Nucleated Red Blood 0.0 Cells # Sodium Level 143 Potassium Level 4.1 Chloride Level 108 Carbon Dioxide Level 27 Anion Gap 8 Blood Urea Nitrogen 37 H Creatinine 1.72 H Est Glomerular Filtrat Rate mL/min Glucose Level 72 # Hemoglobin A1c 9.0 H Calcium Level 9.2 Phosphorus Level 4.3 Magnesium Level 2.6 H Total Bilirubin 1.3 Direct Bilirubin 0.00 Indirect Bilirubin 1.3 H Aspartate Amino 38 Transf (AST/SGOT) Alanine 41 Aminotransferase (ALT/SG PT) Alkaline Phosphatase 140 H Creatine Kinase 323 H Creatine Kinase Index 0.8 Creatinine Kinase MB 2.59 H (Mass) Troponin I 0.048 Total Protein 7.2 Albumin 3.9 Globulin 3.30 H Albumin/Globulin Ratio 1.18 Triglycerides Level 46 Cholesterol Level 80 L LDL Cholesterol, 41 Calculated HDL Cholesterol 30 L Cholesterol/HDL Ratio 2.6 Thyroid Stimulating 2.750 Hormone (TSH) Free Thyroxine Index 2.89 Thyroxine (T4) 7.0 Triiodothyronine (T3) 41.3 H Uptake Medications Medication Current Medications Apixaban (Eliquis) 2.5 mg BID PO Last administered on 8/3/19at 08:46; Admin Dose 2.5 MG; Start 10/22/18 at 21:00 Carvedilol (Coreg) 25 mg BID PO Last administered on 10/23/18 08:48; Admin Dose 25 MG; Start 10/22/18 at 21:00 Finasteride (Proscar) 5 mg DAILY PO Last administered on 10/23/18 08:46; Admin Dose 5 MG; Start 10/23/18 at 09:00 Hydralazine HCl (Apresoline) 50 mg BID PO Last administered on 10/23/18 08:47; Admin Dose 50 MG; Start 10/22/18 at 21:00 Isosorbide Mononitrate (Imdur) 30 mg BID PO Last administered on 10/23/18 08:47; Admin Dose 30 MG; Start 10/22/18 at 21:00 Tamsulosin HCl (Flomax) 0.4 mg HS PO Last administered on 10/22/18 20:26; Admin Dose 0.4 MG; Start 10/22/18 at 21:00 Diagnostic Test (Pha) (Accu-Chek) 1 ea 02 XX Last administered on 10/23/18 01:50; Admin Dose 1 EA; Start 10/23/18 at 02:00 Insulin Aspart (Novolog Insulin Pen) 5 unit WITH MEALS SC Last administered on 10/23/18 11:56; Admin Dose 5 UNIT; Start 10/22/18 at 18:00 Insulin Aspart (Novolog Insulin Pen) NOVOLOG *MILD* ALGORITHM WITH MEALS BEDTIME SC Last administered on 10/23/18 11:56; Admin Dose 2 UNIT; Start 10/22/18 at 18:00 IV Flush (NS 3 ml) 3 ml PER PROTOCOL IV ; Start 10/22/18 at 16:30 Ondansetron HCl (Zofran Inj) 4 mg Q6H PRN IV NAUSEA/VOMITING; Start 10/22/18 at 16:30 Acetaminophen/ Hydrocodone Bitart ([place] (5/325)) 1 tab Q6H PRN PO .MOD PAIN 4- 6; Start 10/22/18 at 16:30 Morphine Sulfate (morphine) 2 mg Q4H PRN IV .SEVERE PAIN 7-10; Start 10/22/18 at 16:30 Fish Oil (Fish Oil) 1,000 mg BID PO Last administered on 10/23/18 08:48; Admin Dose 1,000 MG; Start 10/22/18 at 21:00 Atorvastatin Calcium (Lipitor) 20 mg DAILY@21 PO Last administered on 10/22/18 20:25; Admin Dose 20 MG; Start 10/22/18 at 21:00 Bumetanide (Bumex) 1 mg BID DIURETICS IV Last administered on 10/23/18 05:10; Admin Dose 1 MG; Start 10/23/18 at 06:00 Insulin Glargine (Lantus) 38 units QHS SC Last administered on 10/22/18 20:41; Admin Dose 38 UNITS; Start 10/22/18 at 21:00 TRACY HOWELL NP Oct 23, 2018 15:00
[2018-10-23] MEDS: ATORVASTATIN 20 MG TAB PO SCH (20:55)
[2018-10-23] MEDS: TAMSULOSIN (SR) 0.4 MG CAP PO SCH (20:55)
[2018-10-23] MEDS: INSULIN GLARGINE [LANTus] (100 UNITS/ML) SYG SC SCH (21:06)
[2018-10-24] MEDS: ACCU-CHEK XX SCH (02:50)
[2018-10-24 03:50] VITALS: BP 110/55; PULSE 68; RESP 22
[2018-10-24] MEDS: BUMETANIDE 1 MG INJ IV SCH ×2 (05:54→17:18)
[2018-10-24 07:24] VITALS: BP 127/62; PULSE 73; RESP 18
[2018-10-24] MEDS: INSULIN ASPART [NOVOLOG] 3 ML PEN SC SCH ×7 (07:41→21:41)
[2018-10-24] MEDS: FINASTERIDE 5 MG TAB PO SCH (08:11)
[2018-10-24] MEDS: APIXABAN 5 MG TABLET PO SCH ×2 (08:13→21:36)
[2018-10-24] MEDS: ISOSORBIDE MONONITRATE(SR)30 MG TAB PO SCH ×2 (08:13→21:35)
[2018-10-24] MEDS: FISH OIL 1,000 MG CAP PO SCH ×2 (08:13→21:34)
--- NOTE | 2018-10-24 08:49 | PN ---
DATE: 10/24/2018 SUBJECTIVE: The patient is stable, no events overnight. OBJECTIVE: VITAL SIGNS: Blood pressure is 127/62, pulse 73, respiration 18, temperature 98.2. HEENT: Head is normocephalic. NECK: Supple. HEART: Regular rate. LUNGS: Show diminished breath sounds at the base. ABDOMEN: Soft, nontender to palpation without rebound or guarding. EXTREMITIES: Negative for clubbing, cyanosis. Trace edema. DERMATOLOGIC: No rashes. MUSCULOSKELETAL: No joint effusion. NEUROLOGIC: No change in exam. MEDICATIONS: Reviewed. LABORATORY DATA: Reviewed. IMAGING STUDIES: Have been reviewed. ASSESSMENT AND PLAN: 1. Chronic kidney disease, stage IIIB/IV. The patient's renal function is currently at baseline. C ontinue current treatment plans, supportive care 2. Acute on chronic heart failure. The patient appears nearly euvolemic. Will transition Bumex fro m IV to oral in the next 24 hours. Continue to monitor. 3. Anemia. Monitor hemoglobin and hematocrit levels. 4. 5. Diabetes. Continue current insulin regimen. 6. Hypertension. Continue current blood pressure regimen. 7. Benign prostatic hypertrophy. Continue Flomax. 8. Dyslipidemia. Continue statin therapy. 9. Cardiomyopathy. Dictated By: TAYLOR SIMS/ANALI Conf#: [id number] DID#: [id number]
--- NOTE | 2018-10-24 10:54 | CONS ---
Assessment/Plan Cardiology NYHA: II Heart Failure Type: Acute on Chronic Heart Failure Type: Both Consultation Date/Type/Reason Admit Date/Time Oct 22, 2018 at 15:38 Initial Consult Date Type of Consult Cardiology Date/Time of Note DATE: 10/24/18 TIME: 10:52 24 HR Interval Summary Free Text/Dictation Acute decompensated systolic congestive heart failure Cardia myopathy History of AICD Hypertension Atrial fibrillation Renal dysfunction Patient presents with progressive worsening lower extremity edema, increased abdominal girth and shortness of breath over the past few months. H appears close to euvolemic creatinine slighty increasing renal input appreciated likely switch to PO in AM Constitutional: no complaints Exam/Review of Systems Vital Signs Vitals Vital Signs Date Temp Pulse Resp B/P (MAP) Pulse Ox O2 O2 Flow FiO2 Time Delivery Rate 10/24/18 98.2 73 18 127/62 98 07:24 (83) 10/24/18 Room Air 03:50 Intake and Output 10/23/18 10/23/18 10/24/18 1515:00 23:00 07:00 IntakeIntake Total 700 ml 350 ml OutputOutput Total 300 ml 1300 ml 850 ml BalanceBalance 400 ml -950 ml -850 ml Exam Constitutional: alert, oriented Psych: no complaints Respiratory: clear to auscultation Cardiovascular: irregular rhythm Gastrointestinal: soft Extremities: edema (trace) Labs Result Diagram: 10/24/18 0459 10/24/18 0459 Results 24hrs Laboratory Tests Test 10/23/18 11:44 10/23/18 17:25 10/23/18 20:50 10/24/18 02:09 Bedside Glucose 189 137 152 55 L Test 10/24/18 02:24 10/24/18 02:41 10/24/18 02:57 10/24/18 04:59 Bedside Glucose 79 150 190 White Blood Count 6.5 Red Blood Count 3.73 L Hemoglobin 11.0 L Hematocrit 34.9 L Mean Corpuscular Volume 93.6 Mean Corpuscular 29.5 Hemoglobin Mean Corpuscular 31.5 L Hemoglobin Concent Red Cell Distribution 13.7 Width Platelet Count 93 L Mean Platelet Volume 11.4 H Immature Granulocytes % 0.500 H Neutrophils % 59.8 Lymphocytes % 24.4 Monocytes % 11.3 H Eosinophils % 3.5 Basophils % 0.5 Nucleated Red Blood 0.0 Cells % Immature Granulocytes # 0.030 Neutrophils # 3.9 Lymphocytes # 1.6 Monocytes # 0.7 Eosinophils # 0.2 Basophils # 0.0 Nucleated Red Blood 0.0 Cells # Sodium Level 138 Potassium Level 4.1 Chloride Level 98 # Carbon Dioxide Level 30 Anion Gap 10 Blood Urea Nitrogen 45 H Creatinine 1.82 H Est Glomerular Filtrat Rate mL/min Glucose Level 181 # Calcium Level 9.3 Phosphorus Level 4.8 Magnesium Level 2.3 Test 10/24/18 07:40 Bedside Glucose 118 Medications Medications Current Medications Apixaban (Eliquis) 2.5 mg BID PO Last administered on 10/24/18 08:13; Admin Dose 2.5 MG; Start 10/22/18 at 21:00 Carvedilol (Coreg) 25 mg BID PO Last administered on 10/24/18 08:13; Admin Dose 25 MG; Start 10/22/18 at 21:00 Finasteride (Proscar) 5 mg DAILY PO Last administered on 10/24/18 08:11; Admin Dose 5 MG; Start 10/23/18 at 09:00 Hydralazine HCl (Apresoline) 50 mg BID PO Last administered on 10/24/18 08:12; Admin Dose 50 MG; Start 10/22/18 at 21:00 Isosorbide Mononitrate (Imdur) 30 mg BID PO Last administered on 10/24/18 08:13; Admin Dose 30 MG; Start 10/22/18 at 21:00 Tamsulosin HCl (Flomax) 0.4 mg HS PO Last administered on 10/23/18 20:55; Admin Dose 0.4 MG; Start 10/22/18 at 21:00 Diagnostic Test (Pha) (Accu-Chek) 1 ea 02 XX Last administered on 10/24/18 02:50; Admin Dose 1 EA; Start 10/23/18 at 02:00 Insulin Aspart (Novolog Insulin Pen) 5 unit WITH MEALS SC Last administered on 10/24/18 07:45; Admin Dose 5 UNIT; Start 10/22/18 at 18:00 Insulin Aspart (Novolog Insulin Pen) NOVOLOG *MILD* ALGORITHM WITH MEALS BEDTIME SC Last administered on 10/23/18 11:56; Admin Dose 2 UNIT; Start 10/22/18 at 18:00 IV Flush (NS 3 ml) 3 ml PER PROTOCOL IV ; Start 10/22/18 at 16:30 Ondansetron HCl (Zofran Inj) 4 mg Q6H PRN IV NAUSEA/VOMITING; Start 10/22/18 at 16:30 Acetaminophen/ Hydrocodone Bitart ([place] (5/325)) 1 tab Q6H PRN PO .MOD PAIN 4- 6; Start 10/22/18 at 16:30 Morphine Sulfate (morphine) 2 mg Q4H PRN IV .SEVERE PAIN 7-10; Start 10/22/18 at 16:30 Fish Oil (Fish Oil) 1,000 mg BID PO Last administered on 10/24/18 08:13; Admin Dose 1,000 MG; Start 10/22/18 at 21:00 Atorvastatin Calcium (Lipitor) 20 mg DAILY@21 PO Last administered on 10/23/18at 20:55; Admin Dose 20 MG; Start 10/22/18 at 21:00 Bumetanide (Bumex) 1 mg BID DIURETICS IV Last administered on 10/24/18at 05:54; Admin Dose 1 MG; Start 10/23/18 at 06:00 Insulin Glargine (Lantus) 38 units QHS SC Last administered on 10/23/18 21:06; Admin Dose 38 UNITS; Start 10/22/18 at 21:00 JASSI HARP MD Oct 24, 2018 10:54
[2018-10-24 12:21] VITALS: BP 130/59; PULSE 60; RESP 18
--- NOTE | 2018-10-24 13:28 | PN ---
Date/Time of Note Date/Time of Note DATE: 10/24/18 TIME: 13:25 Assessment/Plan VTE Prophylaxis Risk score (from [facility] [place])>0 risk: 4 SCD applied (from [facility] [place]): Yes Pharmacological prophylaxis: apixaban Lines/Catheters IV Catheter Type (from [facility]): Saline Lock Assessment/Plan Hospital Course Assessment and plan 1. CHF exacerbation. Continue diuretics IV. Transition to oral diuretics per associate dean. Appears to be improving 2. Ischemic cardiomyopathy with previous EF of 25%. Continue cardiovascular medications 3. Acute on chronic renal disease. Avoid nephrotoxins as possible. Family Services Assistant consultation is pending. Monitor renal panel. Correct electrolytes as needed. Stable 4. Diabetes. Continue insulin regimen. Will adjust as needed. 5. Hypertension. Will continue antihypertensives. Will adjust needed. 6. BPH. Continue Flomax. 8. Hyperlipidemia. Continue on statin medication. Disposition plan. Continue with diuretic treatment. Encourage ambulation. Follow-up a.m. labs. Monitor in-house Discussed POC with Dr. Yepez Result Diagram: 10/24/18 0459 10/24/18 0459 Results 24hrs Laboratory Tests Test 10/23/18 17:25 10/23/18 20:50 10/24/18 02:09 10/24/18 02:24 Bedside Glucose 137 152 55 L 79 Test 10/24/18 02:41 10/24/18 02:57 10/24/18 04:59 10/24/18 07:40 Bedside Glucose 150 190 118 White Blood Count 6.5 Red Blood Count 3.73 L Hemoglobin 11.0 L Hematocrit 34.9 L Mean Corpuscular Volume 93.6 Mean Corpuscular 29.5 Hemoglobin Mean Corpuscular 31.5 L Hemoglobin Concent Red Cell Distribution 13.7 Width Platelet Count 93 L Mean Platelet Volume 11.4 H Immature Granulocytes % 0.500 H Neutrophils % 59.8 Lymphocytes % 24.4 Monocytes % 11.3 H Eosinophils % 3.5 Basophils % 0.5 Nucleated Red Blood 0.0 Cells % Immature Granulocytes # 0.030 Neutrophils # 3.9 Lymphocytes # 1.6 Monocytes # 0.7 Eosinophils # 0.2 Basophils # 0.0 Nucleated Red Blood 0.0 Cells # Sodium Level 138 Potassium Level 4.1 Chloride Level 98 # Carbon Dioxide Level 30 Anion Gap 10 Blood Urea Nitrogen 45 H Creatinine 1.82 H Est Glomerular Filtrat Rate mL/min Glucose Level 181 # Calcium Level 9.3 Phosphorus Level 4.8 Magnesium Level 2.3 Test 10/24/18 11:35 Bedside Glucose 189 Subjective 24 Hr Interval Summary Free Text/Dictation Reports less swelling on abdomen and lower extremities. Exam/Review of Systems Exam Vitals Vital Signs Date Temp Pulse Resp B/P (MAP) Pulse Ox O2 O2 Flow FiO2 Time Delivery Rate 10/24/18 98.0 60 18 130/59 98 12:21 (82) 10/24/18 Room Air 03:50 Intake and Output 10/23/18 10/23/18 10/24/18 1515:00 23:00 07:00 IntakeIntake Total 700 ml 350 ml OutputOutput Total 300 ml 1300 ml 850 ml BalanceBalance 400 ml -950 ml -850 ml Exam Constitutional: alert, oriented Psych: nl mood/affect Head: normocephalic Respiratory: other (No obvious wheezing or rhonchi auscultated) Cardiovascular: other (Regular rate) Gastrointestinal: soft, other (Anasarca) Musculoskeletal: swelling (Bilateral lower extremities Neurological: UNEMPLOYMENT INSURANCE HEARING OFFICER II-XII intact, nl mental status, nl speech Results Results 24hrs Laboratory Tests Test 10/23/18 17:25 10/23/18 20:50 10/24/18 02:09 10/24/18 02:24 Bedside Glucose 137 152 55 L 79 Test 10/24/18 02:41 10/24/18 02:57 10/24/18 04:59 10/24/18 07:40 Bedside Glucose 150 190 118 White Blood Count 6.5 Red Blood Count 3.73 L Hemoglobin 11.0 L Hematocrit 34.9 L Mean Corpuscular Volume 93.6 Mean Corpuscular 29.5 Hemoglobin Mean Corpuscular 31.5 L Hemoglobin Concent Red Cell Distribution 13.7 Width Platelet Count 93 L Mean Platelet Volume 11.4 H Immature Granulocytes % 0.500 H Neutrophils % 59.8 Lymphocytes % 24.4 Monocytes % 11.3 H Eosinophils % 3.5 Basophils % 0.5 Nucleated Red Blood 0.0 Cells % Immature Granulocytes # 0.030 Neutrophils # 3.9 Lymphocytes # 1.6 Monocytes # 0.7 Eosinophils # 0.2 Basophils # 0.0 Nucleated Red Blood 0.0 Cells # Sodium Level 138 Potassium Level 4.1 Chloride Level 98 # Carbon Dioxide Level 30 Anion Gap 10 Blood Urea Nitrogen 45 H Creatinine 1.82 H Est Glomerular Filtrat Rate mL/min Glucose Level 181 # Calcium Level 9.3 Phosphorus Level 4.8 Magnesium Level 2.3 Test 10/24/18 11:35 Bedside Glucose 189 Medications Medication Current Medications Apixaban (Eliquis) 2.5 mg BID PO Last administered on 10/24/18 08:13; Admin Dose 2.5 MG; Start 10/22/18 at 21:00 Carvedilol (Coreg) 25 mg BID PO Last administered on 10/24/18 08:13; Admin Dose 25 MG; Start 10/22/18 at 21:00 Finasteride (Proscar) 5 mg DAILY PO Last administered on 10/24/18 08:11; Admin Dose 5 MG; Start 10/23/18 at 09:00 Hydralazine HCl (Apresoline) 50 mg BID PO Last administered on 10/24/18 08:12; Admin Dose 50 MG; Start 10/22/18 at 21:00 Isosorbide Mononitrate (Imdur) 30 mg BID PO Last administered on 10/24/18 08:13; Admin Dose 30 MG; Start 10/22/18 at 21:00 Tamsulosin HCl (Flomax) 0.4 mg HS PO Last administered on 10/23/18 20:55; Admin Dose 0.4 MG; Start 10/22/18 at 21:00 Diagnostic Test (Pha) (Accu-Chek) 1 ea 02 XX Last administered on 10/24/18 02:50; Admin Dose 1 EA; Start 10/23/18 at 02:00 Insulin Aspart (Novolog Insulin Pen) 5 unit WITH MEALS SC Last administered on 10/24/18 11:46; Admin Dose 5 UNIT; Start 10/22/18 at 18:00 Insulin Aspart (Novolog Insulin Pen) NOVOLOG *MILD* ALGORITHM WITH MEALS BEDTIME SC Last administered on 10/24/18 11:45; Admin Dose 2 UNIT; Start 10/22/18 at 18:00 IV Flush (NS 3 ml) 3 ml PER PROTOCOL IV ; Start 10/22/18 at 16:30 Ondansetron HCl (Zofran Inj) 4 mg Q6H PRN IV NAUSEA/VOMITING; Start 10/22/18 at 16:30 Acetaminophen/ Hydrocodone Bitart ([place] (5/325)) 1 tab Q6H PRN PO .MOD PAIN 4- 6; Start 10/22/18 at 16:30 Morphine Sulfate (morphine) 2 mg Q4H PRN IV .SEVERE PAIN 7-10; Start 10/22/18 at 16:30 Fish Oil (Fish Oil) 1,000 mg BID PO Last administered on 10/24/18 08:13; Admin Dose 1,000 MG; Start 10/22/18 at 21:00 Atorvastatin Calcium (Lipitor) 20 mg DAILY@21 PO Last administered on 10/23/18at 20:55; Admin Dose 20 MG; Start 10/22/18 at 21:00 Bumetanide (Bumex) 1 mg BID DIURETICS IV Last administered on 10/24/18 05:54; Admin Dose 1 MG; Start 10/23/18 at 06:00 Insulin Glargine (Lantus) 38 units QHS SC Last administered on 10/23/18 21:06; Admin Dose 38 UNITS; Start 10/22/18 at 21:00 TRACY HOWELL NP Oct 24, 2018 13:28
[2018-10-24 16:06] VITALS: BP 149/63; PULSE 68; RESP 18
[2018-10-24 20:00] VITALS: BP 151/67; PULSE 64; RESP 20
[2018-10-24] MEDS: INSULIN GLARGINE [LANTus] (100 UNITS/ML) SYG SC SCH (21:00)
[2018-10-24] MEDS: TAMSULOSIN (SR) 0.4 MG CAP PO SCH (21:34)
[2018-10-24] MEDS: ATORVASTATIN 20 MG TAB PO SCH (21:36)
[2018-10-24] MEDS ORDERED: INSULIN GLARGINE [LANTus] (100 UNITS/ML) SYG SC ONE (23:30)
[2018-10-25] VITALS: BP 121/62; PULSE 67; RESP 18
[2018-10-25] MEDS: ACCU-CHEK XX SCH (02:40)
[2018-10-25 03:57] VITALS: BP 128/59; PULSE 62; RESP 18
[2018-10-25] MEDS: BUMETANIDE 1 MG INJ IV SCH (05:48)
[2018-10-25 07:40] VITALS: BP 127/60; PULSE 70; RESP 18
--- NOTE | 2018-10-25 08:16 | PN ---
DATE: 10/25/2018 SUBJECTIVE: The patient is stable. No events overnight. The patient's shortness of breath has impr annie. OBJECTIVE: VITAL SIGNS: Blood pressure is 129/59, respiration 18, pulse 53, temperature 97.4. HEENT: Head is normocephalic. NECK: Supple. HEART: Regular rate. LUNGS: Show diminished breath sounds at the base. ABDOMEN: Soft, nontender to palpation without rebound or guarding. EXTREMITIES: Negative for clubbing, cyanosis, no edema. DERMATOLOGIC: No rashes. MUSCULOSKELETAL: No joint effusion. NEUROLOGIC: No change in exam. MEDICATIONS: Reviewed. LABORATORY DATA: Has been reviewed. IMAGING STUDIES: Have been reviewed. ASSESSMENT AND PLAN: 1. Chronic kidney disease stage IIIB/IV. The patient's renal function is currently at baseline. Co ntinue current treatment plan, supportive care, renally dose all medications. 2. Acute on chronic heart failure. The patient is clinically improved. Will switch the patient to oral Bumex 1 mg p.o. b.i.d. 3. Anemia. Monitor hemoglobin and hematocrit levels. 4. Mineral bone disorder. Monitor calcium and phosphorus levels. 5. Diabetes. Continue current insulin regimen. 6. Hypertension. Continue current blood pressure regimen. 7. Benign prostatic hypertrophy. Continue Flomax. 8. Dyslipidemia. Continue statin therapy. 9. Cardiomyopathy. Continue to monitor. Follow up with cardiology. Appreciate help with managemen t. Dictated By: TAYLOR PINK DO NR/NTS Conf#: [id number] DID#: [id number] CC: RAI PALUMBO;*EndCC*
[2018-10-25] MEDS: INSULIN ASPART [NOVOLOG] 3 ML PEN SC SCH ×7 (08:38→21:00)
[2018-10-25] MEDS: FINASTERIDE 5 MG TAB PO SCH (09:44)
[2018-10-25] MEDS: APIXABAN 5 MG TABLET PO SCH ×2 (09:44→21:20)
[2018-10-25] MEDS: ISOSORBIDE MONONITRATE(SR)30 MG TAB PO SCH ×2 (09:44→21:20)
[2018-10-25] MEDS: FISH OIL 1,000 MG CAP PO SCH ×2 (09:44→21:20)
--- NOTE | 2018-10-25 10:08 | PN ---
Date/Time of Note Date/Time of Note DATE: 10/25/18 TIME: 10:08 Assessment/Plan VTE Prophylaxis Risk score (from Nsg)>0 risk: 4 SCD applied (from Nsg): Yes Pharmacological prophylaxis: apixaban Lines/Catheters IV Catheter Type (from Nrs): Saline Lock Assessment/Plan Hospital Course SUBJECTIVE: Denies any chest pain. Complains of minimal dyspnea. OBJECTIVE: Physical Exam General: Obese, 83 year-old male lying in bed in no apparent distress. HEENT: Normocephalic, atraumatic. Eyes: Anicteric sclerae, conjunctivae clear. ENT: Nasal septum midline, oral mucosa moist. Neck supple, no JVD noticed. Respiratory: Bilaterally clear breath sounds. No use of accessory muscles of respiration. No adventitious breath sounds. Cardiovascular: S1, S2 heard. Irregularly irregular rhythm. Abdomen: Soft, nontender, and nondistended. Bowel sounds positive in all 4 quadrants. Genitourinary: Deferred. Extremities: No cyanosis, no clubbing, no edema. Peripheral pulses palpable. Neurologic: Cranial nerves II through XII grossly intact. The patient is awake, alert, and oriented. Skin: Normal skin turgor. No skin rashes. Labs & Vitals per chart ASSESSMENT & PLAN 83-year-old male with comorbidities including cardiomyopathy with ejection fraction of 25% (status post AICD placement), atrial fibrillation, chronic kidney disease, diabetes mellitus, hypertension, prostate hypertrophy, and dyslipidemia who presented to the emergency room with chief complaint of bilateral lower extremity edema and back pain with evidence of underlying CHF exacerbation, who was admitted to inpatient setting for further treatment and evaluation. 1. Acute on chronic congestive heart failure exacerbation, systolic dysfunction. Continue diuresis while carefully monitoring renal function. Being followed by cardiology. 2. Cardiomyopathy. Ejection fraction of 25%. Continue beta-blockers. No ACEIs because of underlying worsening renal function. 3. Atrial fibrillation. Continue beta-blockers. Continue apixaban for stroke prophylaxis. 4. Chronic kidney disease stage IIIb/IV. Monitor BUN and creatinine closely. 5. Dyslipidemia. Continue statins and fish oil. 6. Hypertension. Continue antihypertensives. 7. Diabetes mellitus. Hemoglobin A1c 9.0. Continue sliding scale insulin along with basal insulin and pre-meal insulin. 8. Prostate hypertrophy. Continue alpha blockers. 9. Normocytic normochromic anemia. Most probably anemia of chronic kidney disease. Monitor H&H closely. 10. Fluids, electrolytes, and nutrition. Carbohydrate controlled diet. 11. DVT prophylaxis. On apixaban. 12. Plan. Continue diuresis while carefully monitoring renal function. Await clinical improvement before discharging the patient home. The patient was seen in collaboration with Dr. Amaro. Result Diagram: 10/24/18 0459 10/24/18 0459 Results 24hrs Laboratory Tests Test 10/24/18 11:35 10/24/18 17:20 10/24/18 21:32 10/24/18 23:32 Bedside Glucose 189 243 H 192 220 Test 10/25/18 02:29 10/25/18 08:31 Bedside Glucose 165 197 Exam/Review of Systems Exam Vitals Vital Signs Date Temp Pulse Resp B/P (MAP) Pulse Ox O2 O2 Flow FiO2 Time Delivery Rate 10/25/18 98.0 70 18 127/60 98 07:40 (82) 10/24/18 Room Air 03:50 Intake and Output 10/24/18 10/24/18 10/25/18 1515:00 23:00 07:00 IntakeIntake Total 750 ml OutputOutput Total 1200 ml 1600 ml BalanceBalance -450 ml -1600 ml Results Results 24hrs Laboratory Tests Test 10/24/18 11:35 10/24/18 17:20 10/24/18 21:32 10/24/18 23:32 Bedside Glucose 189 243 H 192 220 Test 10/25/18 02:29 10/25/18 08:31 Bedside Glucose 165 197 Medications Medication Current Medications Apixaban (Eliquis) 2.5 mg BID PO Last administered on 10/25/18 09:44; Admin Dose 2.5 MG; Start 10/22/18 at 21:00 Carvedilol (Coreg) 25 mg BID PO Last administered on 10/25/18 09:44; Admin Dose 25 MG; Start 10/22/18 at 21:00 Finasteride (Proscar) 5 mg DAILY PO Last administered on 10/25/18 09:44; Admin Dose 5 MG; Start 10/23/18 at 09:00 Hydralazine HCl (Apresoline) 50 mg BID PO Last administered on 10/25/18 09:45; Admin Dose 50 MG; Start 10/22/18 at 21:00 Isosorbide Mononitrate (Imdur) 30 mg BID PO Last administered on 10/25/18 09:44; Admin Dose 30 MG; Start 10/22/18 at 21:00 Tamsulosin HCl (Flomax) 0.4 mg HS PO Last administered on 10/24/18 21:34; Admin Dose 0.4 MG; Start 10/22/18 at 21:00 Diagnostic Test (Pha) (Accu-Chek) 1 ea 02 XX Last administered on 10/25/18 02:40; Admin Dose 1 EA; Start 10/23/18 at 02:00 Insulin Aspart (Novolog Insulin Pen) 5 unit WITH MEALS SC Last administered on 10/25/18 08:38; Admin Dose 5 UNIT; Start 10/22/18 at 18:00 Insulin Aspart (Novolog Insulin Pen) NOVOLOG *MILD* ALGORITHM WITH MEALS BEDTIME SC Last administered on 10/25/18 08:38; Admin Dose 2 UNIT; Start 10/22/18 at 18:00 IV Flush (NS 3 ml) 3 ml PER PROTOCOL IV ; Start 10/22/18 at 16:30 Ondansetron HCl (Zofran Inj) 4 mg Q6H PRN IV NAUSEA/VOMITING; Start 10/22/18 at 16:30 Acetaminophen/ Hydrocodone Bitart ([place] (5/325)) 1 tab Q6H PRN PO .MOD PAIN 4-6; Start 10/22/18 at 16:30 Morphine Sulfate (morphine) 2 mg Q4H PRN IV .SEVERE PAIN 7-10; Start 10/22/18 at 16:30 Fish Oil (Fish Oil) 1,000 mg BID PO Last administered on 10/25/18 09:44; Admin Dose 1,000 MG; Start 10/22/18 at 21:00 Atorvastatin Calcium (Lipitor) 20 mg DAILY@21 PO Last administered on 10/24/18 21:36; Admin Dose 20 MG; Start 10/22/18 at 21:00 Insulin Glargine (Lantus) 38 units QHS SC Last administered on 10/23/18 21:06; Admin Dose 38 UNITS; Start 10/22/18 at 21:00 Bumetanide (Bumex) 1 mg BID DIURETICS PO ; Start 10/25/18 at 18:00 TAYLA COREAS NP Oct 25, 2018 10:08
[2018-10-25 11:27] VITALS: BP 125/60; PULSE 57; RESP 18
[2018-10-25 16:28] VITALS: BP 136/60; PULSE 73; RESP 18
[2018-10-25] MEDS: BUMETANIDE 1 MG TAB PO SCH (17:54)
--- NOTE | 2018-10-25 18:53 | CONS ---
Assessment/Plan Cardiology NYHA: II Heart Failure Type: Acute on Chronic Heart Failure Type: Both Assessment/Plan Hospital Course (Demo Recall) Acute decompensated systolic congestive heart failure Cardia myopathy History of AICD Hypertension Atrial fibrillation Renal dysfunction Lower extremity edema with significant improvement. Diuretics being titrated as per nephrology Heart rate remains well controlled, continue beta-scott as tolerated Continue anticoagulation as tolerated DC planning Consultation Date/Type/Reason Admit Date/Time Oct 22, 2018 at 15:38 Initial Consult Date Type of Consult Cardiology Date/Time of Note DATE: 10/25/18 TIME: 18:51 24 HR Interval Summary Free Text/Dictation no sob,cp,palp Exam/Review of Systems Vital Signs Vitals Vital Signs Date Temp Pulse Resp B/P (MAP) Pulse Ox O2 O2 Flow FiO2 Time Delivery Rate 10/25/18 98.0 73 18 136/60 98 16:28 (85) 10/24/18 Room Air 03:50 Intake and Output 10/24/18 10/24/18 10/25/18 1414:59 22:59 06:59 IntakeIntake Total 750 ml OutputOutput Total 1200 ml 1600 ml BalanceBalance -450 ml -1600 ml Exam Constitutional: alert, oriented (nad, eating lunch) Head: normocephalic Respiratory: other (course bs, no wheeze) Cardiovascular: irregular rhythm (s1s2) Gastrointestinal: soft, non-tender, bowel sounds Extremities: edema Labs Result Diagram: 10/24/18 0459 10/24/18 0459 Results 24hrs Laboratory Tests Test 10/24/18 21:32 10/24/18 23:32 10/25/18 02:29 10/25/18 08:31 Bedside Glucose 192 220 165 197 Test 10/25/18 12:06 10/25/18 17:38 Bedside Glucose 209 155 Medications Medications Current Medications Apixaban (Eliquis) 2.5 mg BID PO Last administered on 10/25/18at 09:44; Admin Dose 2.5 MG; Start 10/22/18 at 21:00 Carvedilol (Coreg) 25 mg BID PO Last administered on 10/25/18at 09:44; Admin Dose 25 MG; Start 10/22/18 at 21:00 Finasteride (Proscar) 5 mg DAILY PO Last administered on 10/25/18at 09:44; Admin Dose 5 MG; Start 10/23/18 at 09:00 Hydralazine HCl (Apresoline) 50 mg BID PO Last administered on 10/25/18 09:45; Admin Dose 50 MG; Start 10/22/18 at 21:00 Isosorbide Mononitrate (Imdur) 30 mg BID PO Last administered on 10/25/18 09:44; Admin Dose 30 MG; Start 10/22/18 at 21:00 Tamsulosin HCl (Flomax) 0.4 mg HS PO Last administered on 10/24/18 21:34; Admin Dose 0.4 MG; Start 10/22/18 at 21:00 Diagnostic Test (Pha) (Accu-Chek) 1 ea 02 XX Last administered on 10/25/18 02:40; Admin Dose 1 EA; Start 10/23/18 at 02:00 Insulin Aspart (Novolog Insulin Pen) 5 unit WITH MEALS SC Last administered on 10/25/18 17:45; Admin Dose 5 UNIT; Start 10/22/18 at 18:00 Insulin Aspart (Novolog Insulin Pen) NOVOLOG *MILD* ALGORITHM WITH MEALS BEDTIME SC Last administered on 10/25/18 17:44; Admin Dose 1 UNIT; Start 10/22/18 at 18:00 IV Flush (NS 3 ml) 3 ml PER PROTOCOL IV ; Start 10/22/18 at 16:30 Ondansetron HCl (Zofran Inj) 4 mg Q6H PRN IV NAUSEA/VOMITING; Start 10/22/18 at 16:30 Acetaminophen/ Hydrocodone Bitart ([place] (5/325)) 1 tab Q6H PRN PO .MOD PAIN 4- 6; Start 10/22/18 at 16:30 Morphine Sulfate (morphine) 2 mg Q4H PRN IV .SEVERE PAIN 7-10; Start 10/22/18 at 16:30 Fish Oil (Fish Oil) 1,000 mg BID PO Last administered on 10/25/18 09:44; Admin Dose 1,000 MG; Start 10/22/18 at 21:00 Atorvastatin Calcium (Lipitor) 20 mg DAILY@21 PO Last administered on 10/24/18 21:36; Admin Dose 20 MG; Start 10/22/18 at 21:00 Insulin Glargine (Lantus) 38 units QHS SC Last administered on 8/3/19at 21:06; Admin Dose 38 UNITS; Start 10/22/18 at 21:00 Bumetanide (Bumex) 1 mg BID DIURETICS PO Last administered on 10/25/18at 17:54; Admin Dose 1 MG; Start 10/25/18 at 18:00 Marcin Mchugh DO Oct 25, 2018 18:53
[2018-10-25 20:00] VITALS: BP 132/73; PULSE 72; RESP 18
[2018-10-25] MEDS: TAMSULOSIN (SR) 0.4 MG CAP PO SCH (21:20)
[2018-10-25] MEDS: ATORVASTATIN 20 MG TAB PO SCH (21:20)
[2018-10-25] MEDS: INSULIN GLARGINE [LANTus] (100 UNITS/ML) SYG SC SCH (21:59)
[2018-10-26 00:02] VITALS: BP 127/77; PULSE 56; RESP 20
[2018-10-26] MEDS: ACCU-CHEK XX SCH (02:00)
[2018-10-26 04:08] VITALS: BP 123/73; PULSE 69; RESP 20
[2018-10-26] MEDS: BUMETANIDE 1 MG TAB PO SCH (06:22)
[2018-10-26 07:10] VITALS: BP 124/61; PULSE 66; RESP 18
[2018-10-26] MEDS: INSULIN ASPART [NOVOLOG] 3 ML PEN SC SCH ×4 (08:16→12:18)
[2018-10-26] MEDS: FISH OIL 1,000 MG CAP PO SCH (08:50)
[2018-10-26] MEDS: APIXABAN 5 MG TABLET PO SCH (08:51)
[2018-10-26] MEDS: FINASTERIDE 5 MG TAB PO SCH (08:51)
[2018-10-26] MEDS: ISOSORBIDE MONONITRATE(SR)30 MG TAB PO SCH (08:51)
--- NOTE | 2018-10-26 09:24 | PDOCDIS ---
Discharge Instructions CONDITION [id number] Patient Condition: [id number] Stable HOME CARE INSTRUCTIONS: [id number] Special Diet: [id number] Carbohydrate controlled, low potassium. FOLLOW UP/APPOINTMENTS Follow-up Plan Brandon Davidson MD Specialty: Internal Medicine Office Address: [address] [facility] [address] [place], [place] [id number] Office OTHER ORDERS: Other Orders: 1. Resume home medications. Stop taking lisinopril. Stop taking Lasix. Start taking Bumex instead. 2. Follow a low-cholesterol, low carbohydrate, low potassium diet. 3. Resume activities as tolerated. 4. Follow-up with your primary care physician in 1 week. If you do not have a primary care physician, please call Dr. Brandon Davidson's office. 5. Please go to the nearest emergency room if you have increasing shortness of breath, chest pain, or any other unusual signs/symptoms. 1. Reanudar los medicamentos caseros. Deje de renetta lisinopril. Grace de renetta Lasix. Comience a renetta Bumex en song lugar. 2. Siga nicola dieta baja en colesterol, baja en carbohidratos y baja en potasio. 3. Reanude las actividades segn lo tolerado. 4. Hiwot un seguimiento con song mdico de atencin primaria en 1 semana. Si no tiene un mdico de atencin primaria, llame al consultorio del Dr. Brandon Davidson. 5. Dirjase a la neeta de emergencias ms cercana si tiene dificultad para respirar, dolor en el pecho o cualquier otro signo / sntoma inusual. TAYLA COREAS NP Oct 26, 2018 09:24
--- NOTE | 2018-10-26 09:56 | DS ---
Date/Time of Note Date/Time of Note DATE: 10/26/18 TIME: 09:53 Discharge Summary Admission/Discharge Info Admit Date/Time Oct 22, 2018 at 15:38 Discharge Date/Time Discharge Diagnosis 1. Acute on chronic congestive heart failure exacerbation, systolic dysfunctio n. 2. Cardiomyopathy. Ejection fraction of 25%. 3. Atrial fibrillation. 4. Chronic kidney disease stage IIIb/IV. 5. Dyslipidemia. 6. Hypertension. 7. Diabetes mellitus. Hemoglobin A1c 9.0. 8. Prostate hypertrophy. 9. Normocytic normochromic anemia. Consults 1. Darnell Wu DO, Nephrology. 2. Marcin Mchugh DO, Cardiology. Procedures CXR IMPRESSION: No acute cardiopulmonary disease. Cardiomegaly with left-sided AICD. Hx of Present Illness This is an 83-year-old male with comorbidities including cardiomyopathy with ejection fraction of 25% (status post AICD placement), atrial fibrillation, chronic kidney disease, diabetes mellitus, hypertension, prostate hypertrophy, and dyslipidemia who presented to the emergency room with chief complaint of bilateral lower extremity edema and back pain with evidence of underlying CHF exacerbation, who was admitted to inpatient setting for further treatment and evaluation. Hospital Course The patient was admitted to inpatient telemetry floor. A cardiology consult and nephrology consult was obtained. The patient had evidence of underlying congestive heart failure exacerbation, systolic dysfunction. The patient was diuresed while carefully monitoring renal function. The patient has known history of cardiomyopathy with ejection fraction of 25%. The patient was maintained on beta-blockers. No NOLAN inhibitors were used because of worsening renal function. The patient has underlying atrial fibrillation. The patient was continued on beta-blockers for rate control. The patient was continued on apixaban for stroke prophylaxis. The patient has underlying CKD stage IIIb/IV. His BUN and creatinine were monitored closely. The patient was being followed by nephrology. The patient has underlying dyslipidemia. He was maintained on statins and fish oil. He has underlying hypertension and he was maintained on antihypertensives for the same. He has diabetes mellitus with a hemoglobin A1c of 9.0. He was maintained on sliding scale insulin along with basal insulin and pre-meal insulin with well-controlled blood sugars throughout the hospital course. The patient has benign prostatic hypertrophy. He was maintained on alpha blockers. He has underlying normocytic, normochromic anemia, most probably anemia of chronic kidney disease. The patient's H&H were monitored closely. The patient had a stable hospital course. The patient was cleared by consultants to be discharged home. Discharge Instructions 1. Resume home medications. Stop taking lisinopril. Stop taking Lasix. Start taking Bumex instead. 2. Follow a low-cholesterol, low carbohydrate, low potassium diet. 3. Resume activities as tolerated. 4. Follow-up with your primary care physician in 1 week. If you do not have a primary care physician, please call Dr. Brandon Davidson's office. 5. Please go to the nearest emergency room if you have increasing shortness of breath, chest pain, or any other unusual signs/symptoms. The patient verbalized understanding of his discharge instructions. At this time I would like to thank all the consultants for seeing the patient and providing clinical recommendations. The patient was seen in collaboration with Dr. Amaro. Home Meds Active Scripts Bumetanide* (Bumetanide*) 1 Mg Tablet, 1 MG PO BID DIURETICS, #60 TAB Prov:TAYLA COREAS APPRISE COUNSELOR 10/26/18 [place]-3 Fatty Acids/Fish Oil (Fish Oil 1,000 mg Capsule) 1 Each Capsule, 1 EACH PO BID, #60 CAP Prov:TRACY HOWELL APPRISE COUNSELOR 09/15/18 Apixaban* (Eliquis*) 5 Mg Tablet, 2.5 MG PO BID, #60 TAB Prov:TRACY HOWELL APPRISE COUNSELOR 09/15/18 Carvedilol* (Carvedilol*) 25 Mg Tablet, 25 MG PO BID, #60 TAB Prov:TRACY HOWELL APPRISE COUNSELOR 09/15/18 Hydralazine Hcl* (Apresoline*) 50 Mg Tab, 50 MG PO BID, #60 TAB Prov:TRACY HOWELL APPRISE COUNSELOR 09/15/18 Reported Medications Isosorbide Mononitrate* (Isosorbide Mononitrate*) 30 Mg Tab.er.24h, 30 MG PO BID, TAB 10/22/18 Nitroglycerin* (Nitroglycerin* SL) 0.4 Mg Tab.subl, 0.4 MG SL Q5MIN PRN for CHEST PAIN, BOTTLE 09/09/18 Simvastatin* (Zocor*) 40 Mg Tablet, 40 MG PO QHS, #30 TAB 09/09/18 Insulin Glargine,Hum.rec.anlog (Basaglar Kwikpen U-100) 100 Unit/1 Ml Insuln.pen, 38 UNIT SC QHS, EA 09/09/18 Tamsulosin Hcl* (Flomax*) 0.4 Mg Cap.er.24h, 0.4 MG PO HS, CAP 09/09/18 Finasteride* (Finasteride*) 5 Mg Tablet, 5 MG PO DAILY, TAB 09/09/18 Discontinued Reported Medications Furosemide* (Lasix*) 20 Mg Tablet, 20 MG PO DAILY, TAB 10/22/18 Lisinopril* (Lisinopril*) 20 Mg Tablet, 20 MG PO DAILY, #30 TAB 10/22/18 Discontinued Scripts Isosorbide Mononitrate* (Isosorbide Mononitrate*) 30 Mg Tab.er.24h, 30 MG PO DAILY, #30 TAB Prov:TRACY HOWELL APPRISE COUNSELOR 09/15/18 Follow-up Plan Brandon Davidson MD Specialty: Internal Medicine Office Address: [address] [place] [address] Office Primary Care Provider Isak Johansen Time spent on discharge: > 30 minutes Pending Labs Laboratory Tests Test 10/25/18 12:06 10/25/18 17:38 10/25/18 21:17 10/26/18 05:21 Bedside 209 155 179 Glucose mg/dL (70-220) mg/dL (70-220) mg/dL (70-220) White Blood 6.2 Count 10^3/ul (4.8-1 0.8) Red Blood 3.90 Count 10^6/ul (4.70- 6.10) Hemoglobin 11.2 g/dl (14.0-18. 0) Hematocrit 36.1 % (42.0-52.0) Mean 92.6 Corpuscular fl (82.0-101.0 Volume ) Mean 28.7 Corpuscular pg (29.0-33.0) Hemoglobin Mean 31.0 Corpuscular g/dl (32.0-37. Hemoglobin Conc 0) ent Red Cell 13.4 Distribution % (11.5-14.5) Width Platelet Count 127 10^3/UL (140-4 15) Mean Platelet 10.5 Volume fl (7.4-10.4) Immature 0.200 Granulocytes % % (0.001-0.429 ) Neutrophils % 43.0 % (39.0-77.0) Lymphocytes % 39.7 % (15.0-51.0) Monocytes % 11.3 % (0.0-11.0) Eosinophils % 5.5 % (0.0-7.0) Basophils % 0.3 % (0.0-2.0) Nucleated Red 0.0 Blood Cells % /100WBC (0.0-0 .0) Immature 0.010 Granulocytes # 10^3/ul (0.0-0 .031) Neutrophils # 2.7 10^3/ul (1.6-7 .5) Lymphocytes # 2.5 10^3/ul (0.8-2 .9) Monocytes # 0.7 10^3/ul (0.3-0 .9) Eosinophils # 0.3 10^3/ul (0.0-0 .5) Basophils # 0.0 10^3/ul (0.0-0 .1) Nucleated Red 0.0 Blood Cells # 10^3/ul (0.0-0 .0) Sodium Level 136 mmol/L (135-14 4) Potassium 3.5 Level mmol/L (3.5-5. 1) Chloride Level 97 mmol/L (97-110 ) Carbon Dioxide 32 Level mmol/L (21-31) Anion Gap 7 (5-13) Blood Urea 47 Nitrogen mg/dl (7-20) Creatinine 1.56 mg/dl (0.61-1. 24) Est Glomerular mL/min (>60) Filtrat Rate mL/min Glucose Level 123 mg/dl (70-220) Calcium Level 9.3 mg/dl (8.4-10. 2) Phosphorus 4.9 Level mg/dl (2.5-4.9 ) Magnesium 2.2 Level mg/dl (1.7-2.5 ) Test 10/26/18 08:01 Bedside 174 Glucose mg/dL (70-220) TAYLA COREAS NP Oct 26, 2018 09:56
[2018-10-26 11:51] VITALS: BP 127/68; PULSE 67; RESP 18
--- NOTE | 2018-10-27 06:22 | PN ---
DATE: 10/26/2018 SUBJECTIVE: The patient is currently stable. No other events overnight. OBJECTIVE: VITAL SIGNS: Blood pressure is 124/61, pulse 86, respirations 18, temperature 98.0. HEENT: Head is normocephalic. NECK: Supple. HEART: Regular rate. LUNGS: Show diminished breath sounds at the base. ABDOMEN: Soft, nontender to palpation without rebound or guarding. EXTREMITIES: Negative for clubbing, cyanosis. Trace edema. DERMATOLOGIC: No rashes. MUSCULOSKELETAL: No joint effusion. NEUROLOGIC: No change in exam. MEDICATIONS: Have been reviewed. LABORATORY DATA: Has been reviewed. IMAGING STUDIES: Have been reviewed. ASSESSMENT AND PLAN: 1. Chronic kidney disease, stage IIIB/IV. Patient's renal function is currently at baseline. Kurtis nue current treatment plans, supportive care, renally dose all medication. 2. Acute on chronic heart failure. The patient is clinically improved, near euvolemic status. Cont inue oral Bumex. 3. Anemia. Monitor hemoglobin and hematocrit levels. 4. Mineral bone disorder. Monitor calcium and phosphorus levels. 5. Diabetes. Continue current insulin regimen. 6. Hypertension. Continue current blood pressure regimen. 7. Benign prostatic hypertrophy. Continue Flomax. 8. Dyslipidemia. Continue statin therapy. 9. Cardiomyopathy. Continue to monitor. Follow up with cardiology. Discharge planning for primary team. Dictated By: TAYLOR SIMS/ANALI Conf#: [id number] DID#: [id number] CC: RAI PALUMBO;*EndCC*
== END 2018-10-26 13:58 | disposition home or self-care (01) | DRG 682 ==
LOC: E/R 13:20 → 6WM 15:38
PROVIDERS: ADMIT Hospitalist; ATTEND Hospitalist
DX: I12.9 Hypertensive chronic kidney disease with stage 1 through stage 4 chronic kidney disease, or unspecified chronic kidney disease (principal); I50.23 Acute on chronic systolic (congestive) heart failure; N17.9 Acute kidney failure, unspecified; N18.4 Chronic kidney disease, stage 4 (severe); I48.2 Chronic atrial fibrillation; E11.8 Type 2 diabetes mellitus with unspecified complications; E87.70 Fluid overload, unspecified; I25.5 Ischemic cardiomyopathy; D63.1 Anemia in chronic kidney disease; N40.0 Benign prostatic hyperplasia without lower urinary tract symptoms; N18.9 Chronic kidney disease, unspecified; E78.5 Hyperlipidemia, unspecified; Z79.4 Long term (current) use of insulin; E66.9 Obesity, unspecified; Z68.30 Body mass index [BMI] 30.0-30.9, adult; Z95.810 Presence of automatic (implantable) cardiac defibrillator
CPT/HCPCS: 36415; 71045; 80048; 80053; 80061; 81003; 82043; 82550; 82553; 82962; 83036; 83735; 83880; 84100; 84155; 84300; 84436; 84443; 84479; 84484; 85025; 85610; 85730; 93005; 96374; J1815; J1940